=== PATIENT | male | born 1935 | race Caucasian/White ===

== ENCOUNTER 2019-10-03 18:26 | Emergency (ER) | payer MEDICARE, SELFPAY ==
[2019-10-03] VITALS (8 sets, daily range): BP systolic 177–203; BP diastolic 95–124; PULSE 53–92; RESP 14–16; TEMP 36.6; O2SAT 96–100; BMI 26.7
--- NOTE | 2019-10-03 18:27 | CT_ITS ---
We are attempting to reach an attending provider to discuss findings. An addendum with communication details will be sent when the communication is complete. STUDY: CT BRAIN WITHOUT CONTRAST REASON FOR EXAM: Male, 84 years old. unresponsive/pinpoint pupils RADIATION DOSAGE (If Supplied By Facility): CTDIvol = ( 44.99 ) mGy, DLP = ( 812.98 ) mGycm TECHNIQUE: Transaxial CT imaging of the brain was performed without administration of intravenous contrast material. Individualized dose optimization techniques were used for this CT. COMPARISON: No relevant priors. FINDINGS: Normal soft tissue structures. Normal calvarium. There is moderate cerebral atrophy with widening of the extra-axial spaces and ventricular dilatation. There are areas of decreased attenuation within the white matter tracts of the supratentorial brain, consistent with microvascular disease changes. Normal basal ganglia and thalami. Normal brainstem. Intraparenchymal hemorrhage is noted within the left cerebellar hemisphere and vermis. It measures 3 x 1.9 cm in transverse dimensions. There are no findings of an acute ischemic infarction. Normal visualized paranasal sinuses. CT/Brain/Head without Contrast IMPRESSION: Left intraparenchymal cerebellar hemorrhage. Electronically Signed: Amadou Walker MD at 19:45 EDT , Service support ,
--- NOTE | 2019-10-03 18:28 | EKG12_ITS ---
Test Reason : UNRESPONSIVE Blood Pressure : / mmHG Vent. Rate : 072 BPM Atrial Rate : 072 BPM P-R Int : 182 ms QRS Dur : 092 ms QT Int : 418 ms P-R-T Axes : 060 008 031 degrees QTc Int : 457 ms Poor data quality, interpretation may be adversely affected Normal sinus rhythm Normal ECG Confirmed by DOMINGUEZ HASTINGS, ALFONZO ([id number]), editor trade journal GELY HOLLIDAY ([id number]) on 10/05/2019 3:01:55 PM Referred By: MARIELA Confirmed By:ALFONZO MIX MD
[2019-10-03] MEDS: Etomidate 20 MG/10 ML Vial IV (18:40)
--- NOTE | 2019-10-03 18:43 | ED.VIS.GEN ---
History of Present Illness Chief Complaint: Unresponsive Informant: Friend, Orthotics Technician Onset: Hours Context: Sudden Onset Timing: Continuous Quality: Altered level of consciousness Location: Neighbors home watching movies Current Severity: Severe Maximum Severity: Severe Worsened by: Unknown Relieved by: Nothing Associated Symptoms: Unknown Narrative: Patient is an elderly male who was watching movies at a friend's house. Friend informed paramedics they do not know much about him. Upon arrival he grunts to noxious stimuli. His pupils are pinpoint and he has disconjugate gaze. Paramedics stated that he began to vomit and vomited in route. They are concerned he has a GI bleed. No other history is available. Spoke with his brother. Brother states he has not seen a physician in some time. He is uncertain whether he is taking any medicine. He states he does not smoke or drink. Prior similar symptoms: No Recent Illness/Hospitalization: No - Past Medical History (1) Unknown past medical history Status: Acute Past Medical History - Allergies and Home Meds Allergies/Adverse Reactions: Allergies Unable to Assess Allergy (Verified 10/03/19 18:43) Primary Care Physician: NOT,DEFINED [Primary Care Provider] - Prior records reviewed: No Lives: Alone Smoking Status: Never smoker Alcohol: None Drugs: None Review of Systems ROS: Unable to Obtain Physical Exam Vital Signs/Narrative: Vital Signs Temp Pulse Resp BP Pulse Ox 10/03/19 18:40 62 14 177/110 H 96 10/03/19 18:28 97.8 F 53 L 14 96 Inital Vital Signs reviewed: Yes General: Well nourished, Well developed, Unkempt Head: Normocephalic, Atraumatic. Negative for: Trauma, Tenderness Eyes: - - Pulses are 1 to 2 mm in size nonreactive. He has disconjugate gaze. ENT: Moist mucous membranes, No rhinorrhea, TM's clear Neck: Supple, Nontender, No lymphadenopathy, No JVD Cardiovascular: Regular rhythm, No murmurs, Normal S1, Normal S2, Bradycardia Respiratory: No distress, CTA bilaterally, Chest nontender Abdomen: Soft, Nondistended, Normal bowel sounds Rectal: Deferred Back: Normal Inspection Extremities: No edema Skin: Normal color, - - Dry skin and venous dermatitis lower extremity bilaterally Neurological: Cranial nerves II-XII grossly intact. Negative for: Alert, Oriented x3, Normal Gait Diagnostic/Tx/Re-eval Chest X-Ray - ED: 1 View, Read by ED Physician, - - New chest x-ray reveals endotracheal tube to be approximately 1 cm above the coy. There is an infiltrate in the right middle lobe consistent with aspiration. OG is in proper position. CT was reviewed by me and reveals a cerebellar bleed with compression of the fourth ventricle. Spoke with brother. Patient be transferred to [facility]. [place] was asked to call the auto launch line. - EKG Initial EKG Interpretation: Sinus Rhythm - Sinus rhythm with a ventricular rate of 72. VA interval is 182 ms. QRS duration 92 ms. QT duration 418 ms. [place] is normal. The EKG is normal. - Medical Decision Making Arrives with elevated blood pressure, pinpoint pupils, disconjugate gaze concern for intracranial hemorrhage. Patient is actively vomiting and has coffee-ground noted. Since we were told by paramedics there is no family presumed patient would want everything done. Patient was prepped for oral tracheal the patient to protect his airway since his GCS is 4 and to facilitate testing that is needed. Because patient is vomiting coffee grounds NG was placed for irrigation. He was typed and screened and Protonix was ordered. Spoke with the transfer nurse for [facility] auto launch. She will get a critical care physician and neurosurgeon for me and helicopter has been dispatched. Time of conversation 1932. Blood pressure is elevated. Will start Cardene drip. After discussion with accepting neurosurgeon at [facility] facility, 50 mg of mannitol was ordered per his request. Was made aware of patient's history physical and findings. I was informed helicopter will arrived within 2024 minutes. - Critical Care Time Critical care time (excluding procedures): 30-74 minutes - Critical care time 42 minutes, Discussing w/Patient &/or Family/Checker Cashier - 40 the brother who is his only next of kin he does not have a living will or DURABLE POWER OF BRUSH WORKER. The only request he has is that he would not want to live on a ventilator or have a feeding tube permanently. He was informed unable to determine how good of outcome he will or will not have. He was informed that his best option is to transfer to a facility that can operate on him and care for him., Discussing w/Consultants, Arranging Admission or Transfer, Performing Direct Patient Care at Bedside Procedures Procedure(s): Patient was intubated by RSI technique. He was preoxygenated. He received 20 mg of etomidate followed by 75 mg of rocuronium. He was easily orotracheally intubated using glide scope. A 7.5 Burmese endotracheal tube was placed. OG was placed per nursing staff and Holland was placed per nursing staff ED Disposition - Plan for ED Patient: Disposition: [facility] - Main Diagnosis: Intracranial hemorrhage, Hypertensive emergency, Upper GI hemorrhage, Aspiration pneumonia due to gastric secretions Referrals: NOT,DEFINED [Primary Care Provider] -
[2019-10-03] MEDS: Rocuronium Bromide 50 MG/5 ML Vial 75 MG IV (18:49)
[2019-10-03] MEDS: Propofol 10MG/Ml 1,000 MG/100 ML Bottle 4.8 MG CONT INF (19:00)
--- NOTE | 2019-10-03 19:00 | ED.RN ---
[facility] [phone]
[2019-10-03 19:06] LABS: Absolute Lymphocyte Count 3.45 X10^3/uL (0.83-4.51); Absolute Neutrophil Count 7.3 X10^3/uL (2.0-7.7); Basophil# 0.03 X10^3/uL; Basophil% 0.3 % (0-1); Eosinophils% 1.7 % (0-5); Hematocrit 41.4 % (40-54); Hemoglobin 13.8 g/dL (13.0-16.5); Lymphocyte # 3.45 X10^3/ul (4.0); Lymphocyte % 29.5 % (19-41); Mean Corp Hgb Conc 33.3 g/dL (32-36); Mean Corpuscular Hgb 32.1 pg (27.0-32.0); Mean Corpuscular Volume 96.3 fL (80-94); Mean Platelet Vol. 9.4 fl (6.2-12.0); Monocyte# 0.72 X10^3/uL; Monocyte% 6.1 % (0-10); NRBC Flagged by Analyzer 0 % (0-5); Neutrophil # 7.27 X10^3/uL (2.7-7.7); Neutrophil % 62.1 % (47-70); Platelet Count 300 K/mm3 (150-450); RBC Distribution Width CV 13.7 % (11.6-14.6); RBC Distribution Width SD 48.6 fl (35.1-43.9); White Blood Count 11.7 K/mm3 (4.4-11.0)
[2019-10-03 19:12] LABS: International Normalized Ratio 1.2; Prothrombin Time (Protime)PT. 14.7 SECONDS (11.7-14.9)
[2019-10-03 19:13] LABS: Partial Thromboplast Time 28.6 Seconds (24.1-36.2)
--- NOTE | 2019-10-03 19:15 | RAD_ITS ---
STUDY: X-RAY CHEST REASON FOR EXAM: Male, 84 years old. ETT PLACEMENT, OG TUBE PLACEMENT TECHNIQUE: Single frontal view of the chest. COMPARISON: None. FINDINGS: ET tube terminates 17 mm above the coy. Enteric tube is noted in the stomach. Right lower lobe infiltrate. There is no demonstrated pleural abnormality. Normal size heart. Normal mediastinum and darwin. Normal visualized pulmonary arteries. Normal visualized aortic arch and descending thoracic aorta. Normal visualized thoracic spine. Normal visualized ribs, clavicles, and shoulders. There is no demonstrated abnormality of the visualized soft tissue structures of the upper abdomen. RAD/Chest 1 View (Portable) IMPRESSION: Right lower lobe infiltrate and ET and enteric tubes as above. Electronically Signed: Amadou Walker MD at 19:43 EDT , Service support ,
[2019-10-03 19:20] LABS: ALB/GLOB Ratio 0.6 RATIO (0.9-2.4); AST(SGOT) 21 U/L (15-37); Alanine Aminotransfer ALT/SGPT 22 U/L (16-61); Albumin, Serum 3.1 g/dL (3.2-5.0); Alkaline Phosphatase 97 U/L (45-117); Anion Gap 9 (5-15); BUN 15 mg/dL (7-18); BUN/Creat Ratio 10.9 RATIO (10-20); Calcium,Total 8.5 mg/dL (8.5-10.1); Chloride 107 mmol/L (98-107); Creatinine, Serum 1.38 mg/dL (0.70-1.30); EST Glomerular Filtration Rate 52 mL/min (>60); Est Glom Filt Rate - Afr Amer 63 mL/min (>60); Estimated Creatinine Clearance 39.93 ml/min; Glucose 173 mg/dL (74-106); Potassium 3.8 mmol/L (3.5-5.1); Protein, Total 8.1 g/dL (6.4-8.2); Sodium Level 142 mmol/L (136-145)
[2019-10-03] MEDS: Mannitol 50gm/250ml 50 GM in Premixed Bag 1 BAG IV (19:51)
[2019-10-03] MEDS: Propofol 200 MG/20 ML Vial 40 MG IV BOLUS (20:02)
[2019-10-03 20:03] LABS: Alcohol, Blood (Medical)-Serum < 3.0 mg/dL
== END 2019-10-03 20:17 | disposition short-term general hospital (02) ==
PROVIDERS: Emergency Provider Emergency Medicine
DX: I61.4 Nontraumatic intracerebral hemorrhage in cerebellum (principal); I16.1 Hypertensive emergency; K92.0 Hematemesis; J69.0 Pneumonitis due to inhalation of food and vomit
CPT/HCPCS: 31500; 51702; 70450; 71045; 80053; 80320; 84484; 85025; 85610; 85730; 86850; 86900; 86901; 87040; 93005; 94002; 99251; 99285; J7030; J7050; A4216; G0463; G0480; J0295; J3490

== ENCOUNTER 2020-11-09 12:51 | Inpatient (IN) | payer MEDICARE, SELFPAY ==
[2019-10-03 18:28] VITALS: BMI 26.7
[2020-11-09] VITALS (27 sets, daily range): BP systolic 72–136; BP diastolic 47–95; PULSE 70–178; RESP 12–30; TEMP 36.3–39.6; O2SAT 90–100; BMI 23.6; BMI 24.3
--- NOTE | 2020-11-09 13:26 | EKG12_ITS ---
Test Reason : Blood Pressure : / mmHG Vent. Rate : 181 BPM Atrial Rate : 208 BPM P-R Int : 000 ms QRS Dur : 082 ms QT Int : 238 ms P-R-T Axes : 000 034 -26 degrees QTc Int : 413 ms Atrial fibrillation with rapid ventricular response with premature ventricular or aberrantly conducte d complexes Nonspecific ST and T wave abnormality Abnormal ECG Confirmed by HAO HASTINGS, SYD ([id number]), digital editor CHRISTO WYNN ([id number]) on 11/11/2020 10:44:24 A M Referred By: HALEY Confirmed By:BRY BUI MD
--- NOTE | 2020-11-09 13:26 | CT_ITS ---
HISTORY: Weakness. TECHNIQUE: Multiple axial images were obtained of the brain without intravenous contrast. A radiation dose optimization technique was used for this scan. # of images incl. paperwork: 259. COMPARISON: 10/03/2019. FINDINGS: Motion artifact lowers the sensitivity of the examination. BRAIN PARENCHYMA:Multiple small foci and zones of low attenuation in the cerebral white matter most compatible with chronic small vessel ischemic gliosis. INTRACRANIAL HEMORRHAGE: No acute intracranial hemorrhage. CSF SPACES/MASS EFFECT: Diffuse atrophy with compensatory ventricular enlargement. No midline shift or other significant mass effect. ORBITS: Unremarkable. CALVARIUM: Intact. PARANASAL SINUSES AND MASTOID AIR CELLS: Fluid in the left maxillary sinus. ASPECTS Score for Acute Strokes: 10. CT/Brain/Head without Contrast IMPRESSION: No acute intracranial process identified. Chronic small vessel ischemic gliosis. Individualized dose optimization techniques were used for this CT. at 1612 Reported and signed by: Zena Hunter MD Electronically Signed: Zena Hunter MD at 16:11 EDT Tel , Service support ,
--- NOTE | 2020-11-09 13:58 | EX.ED.DYSGE1 ---
HPI History of Present Illness Chief Complaint: Abd Pain Informant: patient Onset/Context/Timing Onset: Days (2) Context: Sudden Onset Timing: Continuous Quality: Aching Location: Diffuse Worsened by: Nothing Relieved by: Nothing Narrative Narrative: Patient presents with abdominal pain that has been getting worse over the past 2 days. Family states patient has been getting weaker and has been unable to stand on his own over the past couple days. Patient states his pain is diffuse and aching. Patient states his pain has been constant. Patient denies any nausea or vomiting. Patient denies any diarrhea. Patient denies any melena or hematochezia. Patient admits to some dysuria but denies any hematuria or frequency. Patient admits to subjective fevers at home. [facility] Medical History (Updated 11/09/20 @ 17:28 by Mackenzie Presley) Hemorrhagic stroke Hypertension Home Medications Unobtainable 10/03/19 [History Last Taken Unknown] Allergy/AdvReac Type Severity Reaction Status Date / Time Unable to Assess Allergy Verified 11/09/20 12:53 no surgical history Social History Smoking Status: Never smoker ROS ROS ED Constitutional Constitutional ED: Reports fever(s) and subjective; Denies chills Eyes Eyes: Denies blurry vision or change in vision ENT ENT ED: Denies rhinorrhea or sore throat Cardiovascular Cardiovascular: Denies chest pain or palpitations Respiratory/Chest Respiratory/Chest: Denies cough or dyspnea Gastrointestinal Gastrointestinal: Denies nausea or vomiting Genitourinary Genitourinary ED: Denies dysuria or hematuria Musculoskeletal Musculoskeletal: Denies back pain or neck pain Integumentary Denies abscess or rash Neurologic Neurologic: Denies headache(s) or weakness Allergic/Immunologic Allergic/Immunologic ED: Denies mouth swelling or urticaria EXAM Physical Exam Const Vital Signs: 11/09/20 12:51 11/09/20 14:42 11/09/20 14:45 Temperature 97.3 F L 103.1 F H 103.1 F H Temperature Source Temporal Oral Oral Pulse Rate 70 170 H 178 H Respiratory Rate 16 25 H 24 H Respiratory Pattern Blood Pressure 128/84 H 125/95 H 125/95 H Blood Pressure Mean 98 105 105 Blood Pressure Source Blood Pressure Position Blood Pressure Location Pulse Ox 92 91 91 Oxygen Delivery Method Room Air Room Air Room Air Oxygen Flow Rate (L/min) Fraction of Inspired Oxygen (FIO2) 11/09/20 14:46 11/09/20 14:58 11/09/20 15:01 Temperature 103.1 F H 103.1 F H 103.1 F H Temperature Source Oral Oral Oral Pulse Rate 167 H 91 94 Respiratory Rate 24 H 22 H 28 H Respiratory Pattern Blood Pressure 125/95 H 117/79 117/79 Blood Pressure Mean 105 91 91 Blood Pressure Source Blood Pressure Position Blood Pressure Location Pulse Ox 91 90 92 Oxygen Delivery Method Room Air Nasal Cannula Nasal Cannula Oxygen Flow Rate (L/min) 2 2 Fraction of Inspired Oxygen (FIO2) 11/09/20 16:15 11/09/20 16:39 11/09/20 16:54 Temperature 100.1 F H 100.1 F H Temperature Source Temporal Temporal Pulse Rate 130 H 125 H 126 H Respiratory Rate 30 H 26 H 22 H Respiratory Pattern Tachypnea Blood Pressure 136/91 H 115/74 Blood Pressure Mean 106 87 Blood Pressure Source Monitor Blood Pressure Position Supine Blood Pressure Location Right Arm Pulse Ox 98 99 99 Oxygen Delivery Method Bi-pap Bi-pap Oxygen Flow Rate (L/min) Fraction of Inspired Oxygen (FIO2) 50 50 Positive unkempt General Appearance ED: unkempt and NAD HEENT Reports dry mucous membranes Mouth ED: Yes dry mucous membranes Mouth: dry mucous membranes Eyes PERRL and EOMs intact bilaterally Neck supple and no JVD Resp normal respiratory effort and clear to auscultation bilaterally Cardio Rate: tachycardic Rhythm: abnormal rhythm irregularly irregular GI normal to inspection, nondistended, normoactive bowel sounds and non-tender Palpation: soft Neuro CN's II-XII intact bilaterally and no sensory deficits noted Sensorium / Orientation: alert Motor Exam: strength 5/5 throughout Psych mental status grossly normal Appearance: unkempt MDM MDM MDM Narrative Medical decision making narrative: Patient was given IV fluids. Patient was given a Cardizem bolus. Patient's heart rate improved after this. Patient temperature was rechecked and was 103. Patient was given rectal Tylenol. Patient was started on Zosyn and vancomycin. CBC was within normal limits. PT with INR and PTT were essentially normal. Comprehensive metabolic profile showed an elevated BUN of 25 and creatinine of 2.63. These were increased from previous results. Troponin was elevated at 0.371. Lactate was elevated at 3.7. CT scan of the brain was obtained. There is no acute intracranial abnormality. There are chronic changes. This was interpreted by the radiologist and reviewed by myself. After getting 2 L of fluids, patient started having some wheezing and became hypoxic. Patient was placed on BiPAP at that time. Patient is doing better on BiPAP. Patient heart rate increased into the 140s again. Patient was started on a Cardizem drip at that time. Case was discussed with Dr. Archer from ICU. He is agreeable with admitting the patient to ICU. Case was discussed with the hospitalist. He recommended placing a Holland and obtaining a urinalysis. This was ordered. He will admit the patient to ICU to his service. Family understands and is agreeable with the plan. All questions were answered. Lab Data Attestation: I reviewed the patient's lab results. Labs: Laboratory Results - last 24 hr 11/09/20 11/09/20 11/09/20 13:50 13:50 13:50 WBC 6.6 RBC 4.13 L Hgb 13.1 Hct 40.0 MCV 96.9 H MCH 31.7 MCHC 32.8 RDW Std Deviation 52.6 H RDW Coeff of Navneet 14.6 Plt Count 211 MPV 9.4 Immature Gran % (Auto) 0.300 Neut % (Auto) 89.5 H Lymph % (Auto) 8.4 L Lee % (Auto) 1.5 Eos % (Auto) 0.0 Baso % (Auto) 0.3 Absolute Neuts (auto) 5.9 Absolute Lymphs (auto) 0.55 L Nucleated RBC % 0 PT 17.7 H INR 1.5 APTT 30.1 Sodium 140 Potassium 3.5 Chloride 107 Carbon Dioxide 23.0 Anion Gap 10 BUN 25 H Creatinine 2.63 H Estim Creat Clear Calc 0.00 Est GFR (MDRD) Af Amer 30 L Est GFR (MDRD) Non-Af 25 L BUN/Creatinine Ratio 9.5 L Glucose 115 H Lactic Acid Calcium 8.8 Total Bilirubin 1.00 AST 15 ALT 12 L Alkaline Phosphatase 104 Troponin I 0.371 H Total Protein 8.7 H Albumin 2.5 L Globulin 6.2 H Albumin/Globulin Ratio 0.4 L 11/09/20 13:50 WBC RBC Hgb Hct MCV MCH MCHC RDW Std Deviation RDW Coeff of Navneet Plt Count MPV Immature Gran % (Auto) Neut % (Auto) Lymph % (Auto) Lee % (Auto) Eos % (Auto) Baso % (Auto) Absolute Neuts (auto) Absolute Lymphs (auto) Nucleated RBC % PT INR APTT Sodium Potassium Chloride Carbon Dioxide Anion Gap BUN Creatinine Estim Creat Clear Calc Est GFR (MDRD) Af Amer Est GFR (MDRD) Non-Af BUN/Creatinine Ratio Glucose Lactic Acid 3.7 H* Calcium Total Bilirubin AST ALT Alkaline Phosphatase Troponin I Total Protein Albumin Globulin Albumin/Globulin Ratio Radiography Chest X-Ray - ED: 1 View, Read by ED Physician, Read by Radiologist, Right Infiltrate and Left Infiltrate Diagnostic Testing: Radiology Impression Brain CT 11/09/20 13:26 IMPRESSION: No acute intracranial process identified. Chronic small vessel ischemic gliosis. Individualized dose optimization techniques were used for this CT. at 1612 Reported and signed by: Zena Hunter MD Electronically Signed: Znea Hunter MD at 16:11 EDT Tel , Service support , Chest X-Ray 11/09/20 16:15 IMPRESSION: Mild bibasilar atelectasis or pneumonia. Consider follow-up to resolution. at 1629 Reported and signed by: Zena Hunter MD Electronically Signed: Zena Hunter MD at 16:28 EDT Tel , Service support , EKG Initial EKG: Attestation: I personally reviewed and interpreted this EKG as follows: Interpretation: Atrial Fibrillation (181) and Non-Specific ST Changes Prior: Changed (The atrial fibrillation is new compared to previous EKG dated 10/03/2019.) Treatment and Re-Evaluation Vital Sign Attestation:: Vital signs reviewed prior to admission. Patient is still tachycardic. Patient is on Cardizem drip for this however. Blood pressure is stable. Critical Care Time Critical Care Time: Yes Critical care time (excluding procedures): 30-74 minutes (39 minutes), Including time spent:, Discussing w/Patient &/or Family/Stogy Maker, Discussing w/Consultants, Arranging Admission or Transfer and Performing Direct Patient Care at Bedside Discharge Plan Dx/Rx/DC Orders Clinical Impression: Severe sepsis, Atrial fibrillation with rapid ventricular response, Acute kidney injury, Elevated troponin, Pneumonia Disposition Disposition: Acute Care Hospital [facility]
[2020-11-09 14:07] LABS: Absolute Lymphocyte Count 0.55 X10^3/uL (0.83-4.51); Absolute Neutrophil Count 5.9 X10^3/uL (2.0-7.7); Basophil# 0.02 X10^3/uL; Basophil% 0.3 % (0-1); Hemoglobin 13.1 g/dL (13.0-16.5); Lymphocyte # 0.55 X10^3/ul (0.83-4.51); Lymphocyte % 8.4 % (19-41); Mean Corp Hgb Conc 32.8 g/dL (32-36); Mean Corpuscular Hgb 31.7 pg (27.0-32.0); Mean Corpuscular Volume 96.9 fL (80-94); Mean Platelet Vol. 9.4 fl (6.2-12.0); Monocyte% 1.5 % (0-10); NRBC Flagged by Analyzer 0 % (0-5); Neutrophil # 5.86 X10^3/uL (2.7-7.7); Neutrophil % 89.5 % (47-70); POSITIVE DIFFERENTIAL YES; POSITIVE MORPHOLOGY YES; Platelet Count 211 K/mm3 (150-450); RBC Distribution Width CV 14.6 % (11.6-14.6); RBC Distribution Width SD 52.6 fl (35.1-43.9); Red Blood Count 4.13 M/mm3 (4.6-6.2); White Blood Count 6.6 K/mm3 (4.4-11.0)
[2020-11-09 14:08] LABS: Differential Indicated SCAN CRITERIA MET
[2020-11-09 14:20] LABS: International Normalized Ratio 1.5; Partial Thromboplast Time 30.1 Seconds (24.1-36.2); Prothrombin Time (Protime)PT. 17.7 SECONDS (11.7-14.9)
[2020-11-09 14:21] LABS: ALB/GLOB Ratio 0.4 RATIO (0.9-2.4); AST(SGOT) 15 U/L (15-37); Alanine Aminotransfer ALT/SGPT 12 U/L (16-61); Albumin, Serum 2.5 g/dL (3.2-5.0); Alkaline Phosphatase 104 U/L (45-117); Anion Gap 10 (5-15); BUN 25 mg/dL (7-18); BUN/Creat Ratio 9.5 RATIO (10-20); Calcium,Total 8.8 mg/dL (8.5-10.1); Chloride 107 mmol/L (98-107); Creatinine, Serum 2.63 mg/dL (0.70-1.30); EST Glomerular Filtration Rate 25 mL/min (>60); Est Glom Filt Rate - Afr Amer 30 mL/min (>60); Globulin 6.2 g/dL (2.2-4.2); Glucose 115 mg/dL (74-106); Potassium 3.5 mmol/L (3.5-5.1); Protein, Total 8.7 g/dL (6.4-8.2); Sodium Level 140 mmol/L (136-145)
[2020-11-09] MEDS: 0.9% Normal Saline 1,000 ML 1000 ML IV (14:28)
[2020-11-09 14:34] LABS: Lactic Acid 3.7 mmol/L (0.4-1.9)
[2020-11-09] MEDS: Acetaminophen 650 MG Suppository RC (14:52)
[2020-11-09] MEDS: dilTIAZem 25 MG/5 ML Vial IV BOLUS (14:52)
[2020-11-09] MEDS: 0.9% Normal Saline 1,000 ML 999 ML IV (15:33)
--- NOTE | 2020-11-09 16:15 | RAD_ITS ---
HISTORY: Fever. TECHNIQUE: XR Chest 1 View. # of images incl. paperwork: 1. COMPARISON: 10/03/2019. FINDINGS: CARDIOMEDIASTINAL STRUCTURES: Cardiac silhouette mildly enlarged. Mediastinal contour unchanged. LUNGS: Mild bibasilar opacities. PLEURA: No pleural effusion or pneumothorax. OSSEOUS STRUCTURES: Degenerative change. RAD/Chest 1 View (Portable) IMPRESSION: Mild bibasilar atelectasis or pneumonia. Consider follow-up to resolution. at 1629 Reported and signed by: Zena Hunter MD Electronically Signed: Zena Hunter MD at 16:28 EDT Tel , Service support ,
[2020-11-09] MEDS: Ipratropium/Albuterol Sulfate 3 ML AMPUL.NEB INHALATION (16:23)
--- NOTE | 2020-11-09 16:30 | ED.RN ---
THIS NURSE ENTERED THE ROOM FOR HELP WITH PT AND XRAY. PT VERY CONFUSED AND AGITATED. PT SPO2 76%. PT PUT ON BIPAP AND AEROSOL ORDERED. IGNACIO RN AWARE .
--- NOTE | 2020-11-09 16:39 | NURSING ---
DR ASHU MCCLOUD
--- NOTE | 2020-11-09 17:09 | NURSING ---
ICU [facility] SEVERE SEPSIS, AFIB W RVR, JOSE
--- NOTE | 2020-11-09 17:15 | NURSING ---
ICU 2
[2020-11-09 17:55] LABS: Reflex Lactate? Y
[2020-11-09 18:20] LABS: Bacteria 0 SEEN /hpf (None Seen); Mucous, Urine 0 SEEN /hpf (<or=2+); Squamous Epithelial Cells - UA 0 SEEN /hpf (0-5)
[2020-11-09 18:21] LABS: Color, Urine Yellow (Yellow); Glucose, Dipstick Normal (Normal); Ketone-Dipstick 5 mg/dl (Negative); Leukocyte Esterase-Dipstick 500 /ul (Negative); Nitrite-Dipstick Negative (Negative); Occult Blood-Urine 150 /ul (Negative); Protein-Dipstick 30 mg/dl (Negative); Urine Bilirubin Dipstick Negative (Negative); Urine Clarity Cloudy (Clear); Urine Urobilinogen Normal (Normal)
[2020-11-09 18:28] LABS: Amorphous Sediment 3+; White Blood Cells 25-50 SEEN /hpf (0-5)
[2020-11-09 18:29] LABS: Red Blood Cells-Urine 0-5 SEEN /hpf (0-5)
--- NOTE | 2020-11-09 18:40 | ED.RN ---
FOR PT UPDATES, PLEASE CALL PT'S [id number] [phone]
--- NOTE | 2020-11-09 19:02 | CPS ---
Patient's BiPAP settings changed to 12/6 and 40% prior to leaving ER. Patient tolerated these changes good. RN aware of changes.
[2020-11-09 19:17] LABS: Lactic Acid 5.6 mmol/L (0.4-1.9)
--- NOTE | 2020-11-09 19:31 | ECHOD_ITS ---
Reason For Study: AFIB Procedure This was a 2D Doppler, Color Flow transthoracic echocardiogram. Exam performed portable in ICU/CCU. Left Ventricle Normal LV size. The estimated ejection fraction is 45 %. Diastolic function is indeterminate. There is mild global hypokinesis of the left ventricle. Right Ventricle Normal RV size. Normal systolic function. Atria The left atrium is moderately enlarged. Normal right atrium. No doppler evidence for ASD. Mitral Valve There is no mitral valve stenosis. Trivial mitral valve insufficiency. Tricuspid Valve There is no tricuspid stenosis. Mild tricuspid valve insufficiency. Pulmonary artery systolic pressure is 40 mmHg. Aortic Valve Trisinus/trileaflet aortic valve. There is no aortic stenosis. Trivial aortic valve insufficiency. Pulmonic Valve There is no pulmonic valvular stenosis. Trivial pulmonic valve insufficiency. Great Vessels Normal aortic root. Pericardium/Pleural No pericardial effusion. MMode/2D Measurements & Calculations LVIDd: 5.1 cm IVSd: 0.77 cm Ao root diam: 3.8 cm LVIDs: 4.5 cm LVPWd: 0.87 cm RVDd: 3.8 cm FS: 12.6 % LAV(MOD-bp): 84.7 ml EDV(MOD-sp4): 99.7 ml EDV(MOD-sp2): 110.7 ml LAV(MOD-bp) Indexed: 42.8 ml/m2 ESV(MOD-sp4): 67.5 ml ESV(MOD-sp2): 78.7 ml LAV(MOD-sp2): 69.0 ml EF(MOD-sp4): 32.3 % EF(MOD-sp2): 29.0 % LAV(MOD-sp4): 80.1 ml SV(MOD-sp4): 32.3 ml SV(MOD-sp2): 32.1 ml LA A4 area: 25.8 cm2 LA dimension(2D): 4.6 cm RA A4 area: 20.6 cm2 Doppler Measurements & Calculations Ao V2 max: 121.4 cm/sec LV V1 max: 64.7 cm/sec PA V2 max: 99.8 cm/sec Ao max P.0 mmHg LV V1 max P.7 mmHg PI end-d nichelle: 149.7 cm/sec TR max nichelle: 311.7 cm/sec TR max P.9 mmHg ECHO/Echo Complete Interpretation Summary The estimated ejection fraction is 45 %. Diastolic function is indeterminate. There is mild global hypokinesis of the left ventricle. The left atrium is moderately enlarged. Ordering Physician: Brijesh Hoffman Performed By: Alyssa Alarcon, LLUVIA, RVT
[2020-11-09] MEDS: 0.9% Normal Saline 1,000 ML 100 ML IV (20:40)
[2020-11-09 21:05] LABS: Base Excess -9 mmol/L (-2 to +2); Bicarbonate 16.1 mmol/L (22-26); Blood Gas Specimen Type ART; FI02 40; O2 Delivery Device BiPAP; PEEP 6; PO2 144 mmHG (75-100); PS 6; RR 12; SITE L Radial; SO2 99 % (95-99); Total Carbon Dioxide 17 mmol/L; pCO2 27.1 mmHg (35-45); pH 7.38 (7.35-7.45)
--- NOTE | 2020-11-09 21:23 | HP.PCM.HOS_ITS ---
HPI - General General Date of Admission: 11/09/20 HPI Narrative MARYELLEN HICKEY, is a 85 M who presents from home unresponsive. Family states that they went to check on him because he was not answering her phone calls and they found him on the floor in the house. He does not respond any questions other than shaking his head and mumbling. On occasion if I asked him he has pain he does clearly say yes but he has pain to everything including his abdomen, back, lower legs, arms as well as chest. So is unclear as to what is actually causing any kind of discomfort. Per family he is noncompliant with any medications, he states that he never wants to get taking care of any is 1 to go to the doctor. Last year he had a stroke and was taken to an outside facility and he refused to follow the guidelines of rehab when he went home. Unfortunately because he does not interact with his family in any significant manner they are unaware of any medications he takes. In the ER there was some complaining of abdominal pain and dysuria however a CT scan of his abdomen was not performed secondary to his elevated creatinine and also he was not following commands appropriately so the images would likely not have been helpful. He also had an elevated troponin though he was not complaining of any specific chest pain as mentioned previously and his creatinine was elevated to 2.63, and was 1.38 about a year ago. [facility] Medical History (Updated 11/09/20 @ 21:[address] Brijesh Hoffman MD) Hemorrhagic stroke Hypertension Home Medications Unobtainable 10/03/19 [History Last Taken Unknown] Allergy/AdvReac Type Severity Reaction Status Date / Time Unable to Assess Allergy Verified 11/09/20 12:53 unable to obtain unable to obtain Social History Smoking Status: Never smoker ROS Review of Systems ROS Unobtainable: due to mental status Vital Signs Vital Signs Vital Signs: 11/09/20 12:51 11/09/20 14:42 11/09/20 14:45 Temperature 97.3 F L 103.1 F H 103.1 F H Temperature Source Temporal Oral Oral Pulse Rate 70 170 H 178 H Respiratory Rate 16 25 H 24 H Respiratory Pattern Blood Pressure 128/84 H 125/95 H 125/95 H Blood Pressure [BP] Blood Pressure Mean 98 105 105 Blood Pressure Mean [BP] Blood Pressure Source Blood Pressure Source [BP] Blood Pressure Position Blood Pressure Position [BP] Blood Pressure Location Blood Pressure Location [BP] Pulse Ox 92 91 91 Oxygen Delivery Method Room Air Room Air Room Air Oxygen Flow Rate (L/min) Fraction of Inspired Oxygen (FIO2) 11/09/20 14:46 11/09/20 14:58 11/09/20 15:01 Temperature 103.1 F H 103.1 F H 103.1 F H Temperature Source Oral Oral Oral Pulse Rate 167 H 91 94 Respiratory Rate 24 H 22 H 28 H Respiratory Pattern Blood Pressure 125/95 H 117/79 117/79 Blood Pressure [BP] Blood Pressure Mean 105 91 91 Blood Pressure Mean [BP] Blood Pressure Source Blood Pressure Source [BP] Blood Pressure Position Blood Pressure Position [BP] Blood Pressure Location Blood Pressure Location [BP] Pulse Ox 91 90 92 Oxygen Delivery Method Room Air Nasal Cannula Nasal Cannula Oxygen Flow Rate (L/min) 2 2 Fraction of Inspired Oxygen (FIO2) 11/09/20 16:15 11/09/20 16:39 11/09/20 16:54 Temperature 100.1 F H 100.1 F H Temperature Source Temporal Temporal Pulse Rate 130 H 125 H 126 H Respiratory Rate 30 H 26 H 22 H Respiratory Pattern Tachypnea Blood Pressure 136/91 H 115/74 Blood Pressure [BP] Blood Pressure Mean 106 87 Blood Pressure Mean [BP] Blood Pressure Source Monitor Blood Pressure Source [BP] Blood Pressure Position Supine Blood Pressure Position [BP] Blood Pressure Location Right Arm Blood Pressure Location [BP] Pulse Ox 98 99 99 Oxygen Delivery Method Bi-pap Bi-pap Oxygen Flow Rate (L/min) Fraction of Inspired Oxygen (FIO2) 50 50 11/09/20 17:46 11/09/20 17:52 11/09/20 17:54 Temperature 98.5 F 98.5 F Temperature Source Temporal Temporal Pulse Rate 127 H 111 H 105 H Respiratory Rate 20 H 22 H 18 Respiratory Pattern Blood Pressure 84/71 L 102/78 102/78 Blood Pressure [BP] Blood Pressure Mean 75 86 86 Blood Pressure Mean [BP] Blood Pressure Source Blood Pressure Source [BP] Blood Pressure Position Blood Pressure Position [BP] Blood Pressure Location Blood Pressure Location [BP] Pulse Ox 98 99 98 Oxygen Delivery Method Room Air Bi-pap Bi-pap Oxygen Flow Rate (L/min) Fraction of Inspired Oxygen (FIO2) 11/09/20 18:21 11/09/20 18:36 11/09/20 18:39 Temperature 101.7 F H Temperature Source Temporal Pulse Rate 124 H 125 H 116 H Respiratory Rate 19 H 22 H Respiratory Pattern Blood Pressure 98/77 Blood Pressure [BP] Blood Pressure Mean 84 Blood Pressure Mean [BP] Blood Pressure Source Blood Pressure Source [BP] Blood Pressure Position Blood Pressure Position [BP] Blood Pressure Location Blood Pressure Location [BP] Pulse Ox 99 98 Oxygen Delivery Method Bi-pap Oxygen Flow Rate (L/min) Fraction of Inspired Oxygen (FIO2) 50 40 11/09/20 19:00 11/09/20 19:53 11/09/20 20:00 Temperature 103.2 F H 103.3 F H Temperature Source Core Core Pulse Rate 117 H 105 H 108 H Respiratory Rate 20 H 20 H Respiratory Pattern Blood Pressure 92/68 Blood Pressure [BP] 90/62 Blood Pressure Mean 76 Blood Pressure Mean [BP] 71 Blood Pressure Source Monitor Blood Pressure Source [BP] Monitor Blood Pressure Position Semi-Fowlers Blood Pressure Position [BP] Semi-Fowlers Blood Pressure Location Right Arm Blood Pressure Location [BP] Right Arm Pulse Ox 98 97 Oxygen Delivery Method Bi-pap Bi-pap Oxygen Flow Rate (L/min) Fraction of Inspired Oxygen (FIO2) 40 40 11/09/20 21:00 Temperature Temperature Source Pulse Rate 98 Respiratory Rate Respiratory Pattern Blood Pressure Blood Pressure [BP] Blood Pressure Mean Blood Pressure Mean [BP] Blood Pressure Source Blood Pressure Source [BP] Blood Pressure Position Blood Pressure Position [BP] Blood Pressure Location Blood Pressure Location [BP] Pulse Ox Oxygen Delivery Method Oxygen Flow Rate (L/min) Fraction of Inspired Oxygen (FIO2) Weight Weight: 169 lb 12.095 oz Body Mass Index (BMI) 24.3 Physical Exam Const alert General Appearance: uncooperative Orientation / Consciousness: confused and disoriented HEENT normocephalic Mouth: dry mucous membranes Eyes PERRL and conjunctivae normal Neck supple and no JVD Resp normal respiratory effort and clear to auscultation bilaterally Auscultation: Negative for crackles, rales, rhonchi or wheezes Cardio regular rhythm, S1 normal heart sound, S2 normal heart sound and no murmurs Rate: tachycardic GI soft to palpation, non-tender and non-distended; Negative for hepatosplenomegaly Extremity no clubbing, cyanosis or edema Skin no rashes or lesions noted Skin Narrative: Very dry and family states that he refused to take care of himself Neuro Sensorium / Orientation: confused Psych Appearance: unkempt Results Lab / Micro Data Result Diagrams: 11/09/20 13:50 11/09/20 13:50 Labs: Laboratory Results - last 24 hr 11/09/20 11/09/20 11/09/20 13:50 13:50 13:50 WBC 6.6 RBC 4.13 L Hgb 13.1 Hct 40.0 MCV 96.9 H MCH 31.7 MCHC 32.8 RDW Std Deviation 52.6 H RDW Coeff of [place] 14.6 Plt Count 211 MPV 9.4 Immature Gran % (Auto) 0.300 Neut % (Auto) 89.5 H Lymph % (Auto) 8.4 L [place] % (Auto) 1.5 Eos % (Auto) 0.0 Baso % (Auto) 0.3 Absolute Neuts (auto) 5.9 Absolute Lymphs (auto) 0.55 L Nucleated RBC % 0 PT 17.7 H INR 1.5 APTT 30.1 Sodium 140 Potassium 3.5 Chloride 107 Carbon Dioxide 23.0 Anion Gap 10 BUN 25 H Creatinine 2.63 H Estim Creat Clear Calc 0.00 Est GFR (MDRD) Af Amer 30 L Est GFR (MDRD) Non-Af 25 L BUN/Creatinine Ratio 9.5 L Glucose 115 H Lactic Acid Calcium 8.8 Total Bilirubin 1.00 AST 15 ALT 12 L Alkaline Phosphatase 104 Troponin I 0.371 H Total Protein 8.7 H Albumin 2.5 L Globulin 6.2 H Albumin/Globulin Ratio 0.4 L Urine Color Urine Clarity Urine pH Ur Specific [place] Urine Protein Urine Glucose (UA) Urine Ketones Urine Occult Blood Urine Nitrite Urine Bilirubin Urine Urobilinogen Ur Leukocyte Esterase Urine RBC Urine WBC Ur Squamous Epith Cells Amorphous Sediment Urine Bacteria Urine Mucus 11/09/20 11/09/20 11/09/20 13:50 18:15 18:17 WBC RBC Hgb Hct MCV MCH MCHC RDW Std Deviation RDW Coeff of [place] Plt Count MPV Immature Gran % (Auto) Neut % (Auto) Lymph % (Auto) [place] % (Auto) Eos % (Auto) Baso % (Auto) Absolute Neuts (auto) Absolute Lymphs (auto) Nucleated RBC % PT INR APTT Sodium Potassium Chloride Carbon Dioxide Anion Gap BUN Creatinine Estim Creat Clear Calc Est GFR (MDRD) Af Amer Est GFR (MDRD) Non-Af BUN/Creatinine Ratio Glucose Lactic Acid 3.7 H* 5.6 H* Calcium Total Bilirubin AST ALT Alkaline Phosphatase Troponin I Total Protein Albumin Globulin Albumin/Globulin Ratio Urine Color Yellow Urine Clarity Cloudy Urine pH 5.0 Ur Specific [place] 1.020 Urine Protein 30 H Urine Glucose (UA) Normal Urine Ketones 5 H Urine Occult Blood 150 H Urine Nitrite Negative Urine Bilirubin Negative Urine Urobilinogen Normal Ur Leukocyte Esterase 500 H Urine RBC 0-5 SEEN Urine WBC 25-50 SEEN Ur Squamous Epith Cells 0 SEEN Amorphous Sediment 3+ Urine Bacteria 0 SEEN Urine Mucus 0 SEEN Micro: Microbiology 11/09/20 13:55 SARS-CoV-2 Antigen (Rapid) - Final Mucosa - Nose ABG Data ABG results: ABG 11/09/20 21:00 Specimen Type ART Sample Site L Radial pH 7.38 Bicarbonate Actual 16.1 L Total CO2 17 Base Excess -9 L O2 Saturation 99 O2 % 40 ABG pCO2 27.1 L ABG pO2 144 H Sammy Test N/A Respiration Rate 12 O2 Delivery Device BiPAP POC PEEP 6 POC Pressure Suppt [address] 11/09/20 13:26 IMPRESSION: No acute intracranial process identified. Chronic small vessel ischemic gliosis. Individualized dose optimization techniques were used for this CT. at 1612 Reported and signed by: Zena Hunter MD Electronically Signed: eZna Hunter MD at 16:11 EDT Tel , Service support , Chest X-Ray 11/09/20 16:15 IMPRESSION: Mild bibasilar atelectasis or pneumonia. Consider follow-up to resolution. at 1629 Reported and signed by: Zena Hunter MD Electronically Signed: Zena Hunter MD at 16:28 EDT Tel , Service support , Assessment & Plan Assessment/Plan (1) Severe sepsis: (2) Pneumonia: QUALIFIERS: Laterality: bilateral Lung location: lower lobe of lung (3) UTI (urinary tract infection): QUALIFIERS: Urinary tract infection type: acute cystitis Hematuria presence: with hematuria Qualified Code(s): N30.01 - Acute cystitis with hematuria (4) Acute kidney injury: (5) Elevated troponin: (6) Atrial fibrillation with rapid ventricular response: PLAN: 1. Severe sepsis secondary to possible pneumonia versus UTI/JOSE on unknown baseline/new onset A. fib with RVR and elevated troponin/acute hypoxic respiratory failure -Unsure as to the source of his sepsis therefore will cover him broadly with vancomycin and Zosyn -Creatinine is too high to obtain a CT scan and he is too agitated at times to be worse that still for imaging therefore will defer CT scan of his abdomen and pelvis -Chest x-ray is read as bilateral atelectasis versus pneumonia and infiltrate, and unfortunately he was given antibiotics before a [place] could be placed in a UA obtained however the UA demonstrated 500 leukocyte esterase with elevated white blood cell count however there was no bacteria. Culture is pending -Blood cultures are also pending -We will continue with IV fluids, he received about 2500 cc so far however after the fluid boluses he became short of breath and hypoxic and was placed on BiPAP. 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 fib though would be cautious with anticoagulation secondary to his hemorrhagic stroke last year -Given his agitation we will give him 1 dose of Haldol 2. Unsure of the rest of his medical history as he does not see physicians and does not take any chronic medications that his family is aware of at this time DVT: Heparin Charges/Coding Visit Charges Inpatient E&M: 08858 Init Hosp L3
[2020-11-09] MEDS: Heparin Injection (Vial) 5,000 UNIT/ML VIAL 5000 UNIT SC (21:37)
[2020-11-10] VITALS (44 sets, daily range): BP systolic 70–133; BP diastolic 55–99; PULSE 66–155; RESP 16–24; TEMP 37.1–38.2; O2SAT 95–100
--- NOTE | 2020-11-10 00:41 | PCM.RX.CS ---
Consult Pharmacy has been consulted to manage selected antiobiotic: Vancomycin Type of Consult: New start Suspected Infection: Sepsis Labs: Sodium 140 mmol/L (136-145) 11/09/20 13:50 Potassium 3.5 mmol/L (3.5-5.1) 11/09/20 13:50 Chloride 107 mmol/L (98-107) 11/09/20 13:50 Carbon Dioxide 23.0 mmol/L (21.0-32.0) 11/09/20 13:50 Anion Gap 10 (5-15) 11/09/20 13:50 BUN 25 mg/dL (7-18) H 11/09/20 13:50 Creatinine 2.63 mg/dL (0.70-1.30) H 11/09/20 13:50 Est GFR (MDRD) Af Amer 30 mL/min (>60) L 11/09/20 13:50 Est GFR (MDRD) Non-Af 25 mL/min (>60) L 11/09/20 13:50 BUN/Creatinine Ratio 9.5 RATIO (10-20) L 11/09/20 13:50 Glucose 115 mg/dL (74-106) H 11/09/20 13:50 Microbiology: Microbiology 11/09/20 15:13 Blood Culture (Wb) - Anticubital Right Blood Culture - Preliminary 11/09/20 13:55 Mucosa - Nose SARS-CoV-2 Antigen (Rapid) - Final Weight used for dosin kg Estimated Creatinine Clearance: 21.97 Goal Trough: 15-20 mcg/mL Pharmacy Plan for Drug Dosing: Pharmacy Service will continue to monitor and adjust dosing as required. Medications Vancomycin HCl 750 mg/ Sodium (Chloride) 265 mls @ 250 mls/hr IV Q24H CANDIS Discontinued Medications Vancomycin HCl 2,000 mg/ (Sodium Chloride) 540 mls @ 250 mls/hr IV X1 ONE Stop: 11/09/20 17:39 Last Admin: 11/09/20 19:15 Dose: Infused Documented by: Follow-Up Labs: Trough Vancomycin Labs to be done on [date and time ordered]: 11/11 @ 1630
[2020-11-10] MEDS: 0.9% Normal Saline 1,000 ML 150 ML IV ×2 (03:35→15:29)
[2020-11-10 04:20] LABS: Anion Gap 13 (5-15); BUN 34 mg/dL (7-18); BUN/Creat Ratio 9.3 RATIO (10-20); Calcium,Total 7.4 mg/dL (8.5-10.1); Chloride 113 mmol/L (98-107); Creatinine, Serum 3.66 mg/dL (0.70-1.30); EST Glomerular Filtration Rate 17 mL/min (>60); Est Glom Filt Rate - Afr Amer 21 mL/min (>60); Estimated Creatinine Clearance 15.79 ml/min; Glucose 89 mg/dL (74-106); Potassium 4.1 mmol/L (3.5-5.1); Sodium Level 144 mmol/L (136-145)
[2020-11-10 04:39] LABS: Absolute Lymphocyte Count 1.55 X10^3/uL (0.83-4.51); Absolute Neutrophil Count 13.9 X10^3/uL (2.0-7.7); Basophil# 0.07 X10^3/uL; Basophil% 0.4 % (0-1); Eosinophil# 0.44 X10^3/uL; Eosinophils% 2.7 % (0-5); Hematocrit 36.7 % (40-54); Hemoglobin 11.7 g/dL (13.0-16.5); Lymphocyte # 1.55 X10^3/ul (0.83-4.51); Lymphocyte % 9.5 % (19-41); Mean Corp Hgb Conc 31.9 g/dL (32-36); Mean Corpuscular Hgb 31.3 pg (27.0-32.0); Mean Corpuscular Volume 98.1 fL (80-94); Mean Platelet Vol. 10.1 fl (6.2-12.0); Monocyte# 0.24 X10^3/uL; Monocyte% 1.5 % (0-10); NRBC Flagged by Analyzer 0 % (0-5); Neutrophil # 13.89 X10^3/uL (2.7-7.7); Neutrophil % 84.8 % (47-70); POSITIVE MORPHOLOGY YES; Platelet Count 178 K/mm3 (150-450); RBC Distribution Width CV 15.1 % (11.6-14.6); RBC Distribution Width SD 55.1 fl (35.1-43.9); Red Blood Count 3.74 M/mm3 (4.6-6.2); White Blood Count 16.4 K/mm3 (4.4-11.0)
[2020-11-10 04:40] LABS: Differential Indicated SCAN CRITERIA MET
[2020-11-10] MEDS: Heparin Injection (Vial) 5,000 UNIT/ML VIAL 5000 UNIT SC ×3 (05:26→22:49)
--- NOTE | 2020-11-10 06:36 | EX.PCM.CONCC ---
Assessment & Plan Assessment/Plan (1) Gram negative septic shock: PLAN: RECOMMENDATIONS: 1. Continue empiric antimicrobials, pending infectious work-up. 2. Wean Levophed to maintain a mean arterial pressure at or above 65 mmHg. 3. Start amiodarone, if atrial fibrillation with RVR persists. 4. Continue appropriate ICU prophylaxis. 5. Consider nephrology consultation. IMPRESSIONS: 1. Gram-negative septic shock Presumed urinary tract source of infection with secondary hematogenous spread. The patient was volume resuscitated but did eventually require vasopressor support. Plan to wean Levophed to maintain a mean arterial pressure at or above 65 mmHg. Continue empiric antimicrobials, pending finalized infectious work-up. 2. Acute kidney injury Likely prerenal in etiology with a component of ischemic ATN related to #1. Plan to continue current supportive measures. Continue to monitor urine output. If no improvement in the next 24 hours, will obtain nephrology consultation. 3. Troponin elevation Likely secondary to demand ischemia in the setting of #1. Echocardiogram is pending. 4. Atrial fibrillation with RVR The patient was initially placed on Cardizem, which was discontinued this morning. If the patient's heart rate remains elevated, will bolus amiodarone and start him on a drip. TIME: 37 minutes of critical care time, independent of procedures, was spent addressing the patient's gram-negative septic shock, acute kidney injury, troponin elevation, atrial fibrillation with RVR, review of all data and collaboration with the care team. ([id number]) HPI Consult Data Date of Consult: 11/11/20 HPI Narrative Reason for Consultation: Gram-negative septic shock HPI Narrative: The patient is an 85-year-old male, with a history as outlined below, who presented to the emergency department on November 09 with generalized malaise, weakness, subjective fevers, abdominal pain and dysuria. On presentation to the emergency department, the patient was noted to be febrile, tachycardic and tachypneic. Laboratory evaluation revealed an elevated white blood cell count to 16,000. Coagulation profile revealed an INR of 1.5. Chemistry profile was notable for a creatinine of 2.63, previously 1.38 in September 2019. Lactate was elevated at 3.7. Troponin was increased to 0.371. Urine analysis was negative for nitrites but positive for leukocyte esterase. CT head demonstrated no acute intracranial process. Plain film chest x-ray revealed findings concerning for bibasilar atelectasis. Rapid coronavirus antigen testing was negative. Preliminary blood cultures are positive for gram-negative rods. Given that the patient was noted to be in atrial fibrillation with a rapid ventricular rate, he was placed on Cardizem. The patient received supplemental IV fluid hydration and was started on broad-spectrum antimicrobials. The patient was subsequently admitted to the medical intensive care unit for further management. Overnight, the patient remained hemodynamically unstable, requiring the initiation of vasopressor support. The patient is currently documented to be overall net +4.1 L for the hospital admission. [facility] Medical History (Updated 11/10/20 @ 06:[address] Damian Acrher, DO) Hemorrhagic stroke Hypertension Home Medications Unobtainable 10/03/19 [History Last Taken Unknown] Allergy/AdvReac Type Severity Reaction Status Date / Time Unable to Assess Allergy Verified 11/09/20 12:53 Social History Smoking Status: Never smoker ROS Constitutional Constitutional: Reports malaise and weakness Eyes Eyes: Denies blurry vision or change in vision ENT HEENT: Denies dizziness, dysphagia, epistaxis or headache(s) Cardiovascular Cardiovascular: Denies chest pain, dizziness or dyspnea Respiratory/Chest Respiratory/Chest: Denies cough or dyspnea Gastrointestinal Gastrointestinal: Reports abdominal pain and diarrhea; Denies nausea or vomiting Genitourinary Genitourinary: Reports dysuria Musculoskeletal Musculoskeletal: Denies arthralgias or back pain Integumentary Integumentary: Denies lesions Neurologic Neurologic: Denies abnormal gait or abnormal speech Psychiatric Psychiatric: Denies anxiety Endocrine Endocrinology: Reports fatigue Hematologic/Lymphatic Hematologic/Lymphatic: Denies easy bleeding or easy bruising Physical Exam Const alert and no apparent distress Constitutional Narrative: Hard of hearing General Appearance: cooperative HEENT normocephalic and head/scalp atraumatic Eyes PERRL, EOMs intact bilaterally and conjunctivae normal Neck supple General: trachea midline Resp normal respiratory effort Auscultation: Negative for rales, rhonchi or wheezes Cardio S1 normal heart sound and S2 normal heart sound Rate: tachycardic GI normal to inspection, nondistended, normoactive bowel sounds Extremity no clubbing, cyanosis or edema Skin no rashes or lesions noted Neuro CN's II-XII intact bilaterally, moves all extremities and no focal motor deficits Psych Mood & Affect: flat affect Lab / Micro Data Result Diagrams: 11/10/20 03:30 11/10/20 03:30 Labs: Laboratory Results - last 24 hr 11/09/20 11/09/20 11/09/20 13:50 13:50 13:50 WBC 6.6 RBC 4.13 L Hgb 13.1 Hct 40.0 MCV 96.9 H MCH 31.7 MCHC 32.8 RDW Std Deviation 52.6 H RDW Coeff of [place] 14.6 Plt Count 211 MPV 9.4 Immature Gran % (Auto) 0.300 Neut % (Auto) 89.5 H Lymph % (Auto) 8.4 L [place] % (Auto) 1.5 Eos % (Auto) 0.0 Baso % (Auto) 0.3 Absolute Neuts (auto) 5.9 Absolute Lymphs (auto) 0.55 L Nucleated RBC % 0 PT 17.7 H INR 1.5 APTT 30.1 Sodium 140 Potassium 3.5 Chloride 107 Carbon Dioxide 23.0 Anion Gap 10 BUN 25 H Creatinine 2.63 H Estim Creat Clear Calc 0.00 Est GFR (MDRD) Af Amer 30 L Est GFR (MDRD) Non-Af 25 L BUN/Creatinine Ratio 9.5 L Glucose 115 H Lactic Acid Calcium 8.8 Total Bilirubin 1.00 AST 15 ALT 12 L Alkaline Phosphatase 104 Troponin I 0.371 H Total Protein 8.7 H Albumin 2.5 L Globulin 6.2 H Albumin/Globulin Ratio 0.4 L Urine Color Urine Clarity Urine pH Ur Specific [place] Urine Protein Urine Glucose (UA) Urine Ketones Urine Occult Blood Urine Nitrite Urine Bilirubin Urine Urobilinogen Ur Leukocyte Esterase Urine RBC Urine WBC Ur Squamous Epith Cells Amorphous Sediment Urine Bacteria Urine Mucus 11/09/20 11/09/20 11/09/20 13:50 18:15 18:17 WBC RBC Hgb Hct MCV MCH MCHC RDW Std Deviation RDW Coeff of [place] Plt Count MPV Immature Gran % (Auto) Neut % (Auto) Lymph % (Auto) [place] % (Auto) Eos % (Auto) Baso % (Auto) Absolute Neuts (auto) Absolute Lymphs (auto) Nucleated RBC % PT INR APTT Sodium Potassium Chloride Carbon Dioxide Anion Gap BUN Creatinine Estim Creat Clear Calc Est GFR (MDRD) Af Amer Est GFR (MDRD) Non-Af BUN/Creatinine Ratio Glucose Lactic Acid 3.7 H* 5.6 H* Calcium Total Bilirubin AST ALT Alkaline Phosphatase Troponin I Total Protein Albumin Globulin Albumin/Globulin Ratio Urine Color Yellow Urine Clarity Cloudy Urine pH 5.0 Ur Specific [place] 1.020 Urine Protein 30 H Urine Glucose (UA) Normal Urine Ketones 5 H Urine Occult Blood 150 H Urine Nitrite Negative Urine Bilirubin Negative Urine Urobilinogen Normal Ur Leukocyte Esterase 500 H Urine RBC 0-5 SEEN Urine WBC 25-50 SEEN Ur Squamous Epith Cells 0 SEEN Amorphous Sediment 3+ Urine Bacteria 0 SEEN Urine Mucus 0 SEEN 11/09/20 11/10/20 11/10/20 21:36 00:32 03:30 WBC 16.4 H RBC 3.74 L Hgb 11.7 L Hct 36.7 L MCV 98.1 H MCH 31.3 MCHC 31.9 L RDW Std Deviation 55.1 H RDW Coeff of [place] 15.1 H Plt Count 178 MPV 10.1 Immature Gran % (Auto) 1.100 H Neut % (Auto) 84.8 H Lymph % (Auto) 9.5 L [place] % (Auto) 1.5 Eos % (Auto) 2.7 Baso % (Auto) 0.4 Absolute Neuts (auto) 13.9 H Absolute Lymphs (auto) 1.55 Nucleated RBC % 0 PT INR APTT Sodium Potassium Chloride Carbon Dioxide Anion Gap BUN Creatinine Estim Creat Clear Calc Est GFR (MDRD) Af Amer Est GFR (MDRD) Non-Af BUN/Creatinine Ratio Glucose Lactic Acid Calcium Total Bilirubin AST ALT Alkaline Phosphatase Troponin I 0.654 H* 0.712 H* Total Protein Albumin Globulin Albumin/Globulin Ratio Urine Color Urine Clarity Urine pH Ur Specific [place] Urine Protein Urine Glucose (UA) Urine Ketones Urine Occult Blood Urine Nitrite Urine Bilirubin Urine Urobilinogen Ur Leukocyte Esterase Urine RBC Urine WBC Ur Squamous Epith Cells Amorphous Sediment Urine Bacteria Urine Mucus 11/10/20 11/10/20 03:30 03:30 WBC RBC Hgb Hct MCV MCH MCHC RDW Std Deviation RDW Coeff of [place] Plt Count MPV Immature Gran % (Auto) Neut % (Auto) Lymph % (Auto) [place] % (Auto) Eos % (Auto) Baso % (Auto) Absolute Neuts (auto) Absolute Lymphs (auto) Nucleated RBC % PT INR APTT Sodium 144 Potassium 4.1 Chloride 113 H Carbon Dioxide 18.0 L Anion Gap 13 BUN 34 H Creatinine 3.66 H Estim Creat Clear Calc 15.79 Est GFR (MDRD) Af Amer 21 L Est GFR (MDRD) Non-Af 17 L BUN/Creatinine Ratio 9.3 L Glucose 89 Lactic Acid Calcium 7.4 L Total Bilirubin AST ALT Alkaline Phosphatase Troponin I 0.671 H* Total Protein Albumin Globulin Albumin/Globulin Ratio Urine Color Urine Clarity Urine pH Ur Specific [place] Urine Protein Urine Glucose (UA) Urine Ketones Urine Occult Blood Urine Nitrite Urine Bilirubin Urine Urobilinogen Ur Leukocyte Esterase Urine RBC Urine WBC Ur Squamous Epith Cells Amorphous Sediment Urine Bacteria Urine Mucus Micro: Microbiology 11/09/20 14:48 Blood Culture - Preliminary Blood Culture (Wb) - Left Forearm 11/09/20 22:40 Enteric Bacteriology - Final Stool C. difficile DNA Amplification - Final 11/09/20 15:13 Blood Culture - Preliminary Blood Culture (Wb) - Anticubital Right 11/09/20 13:55 SARS-CoV-2 Antigen (Rapid) - Final Mucosa - Nose ABG Data ABG results: ABG 11/09/20 21:00 Specimen Type ART Sample Site L Radial pH 7.38 Bicarbonate Actual 16.1 L Total CO2 17 Base Excess -9 L O2 Saturation 99 O2 % 40 ABG pCO2 27.1 L ABG pO2 144 H Sammy Test N/A Respiration Rate 12 O2 Delivery Device BiPAP POC PEEP 6 POC Pressure Suppt [address] 11/09/20 13:26 IMPRESSION: No acute intracranial process identified. Chronic small vessel ischemic gliosis. Individualized dose optimization techniques were used for this CT. at 1612 Reported and signed by: Zena Hunter MD Electronically Signed: Zena Hunter MD at 16:11 EDT Tel , Service support , Chest X-Ray 11/09/20 16:15 IMPRESSION: Mild bibasilar atelectasis or pneumonia. Consider follow-up to resolution. at 1629 Reported and signed by: Zena Hunter MD Electronically Signed: Zena Hunter MD at 16:28 EDT Tel , Service support , Charges/Coding Procedures Hospitalists Procedures: [id number] [facility]
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
[2020-11-10 10:27] LABS: M R Staph aureus DNA By PCR Negative (Negative); Probe Check PASS; Specimen Processing Control PASS
[2020-11-10] MEDS: Amiodarone 360 MG in Dextrose 5% Viaflo Bag 192.8 ML 33.3 MG CONT INF (11:25)
[2020-11-10] MEDS: Ondansetron 4 MG/2 ML Vial IV (12:25)
--- NOTE | 2020-11-10 13:30 | CASEMGMT ---
Addendum entered by Devin Maguire 11/10/20 16:16: Pt states his asxhin-wa-gudn name is Sabine and gave permission for RN ALEKSEY to talk w/her as well. Addendum entered by Devin Maguire 11/10/20 16:09: Noted in PT/OT evals, that pt has a walker @ home. RN CM to room to inquire about this w/pt. Pt confirms he does not have a walker at home, stating, I don't know who told them that. He confirms he does have a cane and states, I can't use a walker. RN CM inquired what this means. He states, I can't use one outside, it's too hard. RN CM reminded pt that he has been using one while in the hospital and that it would help to maintain balance when ambulating for safety. Pt states he would be agreeable to getting one but does not have a way of paying for it. RN ALEKSEY asked pt if his brother may be able to assist w/paying for it. Pt stated, It won't do any good, but then he gave permission for RN ALEKSEY to call his brother/Jonathan FRAGA, re: payment for walker and also to discuss pt care. Original Note: RN CM GIVER CM to room to meet with patient for initial transition planning/care coordination assessment. RN ALEKSEY introduced self and role at [facility]. Pt voices understanding and consents to assessment at this time. Pt sitting in chair in room in no distress at this time. Pt is A/O at this time. Reviewed care providers, pharmacy, and demographics w/pt but it was difficult to determine if pt giving accurate information. Pt evasive at times and most questions answered w/brief responses. Pt rarely made eye contact, looking around the room in different directions during conversation. PCP: No PCP. Pt states he has not been to a doctor since . BHARAT RYDER inquired about CVA 09/2019 and transfer to [facility]. Pt states he did not f/u w/a doctor afterwards, w/reason being didn't need it. Pt offered pt a list of local PCP's and he did accept same, but states he does not know if he'll f/u with an MD after discharge home or if he'll take any medications, stating, It depends. RN CM inquired what it would depend on. Pt stated, I don't know. Specialists: None Preferred Pharmacy: Pt states he does not take any medications and does not know if he will take any prescribed medications @ discharge. Inquired where he would like scripts sent to. He stated he did not know. Pt made aware [facility] has retail pharmacy and pt agreeable to same, stating, I guess it's as good as any. Insurance: [facility] Prescription Benefit: None Living Will/HPOA: LW and HPOA on file. Pt's brother, Jonathan Trejo, is POA. LNOK: Brother/POA, Jonathan Trejo Living Arrangements: Lives alone in 2-story home w/basement. Pt states, Haven't been having no problems w/the stairs. He states he goes to the basement To fire up the furnace and laundry is in basement. He states is independent w/ADL's and IADL's. States has a 1/2 bath upstairs and full bath on main floor. Bedroom is on main floor. He states he buys his own groceries and cooks Whatever I can. He states he does his own laundry and cleaning, stating, I do it as I can. It's not difficult. I just have to get to it. Financial: Pt states, I have enough to buy what I need re: groceries and states he has enough money to pay his bills. Transportation: Pt states drives self and states no transportation concerns at this time. DME: States has the following DME: Cane only. Per Manjit NICHOLSON, pt has been using a walker w/ambulation and states feels pt needs a walker @ home for safety. Pt made aware of walker recommendation. Initially he was hesitant and stated he did not need one, but then pt agreeable to getting one. Pt provided w/list of local DME companies. He states has no preference. Made aware [employer] is affiliate of [facility] and pt agreeable to [employer]. Pt states no need for further DME at this time. HHC/SNF: No history of either. Pt denies wanting any HHC or OP therapy, stating, Nope. CCN: Discussed CCN w/pt as he will most likely be discharged home on new medications. Pt stated, Nope when asked if he would be agreeable to CCN. Pt given CCN rac card w/contact info so he can contact them if he decides later he would be interested in CCN. Pt responded with Not likely. Pt wishes to return home and states has no concerns with going home at time of discharge. CM to follow for home oxygen needs and any further discharge planning/needs. Pt voices no further concerns/needs at this time. Advised pt to ask for CM if any further questions/concerns/needs arise. Voices understanding. PLAN: Home PT/OT evals pending. Follow for anti-coagulation @ discharge. Pratik SLADEN RN CM
--- NOTE | 2020-11-10 15:03 | PCM.CONS.C ---
Assessment & Plan Assessment/Plan (1) Atrial fibrillation with rapid ventricular response: PLAN: Continue amiodarone. Will give 1 dose of digoxin IV. Will hold off on further doses due to acute on chronic renal failure. 2D echo revealed an EF of 45% which could be related to A. fib with RVR. If patient has persistent LV dysfunction despite control of his heart rate for 3 months then he may need further work-up for the LV dysfunction. HPI Consult Data Date of Consult: 11/10/20 HPI Narrative Reason for Consultation: Atrial fibrillation HPI Narrative: MARYELLEN HICKEY, is a 85 M who presents with altered mental status felt to be secondary to sepsis due to UTI. Patient is being treated for this. He was also in atrial fibrillation with rapid ventricular response. He required Levophed and that has been weaned. Initially he was on Cardizem and this was DC'd and amiodarone was initiated this morning. Patient is currently oriented x3 and denies any cardiac complaints. Review of systems: All systems reviewed. All else is negative except that in HPI [facility] Medical History (Updated 11/10/20 @ 06:[address] Damian Archer, ) Hemorrhagic stroke Hypertension Home Medications Unobtainable 10/03/19 [History Last Taken Unknown] Allergy/AdvReac Type Severity Reaction Status Date / Time Unable to Assess Allergy Verified 11/09/20 12:53 Social History Smoking Status: Never smoker Physical Exam Const alert and oriented x3 Orientation / Consciousness: awake HEENT normocephalic Eyes no scleral icterus Neck supple Chest inspection of chest normal Resp clear to auscultation bilaterally Cardio Cardio Narrative: Irregular rhythm Extremity General Extremity: edema bilateral lower extremity Details: trace Neuro oriented x3 Psych mental status grossly normal Charges/Coding Visit Charges Inpatient E&M: 03206 Init Hosp L3 Objective Data Vital Signs: Vital Signs Temp Pulse Resp BP Pulse Ox 99.1 F 139 H 21 H 114/77 99 11/10/20 11:09 11/10/20 12:00 11/10/20 12:00 11/10/20 12:00 11/10/20 12:00 Oxygen Flow Rate (L/min) 0 Oxygen Delivery Method Room Air Weight: 172 lb 9.951 oz Body Mass Index (BMI) 24.3 Intake & Output: Intake and Output for Last 24 Hours 11/08/20 11/09/20 11/10/20 23:59 23:59 23:59 Intake Total 3186.50 / 3186.50 2198.19 / 2198.19 Output Total 135 / 135 Balance 3176.50 / 3176.50 2063.19 / 2063.19 Lab / Micro Data Result Diagrams: 11/10/20 03:30 11/10/20 03:30 Labs: Laboratory Results - last 24 hr 11/09/20 11/09/20 11/09/20 18:15 18:17 21:36 WBC RBC Hgb Hct MCV MCH MCHC RDW Std Deviation RDW Coeff of Nav[place] Plt Count MPV Immature Gran % (Auto) Neut % (Auto) Lymph % (Auto) [place] % (Auto) Eos % (Auto) Baso % (Auto) Absolute Neuts (auto) Absolute Lymphs (auto) Nucleated RBC % Sodium Potassium Chloride Carbon Dioxide Anion Gap BUN Creatinine Estim Creat Clear Calc Est GFR (MDRD) Af Amer Est GFR (MDRD) Non-Af BUN/Creatinine Ratio Glucose Lactic Acid 5.6 H* Calcium Troponin I 0.654 H* Urine Color Yellow Urine Clarity Cloudy Urine pH 5.0 Ur Specific [place] 1.020 Urine Protein 30 H Urine Glucose (UA) Normal Urine Ketones 5 H Urine Occult Blood 150 H Urine Nitrite Negative Urine Bilirubin Negative Urine Urobilinogen Normal Ur Leukocyte Esterase 500 H Urine RBC 0-5 SEEN Urine WBC 25-50 SEEN Ur Squamous Epith Cells 0 SEEN Amorphous Sediment 3+ Urine Bacteria 0 SEEN Urine Mucus 0 SEEN MRSA (PCR) 11/10/20 11/10/20 11/10/20 00:32 03:30 03:30 WBC 16.4 H RBC 3.74 L Hgb 11.7 L Hct 36.7 L MCV 98.1 H MCH 31.3 MCHC 31.9 L RDW Std Deviation 55.1 H RDW Coeff of Nav[place] 15.1 H Plt Count 178 MPV 10.1 Immature Gran % (Auto) 1.100 H Neut % (Auto) 84.8 H Lymph % (Auto) 9.5 L [place] % (Auto) 1.5 Eos % (Auto) 2.7 Baso % (Auto) 0.4 Absolute Neuts (auto) 13.9 H Absolute Lymphs (auto) 1.55 Nucleated RBC % 0 Sodium 144 Potassium 4.1 Chloride 113 H Carbon Dioxide 18.0 L Anion Gap 13 BUN 34 H Creatinine 3.66 H Estim Creat Clear Calc 15.79 Est GFR (MDRD) Af Amer 21 L Est GFR (MDRD) Non-Af 17 L BUN/Creatinine Ratio 9.3 L Glucose 89 Lactic Acid Calcium 7.4 L Troponin I 0.712 H* Urine Color Urine Clarity Urine pH Ur Specific [place] Urine Protein Urine Glucose (UA) Urine Ketones Urine Occult Blood Urine Nitrite Urine Bilirubin Urine Urobilinogen Ur Leukocyte Esterase Urine RBC Urine WBC Ur Squamous Epith Cells Amorphous Sediment Urine Bacteria Urine Mucus MRSA (PCR) 11/10/20 11/10/20 03:30 06:50 WBC RBC Hgb Hct MCV MCH MCHC RDW Std Deviation RDW Coeff of [place] Plt Count MPV Immature Gran % (Auto) Neut % (Auto) Lymph % (Auto) [place] % (Auto) Eos % (Auto) Baso % (Auto) Absolute Neuts (auto) Absolute Lymphs (auto) Nucleated RBC % Sodium Potassium Chloride Carbon Dioxide Anion Gap BUN Creatinine Estim Creat Clear Calc Est GFR (MDRD) Af Amer Est GFR (MDRD) Non-Af BUN/Creatinine Ratio Glucose Lactic Acid Calcium Troponin I 0.671 H* Urine Color Urine Clarity Urine pH Ur Specific [place] Urine Protein Urine Glucose (UA) Urine Ketones Urine Occult Blood Urine Nitrite Urine Bilirubin Urine Urobilinogen Ur Leukocyte Esterase Urine RBC Urine WBC Ur Squamous Epith Cells Amorphous Sediment Urine Bacteria Urine Mucus MRSA (PCR) Negative Micro: Microbiology 11/09/20 18:15 Urine Catheter - [place] Urine Culture - Preliminary Gram Positive Cocci 11/09/20 15:13 Blood Culture (Wb) - Anticubital Right Blood Culture - Preliminary Gram negative rosmery 11/09/20 14:48 Blood Culture (Wb) - Left Forearm Blood Culture - Final Gram negative rosmery 11/09/20 22:40 Stool Enteric Bacteriology - Final 11/09/20 22:40 Stool C. difficile DNA Amplification - Final 11/09/20 13:55 Mucosa - Nose SARS-CoV-2 Antigen (Rapid) - Final ABG Data ABG results: ABG 11/09/20 21:00 Specimen Type ART Sample Site L Radial pH 7.38 Bicarbonate Actual 16.1 L Total CO2 17 Base Excess -9 L O2 Saturation 99 O2 % 40 ABG pCO2 27.1 L ABG pO2 144 H Sammy Test N/A Respiration Rate 12 O2 Delivery Device BiPAP POC PEEP 6 POC Pressure Suppt 6 Cardiology Labs/Tests 11/09/20 18:15: Urine Color Yellow, Urine Clarity Cloudy, Urine pH 5.0, Ur Specific [place] 1.020, Urine Protein 30 H, Urine Glucose (UA) Normal, Urine Ketones 5 H, Urine Occult Blood 150 H, Urine Nitrite Negative, Urine Bilirubin Negative, Urine Urobilinogen Normal, Ur Leukocyte Esterase 500 H, Urine RBC 0-5 SEEN, Urine WBC 25-50 SEEN 11/09/20 18:17: Lactic Acid 5.6 H* 11/09/20 21:00: pH 7.38, Bicarbonate Actual 16.1 L, Base Excess -9 L, O2 Saturation 99, ABG pCO2 27.1 L, ABG pO2 144 H, Sammy Test N/A 11/09/20 21:36: Troponin I 0.654 H* 11/10/20 00:32: Troponin I 0.712 H* 11/10/20 03:30: WBC 16.4 H, RBC 3.74 L, Hgb 11.7 L, Hct 36.7 L, MCV 98.1 H, MCH 31.3, MCHC 31.9 L, Plt Count 178, MPV 10.1, Immature Gran % (Auto) 1.100 H, Neut % (Auto) 84.8 H, Lymph % (Auto) 9.5 L, [place] % (Auto) 1.5, Eos % (Auto) 2.7, Baso % (Auto) 0.4, Absolute Neuts (auto) 13.9 H, Nucleated RBC % 0 11/10/20 03:30: Sodium 144, Potassium 4.1, Chloride 113 H, Carbon Dioxide 18.0 L, Anion Gap 13, BUN 34 H, Creatinine 3.66 H, Est GFR (MDRD) Af Amer 21 L, Est GFR (MDRD) Non-Af 17 L, BUN/Creatinine Ratio 9.3 L, Glucose 89, Calcium 7.4 L 11/10/20 03:30: Troponin I 0.671 H* Rhythm: EKG: ECHO: Stress Test: Cardiac Cath: PCI: CT Surgery: Holter monitor: EPS: PPM: CXR: Chest CT Scan: Radiography Diagnostic Testing: Radiology Impression Brain CT 11/09/20 13:26 IMPRESSION: No acute intracranial process identified. Chronic small vessel ischemic gliosis. Individualized dose optimization techniques were used for this CT. at 1612 Reported and signed by: Zena Hunter MD Electronically Signed: Zena Hunter MD at 16:11 EDT Tel , Service support , Chest X-Ray 11/09/20 16:15 IMPRESSION: Mild bibasilar atelectasis or pneumonia. Consider follow-up to resolution. at 1629 Reported and signed by: Zena Hunter MD Electronically Signed: Zena Hunter MD at 16:28 EDT Tel , Service support , Echocardiogram 11/09/20 19:31 Interpretation Summary The estimated ejection fraction is 45 %. Diastolic function is indeterminate. There is mild global hypokinesis of the left ventricle. The left atrium is moderately enlarged. Ordering Physician: Brijesh Hoffman Performed By: Alyssa Alarcon, AIDENCS, RVT
[2020-11-10] MEDS: Loperamide 2 MG Capsule PO (16:36)
[2020-11-10] MEDS: Digoxin 250 MCG/ML Ampul 500 MCG IV (16:50)
[2020-11-10] MEDS: Amiodarone 360 MG in Dextrose 5% Viaflo Bag 192.8 ML 16.7 MG CONT INF (17:36)
[2020-11-11] VITALS (32 sets, daily range): BP systolic 77–147; BP diastolic 61–100; PULSE 58–156; RESP 12–38; TEMP 36.4–38.1; O2SAT 92–100; BMI 26.2
[2020-11-11] MEDS: 0.9% Normal Saline 1,000 ML 150 ML IV ×2 (00:47→06:52)
[2020-11-11] MEDS: Dicyclomine 10 MG Capsule PO ×2 (03:01→11:03)
[2020-11-11] MEDS: 0.9% Saline Lock 10 ML Syringe IV ×4 (04:05→18:02)
[2020-11-11] MEDS: Heparin Injection (Vial) 5,000 UNIT/ML VIAL 5000 UNIT SC (06:11)
[2020-11-11 06:27] LABS: Hematocrit 34.4 % (40-54); Hemoglobin 10.9 g/dL (13.0-16.5); Mean Corp Hgb Conc 31.7 g/dL (32-36); Mean Corpuscular Volume 100.9 fL (80-94); Mean Platelet Vol. 10.6 fl (6.2-12.0); POSITIVE COUNT YES; POSITIVE MORPHOLOGY YES; Platelet Count 139 K/mm3 (150-450); RBC Distribution Width CV 15.9 % (11.6-14.6); Red Blood Count 3.41 M/mm3 (4.6-6.2); White Blood Count 11.4 K/mm3 (4.4-11.0)
[2020-11-11 06:28] LABS: Differential Indicated MANUAL DIFF
--- NOTE | 2020-11-11 06:28 | PCM.PN.INT ---
Assessment & Plan Assessment/Plan (1) Gram negative septic shock: PLAN: RECOMMENDATIONS: 1. Continue amiodarone with additional recommendations for rate/rhythm control per cardiology. 2. Obtain nephrology consultation. 3. Continue antimicrobials as ordered. 4. Obtain a renal ultrasound. 5. Start scheduled beta-reagan. IMPRESSIONS: 1. Gram-negative septic shock Improved. Presumed urinary tract source of infection with secondary hematogenous spread. The patient was volume resuscitated but did eventually require vasopressor support. Nevertheless, with supportive measures and antimicrobials, the patient was able to be weaned from Levophed and remains hemodynamically stable. Plan to continue antimicrobials as ordered. 2. Acute kidney injury Likely prerenal in etiology with a component of ischemic ATN related to #1. Plan to continue current supportive measures. Continue to monitor urine output. Will obtain nephrology consultation at this time. 3. Troponin elevation Likely secondary to demand ischemia in the setting of #1. 4. Atrial fibrillation with RVR The patient is currently being maintained on amiodarone. Will plan to start scheduled beta-blockade today with additional recommendations per cardiology. This note was generated with [employer] dictation software. It may contain incorrect words, spelling, and punctuation that were not noted in checking the note before signing. Subjective Subjective The patient was seen and examined at the bedside this morning. Events from the last 24 hours have been reviewed. The patient is currently afebrile, hemodynamically stable and maintaining appropriate oxygen saturations on room air. The patient was able to be weaned off of Levophed completely yesterday. Due to persistent atrial fibrillation with RVR, he was started on amiodarone yesterday afternoon. The patient was subsequently evaluated by cardiology and given a one-time dose of digoxin. Heart rate is under better control this morning. The patient did report crampy abdominal pain overnight, which waxes and wanes. No significant diarrhea was noted by the overnight nursing staff. Objective Data Objective Data The patient's most recent lab work, culture data and imaging studies have all been personally reviewed. Surface echocardiogram revealed an ejection fraction of 45% with mild global hypokinesis of the LV. Pulmonary artery systolic pressure was estimated to be 40 mmHg. Blood culture from November 09 was positive for gram-negative rosmery. Urine culture is pending. Vital Signs: Vital Signs Temp Pulse Resp BP Pulse Ox 98.1 F 97 19 H 117/76 97 11/11/20 06:00 11/11/20 06:00 11/11/20 06:00 11/11/20 06:00 11/11/20 06:00 Oxygen Flow Rate (L/min) 0 Oxygen Delivery Method Room Air Weight: 182 lb 12.211 oz Body Mass Index (BMI) 24.3 Intake & Output: Intake and Output for Last 24 Hours 11/09/20 11/10/20 11/11/20 23:59 23:59 23:59 Intake Total 3186.50 / 3186.50 3803.37 / 3820.07 159.82 / 159.82 Output Total 147 / 147 5 / Balance 3176.50 / 3176.50 3656.37 / 3673.07 154.82 / 154.82 Lab / Micro Data Attestation: I reviewed the patient's lab results. Result Diagrams: 11/11/20 04:00 11/11/20 04:00 Labs: Laboratory Results - last 24 hr 11/10/20 06:50 MRSA (PCR) Negative Micro: Microbiology 11/09/20 18:15 Urine Catheter - [place] Urine Culture - Preliminary Gram Positive Cocci 11/09/20 15:13 Blood Culture (Wb) - Anticubital Right Blood Culture - Preliminary Gram negative rosmery 11/09/20 14:48 Blood Culture (Wb) - Left Forearm Blood Culture - Final Gram negative rosmery 11/09/20 22:40 Stool Enteric Bacteriology - Final 11/09/20 22:40 Stool C. difficile DNA Amplification - Final 11/09/20 13:55 Mucosa - Nose SARS-CoV-2 Antigen (Rapid) - Final Radiography Diagnostic Testing: Radiology Impression Echocardiogram 11/09/20 19:31 Interpretation Summary The estimated ejection fraction is 45 %. Diastolic function is indeterminate. There is mild global hypokinesis of the left ventricle. The left atrium is moderately enlarged. Ordering Physician: Brijesh Hoffman Performed By: Alyssa Alarcon, RDCS, RVT Physical Exam Const alert and no apparent distress Constitutional Narrative: Hard of hearing General Appearance: cooperative HEENT normocephalic and head/scalp atraumatic Eyes PERRL, EOMs intact bilaterally and conjunctivae normal Neck supple General: trachea midline Resp normal respiratory effort Auscultation: Negative for rales, rhonchi or wheezes Cardio S1 normal heart sound and S2 normal heart sound Rate: tachycardic Rhythm: abnormal rhythm irregularly irregular GI normal to inspection, nondistended, normoactive bowel sounds Extremity no clubbing, cyanosis or edema Skin no rashes or lesions noted Neuro CN's II-XII intact bilaterally, moves all extremities and no focal motor deficits Psych Mood & Affect: flat affect Charges/Coding Visit Charges Inpatient E&M: 54518 Subs Hosp L3
[2020-11-11 06:48] LABS: Metamyelocyte 2 % (0-1); Neutrophil-Band 6 % (0-5); Neutrophil-Segmented 78 % (47-70); Total Cells Counted 100 (MANUAL DIFF)
[2020-11-11 06:49] LABS: Absolute Neutrophil Count 9.6 X10^3/uL (2.0-7.7); Lymphocyte 11 % (19-41); Monocyte 3 % (0-10); Platelet Estimate SLT DEC (ADEQ); Red Cell Morphology NORM C+C NORMAL (NORM C&C)
[2020-11-11] MEDS: Amiodarone 360 MG in Dextrose 5% Viaflo Bag 192.8 ML 16.7 MG CONT INF (06:53)
[2020-11-11 07:19] LABS: Anion Gap 13 (5-15); BUN 44 mg/dL (7-18); BUN/Creat Ratio 10.2 RATIO (10-20); Calcium,Total 6.1 mg/dL (8.5-10.1); Chloride 113 mmol/L (98-107); Creatinine, Serum 4.31 mg/dL (0.70-1.30); EST Glomerular Filtration Rate 14 mL/min (>60); Est Glom Filt Rate - Afr Amer 17 mL/min (>60); Estimated Creatinine Clearance 13.41 ml/min; Glucose 102 mg/dL (74-106); Potassium 3.6 mmol/L (3.5-5.1); Sodium Level 142 mmol/L (136-145)
--- NOTE | 2020-11-11 07:50 | US_ITS ---
STUDY: RENAL ULTRASOUND - COMPLETE REASON FOR EXAM: Male, 85 years old. JOSE TECHNIQUE: Ultrasound evaluation of the kidneys was performed with real-time and static kim-scale imaging. COMPARISON: None. FINDINGS: RIGHT KIDNEY: Normal location of the right kidney, which is normal in size. The right kidney measures 12 cm x 8.6 cm x 5.6 cm. There is a normal cortex of the right kidney. The renal cortex measures 1.9 cm. There is a 4.5 cm x 4.6 cm x 4.6 cm cyst in the upper midportion of the right kidney. There are no right renal calculi. There is no right hydronephrosis. DISTAL RIGHT URETER: There is non-visualization of the distal right ureter. There is no demonstrated right ureterovesical junction calculus. There is no demonstrated right ureteral jet. LEFT KIDNEY: Normal location of the left kidney, which is normal in size. The left kidney measures 13.8 cm x 5.5 cm x 6 cm. There is a normal cortex of the left kidney. The renal cortex measures 1.8 cm. There is a 4.6 cm x 4.1 cm x 5 cm cyst in the upper pole of the left kidney. There are no left renal calculi. There is no left hydronephrosis. DISTAL LEFT URETER: There is non-visualization of the distal left ureter. There is no demonstrated left ureterovesical junction calculus. There is no demonstrated left ureteral jet. BLADDER: EGAN catheter is seen within an empty bladder. US/Kidney and Bladder IMPRESSION: Bilateral renal cysts. No evidence of hydronephrosis. Electronically Signed: Bowen Horta MD at 14:38 EDT , Service support ,
--- NOTE | 2020-11-11 09:01 | CON.PCM.RE_ITS ---
Assessment & Plan Assessment/Plan (1) Acute kidney injury: (2) Chronic kidney disease: (3) Metabolic acidosis: (4) Gram negative septic shock: (5) UTI (urinary tract infection): QUALIFIERS: Urinary tract infection type: acute cystitis Hematuria presence: with hematuria Qualified Code(s): N30.01 - Acute cystitis with hematuria (6) Atrial fibrillation with rapid ventricular response: PLAN: JOSE is likely ATN induced by severe sepsis Patient is oliguric Cr is up to 4.3 mg/dl. Baseline Cr ~ 1.3 mg/dl in 2019 No urgent need for HD Will change IVF to isotonic HC03 drip Ok to diurese the patient if worsen respiratory status d/w patient that he might need HD if kidney function continues to worsen Keep MAP > 65 Afib, sepsis and hemodynamic support as per ICU Thank you Will continue to follow HPI Consult Data Date of Consult: 11/11/20 HPI Narrative HPI Narrative: MARYELLEN HICKEY, is a 85 M who was brought from home because he was found unresponsive. Patietn was admitted to ICU for septic shock . BC came backe + for G- bacteia. Patient also has UTI. Patient was also found to have Afib with RVR and currently on amiodarone Renal team is consulted for JOSE. Cr last year 1.3 mg/dl Patient presented with Cr 2.6 and went up to 4.3 mg/dl this am along with oliguia No IV contrast exposure. has lopez. No NSAID use ROS: 12 systems review is negative except abdominal pain PFSH Medical History (Updated 11/11/20 @ 09:[address] Yasmin Malhotra MD) Hemorrhagic stroke Hypertension Home Medications Unobtainable 10/03/19 [History Last Taken Unknown] Allergy/AdvReac Type Severity Reaction Status Date / Time Unable to Assess Allergy Verified 11/09/20 12:53 Social History Smoking Status: Never smoker Physical Exam Narrative Patient is awake and alert. On RA Neck No JVD Head AT NC Heart irregular. S/1 S2 Chest. CTA Abdomen: LLQ tenderness. slightly distended. + BS Neuro No focals. Ext +2 edema of LE : lopez cath in place Lab / Micro Data Result Diagrams: 11/11/20 04:00 11/11/20 04:00 Labs: Laboratory Results - last 24 hr 11/10/20 11/11/20 11/11/20 06:50 04:00 04:00 WBC 11.4 H RBC 3.41 L Hgb 10.9 L Hct 34.4 L MCV 100.9 H MCH 32.0 MCHC 31.7 L RDW Std Deviation 59.0 H RDW Coeff of Navne[place] 15.9 H Plt Count 139 L MPV 10.6 Neut % (Auto) Not Reportable Absolute Neuts (auto) 9.6 H Absolute Lymphs (auto) 1.30 Total Counted 100 Neutrophils % (Manual) 78 H Band Neutrophils % 6 H Lymphocytes % (Manual) 11 L Monocytes % (Manual) 3 Metamyelocytes % 2 H Diff Path Review May foll Platelet Estimate SLT DEC RBC Morphology NORM C+C Sodium 142 Potassium 3.6 Chloride 113 H Carbon Dioxide 16.0 L Anion Gap 13 BUN 44 H Creatinine 4.31 H Estim Creat Clear Calc 13.41 Est GFR (MDRD) Af Amer 17 L Est GFR (MDRD) Non-Af 14 L BUN/Creatinine Ratio 10.2 Glucose 102 Calcium 6.1 L* MRSA (PCR) Negative Micro: Microbiology 11/09/20 18:15 Urine Culture - Final Urine Catheter - Lopez Enterococcus faecalis 11/09/20 15:13 Blood Culture - Final Blood Culture (Wb) - Anticubital Right Proteus mirabilis 11/09/20 14:48 Blood Culture - Final Blood Culture (Wb) - Left Forearm Gram negative rosmery 11/09/20 22:40 Enteric Bacteriology - Final Stool C. difficile DNA Amplification - Final Radiology Impression Echocardiogram 11/09/20 19:31 Interpretation Summary The estimated ejection fraction is 45 %. Diastolic function is indeterminate. There is mild global hypokinesis of the left ventricle. The left atrium is moderately enlarged. Ordering Physician: Brijesh Hoffman Performed By: Alyssa Alarcon RDCS, RVT
[2020-11-11] MEDS: Cefazolin 1 GM/50 ML BAG IV (09:41)
[2020-11-11] MEDS: Metoprolol Tartrate 25 MG Tablet PO (09:42)
--- NOTE | 2020-11-11 10:00 | CASEMGMT ---
BHARAT RYDER NOTE: Call placed to pt's BARRY, Sabine, as pt has given permission for BHARAT RYDER to discuss his care w/his brother, Jonathan, and his , Sabine. Sabine confirms pt does not have a PCP and does not have prescription coverage. She states he will not f/u with any physicians and will not take any medications. Sabine states pt does not allow his family to assist w/anything. He will not allow them to bring food to him or take him out to eat. Per Sabine, pt does still drive and will either go out to eat, mostly getting fast food, or will allow his neighbor to take him out to eat. When he purchases food, it is mostly items such as cold cuts and bread, that he can prepare easily, as he usually does not cook. Sabine reports pt does not clean his home and it is getting filthier by the day. Sabine states, He's a very strange bird to deal with. I've always referred to him as what I call different. He marches to his own tune and you cannot change him. She states when pt had his stroke last year, that he did go to [facility] for rehab, and while he was gone, the family did clean his home. She reports that pt was extremely upset, accusing them of taking stuff and hiding things. She reports they informed pt that they were told SW would be going to pt's home to determine if it was a safe and clean environment and they knew his home would be the only place pt would be happy in, so they were trying to make it possible for pt to be able to be home. Sabine reports that when SW did arrive to his home for the home visit, he was competent enough to refuse and they left. She states pt then interpreted that the family was lying to him since the home visit did not occur. She reports that when they were cleaning pt's home at that time, that she was in the basement doing laundry and a rat ran out from beneath some clothes she picked up off of the floor. She states she is often very concerned about pt's well-being and that they (family) have done everything we can to help him, stating they often try to stop in to visit/chat with pt, but he will not allow them in his home. Sabine states the neighbor will call to check on pt, but he will not allow them in either. The neighbor will contact Sabine and her , Jonathan (pt's brother) if he has any concerns or if he is unable to reach pt, which is how they came about finding pt on floor in his home. The neighbor notified them that pt was not answering his phone and contacted Sabine/Jonathan. They have a harris to pt's home and were able to get in and found him on the floor. Sabine states, We have come to the conclusion that we are pretty much to the point to sit down and tell him that you are making your own choices. We are not going to continue to tear ourselves down if you are not going to do what needs to be done for your own health. She states, We're not trying to force him. We just want him to be safe and happy. She confirms pt does have finances available for groceries and bills, stating, He's not wealthy, but he has enough for what he needs. She reports he does do things such as shutting his refrigerator in the winter and places the food items on the porch to keep them cold instead of paying to keep the refrig on, but yet he'll purchase (6) 35# cat food at a time to feed the stray cats. Sabine states pt does not want any heroic measures and requests a copy of pt's DNR form so she can place it in pt's home to notify EMS of pt's wishes, if anything would happen in the future. Sabine states, He won't let me have it long enough to make a copy. Sabine made aware that pt is his own decision maker, and without pt's permission, this paperwork could not be provided to her. She voices understanding. Sabine states she and her would be picking pt up at discharge and would be able to go the pharmacy to potato picker medications for pt. She was notified pt will most likely be discharged home on several new medications, but scripts are typically for no more than 30-days supply @ discharge and that pt would need to get established w/PCP for f/u and for refills on medication. Sabine states, All of which will not happen, stating pt has historically not been compliant w/taking medication or following up w/any medical care, but they would try and encourage pt to be compliant and f/u. Sabine was made aware, that pt may be discharged home on an anti-coag, and depending on what anti-coag pt was discharged home on, if any, that a 30-day savings card could be provided and she was instructed on use of same. She voices understanding. Sabine made aware pt has been using a walker and that it was recommended he have one at discharge. She states she thinks she has one at her home that pt can use. She was advised to bring the walker in so therapy could assess that it is the proper height/size for pt. She states she would bring it in. Sabine inquired of why she was not given more medical information on pt when she called in to inquire about pt. She was informed, that pt is oriented, able to make his own decisions, any medical information provided to family would need to be approved by pt. She voices understanding. Sabine made aware pt able to ambulate 15' w/use of walker yesterday, but gait was unsteady, and additional therapy is recommended. She was made aware pt wants to go home and refuses any HHC. She was made aware therapy would continue to work w/pt and SNF may be recommended. She is not sure if pt will be agreeable but states that may be helpful for pt and inquired where pt would go. BHARAT RYDER informed her that pt would need to be agreeable, facility would be per pt's preference and as long as facility able to accept him. She was notified [facility] would cover for 20 days @ 100 % coverage. Pratik MOLINA RN, CM
--- NOTE | 2020-11-11 10:44 | NURSING ---
Infusion/titration meds stopped on EMAR which were not present when pt transferred from ICU.
[2020-11-11] MEDS: Amiodarone 200 MG Tablet PO (12:15)
[2020-11-11] MEDS: Senna Tablet 2 TABLET PO (12:46)
[2020-11-11 12:51] LABS: Pathologist Review Reviewed
--- NOTE | 2020-11-11 12:51 | CT_ITS ---
EXAM: CT ABDOMEN AND PELVIS WITHOUT INTRAVENOUS CONTRAST CLINICAL INDICATION: Abdominal pain TECHNIQUE: Helically acquired images were obtained of the abdomen and pelvis without intravenous contrast. This CT exam was performed using one or more of the following dose reduction techniques: automated exposure control, adjustment of the mA and/or kV according to patient size, and/or use of iterative reconstruction technique. [employer] report generation technology utilized. COMPARISON: None. FINDINGS: LIMITATIONS: Exam limited by improper positioning of the patient''s arms causing streak artifact. There is also patient motion. LOWER THORAX: Views through the lower chest show small pleural effusions with atelectasis or scarring in the adjacent lower lobes. No cardiomegaly. ABDOMEN: LIVER: Normal shape and size of the liver. 1.5 cm probable cyst in the periphery of the dome of the liver. GALLBLADDER AND BILE DUCTS: Focal high density structure most consistent with calcified stone in the area of the cystic duct. Otherwise negative gallbladder. No gallbladder distention or wall edema. PANCREAS: Unremarkable. No focal cystic mass. SPLEEN: Unremarkable. Normal size without focal cystic or solid mass. ADRENALS: Unremarkable. No nodules. KIDNEYS AND URETERS: Bilateral exophytic renal cysts, 5.4 cm size on the right with several cyst wall calcifications, 5.6 cm size of the left upper pole. No acute abnormalities of the right kidney. Left kidney shows mild hydronephrosis and hydroureter down to a 4 mm distal left ureteral calculus seen on axial image 150 and coronal image 80. Normal renal size and position. STOMACH AND BOWEL: Unremarkable. No stomach or bowel distention. No focal inflammatory change. PELVIS: APPENDIX: No evidence of acute appendicitis. BLADDER: There is a Holland catheter emptying the bladder. REPRODUCTIVE: Unremarkable as visualized. No mass. ABDOMEN and PELVIS: INTRAPERITONEAL SPACE: Probable widespread edema throughout the abdominal, pelvic and mesenteric fat. No ascites or other fluid collection. No free air. BONES/JOINTS: Unremarkable. No suspicious lytic or blastic abnormality. SOFT TISSUES: Unremarkable. No discrete abdominal or pelvic wall hernia. VASCULATURE: Calcified plaque of the aorta and pelvic vessels. Abdominal aorta is non-dilated. LYMPH NODES: Unremarkable. No enlarged lymph nodes. CT/Abdomen/Pel W ORAL Cont Only IMPRESSION: 1. Obstruction of the left kidney collecting system and ureter from a 4 mm distal left ureteral calculus. 2. Possible cholelithiasis. 3. Other chronic findings as above. Electronically Signed: Ronald Alcantar MD at 16:46 EDT , Service support ,
--- NOTE | 2020-11-11 13:47 | CON.PCM.ID_ITS ---
Assessment & Plan Assessment/Plan (1) Gram negative septic shock: PLAN: septic shock with proteus bacteremia - mild wbc on UA, dysuria on presentation. Still with JOSE, diffuse significant abd pain. Recommended CT abd/pelvis with po contrast. Cont cefazolin while ct pending. Will follow, thank you. Recommended covid vaccine once he is out of the hospital. (2) Acute kidney injury: HPI Consult Data Date of Consult: 11/11/20 HPI Narrative HPI Narrative: MARYELLEN HICKEY, is a 85 M who presented with several days not feeling well, fever, dysuria, diffuse abd pain, confusion. No blood in stool. Has not gotten covid shot. Brother at bedside provided additional history. No change in urinary frequency, no straining to urinate. No h/o kidney stones. Came to ED, admitted to icu on vanc/zosyn, abx now narrowed to cefazolin. Feeling better, abd still sore. Full ROS performed and neg except as noted above. [facility] Medical History Hemorrhagic stroke Hypertension Home Medications Unobtainable 10/03/19 [History Last Taken Unknown] Allergy/AdvReac Type Severity Reaction Status Date / Time Unable to Assess Allergy Verified 11/09/20 12:53 Social History Smoking Status: Never smoker Physical Exam Const alert and oriented x3 General Appearance: cooperative HEENT normocephalic and head/scalp atraumatic Eyes PERRL and EOMs intact bilaterally Neck supple and No nodes Resp normal air movement and clear to auscultation bilaterally Cardio regular rate and regular rhythm GI Palpation: tender Extremity no clubbing, cyanosis or edema Skin no rashes or lesions noted Neuro CN's II-XII intact bilaterally Lab / Micro Data Result Diagrams: 11/11/20 04:00 11/11/20 04:00 Labs: Laboratory Results - last 24 hr 11/11/20 11/11/20 04:00 04:00 WBC 11.4 H RBC 3.41 L Hgb 10.9 L Hct 34.4 L MCV 100.9 H MCH 32.0 MCHC 31.7 L RDW Std Deviation 59.0 H RDW Coeff of Navneet 15.9 H Plt Count 139 L MPV 10.6 Neut % (Auto) Not Reportable Absolute Neuts (auto) 9.6 H Absolute Lymphs (auto) 1.30 Total Counted 100 Neutrophils % (Manual) 78 H Band Neutrophils % 6 H Lymphocytes % (Manual) 11 L Monocytes % (Manual) 3 Metamyelocytes % 2 H Diff Path Review Reviewed Platelet Estimate SLT DEC RBC Morphology NORM C+C Sodium 142 Potassium 3.6 Chloride 113 H Carbon Dioxide 16.0 L Anion Gap 13 BUN 44 H Creatinine 4.31 H Estim Creat Clear Calc 13.41 Est GFR (MDRD) Af Amer 17 L Est GFR (MDRD) Non-Af 14 L BUN/Creatinine Ratio 10.2 Glucose 102 Calcium 6.1 L* Micro: Microbiology 11/09/20 18:15 Urine Culture - Final Urine Catheter - Holland Enterococcus faecalis 11/09/20 15:13 Blood Culture - Final Blood Culture (Wb) - Anticubital Right Proteus mirabilis
--- NOTE | 2020-11-11 14:10 | US_ITS ---
STUDY: ABDOMINAL ULTRASOUND - RIGHT UPPER QUADRANT REASON FOR VISIT: Male, 85 years old RUQ PAIN TECHNIQUE: Ultrasound evaluation of the right upper quadrant was performed with real-time and static reyna-scale imaging. TECHNICAL QUALITY: Adequate. COMPARISON: None. FINDINGS: Liver: The liver measures 16.9cm. There is normal echogenicity of the liver. The bile ducts are within normal limits. There is hepatic color flow. The direction of portal flow is hepatopetal. There is no demonstrated mass lesion. Gallbladder: Normal distended gallbladder. The gallbladder wall measures 6.1 cm. There is a negative sonographic Antonio''s sign. There is no pericholecystic fluid. There are no gallstones. There is a single gallstone in the neck of the gall bladder. The hepatic veins are engorged with engorged the IVC. Common Bile Duct (C.B.D.): The common bile duct measures 5 mm. Pancreas: Normal size of the head, body and tail of the pancreas. There is normal echogenicity of the pancreas. There is no demonstrated pancreatic mass or cyst. Right Kidney: Normal size of the right kidney. The right kidney measures 11.6 x 9.6 x 5.6 cm. Normal renal cortex. The right cortex measures 1.5 cm. There is 4.9 x 4.3 cm cyst. The left kidney measures 13.8 x 5.5 x 6 cm with the renal cortex 1.8 cm. There is a a cyst measures 4.6 x 4.1 x 5 cm. There is minimal minimal right side due to pleural effusion noted. US/Abdomen Limited IMPRESSION: Small gallstone in the neck of the gallbladder There cortical cysts within the kidneys measured about. Electronically Signed: De Spear, at 8:26 EDT Tel , Service support ,
--- NOTE | 2020-11-11 14:44 | PCM.PN.CARD ---
Subjective Subjective Patient is complaining of abdominal pain. Denies any chest pain or shortness of breath. He is oriented x3. Objective Data Vital Signs: Vital Signs Temp Pulse Resp BP Pulse Ox 97.5 F L 88 17 115/84 H 99 11/11/20 10:48 11/11/20 11:00 11/11/20 11:00 11/11/20 11:00 11/11/20 11:00 Oxygen Flow Rate (L/min) 0 Oxygen Delivery Method Room Air Weight: 182 lb 12.211 oz Body Mass Index (BMI) 24.3 Intake & Output: Intake and Output for Last 24 Hours 11/09/20 11/10/20 11/11/20 23:59 23:59 23:59 Intake Total 3186.50 / 3186.50 3803.37 / 3820.07 1900.03 / 1900.03 Output Total 147 / 147 Balance 3176.50 / 3176.50 3656.37 / 3673.07 1885.03 / 1885.03 Lab / Micro Data Result Diagrams: 11/11/20 04:00 11/11/20 04:00 Labs: Laboratory Results - last 24 hr 11/11/20 11/11/20 04:00 04:00 WBC 11.4 H RBC 3.41 L Hgb 10.9 L Hct 34.4 L MCV 100.9 H MCH 32.0 MCHC 31.7 L RDW Std Deviation 59.0 H RDW Coeff of Navneet 15.9 H Plt Count 139 L MPV 10.6 Neut % (Auto) Not Reportable Absolute Neuts (auto) 9.6 H Absolute Lymphs (auto) 1.30 Total Counted 100 Neutrophils % (Manual) 78 H Band Neutrophils % 6 H Lymphocytes % (Manual) 11 L Monocytes % (Manual) 3 Metamyelocytes % 2 H Diff Path Review Reviewed Platelet Estimate SLT DEC RBC Morphology NORM C+C Sodium 142 Potassium 3.6 Chloride 113 H Carbon Dioxide 16.0 L Anion Gap 13 BUN 44 H Creatinine 4.31 H Estim Creat Clear Calc 13.41 Est GFR (MDRD) Af Amer 17 L Est GFR (MDRD) Non-Af 14 L BUN/Creatinine Ratio 10.2 Glucose 102 Calcium 6.1 L* Micro: Microbiology 11/09/20 15:13 Blood Culture (Wb) - Anticubital Right Blood Culture - Final Proteus mirabilis 11/09/20 18:15 Urine Catheter - Holland Urine Culture - Final Enterococcus faecalis 11/09/20 14:48 Blood Culture (Wb) - Left Forearm Blood Culture - Final Gram negative rosmery 11/09/20 22:40 Stool Enteric Bacteriology - Final 11/09/20 22:40 Stool C. difficile DNA Amplification - Final 11/09/20 13:55 Mucosa - Nose SARS-CoV-2 Antigen (Rapid) - Final Cardiology Labs/Tests 11/11/20 04:00: WBC 11.4 H, RBC 3.41 L, Hgb 10.9 L, Hct 34.4 L, MCV 100.9 H, MCH 32.0, MCHC 31.7 L, Plt Count 139 L, MPV 10.6, Neut % (Auto) Not Reportable, Absolute Neuts (auto) 9.6 H, Total Counted 100, Neutrophils % (Manual) 78 H, Band Neutrophils % 6 H, Lymphocytes % (Manual) 11 L, Monocytes % (Manual) 3, Metamyelocytes % 2 H 11/11/20 04:00: Sodium 142, Potassium 3.6, Chloride 113 H, Carbon Dioxide 16.0 L, Anion Gap 13, BUN 44 H, Creatinine 4.31 H, Est GFR (MDRD) Af Amer 17 L, Est GFR (MDRD) Non-Af 14 L, BUN/Creatinine Ratio 10.2, Glucose 102, Calcium 6.1 L* Rhythm: EKG: ECHO: Stress Test: Cardiac Cath: PCI: CT Surgery: Holter monitor: EPS: PPM: CXR: Chest CT Scan: Radiography Diagnostic Testing: Radiology Impression Renal Ultrasound 11/11/20 07:50 IMPRESSION: Bilateral renal cysts. No evidence of hydronephrosis. Electronically Signed: Bowen Horta MD at 14:38 EDT , Service support , Physical Exam Const alert and oriented x3 Orientation / Consciousness: awake HEENT normocephalic Eyes no scleral icterus Neck supple Chest inspection of chest normal Resp normal respiratory effort Cardio Cardio Narrative: Irregular rhythm GI GI Narrative: Abdomen is distended and tender to palpation Extremity General Extremity: edema bilateral lower extremity Details: trace Psych mental status grossly normal Assessment & Plan Assessment/Plan (1) Atrial fibrillation with rapid ventricular response: PLAN: Heart rate is better controlled now. DC amiodarone IV after a total of 24 hours and then start amiodarone 200 mg p.o. twice daily. Charges/Coding Visit Charges Inpatient E&M: 43340 [facility] Hosp L3
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
[2020-11-11 16:50] LABS: Hematocrit 40.7 % (40-54); Mean Corp Hgb Conc 31.9 g/dL (32-36); Mean Corpuscular Hgb 31.7 pg (27.0-32.0); Mean Corpuscular Volume 99.3 fL (80-94); Mean Platelet Vol. 10.1 fl (6.2-12.0); POSITIVE COUNT YES; POSITIVE MORPHOLOGY YES; Platelet Count 152 K/mm3 (150-450); RBC Distribution Width CV 15.9 % (11.6-14.6); RBC Distribution Width SD 58.4 fl (35.1-43.9)
[2020-11-11 16:51] LABS: Differential Indicated MANUAL DIFF
[2020-11-11 17:13] LABS: Lymphocyte 27 % (19-41); Neutrophil-Band 5 % (0-5); Neutrophil-Segmented 68 % (47-70); Total Cells Counted 100 (MANUAL DIFF)
[2020-11-11 17:16] LABS: Burr Cells RARE; Platelet Estimate ADEQUATE (ADEQ); Red Cell Morphology N CHROM NORMAL (NORM C&C)
[2020-11-11 17:17] LABS: Absolute Neutrophil Count 2.9 X10^3/uL (2.0-7.7)
[2020-11-11 17:18] LABS: Absolute Lymphocyte Count 1.08 X10^3/uL (0.83-4.51)
--- NOTE | 2020-11-11 17:25 | CON.PCM.UR_ITS ---
Assessment & Plan Assessment/Plan (1) Chronic kidney disease: PLAN: Worsening renal function probably as result obstructive shock. Only has unilateral obstruction would not expect the increase in creatinine as a result of this unilateral obstruction, worsening renal function is probably due to overall septic shock etc. (2) Gram negative septic shock: PLAN: Gram-negative septic shock probably from obstructing stone which is resolving (3) UTI (urinary tract infection): QUALIFIERS: Urinary tract infection type: acute cystitis Hematuria presence: with hematuria Qualified Code(s): N30.01 - Acute cystitis with hematuria PLAN: Urinary tract infection (4) Left ureteral calculus: PLAN: Very small 4 mm calculus in the distal left ureter very likely will pass plan to repeat imaging in a few days. (5) Metabolic acidosis: PLAN: Resolving septic shock. HPI Consult Data Date of Consult: 11/11/20 HPI Narrative HPI Narrative: MARYELLEN HICKEY, is a 85 M who presents to the hospital unresponsive found to have septic shock and he was in the intensive care unit he required pressors and antibiotics the sepsis has resolved since then but he is extremely agitated and confused, he had an ultrasound done which demonstrated minimal hydronephrosis. He had a CAT scan done with demonstrated very small stone in the distal left ureter about 4 mm in size. He has fairly poor urine output and worsening creatinine. [facility] Medical History Hemorrhagic stroke Hypertension Home Medications Unobtainable 10/03/19 [History Last Taken Unknown] Allergy/AdvReac Type Severity Reaction Status Date / Time Unable to Assess Allergy Verified 11/09/20 12:53 Social History Smoking Status: Never smoker ROS Review of Systems ROS Unobtainable: due to encephalopathy and due to mental condition Physical Exam Narrative Extremely agitated 85-year-old male trying to get out of bed nurses are try to hold him down. Const General Appearance: uncooperative and combative Eyes PERRL Neck supple Chest Chest: abnormal inspection of the chest Resp Effort and Inspection: audible wheezes GI non-distended Psych Appearance: disheveled Attitude: agitated Lab / Micro Data Result Diagrams: 11/11/20 16:40 11/11/20 04:00 Labs: Laboratory Results - last 24 hr 11/11/20 11/11/20 11/11/20 04:00 04:00 16:40 WBC 11.4 H 4.0 L RBC 3.41 L 4.10 L Hgb 10.9 L 13.0 Hct 34.4 L 40.7 MCV 100.9 H 99.3 H MCH 32.0 31.7 MCHC 31.7 L 31.9 L RDW Std Deviation 59.0 H 58.4 H RDW Coeff of Navneet 15.9 H 15.9 H Plt Count 139 L 152 MPV 10.6 10.1 Neut % (Auto) Not Reportable Not Reportable Absolute Neuts (auto) 9.6 H 2.9 Absolute Lymphs (auto) 1.30 1.08 Total Counted 100 100 Neutrophils % (Manual) 78 H 68 Band Neutrophils % 6 H 5 Lymphocytes % (Manual) 11 L 27 Monocytes % (Manual) 3 Metamyelocytes % 2 H Diff Path Review Reviewed September foll Platelet Estimate SLT DEC ADEQUATE RBC Morphology NORM C+C N CHROM Paula Cells RARE Sodium 142 Potassium 3.6 Chloride 113 H Carbon Dioxide 16.0 L Anion Gap 13 BUN 44 H Creatinine 4.31 H Estim Creat Clear Calc 13.41 Est GFR (MDRD) Af Amer 17 L Est GFR (MDRD) Non-Af 14 L BUN/Creatinine Ratio 10.2 Glucose 102 Calcium 6.1 L* Micro: Microbiology 11/09/20 15:13 Blood Culture - Final Blood Culture (Wb) - Anticubital Right Proteus mirabilis 11/09/20 18:15 Urine Culture - Final Urine Catheter - [place] Enterococcus faecalis Radiology Impression Renal Ultrasound 11/11/20 07:50 IMPRESSION: Bilateral renal cysts. No evidence of hydronephrosis. Electronically Signed: Bowen Horta MD at 14:38 EDT , Service support , Abdomen CT 11/11/20 12:51 IMPRESSION: 1. Obstruction of the left kidney collecting system and ureter from a 4 mm distal left ureteral calculus. 2. Possible cholelithiasis. 3. Other chronic findings as above. Electronically Signed: Ronald Alcantar MD at 16:46 EDT , Service support ,
[2020-11-11] MEDS: LORazepam 2 MG/ML Syringe 0.5 MG IV (17:30)
--- NOTE | 2020-11-11 17:37 | CPS ---
pt not cooperative, ripped BIPAP off, breaking the mask. R.T placed pt on NC @5lpm. Pt agitated, moving all over the bed, not cooperating even when importance of cooperating is explained. RN's in room and witnessing pt's behavior.
[2020-11-11 17:42] LABS: Vancomycin, Trough Level 23.2 ug/mL (5.0-15.0)
[2020-11-11] MEDS: Morphine 2 MG/ML Syringe IV (17:43)
[2020-11-11 17:46] LABS: ALB/GLOB Ratio 0.3 RATIO (0.9-2.4); AST(SGOT) 98 U/L (15-37); Alanine Aminotransfer ALT/SGPT 77 U/L (16-61); Alkaline Phosphatase 115 U/L (45-117); Anion Gap 16 (5-15); BUN 63 mg/dL (7-18); BUN/Creat Ratio 10.3 RATIO (10-20); Calcium,Total 7.5 mg/dL (8.5-10.1); Chloride 105 mmol/L (98-107); Creatinine, Serum 6.11 mg/dL (0.70-1.30); EST Glomerular Filtration Rate 9 mL/min (>60); Est Glom Filt Rate - Afr Amer 11 mL/min (>60); Estimated Creatinine Clearance 9.46 ml/min; Globulin 5.8 g/dL (2.2-4.2); Glucose 99 mg/dL (74-106); Magnesium 1.7 mg/dL (1.6-2.6); Potassium 4.7 mmol/L (3.5-5.1); Protein, Total 7.8 g/dL (6.4-8.2); Sodium Level 136 mmol/L (136-145)
[2020-11-11 17:49] LABS: Lactic Acid 5.3 mmol/L (0.4-1.9)
--- NOTE | 2020-11-11 17:55 | CPS ---
Pt won't hold still, unable to get P-ox at this time. Pt is agitated and uncooperative, yelling out and moving nonstop.
[2020-11-11] MEDS: Lactated Ringers 1,000 ML 999 ML IV (17:59)
--- NOTE | 2020-11-11 18:53 | NURSING ---
Attempted to notify brother Jonathan of pt going to emergent surgery for ureter stent placement. Only able to get voicemail. Phone # of unit left and instructions to call if Jonathan wants an update.
[2020-11-11] MEDS: Lidocaine Jelly 2% 20 ML Syringe (URO-JET) 20 APPLIC (19:34)
--- NOTE | 2020-11-11 19:49 | OP.PCM_ITS ---
Report of Operation Date of Procedure: 11/11/20 Pre-Operative Diagnosis: Sepsis with obstructing left distal ureteral calculi Post-Operative Diagnosis: Same Surgery/Procedure Performed:: Cystoscopy and left stent placement Description of Surgical Findings:: This is an 85-year-old male who was called to see this afternoon around 5 PM. After I saw the patient in the floor and reviewed his CAT scan he had obstructing stone in the distal ureter which is only 4 mm in size but the patient has been transferred from the ICU. However on the floor he was fairly agitated confused and fighting the staff. His lactic acid was extremely high patient was becoming reseptic again and at this point because of the obstruction in the distal ureter with sepsis he also was feeling feverish was complaining of abdominal pain but very confused. He was taken back to the operating room in an emergent fashion for an emergency stent placement for obstruction and sepsis. Many efforts were made to contact the family. We then spoke to the patient and he was agreeable but but because of his status was really not able to sign the consent form. Patient was taken back to the operating room he was placed supine on the operating room table placed in dorsolithotomy position penis and testicles are prepped and draped in usual sterile fashion I placed lidocaine jelly into the urethra for local. And then I went into the bladder with a rigid cystoscope a 21 [place] the entire length of the urethra was normal the prostate was slightly large but no obstruction inside the bladder very trabeculated bladder but is able to identify the left and right ureteral orifice I then identified the left ureteral orifice and advanced a Glidewire into the left ureteral orifice and had immediate return of foul purulent whitish pus draining from the left ureter. After this pus drained in the left ureter advance a wire up into the left kidney under fluoroscopic guidance and then I placed a stent on the left side. The stent initially coiled in the prostate but then after I then put a catheter into the bladder and the stent coiled back into the bladder and coiled up in the kidney and then we put an 18 [place] catheter in the bladder for drainage which was draining yellowish urine with pus patient was then taken out of position taken back to the PACU and taken to the PACU monitored state safe condition. Patient tolerated procedure. Surgeon: Eric Martinez Drains: stent left side Admit VTE Documentation VTE Present on Admission: No VTE Mechan Device Prophylaxis: SCD's
--- NOTE | 2020-11-11 20:16 | SUR.PHASEI ---
on arrival to the PACU pt is alert on floor monitor alert and awake. pt was given no anesthesia per [employer] KR, Pt A&Ox3 with episodes of confusion. pt on Amiodarone drip 0.5mg/min (16.7ml/hr) Sodium Bicarb 150/hr.
[2020-11-11 20:43] LABS: Reflex Lactate? Y
[2020-11-11] MEDS: 0.9% Normal Saline 1,000 ML 999 ML IV (22:37)
[2020-11-12] VITALS (26 sets, daily range): BP systolic 78–133; BP diastolic 60–100; PULSE 61–110; RESP 11–28; TEMP 36.4–36.8; O2SAT 93–98
[2020-11-12] MEDS: Amiodarone 360 MG in Dextrose 5% Viaflo Bag 192.8 ML 16.7 MG CONT INF ×2 (00:15→13:03)
[2020-11-12] MEDS: Cefazolin 1 GM/50 ML BAG IV ×3 (00:16→21:56)
[2020-11-12] MEDS: Senna Tablet 2 TABLET PO ×2 (00:18→10:56)
[2020-11-12 00:41] LABS: Lactic Acid 2.9 mmol/L (0.4-1.9)
--- NOTE | 2020-11-12 06:40 | PN.CC_ITS ---
Assessment & Plan Assessment/Plan (1) Gram negative septic shock: PLAN: RECOMMENDATIONS: 1. Plan for dialysis catheter placement today with subsequent initiation of HD support, per nephrology recommendations. 2. Continue sodium bicarbonate infusion for now. 3. Continue antimicrobials. 4. Continue amiodarone as ordered. 5. Encourage incentive spirometer use and mobilize patient as tolerated. IMPRESSIONS: 1. Gram-negative septic shock Improved. Secondary to urinary tract source of infection with secondary hematogenous spread. The patient was volume resuscitated but did eventually require vasopressor support. Nevertheless, with supportive measures and antimicrobials, the patient was able to be weaned from Levophed and remains hemodynamically stable. Plan to continue antimicrobials as ordered. 2. Acute kidney injury Likely prerenal in etiology with a component of ischemic ATN related to #1. Plan to continue current supportive measures. Continue to monitor urine output. Given worsening renal status, plan for temporary HD line placement and initiation of hemodialysis support, per nephrology recommendations. 3. Troponin elevation Likely secondary to demand ischemia in the setting of #1. 4. Atrial fibrillation with RVR The patient is currently being maintained on amiodarone, which will be continued without change. This note was generated with [employer] dictation software. It may contain incorrect words, spelling, and punctuation that were not noted in checking the note before signing. Subjective Subjective The patient was seen and examined at the bedside this morning. Events from the last 24 hours have been reviewed. The patient is currently afebrile, hemodynamically stable and maintaining appropriate oxygen saturations on room air. Yesterday, the patient was transferred to the PCU. However, a CT abdomen subsequently revealed obstruction of the left kidney collecting system with a 4 mm distal left ureteral calculus. The patient was subsequently evaluated by urology and taken to the OR where he underwent cystoscopy and left ureteral stent placement. Following the procedure, the patient once again became septic and was transferred back to the intensive care unit. The patient is currently being maintained on a sodium bicarbonate infusion per nephrology recommendations along with amiodarone. He remains on cefazolin. Objective Data Objective Data The patient's most recent lab work, culture data and imaging studies have all been personally reviewed. Surface echocardiogram revealed an ejection fraction of 45% with mild global hypokinesis of the LV. Pulmonary artery systolic pressure was estimated to be 40 mmHg. Blood culture from November 09 was positive for Proteus mirabilis with urine culture positive for Enterococcus. Vital Signs: Vital Signs Temp Pulse Resp BP Pulse Ox 97.9 F 96 17 108/91 H 94 11/12/20 04:00 11/12/20 06:00 11/12/20 06:00 11/12/20 06:00 11/12/20 06:00 Oxygen Flow Rate (L/min) 2 Oxygen Delivery Method Room Air Weight: 195 lb 1.745 oz Body Mass Index (BMI) 26.2 Intake & Output: Intake and Output for Last 24 Hours 11/10/20 11/11/20 11/12/20 23:59 23:59 23:59 Intake Total 3803.37 / 3820.07 5290.03 / 5290.03 1182.69 / 1182.69 Output Total 147 / 147 45 / 55 70 / 70 Balance 3656.37 / 3673.07 5245.03 / 5235.03 1112.69 / 1112.69 Lab / Micro Data Attestation: I reviewed the patient's lab results. Result Diagrams: 11/12/20 05:30 11/12/20 05:30 Labs: Laboratory Results - last 24 hr 11/11/20 11/11/20 11/11/20 04:00 04:00 16:40 WBC RBC Hgb Hct MCV MCH MCHC RDW Std Deviation RDW Coeff of Navneet Plt Count MPV Neut % (Auto) Absolute Neuts (auto) 9.6 H Absolute Lymphs (auto) 1.30 Total Counted 100 Neutrophils % (Manual) 78 H Band Neutrophils % 6 H Lymphocytes % (Manual) 11 L Monocytes % (Manual) 3 Metamyelocytes % 2 H Diff Path Review Reviewed Platelet Estimate SLT DEC RBC Morphology NORM C+C Walker Cells Sodium 142 Potassium 3.6 Chloride 113 H Carbon Dioxide 16.0 L Anion Gap 13 BUN 44 H Creatinine 4.31 H Estim Creat Clear Calc 13.41 Est GFR (MDRD) Af Amer 17 L Est GFR (MDRD) Non-Af 14 L BUN/Creatinine Ratio 10.2 Glucose 102 Lactic Acid Calcium 6.1 L* Magnesium Total Bilirubin AST ALT Alkaline Phosphatase Total Protein Albumin Globulin Albumin/Globulin Ratio Vancomycin Trough 23.2 H 11/11/20 11/11/20 11/11/20 16:40 16:40 16:40 WBC 4.0 L RBC 4.10 L Hgb 13.0 Hct 40.7 MCV 99.3 H MCH 31.7 MCHC 31.9 L RDW Std Deviation 58.4 H RDW Coeff of Navneet 15.9 H Plt Count 152 MPV 10.1 Neut % (Auto) Not Reportable Absolute Neuts (auto) 2.9 Absolute Lymphs (auto) 1.08 Total Counted 100 Neutrophils % (Manual) 68 Band Neutrophils % 5 Lymphocytes % (Manual) 27 Monocytes % (Manual) Metamyelocytes % Diff Path Review May foll Platelet Estimate ADEQUATE RBC Morphology N CHROM Walker Cells RARE Sodium 136 Potassium 4.7 Chloride 105 Carbon Dioxide 15.0 L Anion Gap 16 H BUN 63 H Creatinine 6.11 H Estim Creat Clear Calc 9.46 Est GFR (MDRD) Af Amer 11 L Est GFR (MDRD) Non-Af 9 L BUN/Creatinine Ratio 10.3 Glucose 99 Lactic Acid 5.3 H* Calcium 7.5 L Magnesium 1.7 Total Bilirubin 0.70 AST 98 H ALT 77 H Alkaline Phosphatase 115 Total Protein 7.8 Albumin 2.0 L Globulin 5.8 H Albumin/Globulin Ratio 0.3 L Vancomycin Trough 11/11/20 23:30 WBC RBC Hgb Hct MCV MCH MCHC RDW Std Deviation RDW Coeff of Navneet Plt Count MPV Neut % (Auto) Absolute Neuts (auto) Absolute Lymphs (auto) Total Counted Neutrophils % (Manual) Band Neutrophils % Lymphocytes % (Manual) Monocytes % (Manual) Metamyelocytes % Diff Path Review Platelet Estimate RBC Morphology Walker Cells Sodium Potassium Chloride Carbon Dioxide Anion Gap BUN Creatinine Estim Creat Clear Calc Est GFR (MDRD) Af Amer Est GFR (MDRD) Non-Af BUN/Creatinine Ratio Glucose Lactic Acid 2.9 H* Calcium Magnesium Total Bilirubin AST ALT Alkaline Phosphatase Total Protein Albumin Globulin Albumin/Globulin Ratio Vancomycin Trough Micro: Microbiology 11/09/20 15:13 Blood Culture (Wb) - Anticubital Right Blood Culture - Final Proteus mirabilis 11/09/20 18:15 Urine Catheter - [place] Urine Culture - Final Enterococcus faecalis 11/09/20 14:48 Blood Culture (Wb) - Left Forearm Blood Culture - Final Gram negative rosmery 11/09/20 22:40 Stool Enteric Bacteriology - Final 11/09/20 22:40 Stool C. difficile DNA Amplification - Final 11/09/20 13:55 Mucosa - Nose SARS-CoV-2 Antigen (Rapid) - Final Radiography Diagnostic Testing: Radiology Impression Renal Ultrasound 11/11/20 07:50 IMPRESSION: Bilateral renal cysts. No evidence of hydronephrosis. Electronically Signed: Bowen Horta MD at 14:38 EDT , Service support , Abdomen CT 11/11/20 12:51 IMPRESSION: 1. Obstruction of the left kidney collecting system and ureter from a 4 mm distal left ureteral calculus. 2. Possible cholelithiasis. 3. Other chronic findings as above. Electronically Signed: Ronald Alcantar MD at 16:46 EDT , Service support , Physical Exam Const alert and no apparent distress Constitutional Narrative: Hard of hearing General Appearance: cooperative HEENT normocephalic and head/scalp atraumatic Eyes PERRL, EOMs intact bilaterally and conjunctivae normal Neck supple General: trachea midline Resp normal respiratory effort Auscultation: Negative for rales, rhonchi or wheezes Cardio S1 normal heart sound and S2 normal heart sound Rate: tachycardic Rhythm: abnormal rhythm irregularly irregular GI normal to inspection, nondistended, normoactive bowel sounds Extremity no clubbing, cyanosis or edema Skin no rashes or lesions noted Neuro CN's II-XII intact bilaterally, moves all extremities and no focal motor deficits Psych Mood & Affect: flat affect Charges/Coding Visit Charges Inpatient E&M: 24392 Subs Hosp L3
[2020-11-12 07:01] LABS: Hematocrit 35.4 % (40-54); Hemoglobin 11.7 g/dL (13.0-16.5); Mean Corp Hgb Conc 33.1 g/dL (32-36); Mean Corpuscular Hgb 31.4 pg (27.0-32.0); Mean Corpuscular Volume 94.9 fL (80-94); Mean Platelet Vol. 10.9 fl (6.2-12.0); POSITIVE COUNT YES; POSITIVE MORPHOLOGY YES; Platelet Count 110 K/mm3 (150-450); RBC Distribution Width CV 15.6 % (11.6-14.6); RBC Distribution Width SD 54.1 fl (35.1-43.9); Red Blood Count 3.73 M/mm3 (4.6-6.2); White Blood Count 10.9 K/mm3 (4.4-11.0)
[2020-11-12 07:05] LABS: Differential Indicated MANUAL DIFF
[2020-11-12 07:12] LABS: Anion Gap 11 (5-15); BUN 67 mg/dL (7-18); BUN/Creat Ratio 10.3 RATIO (10-20); Chloride 105 mmol/L (98-107); Creatinine, Serum 6.52 mg/dL (0.70-1.30); EST Glomerular Filtration Rate 9 mL/min (>60); Est Glom Filt Rate - Afr Amer 11 mL/min (>60); Estimated Creatinine Clearance 8.86 ml/min; Glucose 157 mg/dL (74-106); Potassium 4.2 mmol/L (3.5-5.1); Sodium Level 136 mmol/L (136-145)
[2020-11-12 07:19] LABS: Absolute Lymphocyte Count 1.53 X10^3/uL (0.83-4.51); Absolute Neutrophil Count 8.2 X10^3/uL (2.0-7.7); Neutrophil-Band 8 % (0-5); Neutrophil-Segmented 67 % (47-70)
[2020-11-12 07:20] LABS: Atypical Lymphocyte 2+ %; Lymphocyte 14 % (19-41); Monocyte 4 % (0-10); Myelocyte 6 % (0-0); Platelet Estimate SLT DEC (ADEQ); Promyelocyte 1 % (0-0); Red Cell Morphology NORM C+C NORMAL (NORM C&C)
--- NOTE | 2020-11-12 07:30 | CON.PCM.UR_ITS ---
Assessment & Plan Assessment/Plan (1) Chronic kidney disease: PLAN: Worsening renal function probably will need renal replacement therapy, no urine output (2) Gram negative septic shock: PLAN: Continue antibiotics (3) Left ureteral calculus: PLAN: Status post stent placement, eventually will need surgery for his kidney stone but await for stabilization. will continue to follow HPI Consult Data Date of Consult: 11/12/20 HPI Narrative HPI Narrative: MARYELLEN HICKEY, is a 85 M who presents to the hospital with sepsis from obstructing stone status post stent placement emergently last night [facility] Medical History Hemorrhagic stroke Hypertension Home Medications Unobtainable 10/03/19 [History Last Taken Unknown] Allergy/AdvReac Type Severity Reaction Status Date / Time Unable to Assess Allergy Verified 11/09/20 12:53 Social History Smoking Status: Never smoker ROS Constitutional Constitutional: Denies chills, fever(s) or malaise Eyes Eyes: Denies blurry vision or change in vision ENT HEENT: Reports none Cardiovascular Cardiovascular: Denies chest pain or palpitations Respiratory/Chest Respiratory/Chest: Denies cough or shortness of breath with exertion Gastrointestinal Gastrointestinal: Denies abdominal pain, constipation or diarrhea Musculoskeletal Musculoskeletal: Denies back pain, joint stiffness or joint swelling Integumentary Integumentary: Denies dry skin, jaundice, lesions or rash Neurologic Neurologic: Denies confusion, syncope or weakness Psychiatric Psychiatric: Reports none; Denies anxiety or depression Endocrine Endocrinology: Denies excessive sweating, fatigue or flushing Hematologic/Lymphatic Hematologic/Lymphatic: Denies anemia, easy bleeding or easy bruising Physical Exam Const alert HEENT normocephalic, head/scalp atraumatic, EAC's normal and TM's normal bilaterally Eyes PERRL and EOMs intact bilaterally Pupil: sluggish Neck no lymphadenopathy, supple and no JVD General: trachea midline Lymph Lymphatic: no lymphadenopathy noted, lymphedema and lymphadenopathy Resp normal respiratory effort, normal air movement and clear to auscultation bilate rally Cardio regular rate, regular rhythm and peripheral pulses 2+ throughout GI soft to palpation, non-tender and non-distended Extremity normal capillary refill and no clubbing, cyanosis or edema General Extremity: no tenderness to palpation of joints or extremities Skin no rashes or lesions noted General Skin Exam: turgor normal Lesions: no lesions Rashes: no rashes Neuro CN's II-XII intact bilaterally Lab / Micro Data Result Diagrams: 11/12/20 05:30 11/12/20 05:30 Labs: Laboratory Results - last 24 hr 11/11/20 11/11/20 11/11/20 04:00 16:40 16:40 WBC 4.0 L RBC 4.10 L Hgb 13.0 Hct 40.7 MCV 99.3 H MCH 31.7 MCHC 31.9 L RDW Std Deviation 58.4 H RDW Coeff of Navneet 15.9 H Plt Count 152 MPV 10.1 Neut % (Auto) Not Reportable Absolute Neuts (auto) 2.9 Absolute Lymphs (auto) 1.08 Total Counted 100 Neutrophils % (Manual) 68 Band Neutrophils % 5 Lymphocytes % (Manual) 27 Monocytes % (Manual) Myelocytes % Promyelocytes % Diff Path Review Reviewed May foll Atypical Lymphocytes Platelet Estimate ADEQUATE RBC Morphology N CHROM [place] Cells RARE Sodium Potassium Chloride Carbon Dioxide Anion Gap BUN Creatinine Estim Creat Clear Calc Est GFR (MDRD) Af Amer Est GFR (MDRD) Non-Af BUN/Creatinine Ratio Glucose Lactic Acid Calcium Magnesium Total Bilirubin AST ALT Alkaline Phosphatase Total Protein Albumin Globulin Albumin/Globulin Ratio Vancomycin Trough 23.2 H 11/11/20 11/11/20 11/11/20 16:40 16:40 23:30 WBC RBC Hgb Hct MCV MCH MCHC RDW Std Deviation RDW Coeff of Navneet Plt Count MPV Neut % (Auto) Absolute Neuts (auto) Absolute Lymphs (auto) Total Counted Neutrophils % (Manual) Band Neutrophils % Lymphocytes % (Manual) Monocytes % (Manual) Myelocytes % Promyelocytes % Diff Path Review Atypical Lymphocytes Platelet Estimate RBC Morphology Paula Cells Sodium 136 Potassium 4.7 Chloride 105 Carbon Dioxide 15.0 L Anion Gap 16 H BUN 63 H Creatinine 6.11 H Estim Creat Clear Calc 9.46 Est GFR (MDRD) Af Amer 11 L Est GFR (MDRD) Non-Af 9 L BUN/Creatinine Ratio 10.3 Glucose 99 Lactic Acid 5.3 H* 2.9 H* Calcium 7.5 L Magnesium 1.7 Total Bilirubin 0.70 AST 98 H ALT 77 H Alkaline Phosphatase 115 Total Protein 7.8 Albumin 2.0 L Globulin 5.8 H Albumin/Globulin Ratio 0.3 L Vancomycin Trough 11/12/20 11/12/20 05:30 05:30 WBC 10.9 RBC 3.73 L Hgb 11.7 L Hct 35.4 L MCV 94.9 H MCH 31.4 MCHC 33.1 RDW Std Deviation 54.1 H RDW Coeff of Navneet 15.6 H Plt Count 110 L MPV 10.9 Neut % (Auto) Not Reportable Absolute Neuts (auto) 8.2 H Absolute Lymphs (auto) 1.53 Total Counted Neutrophils % (Manual) 67 Band Neutrophils % 8 H Lymphocytes % (Manual) 14 L Monocytes % (Manual) 4 Myelocytes % 6 H Promyelocytes % 1 H Diff Path Review May foll Atypical Lymphocytes 2+ Platelet Estimate SLT DEC RBC Morphology NORM C+C [place] Cells Sodium 136 Potassium 4.2 Chloride 105 Carbon Dioxide 20.0 L Anion Gap 11 BUN 67 H Creatinine 6.52 H Estim Creat Clear Calc 8.86 Est GFR (MDRD) Af Amer 11 L Est GFR (MDRD) Non-Af 9 L BUN/Creatinine Ratio 10.3 Glucose 157 H Lactic Acid Calcium 7.0 L Magnesium Total Bilirubin AST ALT Alkaline Phosphatase Total Protein Albumin Globulin Albumin/Globulin Ratio Vancomycin Trough Micro: Microbiology 11/09/20 15:13 Blood Culture - Final Blood Culture (Wb) - Anticubital Right Proteus mirabilis 11/09/20 18:15 Urine Culture - Final Urine Catheter - [place] Enterococcus faecalis Radiology Impression Renal Ultrasound 11/11/20 07:50 IMPRESSION: Bilateral renal cysts. No evidence of hydronephrosis. Electronically Signed: Bowen Horta MD at 14:38 EDT , Service support , Abdomen CT 11/11/20 12:51 IMPRESSION: 1. Obstruction of the left kidney collecting system and ureter from a 4 mm distal left ureteral calculus. 2. Possible cholelithiasis. 3. Other chronic findings as above. Electronically Signed: Ronald Alcantar MD at 16:46 EDT , Service support ,
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
--- NOTE | 2020-11-12 11:53 | RAD_ITS ---
STUDY: X-RAY CHEST REASON FOR EXAM: Male, 85 years old. Catheter placement TECHNIQUE: Frontal view of the chest COMPARISON: 11/09/20 FINDINGS: There is a right-sided central catheter with its tip in the superior vena cava. The lungs are clear. There are no pleural effusions. There is no pneumothorax. The heart is stable in size. The visualized osseous structures are within normal limits. RAD/CXR for Line Placement IMPRESSION: Satisfactory position of the right-sided central catheter. No pneumothorax. Electronically Signed: Gil Masterson MD at 13:22 EDT Tel , Service support ,
--- NOTE | 2020-11-12 12:20 | CON.PCM_ITS ---
Consult Date of Consult: 11/12/[address] dialysis catheter by Staff Air Tactical Officer as patient is requiring dialysis HPI: 85 y/o WM presented to [facility] ED with septic shock, had had been found unresponsive by family. He has known non compliance issues, as stated by family, he is s/p CVA, one year ago, and refused appropriate rehabilitation. He presented with right sided abdominal pain, found to have left ureteral obstruction due to nephrolithiasis. Also had renal insufficiency and elevated troponin. Now in the ICU with renal failure requiring dialysis. PMH: hypertension Medications - according to patient's family - patient refuses any medications as an outpatient Allergies: none known Review of systems: as per HPI Examination: Alert and oriented, 85 y/o WM in no apparent distress, somnolent Normocephalic Lungs - normal respiratory excursion, no adventitial sounds noted Heart - regular on monitor Abdomen - soft and benign Extremities - no pitting edema Impression: renal failure - need for dialysis - I was asked to place a dialysis catheter Plan: Patient understands risks/benefits of placement of dialysis catheter and agrees to proceed. To be done as bedside procedure in the ICU.
--- NOTE | 2020-11-12 12:21 | OP.PCM_ITS ---
Report of Operation Date of Procedure: 11/12/20 Pre-Operative Diagnosis: renal failure, need for dialysis Post-Operative Diagnosis: same as above Surgery/Procedure Performed:: placement of left subclavian dual lumen dialysis cathter Surgeon: sara Type of Anesthesia: Local Estimated Blood Loss (mL): 30 ml Fluids Replaced: none Description of Procedure: After informed consent was given, the procedure was done at the patient's bedside in the ICU. Appropriate time out protocol was followed. The patient was then placed in the supine position in the steep [place] position.. The patient?s upper right chest and neck were then prepped with a surgical skin preparation and sterile surgical drapes were placed. After proper landmarks were ascertained, the skin at the upper left chest area was then infiltrated with 1% xylocaine. A needle trocar was then inserted into the right subclavian vein and there was good aspiration of venous blood. A wire was then threaded into the needle trocar and thus advanced into the right subclavian vein. Once this was done, then the needle trocar was removed. A small skin reynold was made with an 11 blade knife at the wire entrance site. The smallest dilator was then placed over the wire into the right subclavian vein via the Seldinger technique. The largest dilator was then placed over the wire into the right subclavian vein via the Seldinger technique. The catheter was then placed over the wire into the right subclavian vein. The wire was then removed. The catheter was then flushed with normal saline and capped. The catheter was then sutured to the skin using nylon suture and sterile dressing applied. A post procedure CXR revealed no evidence of pneumothorax and the tip was out side the cardiac silhouette in the SVC. Grafts/Implants Used: 16 Fr dual lumen dialysis catheter Complications none noted
[2020-11-12] MEDS: Heparin Injection (Vial) 5,000 UNIT/ML VIAL 5000 UNIT SC ×2 (13:04→21:56)
[2020-11-12] MEDS: Lidocaine 2% (20 ml mdv) 20 ML Vial 5 ML INFILT (13:04)
[2020-11-12] MEDS: Heparin 10,000 UNITS/10 ML Vial IV ×2 (13:04→19:10)
--- NOTE | 2020-11-12 16:11 | PCM.PN.REN ---
Subjective Subjective no acute events No N/V/SOB Objective Data Objective Data Vital Signs: Vital Signs Temp Pulse Resp BP Pulse Ox 98.2 F 96 23 H 92/76 95 11/12/20 12:00 11/12/20 14:00 11/12/20 14:00 11/12/20 14:00 11/12/20 14:00 Oxygen Flow Rate (L/min) 2 Oxygen Delivery Method Room Air Weight: 88.5 kg Body Mass Index (BMI) 26.2 Intake & Output: Intake and Output for Last 24 Hours 11/10/20 11/11/20 11/12/20 23:59 23:59 23:59 Intake Total 3803.37 / 3820.07 5290.03 / 5290.03 2810.19 / 2810.19 Output Total 147 / 147 45 / 55 75 / 75 Balance 3656.37 / 3673.07 5245.03 / 5235.03 2735.19 / 2735.19 Lab / Micro Data Result Diagrams: 11/12/20 05:30 11/12/20 05:30 Labs: Laboratory Results - last 24 hr 11/11/20 11/11/20 11/11/20 16:40 16:40 16:40 WBC 4.0 L RBC 4.10 L Hgb 13.0 Hct 40.7 MCV 99.3 H MCH 31.7 MCHC 31.9 L RDW Std Deviation 58.4 H RDW Coeff of Navneet 15.9 H Plt Count 152 MPV 10.1 Neut % (Auto) Not Reportable Absolute Neuts (auto) 2.9 Absolute Lymphs (auto) 1.08 Total Counted 100 Neutrophils % (Manual) 68 Band Neutrophils % 5 Lymphocytes % (Manual) 27 Monocytes % (Manual) Myelocytes % Promyelocytes % Diff Path Review May foll Atypical Lymphocytes Platelet Estimate ADEQUATE RBC Morphology N CHROM [place] Cells RARE Sodium 136 Potassium 4.7 Chloride 105 Carbon Dioxide 15.0 L Anion Gap 16 H BUN 63 H Creatinine 6.11 H Estim Creat Clear Calc 9.46 Est GFR (MDRD) Af Amer 11 L Est GFR (MDRD) Non-Af 9 L BUN/Creatinine Ratio 10.3 Glucose 99 Lactic Acid Calcium 7.5 L Magnesium 1.7 Total Bilirubin 0.70 AST 98 H ALT 77 H Alkaline Phosphatase 115 Total Protein 7.8 Albumin 2.0 L Globulin 5.8 H Albumin/Globulin Ratio 0.3 L Vancomycin Trough 23.2 H 11/11/20 11/11/20 11/12/20 16:40 23:30 05:30 WBC 10.9 RBC 3.73 L Hgb 11.7 L Hct 35.4 L MCV 94.9 H MCH 31.4 MCHC 33.1 RDW Std Deviation 54.1 H RDW Coeff of Navneet 15.6 H Plt Count 110 L MPV 10.9 Neut % (Auto) Not Reportable Absolute Neuts (auto) 8.2 H Absolute Lymphs (auto) 1.53 Total Counted Neutrophils % (Manual) 67 Band Neutrophils % 8 H Lymphocytes % (Manual) 14 L Monocytes % (Manual) 4 Myelocytes % 6 H Promyelocytes % 1 H Diff Path Review May foll Atypical Lymphocytes 2+ Platelet Estimate SLT DEC RBC Morphology NORM C+C [place] Cells Sodium Potassium Chloride Carbon Dioxide Anion Gap BUN Creatinine Estim Creat Clear Calc Est GFR (MDRD) Af Amer Est GFR (MDRD) Non-Af BUN/Creatinine Ratio Glucose Lactic Acid 5.3 H* 2.9 H* Calcium Magnesium Total Bilirubin AST ALT Alkaline Phosphatase Total Protein Albumin Globulin Albumin/Globulin Ratio Vancomycin Trough 11/12/20 05:30 WBC RBC Hgb Hct MCV MCH MCHC RDW Std Deviation RDW Coeff of Navneet Plt Count MPV Neut % (Auto) Absolute Neuts (auto) Absolute Lymphs (auto) Total Counted Neutrophils % (Manual) Band Neutrophils % Lymphocytes % (Manual) Monocytes % (Manual) Myelocytes % Promyelocytes % Diff Path Review Atypical Lymphocytes Platelet Estimate RBC Morphology [place] Cells Sodium 136 Potassium 4.2 Chloride 105 Carbon Dioxide 20.0 L Anion Gap 11 BUN 67 H Creatinine 6.52 H Estim Creat Clear Calc 8.86 Est GFR (MDRD) Af Amer 11 L Est GFR (MDRD) Non-Af 9 L BUN/Creatinine Ratio 10.3 Glucose 157 H Lactic Acid Calcium 7.0 L Magnesium Total Bilirubin AST ALT Alkaline Phosphatase Total Protein Albumin Globulin Albumin/Globulin Ratio Vancomycin Trough Micro: Microbiology 11/09/20 15:13 Blood Culture (Wb) - Anticubital Right Blood Culture - Final Proteus mirabilis 11/09/20 18:15 Urine Catheter - Lopez Urine Culture - Final Enterococcus faecalis 11/09/20 14:48 Blood Culture (Wb) - Left Forearm Blood Culture - Final Gram negative rosmery 11/09/20 22:40 Stool Enteric Bacteriology - Final 11/09/20 22:40 Stool C. difficile DNA Amplification - Final 11/09/20 13:55 Mucosa - Nose SARS-CoV-2 Antigen (Rapid) - Final Radiography Diagnostic Testing: Radiology Impression Abdomen CT 11/11/20 12:51 IMPRESSION: 1. Obstruction of the left kidney collecting system and ureter from a 4 mm distal left ureteral calculus. 2. Possible cholelithiasis. 3. Other chronic findings as above. Electronically Signed: Ronald Alcantar MD at 16:46 EDT , Service support , Chest X-Ray 11/12/20 11:53 IMPRESSION: Satisfactory position of the right-sided central catheter. No pneumothorax. Electronically Signed: Gil Masterson MD at 13:22 EDT Tel , Service support , Physical Exam Narrative Patient is awake and alert. On RA Neck No JVD Head AT NC Heart irregular. S/1 S2 Chest. CTA Abdomen: LLQ tenderness. slightly distended. + BS Neuro No focals. Ext +2 edema of LE : lopez cath in place Assessment & Plan Assessment/Plan (1) Acute kidney injury: (2) Chronic kidney disease: (3) Metabolic acidosis: (4) Gram negative septic shock: (5) UTI (urinary tract infection): QUALIFIERS: Urinary tract infection type: acute cystitis Hematuria presence: with hematuria Qualified Code(s): N30.01 - Acute cystitis with hematuria (6) Atrial fibrillation with rapid ventricular response: PLAN: JOSE is likely ATN induced by severe sepsis Patient is oliguric Cr is up to 6.5 mg/dl. Baseline Cr ~ 1.3 mg/dl in 2019 HD session today. next HD session likely Saturday Can stop IVF with starting HD Keep MAP > 65 Afib, sepsis and hemodynamic support as per ICU Thank you Will continue to follow
--- NOTE | 2020-11-12 16:19 | DIALYSIS ---
Report from primary RN, Bobbi Link. Access: Right subclavian HD catheter inserted today. Placement verified by CXR Site benign, biofilm dressing dry and intact. Connections secure. Hemosafe applied x 2. Hepatitis labs drawn at start of HD tx.
--- NOTE | 2020-11-12 19:31 | DIALYSIS ---
Hemodialysis complete. 3 hour run, 2k bath. Net fluid removed = 1800 ml. Patient tolerated HD tx well. Right subclavian CVC: Site benign, biofilm dressing dry and intact. Lumen flushed with NS, filled to volume with Heparin, clamped and capped. Report given to primary RN, Rupali Santiago. Next HD tx 11-14-20 or per nephrology.
[2020-11-12] MEDS: 0.9% Saline Lock 10 ML Syringe IV (21:24)
[2020-11-12] MEDS: Morphine 2 MG/ML Syringe IV (21:25)
[2020-11-13] VITALS (16 sets, daily range): BP systolic 99–136; BP diastolic 69–100; PULSE 57–111; RESP 12–20; TEMP 36.3–36.8; O2SAT 92–96
[2020-11-13] MEDS: MELATONIN 3 MG TABLET PO ×2 (00:49→21:29)
[2020-11-13] MEDS: Dicyclomine 10 MG Capsule PO ×2 (00:49→12:51)
[2020-11-13] MEDS: Amiodarone 360 MG in Dextrose 5% Viaflo Bag 192.8 ML 16.7 MG CONT INF (01:16)
--- NOTE | 2020-11-13 05:34 | PCM.PN.INT ---
Assessment & Plan Assessment/Plan (1) Gram negative septic shock: PLAN: RECOMMENDATIONS: 1. Continue ongoing hemodialysis support with volume removal per nephrology recommendations. 2. Continue antimicrobials as ordered. 3. Continue amiodarone with additional rate/rhythm control strategy per cardiology recommendations. 4. Encourage incentive spirometer use and mobilize patient as tolerated. IMPRESSIONS: 1. Gram-negative septic shock Improved. Secondary to urinary tract source of infection with secondary hematogenous spread. The patient was also noted to have a left distal ureteral calculi, for which she required cystoscopy and left ureteral stent placement. The patient was volume resuscitated but did eventually require vasopressor support. Nevertheless, with supportive measures and antimicrobials, the patient was able to be weaned from Levophed and remains hemodynamically stable. Plan to continue antimicrobials as ordered. 2. Acute kidney injury Likely prerenal in etiology with a component of ischemic ATN related to #1. Unfortunately, the patient did eventually require temporary hemodialysis line placement and subsequent initiation of hemodialysis due to worsening renal insufficiency. Plan to continue HD support per nephrology recommendations. 3. Troponin elevation Likely secondary to demand ischemia in the setting of #1. 4. Atrial fibrillation with RVR The patient is currently being maintained on amiodarone, which will be continued without change. Additional rate/rhythm control strategy per cardiology recommendations. This note was generated with [employer] dictation software. It may contain incorrect words, spelling, and punctuation that were not noted in checking the note before signing. Subjective Subjective The patient was seen and examined at the bedside this morning. Events from the last 24 hours have been reviewed. The patient is currently afebrile, hemodynamically stable and maintaining appropriate oxygen saturations on room air. The patient is currently documented to be overall net +14 L for the hospital admission. The patient did have a temporary dialysis line placed yesterday and underwent his first session of HD with 1.8 L of fluid removed. This morning, the patient reports the presence of hiccups and nonfocal abdominal pain. Objective Data Objective Data The patient's most recent lab work, culture data and imaging studies have all been personally reviewed. Surface echocardiogram revealed an ejection fraction of 45% with mild global hypokinesis of the LV. Pulmonary artery systolic pressure was estimated to be 40 mmHg. Blood culture from November 09 was positive for Proteus mirabilis with urine culture positive for Enterococcus. Vital Signs: Vital Signs Temp Pulse Resp BP Pulse Ox 97.9 F 96 15 112/69 93 11/13/20 00:00 11/13/20 04:00 11/13/20 00:00 11/13/20 00:00 11/13/20 00:00 Oxygen Flow Rate (L/min) 2 Oxygen Delivery Method Room Air Weight: 195 lb 1.745 oz Body Mass Index (BMI) 26.2 Intake & Output: Intake and Output for Last 24 Hours 11/11/20 11/12/20 11/13/20 23:59 23:59 23:59 Intake Total 5290.03 / 5290.03 4322.69 / 4522.69 400 / 400 Output Total 45 / 55 1915 / 1915 0 / 0 Balance 5245.03 / 5235.03 2407.69 / 2607.69 400 / 400 Lab / Micro Data Attestation: I reviewed the patient's lab results. Result Diagrams: 11/12/20 05:30 11/13/20 05:20 Labs: Laboratory Results - last 24 hr 11/12/20 11/12/20 05:30 05:30 WBC 10.9 RBC 3.73 L Hgb 11.7 L Hct 35.4 L MCV 94.9 H MCH 31.4 MCHC 33.1 RDW Std Deviation 54.1 H RDW Coeff of Navneet 15.6 H Plt Count 110 L MPV 10.9 Neut % (Auto) Not Reportable Absolute Neuts (auto) 8.2 H Absolute Lymphs (auto) 1.53 Neutrophils % (Manual) 67 Band Neutrophils % 8 H Lymphocytes % (Manual) 14 L Monocytes % (Manual) 4 Myelocytes % 6 H Promyelocytes % 1 H Diff Path Review May foll Atypical Lymphocytes 2+ Platelet Estimate SLT DEC RBC Morphology NORM C+C Sodium 136 Potassium 4.2 Chloride 105 Carbon Dioxide 20.0 L Anion Gap 11 BUN 67 H Creatinine 6.52 H Estim Creat Clear Calc 8.86 Est GFR (MDRD) Af Amer 11 L Est GFR (MDRD) Non-Af 9 L BUN/Creatinine Ratio 10.3 Glucose 157 H Calcium 7.0 L Micro: Microbiology 11/09/20 15:13 Blood Culture (Wb) - Anticubital Right Blood Culture - Final Proteus mirabilis 11/09/20 18:15 Urine Catheter - [place] Urine Culture - Final Enterococcus faecalis 11/09/20 14:48 Blood Culture (Wb) - Left Forearm Blood Culture - Final Gram negative rosmery 11/09/20 22:40 Stool Enteric Bacteriology - Final 11/09/20 22:40 Stool C. difficile DNA Amplification - Final 11/09/20 13:55 Mucosa - Nose SARS-CoV-2 Antigen (Rapid) - Final Radiography Diagnostic Testing: Radiology Impression Chest X-Ray 11/12/20 11:53 IMPRESSION: Satisfactory position of the right-sided central catheter. No pneumothorax. Electronically Signed: Gil Masterson MD at 13:22 EDT Tel , Service support , Physical Exam Const alert and no apparent distress Constitutional Narrative: Hard of hearing General Appearance: cooperative HEENT normocephalic and head/scalp atraumatic Eyes PERRL, EOMs intact bilaterally and conjunctivae normal Neck supple General: trachea midline Resp normal respiratory effort Auscultation: Negative for rales, rhonchi or wheezes Cardio S1 normal heart sound and S2 normal heart sound Rhythm: abnormal rhythm irregularly irregular GI soft to palpation GI Narrative: Diffuse nonfocal tenderness to palpation. Palpation: Negative for guarding or rigid Extremity General Extremity: edema; Negative for clubbing Skin no rashes or lesions noted Neuro CN's II-XII intact bilaterally, moves all extremities and no focal motor deficits Psych Mood & Affect: flat affect Charges/Coding Visit Charges Inpatient E&M: 06927 Subs Hosp L2
[2020-11-13 05:49] LABS: Anion Gap 11 (5-15); BUN 51 mg/dL (7-18); BUN/Creat Ratio 9.1 RATIO (10-20); Calcium,Total 7.1 mg/dL (8.5-10.1); Chloride 100 mmol/L (98-107); Creatinine, Serum 5.62 mg/dL (0.70-1.30); EST Glomerular Filtration Rate 10 mL/min (>60); Est Glom Filt Rate - Afr Amer 13 mL/min (>60); Estimated Creatinine Clearance 10.28 ml/min; Glucose 129 mg/dL (74-106); Potassium 3.5 mmol/L (3.5-5.1); Sodium Level 137 mmol/L (136-145)
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
--- NOTE | 2020-11-13 10:22 | PCM.PN.CARD ---
Subjective Subjective Denies any chest pain or shortness of breath. Still has abdominal discomfort on and off. Objective Data Vital Signs: Vital Signs Temp Pulse Resp BP Pulse Ox 98.3 F 106 H 17 119/75 95 11/13/20 08:00 11/13/20 09:00 11/13/20 09:00 11/13/20 09:00 11/13/20 09:00 Oxygen Flow Rate (L/min) 2 Oxygen Delivery Method Room Air Weight: 199 lb 12.8 oz Body Mass Index (BMI) 26.2 Intake & Output: Intake and Output for Last 24 Hours 11/11/20 11/12/20 11/13/20 23:59 23:59 23:59 Intake Total 5290.03 / 5290.03 4322.69 / 4522.69 552.5 / 552.5 Output Total 45 / 55 1914 / 1914 8 / 8 Balance 5245.03 / 5235.03 2407.69 / 2607.69 544.5 / 544.5 Lab / Micro Data Result Diagrams: 11/12/20 05:30 11/13/20 05:20 Labs: Laboratory Results - last 24 hr 11/13/20 05:20 Sodium 137 Potassium 3.5 Chloride 100 Carbon Dioxide 26.0 Anion Gap 11 BUN 51 H Creatinine 5.62 H Estim Creat Clear Calc 10.28 Est GFR (MDRD) Af Amer 13 L Est GFR (MDRD) Non-Af 10 L BUN/Creatinine Ratio 9.1 L Glucose 129 H Calcium 7.1 L Micro: Microbiology 11/09/20 15:13 Blood Culture (Wb) - Anticubital Right Blood Culture - Final Proteus mirabilis 11/09/20 18:15 Urine Catheter - [place] Urine Culture - Final Enterococcus faecalis 11/09/20 14:48 Blood Culture (Wb) - Left Forearm Blood Culture - Final Gram negative rosmery 11/09/20 22:40 Stool Enteric Bacteriology - Final 11/09/20 22:40 Stool C. difficile DNA Amplification - Final 11/09/20 13:55 Mucosa - Nose SARS-CoV-2 Antigen (Rapid) - Final Cardiology Labs/Tests 11/13/20 05:20: Sodium 137, Potassium 3.5, Chloride 100, Carbon Dioxide 26.0, Anion Gap 11, BUN 51 H, Creatinine 5.62 H, Est GFR (MDRD) Af Amer 13 L, Est GFR (MDRD) Non-Af 10 L, BUN/Creatinine Ratio 9.1 L, Glucose 129 H, Calcium 7.1 L Rhythm: EKG: ECHO: Stress Test: Cardiac Cath: PCI: CT Surgery: Holter monitor: EPS: PPM: CXR: Chest CT Scan: Radiography Diagnostic Testing: Radiology Impression Chest X-Ray 11/12/20 11:53 IMPRESSION: Satisfactory position of the right-sided central catheter. No pneumothorax. Electronically Signed: Gil Masterson MD at 13:22 EDT Tel , Service support , Physical Exam Const alert and oriented x3 Orientation / Consciousness: awake HEENT normocephalic Eyes no scleral icterus Chest inspection of chest normal Cardio Cardio Narrative: Irregular rhythm Extremity no pedal edema Skin no rashes or lesions noted Psych mental status grossly normal Assessment & Plan Assessment/Plan (1) Atrial fibrillation with rapid ventricular response: PLAN: We will switch amiodarone to p.o. Charges/Coding Visit Charges Inpatient E&M: 98601 Subs Hosp L2
[2020-11-13] MEDS: Cefazolin 1 GM/50 ML BAG IV ×2 (10:53→21:28)
[2020-11-13] MEDS: Heparin Injection (Vial) 5,000 UNIT/ML VIAL 5000 UNIT SC ×2 (10:54→21:29)
[2020-11-13] MEDS: Menthol/Lanolin/Calamine/Znox 113 GM Tube 1 APPLIC TOPICAL ×2 (10:54→21:29)
[2020-11-13] MEDS: Amiodarone 200 MG Tablet PO ×2 (12:47→21:29)
[2020-11-13] MEDS: 0.9% Saline Lock 10 ML Syringe IV ×2 (12:51→21:36)
[2020-11-13 13:46] LABS: Absolute Lymphocyte Count 1.83 X10^3/uL (0.83-4.51); Absolute Neutrophil Count 9.2 X10^3/uL (2.0-7.7); Basophil# 0.04 X10^3/uL; Basophil% 0.3 % (0-1); Eosinophil# 0.02 X10^3/uL; Eosinophils% 0.2 % (0-5); Hematocrit 37.5 % (40-54); Hemoglobin 12.7 g/dL (13.0-16.5); Lymphocyte # 1.83 X10^3/ul (0.83-4.51); Lymphocyte % 15.8 % (19-41); Mean Corp Hgb Conc 33.9 g/dL (32-36); Mean Corpuscular Hgb 31.5 pg (27.0-32.0); Mean Corpuscular Volume 93.1 fL (80-94); Mean Platelet Vol. 10.7 fl (6.2-12.0); Monocyte# 0.46 X10^3/uL; NRBC Flagged by Analyzer 0.2 % (0-5); Neutrophil # 9.16 X10^3/uL (2.7-7.7); Neutrophil % 79.1 % (47-70); POSITIVE MORPHOLOGY YES; Platelet Count 113 K/mm3 (150-450); RBC Distribution Width SD 51.7 fl (35.1-43.9); Red Blood Count 4.03 M/mm3 (4.6-6.2); White Blood Count 11.6 K/mm3 (4.4-11.0)
[2020-11-13 13:48] LABS: Differential Indicated SCAN CRITERIA MET
--- NOTE | 2020-11-13 16:54 | PN.RENAL_ITS ---
Subjective Subjective There was no acute events Patient awake alert and following commands Objective Data Objective Data Vital Signs: Vital Signs Temp Pulse Resp BP Pulse Ox 97.5 F L 92 20 H 123/77 H 95 11/13/20 14:00 11/13/20 15:28 11/13/20 14:00 11/13/20 14:00 11/13/20 14:00 Oxygen Flow Rate (L/min) 2 Oxygen Delivery Method Room Air Weight: 90.628 kg Body Mass Index (BMI) 26.2 Intake & Output: Intake and Output for Last 24 Hours 11/11/20 11/12/20 11/13/20 23:59 23:59 23:59 Intake Total 5290.03 / 5290.03 4322.69 / 4522.69 1042.5 / 1042.5 Output Total 45 / 55 1915 / 1914 18 Balance 5245.03 / 5235.03 2407.69 / 2607.69 1024.5 / 1024.5 Lab / Micro Data Result Diagrams: 11/13/20 05:20 11/13/20 05:20 Labs: Laboratory Results - last 24 hr 11/13/20 11/13/20 05:20 05:20 WBC 11.6 H RBC 4.03 L Hgb 12.7 L Hct 37.5 L MCV 93.1 MCH 31.5 MCHC 33.9 RDW Std Deviation 51.7 H RDW Coeff of Navneet 15.0 H Plt Count 113 L MPV 10.7 Immature Gran % (Auto) 0.600 Neut % (Auto) 79.1 H Lymph % (Auto) 15.8 L Coal % (Auto) 4.0 Eos % (Auto) 0.2 Baso % (Auto) 0.3 Absolute Neuts (auto) 9.2 H Absolute Lymphs (auto) 1.83 Nucleated RBC % 0.2 Sodium 137 Potassium 3.5 Chloride 100 Carbon Dioxide 26.0 Anion Gap 11 BUN 51 H Creatinine 5.62 H Estim Creat Clear Calc 10.28 Est GFR (MDRD) Af Amer 13 L Est GFR (MDRD) Non-Af 10 L BUN/Creatinine Ratio 9.1 L Glucose 129 H Calcium 7.1 L Micro: Microbiology 11/09/20 15:13 Blood Culture (Wb) - Anticubital Right Blood Culture - Final Proteus mirabilis 11/09/20 18:15 Urine Catheter - [place] Urine Culture - Final Enterococcus faecalis 11/09/20 14:48 Blood Culture (Wb) - Left Forearm Blood Culture - Final Gram negative rosmery 11/09/20 22:40 Stool Enteric Bacteriology - Final 11/09/20 22:40 Stool C. difficile DNA Amplification - Final 11/09/20 13:55 Mucosa - Nose SARS-CoV-2 Antigen (Rapid) - Final Physical Exam Narrative Patient is awake and alert. On RA Neck No JVD Head AT NC Heart irregular. S/1 S2 Chest. CTA Abdomen: LLQ tenderness. slightly distended. + BS Neuro No focals. Ext +2 edema of LE : lopez cath in place Assessment & Plan Assessment/Plan (1) Acute kidney injury: (2) Chronic kidney disease: (3) Metabolic acidosis: (4) Gram negative septic shock: (5) UTI (urinary tract infection): QUALIFIERS: Urinary tract infection type: acute cystitis Hematu lis presence: with hematuria Qualified Code(s): N30.01 - Acute cystitis with hematuria (6) Atrial fibrillation with rapid ventricular response: (7) Left ureteral calculus: PLAN: JOSE is likely ATN induced by severe sepsis.Baseline Cr ~ 1.3 mg/dl in 2019 Patient started on hemodialysis November 12 due to severe JOSE anuria There is no recovery of kidney function. Patient remains oliguric Next hemodialysis session tomorrow Keep MAP > 65 Continue to follow for kidney function recovery. Urology of following. Patient status post left ureteral stent placement Afib, sepsis and hemodynamic support as per ICU Thank you Will continue to follow
[2020-11-13] MEDS: Morphine 2 MG/ML Syringe IV (21:27)
[2020-11-14] VITALS (12 sets, daily range): BP systolic 114–145; BP diastolic 81–96; PULSE 78–123; RESP 16–20; TEMP 36.2–36.8; O2SAT 93–97
[2020-11-14 04:57] LABS: Absolute Lymphocyte Count 1.92 X10^3/uL (0.83-4.51); Absolute Neutrophil Count 8.7 X10^3/uL (2.0-7.7); Basophil# 0.05 X10^3/uL; Basophil% 0.4 % (0-1); Eosinophil# 0.07 X10^3/uL; Eosinophils% 0.6 % (0-5); Hematocrit 40.4 % (40-54); Hemoglobin 13.6 g/dL (13.0-16.5); Lymphocyte # 1.92 X10^3/ul (0.83-4.51); Lymphocyte % 16.6 % (19-41); Mean Corp Hgb Conc 33.7 g/dL (32-36); Mean Corpuscular Hgb 31.2 pg (27.0-32.0); Mean Corpuscular Volume 92.7 fL (80-94); Mean Platelet Vol. 10.4 fl (6.2-12.0); Monocyte# 0.67 X10^3/uL; Monocyte% 5.8 % (0-10); NRBC Flagged by Analyzer 0.2 % (0-5); Neutrophil % 75.3 % (47-70); Platelet Count 111 K/mm3 (150-450); RBC Distribution Width CV 15.1 % (11.6-14.6); RBC Distribution Width SD 51.7 fl (35.1-43.9); Red Blood Count 4.36 M/mm3 (4.6-6.2); White Blood Count 11.6 K/mm3 (4.4-11.0)
[2020-11-14 05:09] LABS: Anion Gap 12 (5-15); BUN 70 mg/dL (7-18); BUN/Creat Ratio 9.8 RATIO (10-20); Calcium,Total 7.3 mg/dL (8.5-10.1); Chloride 100 mmol/L (98-107); Creatinine, Serum 7.14 mg/dL (0.70-1.30); EST Glomerular Filtration Rate 8 mL/min (>60); Est Glom Filt Rate - Afr Amer 10 mL/min (>60); Estimated Creatinine Clearance 8.09 ml/min; Glucose 104 mg/dL (74-106); Potassium 3.9 mmol/L (3.5-5.1); Sodium Level 138 mmol/L (136-145)
[2020-11-14] MEDS: 0.9% Saline Lock 10 ML Syringe IV (06:35)
--- NOTE | 2020-11-14 07:17 | PCM.PN.INT ---
Assessment & Plan Assessment/Plan (1) Gram negative septic shock: PLAN: RECOMMENDATIONS: 1. Continue ongoing hemodialysis support with volume removal per nephrology recommendations. 2. Continue antimicrobials as ordered. 3. Continue amiodarone with additional rate/rhythm control strategy per cardiology recommendations. 4. Encourage incentive spirometer use and mobilize patient as tolerated. 5. Consider surgery evaluation of abdomen 6. Okay to leave the intensive care unit from my perspective IMPRESSIONS: 1. Septic shock secondary to Proteus mirabilis Improved. Secondary to urinary tract source of infection with secondary hematogenous spread. The patient was also noted to have a left distal ureteral calculi, for which she required cystoscopy and left ureteral stent placement. The patient was volume resuscitated resulting in a 20+ pound weight gain but did eventually require vasopressor support. Nevertheless, with supportive measures and antimicrobials, the patient was able to be weaned from Levophed and remains hemodynamically stable. Plan to continue antimicrobials as ordered. 2. Acute kidney injury Likely prerenal in etiology with a component of ischemic ATN related to #1. Unfortunately, the patient did eventually require temporary hemodialysis line placement and subsequent initiation of hemodialysis due to worsening renal insufficiency. Plan to continue HD support per nephrology recommendations. Patient has remained hemodynamically stable through dialysis. Likely okay to leave the intensive care unit from my perspective. 3. Troponin elevation Likely secondary to demand ischemia in the setting of #1. 4. Atrial fibrillation with RVR The patient tolerated transition to p.o. amiodarone. Additional rate/rhythm control strategy per cardiology recommendations. 5. Abdominal pain Unclear etiology. Patient does have some rebound tenderness. It is unclear if this is secondary to ascites or visceral pain associated with significant edema. Patient does have a 20+ pound weight gain over the course of the hospitalization. Patient did have bacteria in his blood, so spontaneous bacterial peritonitis would be a consideration. Could consider a paracentesis versus a surgery consultation. No signs of GI bleeding noted at this time. Hemoglobin has remained stable. This note was generated with [employer] dictation software. It may contain incorrect words, spelling, and punctuation that were not noted in checking the note before signing. Subjective Subjective Patient did okay overnight from a hemodynamic standpoint. Patient has continued to complain of abdominal pain. Patient states he has had abdominal pain as an outpatient, but this appears to be somewhat different. Patient is not reporting any associated nausea or vomiting. Patient has not reported sensitivity to certain foods at home. Patient is always attributed this to heartburn or gas. Patient reports he has not been evaluated as an outpatient by GI or surgery. Patient has not had an endoscopy. Objective Data Objective Data Vital Signs: Vital Signs Temp Pulse Resp BP Pulse Ox 36.4 C L 106 H 20 H 121/86 H 94 11/14/20 04:00 11/14/20 04:00 11/14/20 04:00 11/14/20 04:00 11/14/20 04:00 Oxygen Flow Rate (L/min) 2 Oxygen Delivery Method Room Air Weight: 90.8 kg Body Mass Index (BMI) 26.2 Intake & Output: Intake and Output for Last 24 Hours 11/12/20 11/13/20 11/14/20 23:59 23:59 23:59 Intake Total 4322.69 / 4522.69 1092.5 / 1242.5 150 / 150 Output Total 1915 / 1915 18 / 28 25 / 25 Balance 2407.69 / 2607.69 1074.5 / 1214.5 125 / 125 Lab / Micro Data Result Diagrams: 11/14/20 04:50 11/14/20 04:50 Labs: Laboratory Results - last 24 hr 11/13/20 11/14/20 11/14/20 05:20 04:50 04:50 WBC 11.6 H 11.6 H RBC 4.03 L 4.36 L Hgb 12.7 L 13.6 Hct 37.5 L 40.4 MCV 93.1 92.7 MCH 31.5 31.2 MCHC 33.9 33.7 RDW Std Deviation 51.7 H 51.7 H RDW Coeff of Navneet 15.0 H 15.1 H Plt Count 113 L 111 L MPV 10.7 10.4 Immature Gran % (Auto) 0.600 1.300 H Neut % (Auto) 79.1 H 75.3 H Lymph % (Auto) 15.8 L 16.6 L [place] % (Auto) 4.0 5.8 Eos % (Auto) 0.2 0.6 Baso % (Auto) 0.3 0.4 Absolute Neuts (auto) 9.2 H 8.7 H Absolute Lymphs (auto) 1.83 1.92 Nucleated RBC % 0.2 0.2 Sodium 138 Potassium 3.9 Chloride 100 Carbon Dioxide 26.0 Anion Gap 12 BUN 70 H Creatinine 7.14 H Estim Creat Clear Calc 8.09 Est GFR (MDRD) Af Amer 10 L Est GFR (MDRD) Non-Af 8 L BUN/Creatinine Ratio 9.8 L Glucose 104 Calcium 7.3 L Micro: Microbiology 11/09/20 15:13 Blood Culture (Wb) - Anticubital Right Blood Culture - Final Proteus mirabilis 11/09/20 18:15 Urine Catheter - [place] Urine Culture - Final Enterococcus faecalis 11/09/20 14:48 Blood Culture (Wb) - Left Forearm Blood Culture - Final Gram negative rosmery 11/09/20 22:40 Stool Enteric Bacteriology - Final 11/09/20 22:40 Stool C. difficile DNA Amplification - Final 11/09/20 13:55 Mucosa - Nose SARS-CoV-2 Antigen (Rapid) - Final Physical Exam Const Constitutional Narrative: Hard of hearing Eyes PERRL and EOMs intact bilaterally Eyes Narrative: Conjunctival edema noted. Neck full ROM, supple and no meningeal signs General: JVD Chest inspection of chest normal Chest: symmetrical chest wall rise Resp normal respiratory effort Auscultation: diminished lung sounds; Negative for rales, rhonchi or wheezes Cardio Rate: tachycardic Rhythm: abnormal rhythm irregularly irregular Heart Sounds: Negative for gallop, murmur or rub GI soft to palpation GI Narrative: Diffuse nonfocal tenderness to palpation. Inspection: abdominal distention Palpation: soft, guarding and rebound tenderness present diffuse Extremity General Extremity: edema; Negative for clubbing Skin General Skin Exam: desquamation and lichenification; Negative for petechiae or purpura Neuro CN's II-XII intact bilaterally, moves all extremities, no focal motor deficits and no sensory deficits noted Psych Appearance: appropriate and unkempt Charges/Coding Visit Charges Inpatient E&M: 10691 Subs Hosp L3
--- NOTE | 2020-11-14 07:26 | PCM.CONS.U ---
Assessment & Plan Assessment/Plan (1) Left ureteral calculus: PLAN: stable hopefully by saturday will be stable enough to go back to OR ro laser/remove stone and remove stent. will d/w patient HPI Consult Data Date of Consult: 11/14/20 HPI Narrative HPI Narrative: MARYELLEN HICKEY, is a 85 s/p stent for obstruction and sepsis, stable on HD PFSH Medical History Hemorrhagic stroke Hypertension Home Medications Unobtainable 10/03/19 [History Last Taken Unknown] Allergy/AdvReac Type Severity Reaction Status Date / Time Unable to Assess Allergy Verified 11/09/20 12:53 Social History Smoking Status: Never smoker Physical Exam Const alert and oriented x3 General Appearance: cooperative HEENT normocephalic, head/scalp atraumatic, EAC's normal and TM's normal bilaterally Eyes PERRL and EOMs intact bilaterally Pupil: sluggish Neck no lymphadenopathy, supple and no JVD General: trachea midline Lymph Lymphatic: no lymphadenopathy noted, lymphedema and lymphadenopathy Resp normal respiratory effort, normal air movement and clear to auscultation bilaterally Cardio regular rate, regular rhythm and peripheral pulses 2+ throughout GI soft to palpation, non-tender and non-distended Extremity normal capillary refill and no clubbing, cyanosis or edema General Extremity: no tenderness to palpation of joints or extremities Skin no rashes or lesions noted General Skin Exam: turgor normal Lesions: no lesions Rashes: no rashes Neuro CN's II-XII intact bilaterally Speech: speech normal Motor Exam: strength 5/5 throughout; Negative for general weakness Psych thought process normal, cooperative and affect normal Appearance: appropriate Lab / Micro Data Result Diagrams: 11/14/20 04:50 11/14/20 04:50 Labs: Laboratory Results - last 24 hr 11/13/20 11/14/20 11/14/20 05:20 04:50 04:50 WBC 11.6 H 11.6 H RBC 4.03 L 4.36 L Hgb 12.7 L 13.6 Hct 37.5 L 40.4 MCV 93.1 92.7 MCH 31.5 31.2 MCHC 33.9 33.7 RDW Std Deviation 51.7 H 51.7 H RDW Coeff of Navneet 15.0 H 15.1 H Plt Count 113 L 111 L MPV 10.7 10.4 Immature Gran % (Auto) 0.600 1.300 H Neut % (Auto) 79.1 H 75.3 H Lymph % (Auto) 15.8 L 16.6 L [place] % (Auto) 4.0 5.8 Eos % (Auto) 0.2 0.6 Baso % (Auto) 0.3 0.4 Absolute Neuts (auto) 9.2 H 8.7 H Absolute Lymphs (auto) 1.83 1.92 Nucleated RBC % 0.2 0.2 Sodium 138 Potassium 3.9 Chloride 100 Carbon Dioxide 26.0 Anion Gap 12 BUN 70 H Creatinine 7.14 H Estim Creat Clear Calc 8.09 Est GFR (MDRD) Af Amer 10 L Est GFR (MDRD) Non-Af 8 L BUN/Creatinine Ratio 9.8 L Glucose 104 Calcium 7.3 L
[2020-11-14 08:14] LABS: Hepatitis B Surface Antibody Non-Reactive; Hepatitis B Surface Antigen Non-Reactive (Nonreactive)
--- NOTE | 2020-11-14 08:21 | CASEMGMT ---
LW/Healthcare POA scanned into summary tab of brother Jonathan henson listed as medical POA. SIMÓN Phillips
--- NOTE | 2020-11-14 09:00 | PN.CARD_ITS ---
Subjective Subjective Patient seen and evaluated. Appears to be doing better. Objective Data Vital Signs: Vital Signs Temp Pulse Resp BP Pulse Ox 97.6 F L 106 H 20 H 121/86 H 94 11/14/20 04:00 11/14/20 04:00 11/14/20 04:00 11/14/20 04:00 11/14/20 04:00 Oxygen Flow Rate (L/min) 2 Oxygen Delivery Method Room Air Weight: 200 lb 2.876 oz Body Mass Index (BMI) 26.2 Intake & Output: Intake and Output for Last 24 Hours 11/12/20 11/13/20 11/14/20 23:59 23:59 23:59 Intake Total 4322.69 / 4522.69 1092.5 / 1242.5 150 / 150 Output Total 1915 / 1914 Balance 2407.69 / 2607.69 1074.5 / 1214.5 125 / 125 Lab / Micro Data Result Diagrams: 11/14/20 04:50 11/14/20 04:50 Labs: Laboratory Results - last 24 hr 11/12/20 11/13/20 11/14/20 16:10 05:20 04:50 WBC 11.6 H 11.6 H RBC 4.03 L 4.36 L Hgb 12.7 L 13.6 Hct 37.5 L 40.4 MCV 93.1 92.7 MCH 31.5 31.2 MCHC 33.9 33.7 RDW Std Deviation 51.7 H 51.7 H RDW Coeff of Navneet 15.0 H 15.1 H Plt Count 113 L 111 L MPV 10.7 10.4 Immature Gran % (Auto) 0.600 1.300 H Neut % (Auto) 79.1 H 75.3 H Lymph % (Auto) 15.8 L 16.6 L [place] % (Auto) 4.0 5.8 Eos % (Auto) 0.2 0.6 Baso % (Auto) 0.3 0.4 Absolute Neuts (auto) 9.2 H 8.7 H Absolute Lymphs (auto) 1.83 1.92 Nucleated RBC % 0.2 0.2 Sodium Potassium Chloride Carbon Dioxide Anion Gap BUN Creatinine Estim Creat Clear Calc Est GFR (MDRD) Af Amer Est GFR (MDRD) Non-Af BUN/Creatinine Ratio Glucose Calcium Hep Bs Antigen Non-Reactive Hep Bs Antibody Non-Reactive 11/14/20 04:50 WBC RBC Hgb Hct MCV MCH MCHC RDW Std Deviation RDW Coeff of Navneet Plt Count MPV Immature Gran % (Auto) Neut % (Auto) Lymph % (Auto) [place] % (Auto) Eos % (Auto) Baso % (Auto) Absolute Neuts (auto) Absolute Lymphs (auto) Nucleated RBC % Sodium 138 Potassium 3.9 Chloride 100 Carbon Dioxide 26.0 Anion Gap 12 BUN 70 H Creatinine 7.14 H Estim Creat Clear Calc 8.09 Est GFR (MDRD) Af Amer 10 L Est GFR (MDRD) Non-Af 8 L BUN/Creatinine Ratio 9.8 L Glucose 104 Calcium 7.3 L Hep Bs Antigen Hep Bs Antibody Micro: Microbiology 11/09/20 15:13 Blood Culture (Wb) - Anticubital Right Blood Culture - Final Proteus mirabilis 11/09/20 18:15 Urine Catheter - [place] Urine Culture - Final Enterococcus faecalis 11/09/20 14:48 Blood Culture (Wb) - Left Forearm Blood Culture - Final Gram negative rosmery 11/09/20 22:40 Stool Enteric Bacteriology - Final 11/09/20 22:40 Stool C. difficile DNA Amplification - Final 11/09/20 13:55 Mucosa - Nose SARS-CoV-2 Antigen (Rapid) - Final Cardiology Labs/Tests 11/13/20 05:20: WBC 11.6 H, RBC 4.03 L, Hgb 12.7 L, Hct 37.5 L, MCV 93.1, MCH 31.5, MCHC 33.9, Plt Count 113 L, MPV 10.7, Immature Gran % (Auto) 0.600, Neut % (Auto) 79.1 H, Lymph % (Auto) 15.8 L, [place] % (Auto) 4.0, Eos % (Auto) 0.2, Baso % (Auto) 0.3, Absolute Neuts (auto) 9.2 H, Nucleated RBC % 0.2 11/14/20 04:50: WBC 11.6 H, RBC 4.36 L, Hgb 13.6, Hct 40.4, MCV 92.7, MCH 31.2, MCHC 33.7, Plt Count 111 L, MPV 10.4, Immature Gran % (Auto) 1.300 H, Neut % (Auto) 75.3 H, Lymph % (Auto) 16.6 L, [place] % (Auto) 5.8, Eos % (Auto) 0.6, Baso % (Auto) 0.4, Absolute Neuts (auto) 8.7 H, Nucleated RBC % 0.2 11/14/20 04:50: Sodium 138, Potassium 3.9, Chloride 100, Carbon Dioxide 26.0, Anion Gap 12, BUN 70 H, Creatinine 7.14 H, Est GFR (MDRD) Af Amer 10 L, Est GFR (MDRD) Non-Af 8 L, BUN/Creatinine Ratio 9.8 L, Glucose 104, Calcium 7.3 L Rhythm: EKG: ECHO: Stress Test: Cardiac Cath: PCI: CT Surgery: Holter monitor: EPS: PPM: CXR: Chest CT Scan: Physical Exam Const oriented x3 and healthy appearing Orientation / Consciousness: awake HEENT normocephalic Eyes PERRL and conjunctivae normal Neck supple, no JVD and no carotid bruits Chest inspection of chest normal Resp normal respiratory effort and clear to auscultation bilaterally Cardio Palpation: normal PMI Rate: regular rate Rhythm: abnormal rhythm Heart Sounds: S1 normal and S2 normal Peripheral Pulses: pulses 2+ throughout GI normal to inspection, nondistended, normoactive bowel sounds Extremity normal to inspection and no clubbing, cyanosis or edema Psych mental status grossly normal Assessment & Plan Assessment/Plan (1) Atrial fibrillation with rapid ventricular response: PLAN: Patient appears to be in atrial fibrillation with a rapid ventricular response rate. The plan is to continue him on the amiodarone for now while he undergoes dialysis. Depending on the clinical course further recommendations will be made. At this time I do not think that we would anticoagulate since he may be pending surgery.
--- NOTE | 2020-11-14 10:37 | CASEMGMT ---
SW spoke w/pt briefly in the room in regard to discharge plan. Pt continues to state he will go home at discharge, does not want to consider going anywhere for rehab at discharge. SW remains available for any social service discharge needs. SIMÓN Phillips
--- NOTE | 2020-11-14 11:39 | PN.HOSP_ITS ---
Subjective Subjective Patient states overall he is feeling okay but still having intermittent abdominal cramping. Reports that he feels his abdomen is distended and that he is still swollen. Getting ready for his 2nd dialysis session with dialysis nursing at the bedside. Objective Data Objective Data Vital Signs: Vital Signs Temp Pulse Resp BP Pulse Ox 97.6 F L 99 16 124/84 H 93 11/14/20 08:00 11/14/20 08:00 11/14/20 08:00 11/14/20 08:00 11/14/20 08:00 Oxygen Flow Rate (L/min) 2 Oxygen Delivery Method Room Air Weight: 90.8 kg Body Mass Index (BMI) 26.2 Intake & Output: Intake and Output for Last 24 Hours 11/12/20 11/13/20 11/14/20 23:59 23:59 23:59 Intake Total 4322.69 / 4522.69 1092.5 / 1242.5 150 / 150 Output Total 1915 / 1915 18 / 28 25 / 25 Balance 2407.69 / 2607.69 1074.5 / 1214.5 125 / 125 Lab / Micro Data Result Diagrams: 11/14/20 04:50 11/14/20 04:50 Labs: Laboratory Results - last 24 hr 11/12/20 11/13/20 11/14/20 16:10 05:20 04:50 WBC 11.6 H 11.6 H RBC 4.03 L 4.36 L Hgb 12.7 L 13.6 Hct 37.5 L 40.4 MCV 93.1 92.7 MCH 31.5 31.2 MCHC 33.9 33.7 RDW Std Deviation 51.7 H 51.7 H RDW Coeff of Navneet 15.0 H 15.1 H Plt Count 113 L 111 L MPV 10.7 10.4 Immature Gran % (Auto) 0.600 1.300 H Neut % (Auto) 79.1 H 75.3 H Lymph % (Auto) 15.8 L 16.6 L [place] % (Auto) 4.0 5.8 Eos % (Auto) 0.2 0.6 Baso % (Auto) 0.3 0.4 Absolute Neuts (auto) 9.2 H 8.7 H Absolute Lymphs (auto) 1.83 1.92 Nucleated RBC % 0.2 0.2 Sodium Potassium Chloride Carbon Dioxide Anion Gap BUN Creatinine Estim Creat Clear Calc Est GFR (MDRD) Af Amer Est GFR (MDRD) Non-Af BUN/Creatinine Ratio Glucose Calcium Hep Bs Antigen Non-Reactive Hep Bs Antibody Non-Reactive 11/14/20 04:50 WBC RBC Hgb Hct MCV MCH MCHC RDW Std Deviation RDW Coeff of Navneet Plt Count MPV Immature Gran % (Auto) Neut % (Auto) Lymph % (Auto) [place] % (Auto) Eos % (Auto) Baso % (Auto) Absolute Neuts (auto) Absolute Lymphs (auto) Nucleated RBC % Sodium 138 Potassium 3.9 Chloride 100 Carbon Dioxide 26.0 Anion Gap 12 BUN 70 H Creatinine 7.14 H Estim Creat Clear Calc 8.09 Est GFR (MDRD) Af Amer 10 L Est GFR (MDRD) Non-Af 8 L BUN/Creatinine Ratio 9.8 L Glucose 104 Calcium 7.3 L Hep Bs Antigen Hep Bs Antibody Micro: Microbiology 11/09/20 15:13 Blood Culture (Wb) - Anticubital Right Blood Culture - Final Proteus mirabilis 11/09/20 18:15 Urine Catheter - [place] Urine Culture - Final Enterococcus faecalis 11/09/20 14:48 Blood Culture (Wb) - Left Forearm Blood Culture - Final Gram negative rosmery 11/09/20 22:40 Stool Enteric Bacteriology - Final 11/09/20 22:40 Stool C. difficile DNA Amplification - Final 11/09/20 13:55 Mucosa - Nose SARS-CoV-2 Antigen (Rapid) - Final Physical Exam Const alert, oriented x3, no apparent distress and well nourished Constitutional Narrative: Elderly white male lying in bed, intermittently appears mildly uncomfortable, nursing and dialysis nurse are at bedside Exam Limitations: no limitations HEENT head/scalp atraumatic, moist oral mucous membranes and oropharynx normal HEENT Narrative: No thrush, Mallampati 2 Head and Scalp: normocephalic Mouth: oral and palatal mucosa normal Eyes PERRL, EOMs intact bilaterally and conjunctivae normal Neck no lymphadenopathy, supple and no JVD Neck Narrative: Right subclavian temporary dialysis catheter is in place-clean and dry Resp normal respiratory effort, no retractions, no use of accessory muscles and clear to auscultation bilaterally Cardio regular rate, S1 normal heart sound, S2 normal heart sound, no murmurs, no rub, no gallops, no clicks and no JVD Cardio Narrative: Irregular rhythm GI GI Narrative: Mild distention and pitting edema noted, mild diffuse tenderness, hyperactive bowel sounds Extremity Extremity Narrative: 1+ pitting edema noted, scrotal edema and penile edema noted Peripheral Pulses: Yes pulses 2+ throughout Skin no rashes or lesions noted, no wounds, skin turgor normal, no jaundice, no petechiae and no mottling Skin Narrative: Scattered ecchymosis Neuro oriented x3, CN's II-XII intact bilaterally, moves all extremities and no focal motor deficits Sensorium / Orientation: awake, alert, oriented to person, oriented to place and oriented to time Speech: speech normal Psych affect normal Assessment & Plan Assessment/Plan (1) Gram negative septic shock: (2) Chronic kidney disease: (3) Atrial fibrillation with rapid ventricular response: (4) Elevated troponin: PLAN: Septic shock secondary to Proteus mirabilis bacteremia -Continue antibiotics--> cefazolin 1 g twice daily -Patient was found to have left distal ureteral nephrolithiasis for which a cystoscopy and left ureteral stent was performed -Patient did require vasopressors at one point but this has been discontinued and patient remained stable -Curiously his urine had low colony counts of Enterococcus but no Proteus noted Left distal ureteral nephrolithiasis -Left ureteral stent and cystoscopy was performed -Plan is for lithotripsy and stent removal on November 16, 2020 if patient is stable -Urology is following JOSE on CKD stage IIIb -Dialysis initiated -Patient remains fairly oliguric -Suspected this is related to ATN from severe sepsis -Continue to monitor for recovery of renal function -Nephrology is following appreciate input -Goal is for 2 L of removal today Metabolic acidosis -Resolved with dialysis Atrial fibrillation with RVR -Patient having intermittent tachycardia -Continue amiodarone per cardiology -Hold anticoagulation given pending surgery -Cardiology following appreciate input -Echo was performed and shows an EF of 45% with mild global hypokinesis of the LV and moderate LA enlargement Abdominal pain -Appears at this is been on going -C. difficile is negative -Check oral contrasted CT of the abdomen -May be related to stent placement Troponin elevation -Suspect related to sepsis and demand ischemia History of hemorrhagic stroke -No current issues -We will have to watch closely if anticoagulation is initiated DVT prophylaxis -Heparin 3 times daily CODE STATUS -DNR CCA -No transfer to higher level of care Charges/Coding Visit Charges Inpatient E&M: 39364 Subs Hosp L2
--- NOTE | 2020-11-14 11:47 | DIALYSIS ---
HD x 3 hours complete. Tolerated tx fairly well. Ran on 3k bath. UF of 1500ml. Used right chest wall dialysis catheter. Lumens closed with heparin per fill volume. Caps placed. Dressing is intact. Report given to BHARAT Stauffer
[2020-11-14] MEDS: Amiodarone 200 MG Tablet PO ×2 (12:18→21:00)
[2020-11-14] MEDS: Heparin Injection (Vial) 5,000 UNIT/ML VIAL 5000 UNIT SC ×2 (12:19→21:00)
[2020-11-14] MEDS: Menthol/Lanolin/Calamine/Znox 113 GM Tube 1 APPLIC TOPICAL ×2 (12:19→21:01)
[2020-11-14] MEDS: Cefazolin 1 GM/50 ML BAG IV (12:35)
[2020-11-14 12:39] LABS: Pathologist Review Reviewed
[2020-11-14 12:43] LABS: Pathologist Review Reviewed
--- NOTE | 2020-11-14 14:22 | PCM.PN.ID ---
Physical Exam Narrative Still with a lot of abd pain, no fever Const alert General Appearance: cooperative Resp normal air movement and clear to auscultation bilaterally Cardio regular rate and regular rhythm GI Palpation: tender Skin no rashes or lesions noted ID ID: Route of nutrition/ use of supplements: [] Nutritional Intake: [] IV Site: [] [place] Catheter: [] Assessment & Plan Assessment/Plan (1) Gram negative septic shock: PLAN: septic shock with proteus bacteremia - mild wbc on UA, dysuria on presentation. Taken to OR 11/[address] Martinez for ureteral stent placement with purulent urine drained. Cont cefazolin. Will follow. Recommended covid vaccine once he is out of the hospital. (2) Acute kidney injury:
--- NOTE | 2020-11-14 16:41 | PCM.PN.REN ---
Subjective Subjective Following for acute kidney injury on chronic kidney disease stage III. Dialysis dependent. The patient denies current chest pain, shortness of breath, or nausea. The patient was seen after dialysis. Objective Data Objective Data Vital Signs: Vital Signs Temp Pulse Resp BP Pulse Ox 97.4 F L 112 H 16 120/95 H 97 11/14/20 12:15 11/14/20 15:22 11/14/20 12:15 11/14/20 12:15 11/14/20 13:25 Oxygen Flow Rate (L/min) 2 Oxygen Delivery Method Room Air Weight: 90.8 kg Body Mass Index (BMI) 26.2 Intake & Output: Intake and Output for Last 24 Hours 11/12/20 11/13/20 11/14/20 23:59 23:59 23:59 Intake Total 4322.69 / 4522.69 1092.5 / 1242.5 430 / 430 Output Total 1915 / 1915 / 25 / 25 Balance 2407.69 / 2607.69 1074.5 / 1214.5 405 / 405 Lab / Micro Data Result Diagrams: 11/14/20 04:50 11/14/20 04:50 Labs: Laboratory Results - last 24 hr 11/11/20 11/12/20 11/12/20 16:40 05:30 16:10 WBC RBC Hgb Hct MCV MCH MCHC RDW Std Deviation RDW Coeff of Navneet Plt Count MPV Immature Gran % (Auto) Neut % (Auto) Lymph % (Auto) [place] % (Auto) Eos % (Auto) Baso % (Auto) Absolute Neuts (auto) Absolute Lymphs (auto) Nucleated RBC % Diff Path Review Reviewed Reviewed Sodium Potassium Chloride Carbon Dioxide Anion Gap BUN Creatinine Estim Creat Clear Calc Est GFR (MDRD) Af Amer Est GFR (MDRD) Non-Af BUN/Creatinine Ratio Glucose Calcium Hep Bs Antigen Non-Reactive Hep Bs Antibody Non-Reactive 11/14/20 11/14/20 04:50 04:50 WBC 11.6 H RBC 4.36 L Hgb 13.6 Hct 40.4 MCV 92.7 MCH 31.2 MCHC 33.7 RDW Std Deviation 51.7 H RDW Coeff of Navneet 15.1 H Plt Count 111 L MPV 10.4 Immature Gran % (Auto) 1.300 H Neut % (Auto) 75.3 H Lymph % (Auto) 16.6 L [place] % (Auto) 5.8 Eos % (Auto) 0.6 Baso % (Auto) 0.4 Absolute Neuts (auto) 8.7 H Absolute Lymphs (auto) 1.92 Nucleated RBC % 0.2 Diff Path Review Sodium 138 Potassium 3.9 Chloride 100 Carbon Dioxide 26.0 Anion Gap 12 BUN 70 H Creatinine 7.14 H Estim Creat Clear Calc 8.09 Est GFR (MDRD) Af Amer 10 L Est GFR (MDRD) Non-Af 8 L BUN/Creatinine Ratio 9.8 L Glucose 104 Calcium 7.3 L Hep Bs Antigen Hep Bs Antibody Micro: Microbiology 11/09/20 15:13 Blood Culture (Wb) - Anticubital Right Blood Culture - Final Proteus mirabilis 11/09/20 18:15 Urine Catheter - [place] Urine Culture - Final Enterococcus faecalis 11/09/20 14:48 Blood Culture (Wb) - Left Forearm Blood Culture - Final Gram negative rosmery 11/09/20 22:40 Stool Enteric Bacteriology - Final 11/09/20 22:40 Stool C. difficile DNA Amplification - Final 11/09/20 13:55 Mucosa - Nose SARS-CoV-2 Antigen (Rapid) - Final Physical Exam Narrative Patient is awake and alert. On RA Neck No JVD Head AT NC Heart irregular. S/1 S2 Chest. CTA anteriorly Abdomen: Normal bowel sounds, soft, nontender Neuro No focals. Ext no edema of LE Assessment & Plan Assessment/Plan (1) Acute kidney injury: PLAN: JOSE is likely due to ischemic ATN related to sepsis. There is no evidence of renal recovery yet. The patient underwent dialysis earlier today. This was his second treatment. We will plan on third dialysis treatment tomorrow. I supervised the dialysis treatment today. (2) Chronic kidney disease: PLAN: The patient has CKD stage III A with baseline serum creatinine of around 1.3 mg/dL. (3) Metabolic acidosis: PLAN: Resolved with dialysis. Serum bicarbonate level is 26 mmol/L today. We will monitor serum bicarbonate. (4) Gram negative septic shock: PLAN: Likely due to UTI. Antimicrobial as per primary service and infectious disease. The patient is on cefazolin which is dose correctly for intermittent hemodialysis. (5) UTI (urinary tract infection): QUALIFIERS: Urinary tract infection type: acute cystitis Hematuria presence: with hematuria Qualified Code(s): N30.01 - Acute cystitis with hematuria PLAN: See above. (6) Atrial fibrillation with rapid ventricular response: (7) Left ureteral calculus:
[2020-11-15] VITALS (11 sets, daily range): BP systolic 112–140; BP diastolic 66–96; PULSE 69–125; RESP 15–20; TEMP 36.4–36.8; O2SAT 94–98
[2020-11-15 05:17] LABS: Absolute Lymphocyte Count 2.68 X10^3/uL (0.83-4.51); Absolute Neutrophil Count 9.3 X10^3/uL (2.0-7.7); Basophil# 0.04 X10^3/uL; Basophil% 0.3 % (0-1); Differential Indicated SCAN CRITERIA MET; Eosinophil# 0.21 X10^3/uL; Eosinophils% 1.6 % (0-5); Hematocrit 38.1 % (40-54); Hemoglobin 12.9 g/dL (13.0-16.5); Lymphocyte # 2.68 X10^3/ul (0.83-4.51); Lymphocyte % 20.5 % (19-41); Mean Corp Hgb Conc 33.9 g/dL (32-36); Mean Corpuscular Hgb 31.2 pg (27.0-32.0); Mean Platelet Vol. 9.9 fl (6.2-12.0); Monocyte# 0.77 X10^3/uL; Monocyte% 5.9 % (0-10); NRBC Flagged by Analyzer 0.2 % (0-5); Neutrophil # 9.27 X10^3/uL (2.7-7.7); Neutrophil % 70.7 % (47-70); POSITIVE MORPHOLOGY YES; Platelet Count 117 K/mm3 (150-450); RBC Distribution Width CV 14.9 % (11.6-14.6); RBC Distribution Width SD 50.6 fl (35.1-43.9); Red Blood Count 4.14 M/mm3 (4.6-6.2); White Blood Count 13.1 K/mm3 (4.4-11.0)
[2020-11-15 05:30] LABS: Anion Gap 10 (5-15); BUN 60 mg/dL (7-18); BUN/Creat Ratio 8.7 RATIO (10-20); Calcium,Total 7.4 mg/dL (8.5-10.1); Chloride 102 mmol/L (98-107); Creatinine, Serum 6.89 mg/dL (0.70-1.30); EST Glomerular Filtration Rate 8 mL/min (>60); Est Glom Filt Rate - Afr Amer 10 mL/min (>60); Estimated Creatinine Clearance 8.39 ml/min; Glucose 98 mg/dL (74-106); Potassium 3.7 mmol/L (3.5-5.1); Sodium Level 139 mmol/L (136-145)
[2020-11-15 05:43] LABS: Differential Comment SCANNED
[2020-11-15 05:44] LABS: Atypical Lymphocyte RARE %
--- NOTE | 2020-11-15 07:20 | PN.CC_ITS ---
Assessment & Plan Assessment/Plan (1) Gram negative septic shock: PLAN: RECOMMENDATIONS: 1. Continue ongoing hemodialysis support with volume removal per nephrology recommendations. 2. Continue antimicrobials as ordered. 3. Continue amiodarone with additional rate/rhythm control strategy per cardiology recommendations. 4. Encourage incentive spirometer use and mobilize patient as tolerated. 5. Await surgery evaluation of abdomen. Patient possibly will require a CT of the abdomen 6. We will continue to follow until abdominal issue improves IMPRESSIONS: 1. Septic shock secondary to Proteus mirabilis Improved. Secondary to urinary tract source of infection with secondary hematogenous spread. The patient was also noted to have a left distal ureteral calculi, for which she required cystoscopy and left ureteral stent placement. The patient was volume resuscitated resulting in a 20+ pound weight gain but did eventually require vasopressor support. Nevertheless, with supportive measures and antimicrobials, the patient was able to be weaned from Levophed and remains hemodynamically stable. Plan to continue antimicrobials as ordered. Some concern for continuing abdominal pain despite hemodynamic stability. 2. Acute kidney injury Likely prerenal in etiology with a component of ischemic ATN related to #1. Unfortunately, the patient did eventually require temporary hemodialysis line placement and subsequent initiation of hemodialysis due to worsening renal insufficiency. Plan to continue HD support per nephrology recommendations. Patient has remained hemodynamically stable through dialysis. Patient currently PCU status awaiting bed availability. 3. Troponin elevation Likely secondary to demand ischemia in the setting of #1. 4. Atrial fibrillation with RVR Improved. The patient tolerated transition to p.o. amiodarone. Additional rate/rhythm control strategy per cardiology recommendations. 5. Abdominal pain Unclear etiology. Patient does have some rebound tenderness. It is unclear if this is secondary to ascites or visceral pain associated with significant edema. Patient does have a 20+ pound weight gain over the course of the hospitalization. Patient did have bacteria in his blood, so spontaneous bacterial peritonitis would be a consideration. Surgery consulted. Await recommendations. This note was generated with [employer] dictation software. It may contain incorrect words, spelling, and punctuation that were not noted in checking the note before signing. Subjective Subjective Patient did okay overnight from a hemodynamic standpoint. Patient was able to tolerate hemodialysis yesterday with 1500 cc removed. Patient continues to have significant abdominal pain and had watery bowel movements overnight. Surgery was consulted, but no note is available for review. Patient is not reporting any respiratory complaints, but does have significant bowel tenderness. No nausea or vomiting has been reported. Objective Data Objective Data Vital Signs: Vital Signs Temp Pulse Resp BP Pulse Ox 36.4 C L 103 H 20 H 140/96 H 97 11/15/20 04:00 11/15/20 04:00 11/15/20 04:00 11/15/20 04:00 11/15/20 04:00 Oxygen Flow Rate (L/min) 2 Oxygen Delivery Method Room Air Weight: 88.995 kg Body Mass Index (BMI) 26.2 Intake & Output: Intake and Output for Last 24 Hours 11/13/20 11/14/20 11/15/20 23:59 23:59 23:59 Intake Total 1092.5 / 1242.5 540 / 540 0 / 0 Output Total 35 / 35 0 / 0 Balance 1074.5 / 1214.5 505 / 505 0 / 0 Lab / Micro Data Result Diagrams: 11/15/20 05:10 11/15/20 05:10 Labs: Laboratory Results - last 24 hr 11/11/20 11/12/20 11/12/20 16:40 05:30 16:10 WBC RBC Hgb Hct MCV MCH MCHC RDW Std Deviation RDW Coeff of Navneet Plt Count MPV Immature Gran % (Auto) Neut % (Auto) Lymph % (Auto) [place] % (Auto) Eos % (Auto) Baso % (Auto) Absolute Neuts (auto) Absolute Lymphs (auto) Nucleated RBC % Differential Comment Diff Path Review Reviewed Reviewed Atypical Lymphocytes Sodium Potassium Chloride Carbon Dioxide Anion Gap BUN Creatinine Estim Creat Clear Calc Est GFR (MDRD) Af Amer Est GFR (MDRD) Non-Af BUN/Creatinine Ratio Glucose Calcium Hep Bs Antigen Non-Reactive Hep Bs Antibody Non-Reactive 11/15/20 11/15/20 05:10 05:10 WBC 13.1 H RBC 4.14 L Hgb 12.9 L Hct 38.1 L MCV 92.0 MCH 31.2 MCHC 33.9 RDW Std Deviation 50.6 H RDW Coeff of Navneet 14.9 H Plt Count 117 L MPV 9.9 Immature Gran % (Auto) 1.000 H Neut % (Auto) 70.7 H Lymph % (Auto) 20.5 [place] % (Auto) 5.9 Eos % (Auto) 1.6 Baso % (Auto) 0.3 Absolute Neuts (auto) 9.3 H Absolute Lymphs (auto) 2.68 Nucleated RBC % 0.2 Differential Comment SCANNED Diff Path Review Atypical Lymphocytes RARE Sodium 139 Potassium 3.7 Chloride 102 Carbon Dioxide 27.0 Anion Gap 10 BUN 60 H Creatinine 6.89 H Estim Creat Clear Calc 8.39 Est GFR (MDRD) Af Amer 10 L Est GFR (MDRD) Non-Af 8 L BUN/Creatinine Ratio 8.7 L Glucose 98 Calcium 7.4 L Hep Bs Antigen Hep Bs Antibody Micro: Microbiology 11/09/20 15:13 Blood Culture (Wb) - Anticubital Right Blood Culture - Final Proteus mirabilis 11/09/20 18:15 Urine Catheter - [place] Urine Culture - Final Enterococcus faecalis 11/09/20 14:48 Blood Culture (Wb) - Left Forearm Blood Culture - Final Gram negative rosmery 11/09/20 22:40 Stool Enteric Bacteriology - Final 11/09/20 22:40 Stool C. difficile DNA Amplification - Final 11/09/20 13:55 Mucosa - Nose SARS-CoV-2 Antigen (Rapid) - Final Physical Exam Const Constitutional Narrative: Hard of hearing Eyes PERRL and EOMs intact bilaterally Eyes Narrative: Conjunctival edema noted. Neck full ROM, supple and no meningeal signs General: JVD Chest inspection of chest normal Chest: symmetrical chest wall rise Resp normal respiratory effort Auscultation: diminished lung sounds; Negative for rales, rhonchi or wheezes Cardio Rate: tachycardic Rhythm: abnormal rhythm irregularly irregular Heart Sounds: Negative for gallop, murmur or rub GI soft to palpation GI Narrative: Diffuse nonfocal tenderness to palpation. Inspection: abdominal distention Palpation: soft, guarding and rebound tenderness present diffuse Extremity General Extremity: edema; Negative for clubbing Skin General Skin Exam: desquamation and lichenification; Negative for petechiae or purpura Neuro CN's II-XII intact bilaterally, moves all extremities, no focal motor deficits and no sensory deficits noted Psych Appearance: appropriate and unkempt Charges/Coding Visit Charges Inpatient E&M: 62787 Subs Hosp L3
--- NOTE | 2020-11-15 09:10 | DIALYSIS ---
Report from primary RNRuddy. Access: Right subclavian HD catheter. Site benign, biofilm dressing dry and intact. Connections secure. Hemosafe applied x 2. Both lumen slightly sluggish pull.
--- NOTE | 2020-11-15 09:59 | PN.RENAL_ITS ---
Subjective Subjective Following for acute kidney injury on chronic kidney disease stage III. The patient remains anuric. He denies chest pain, shortness of breath at rest or nausea. The patient was seen during hemodialysis treatment. Objective Data Objective Data Vital Signs: Vital Signs Temp Pulse Resp BP Pulse Ox 97.7 F L 105 H 15 134/86 H 95 11/15/20 08:30 11/15/20 08:30 11/15/20 08:30 11/15/20 08:30 11/15/20 08:30 Oxygen Flow Rate (L/min) 2 Oxygen Delivery Method Room Air Weight: 88.995 kg Body Mass Index (BMI) 26.2 Intake & Output: Intake and Output for Last 24 Hours 11/13/20 11/14/20 11/15/20 23:59 23:59 23:59 Intake Total 1092.5 / 1242.5 540 / 540 0 / 0 Output Total 35 / 35 0 / 0 Balance 1074.5 / 1214.5 505 / 505 0 / 0 Lab / Micro Data Result Diagrams: 11/15/20 05:10 11/15/20 05:10 Labs: Laboratory Results - last 24 hr 11/11/20 11/12/20 11/15/20 16:40 05:30 05:10 WBC 13.1 H RBC 4.14 L Hgb 12.9 L Hct 38.1 L MCV 92.0 MCH 31.2 MCHC 33.9 RDW Std Deviation 50.6 H RDW Coeff of Navneet 14.9 H Plt Count 117 L MPV 9.9 Immature Gran % (Auto) 1.000 H Neut % (Auto) 70.7 H Lymph % (Auto) 20.5 [place] % (Auto) 5.9 Eos % (Auto) 1.6 Baso % (Auto) 0.3 Absolute Neuts (auto) 9.3 H Absolute Lymphs (auto) 2.68 Nucleated RBC % 0.2 Differential Comment SCANNED Diff Path Review Reviewed Reviewed Atypical Lymphocytes RARE Sodium Potassium Chloride Carbon Dioxide Anion Gap BUN Creatinine Estim Creat Clear Calc Est GFR (MDRD) Af Amer Est GFR (MDRD) Non-Af BUN/Creatinine Ratio Glucose Calcium 11/15/20 05:10 WBC RBC Hgb Hct MCV MCH MCHC RDW Std Deviation RDW Coeff of Navneet Plt Count MPV Immature Gran % (Auto) Neut % (Auto) Lymph % (Auto) [place] % (Auto) Eos % (Auto) Baso % (Auto) Absolute Neuts (auto) Absolute Lymphs (auto) Nucleated RBC % Differential Comment Diff Path Review Atypical Lymphocytes Sodium 139 Potassium 3.7 Chloride 102 Carbon Dioxide 27.0 Anion Gap 10 BUN 60 H Creatinine 6.89 H Estim Creat Clear Calc 8.39 Est GFR (MDRD) Af Amer 10 L Est GFR (MDRD) Non-Af 8 L BUN/Creatinine Ratio 8.7 L Glucose 98 Calcium 7.4 L Micro: Microbiology 11/09/20 15:13 Blood Culture (Wb) - Anticubital Right Blood Culture - Final Proteus mirabilis 11/09/20 18:15 Urine Catheter - [place] Urine Culture - Final Enterococcus faecalis 11/09/20 14:48 Blood Culture (Wb) - Left Forearm Blood Culture - Final Gram negative rosmery 11/09/20 22:40 Stool Enteric Bacteriology - Final 11/09/20 22:40 Stool C. difficile DNA Amplification - Final 11/09/20 13:55 Mucosa - Nose SARS-CoV-2 Antigen (Rapid) - Final Physical Exam Narrative Patient is awake and alert. On RA. Neck: No JVD. HEENT: Mucous membrane moist. Heart irregular. S/1 S2. Chest. CTA anteriorly Abdomen: Normal bowel sounds, soft, nontender. Neuro: No focal neurologic deficits. Ext: 1+ edema of LE Assessment & Plan Assessment/Plan (1) Acute kidney injury: PLAN: JOSE is likely due to ischemic ATN related to sepsis. There is no evidence of renal recovery yet. He remains anuric in the last 2 days. The patient is seen during dialysis today: F1 60 dialyzer, blood flow 400, dialysate flow 600, 3K dialysate. The patient is tolerating dialysis well. We will try for 1.5 to 2 L ultrafiltration. Although the patient is still anuric, I am still optimistic that he will eventually recover renal function enough to come off of dialysis. However, this may take up to 4 to 6 weeks. I explained this to the patient who understands that dialysis is still temporary but may take longer than he expected before we can stop. (2) Chronic kidney disease: PLAN: The patient has CKD stage III A with baseline serum creatinine of around 1.3-1.4 mg/dL. (3) Metabolic acidosis: PLAN: Resolved with dialysis. Serum bicarbonate level is 26 mmol/L today. We will monitor serum bicarbonate. (4) Gram negative septic shock: PLAN: Likely due to UTI. Antimicrobial as per primary service and infectious disease. The patient is on cefazolin which is dosed for intermittent hemodialysis. (5) UTI (urinary tract infection): QUALIFIERS: Urinary tract infection type: acute cystitis Hematuria presence: with hematuria Qualified Code(s): N30.01 - Acute cystitis with hematuria PLAN: See above. (6) Atrial fibrillation with rapid ventricular response: (7) Left ureteral calculus: PLAN: Status post left ureteral stent placement on 11/11/2020.
--- NOTE | 2020-11-15 10:21 | PCM.PN.HOSP ---
Subjective Subjective Patient reports his abdominal pain may be a little bit better but on exam he still fairly tender to palpation. States he has been able to eat some food. Has been tolerating dialysis well. Initially he only wanted dialysis Y was in the hospital, I discussed with him today that he will likely need dialysis after discharge but we do expect recovery of his renal function at some point. He is agreeable for a tunneled line placement and discharged to [facility] for strengthening prior to going home. I explained to him that he is able to discontinue dialysis at any time he would like if it does not look like he is going to achieve renal recovery. Objective Data Objective Data Vital Signs: Vital Signs Temp Pulse Resp BP Pulse Ox 97.7 F L 105 H 15 134/86 H 95 11/15/20 08:30 11/15/20 08:30 11/15/20 08:30 11/15/20 08:30 11/15/20 08:30 Oxygen Flow Rate (L/min) 2 Oxygen Delivery Method Room Air Weight: 88.995 kg Body Mass Index (BMI) 26.2 Intake & Output: Intake and Output for Last 24 Hours 11/13/20 11/14/20 11/15/20 23:59 23:59 23:59 Intake Total 1092.5 / 1242.5 540 / 540 0 / 0 Output Total 35 / 35 0 / 0 Balance 1074.5 / 1214.5 505 / 505 0 / 0 Lab / Micro Data Result Diagrams: 11/15/20 05:10 11/15/20 05:10 Labs: Laboratory Results - last 24 hr 11/11/20 11/12/20 11/15/20 16:40 05:30 05:10 WBC 13.1 H RBC 4.14 L Hgb 12.9 L Hct 38.1 L MCV 92.0 MCH 31.2 MCHC 33.9 RDW Std Deviation 50.6 H RDW Coeff of Navneet 14.9 H Plt Count 117 L MPV 9.9 Immature Gran % (Auto) 1.000 H Neut % (Auto) 70.7 H Lymph % (Auto) 20.5 [place] % (Auto) 5.9 Eos % (Auto) 1.6 Baso % (Auto) 0.3 Absolute Neuts (auto) 9.3 H Absolute Lymphs (auto) 2.68 Nucleated RBC % 0.2 Differential Comment SCANNED Diff Path Review Reviewed Reviewed Atypical Lymphocytes RARE Sodium Potassium Chloride Carbon Dioxide Anion Gap BUN Creatinine Estim Creat Clear Calc Est GFR (MDRD) Af Amer Est GFR (MDRD) Non-Af BUN/Creatinine Ratio Glucose Calcium 11/15/20 05:10 WBC RBC Hgb Hct MCV MCH MCHC RDW Std Deviation RDW Coeff of Navneet Plt Count MPV Immature Gran % (Auto) Neut % (Auto) Lymph % (Auto) [place] % (Auto) Eos % (Auto) Baso % (Auto) Absolute Neuts (auto) Absolute Lymphs (auto) Nucleated RBC % Differential Comment Diff Path Review Atypical Lymphocytes Sodium 139 Potassium 3.7 Chloride 102 Carbon Dioxide 27.0 Anion Gap 10 BUN 60 H Creatinine 6.89 H Estim Creat Clear Calc 8.39 Est GFR (MDRD) Af Amer 10 L Est GFR (MDRD) Non-Af 8 L BUN/Creatinine Ratio 8.7 L Glucose 98 Calcium 7.4 L Micro: Microbiology 11/09/20 15:13 Blood Culture (Wb) - Anticubital Right Blood Culture - Final Proteus mirabilis 11/09/20 18:15 Urine Catheter - [place] Urine Culture - Final Enterococcus faecalis 11/09/20 14:48 Blood Culture (Wb) - Left Forearm Blood Culture - Final Gram negative rosmery 11/09/20 22:40 Stool Enteric Bacteriology - Final 11/09/20 22:40 Stool C. difficile DNA Amplification - Final 11/09/20 13:55 Mucosa - Nose SARS-CoV-2 Antigen (Rapid) - Final Physical Exam Const alert, oriented x3, no apparent distress and average body habitus Constitutional Narrative: Older white male lying in bed flat, getting ready for dialysis, appears comfortable Exam Limitations: no limitations HEENT head/scalp atraumatic and moist oral mucous membranes; Negative for dentition normal HEENT Narrative: Edentulous, no thrush, Mallampati 2 Head and Scalp: normocephalic Mouth: oral and palatal mucosa normal Eyes PERRL and EOMs intact bilaterally Neck no lymphadenopathy and supple Neck Narrative: Trachea midline Resp normal respiratory effort, no retractions, no use of accessory muscles and clear to auscultation bilaterally Auscultation: Negative for crackles, rales, rhonchi or wheezes Cardio S1 normal heart sound, S2 normal heart sound, no murmurs, no rub, no gallops, no clicks and no JVD; Negative for regular rate or regular rhythm Cardio Narrative: Mild tachycardia, irregular rhythm GI GI Narrative: Mild distention Auscultation: hyperactive bowel sounds Palpation: tender other (Diffuse tenderness to even light palpation) and guarding Extremity Extremity Narrative: Trace to 1+ edema bilateral upper and lower extremities--> improving Peripheral Pulses: Yes pulses 2+ throughout Skin no rashes or lesions noted, no wounds, skin turgor normal, no jaundice, no petechiae and no mottling Skin Narrative: Dry skin bilateral lower extremities, temporary HD catheter right subclavian vein Neuro oriented x3, CN's II-XII intact bilaterally, moves all extremities and no focal motor deficits Neuro Narrative: Generalized weakness Sensorium / Orientation: awake, alert, oriented to person, oriented to place and oriented to time Speech: speech normal Psych affect normal Assessment & Plan Assessment/Plan (1) Abdominal pain: (2) Left ureteral calculus: (3) Gram negative septic shock: (4) Septic shock: (5) Atrial fibrillation with rapid ventricular response: (6) Acute kidney injury: PLAN: Septic shock secondary to Proteus mirabilis bacteremia -Continue antibiotics--> will switch from cefazolin to Zosyn 2.25 mg twice daily given HD -Patient was found to have left distal ureteral nephrolithiasis for which a cystoscopy and left ureteral stent was performed -Patient did require vasopressors at one point but this has been discontinued and patient remained stable -Curiously his urine had low colony counts of Enterococcus but no Proteus noted -Question source--=> abdominal given abdominal pain -Check p.o. contrast CT of the abdomen pelvis Left distal ureteral nephrolithiasis -Left ureteral stent and cystoscopy was performed -Plan is for lithotripsy and stent removal on November 16, 2020 if patient is stable -Urology is following JOSE on CKD stage IIIb -Dialysis initiated -Patient remains fairly oliguric= -Suspected this is related to ATN from severe sepsis -Continue to monitor for recovery of renal function--> anticipate that this will occur but timing unclear at this point as patient is still oliguric -Nephrology is following appreciate input -Fluid removal again today -We will repeat blood cultures to assess for clearance and if negative at 24 hours we will consult general surgery for tunneled dialysis catheter placement -Patient is agreeable for this as we do suspect that he will have renal recovery at some point but likely not before discharge Metabolic acidosis -Resolved with dialysis Atrial fibrillation with RVR -Patient continues to have intermittent tachycardia -Continue amiodarone per cardiology -Hold anticoagulation given pending surgery -Cardiology following appreciate input -Echo was performed and shows an EF of 45% with mild global hypokinesis of the LV and moderate LA enlargement Abdominal pain -Appears at this is been on going -C. difficile is negative -Check oral contrasted CT of the abdomen and pelvis -May be related to stent placement -Consider general surgery consult depending on results of CT abdomen and pelvis -Patient has hyperactive bowel sounds Troponin elevation -Suspect related to sepsis and demand ischemia History of hemorrhagic stroke -No current issues -We will have to watch closely if anticoagulation is initiated DVT prophylaxis -Heparin 3 times daily CODE STATUS -DNR CCA Disposition -No transfer to higher level of care -Per discussion with patient today he is agreeable to dialysis at discharge for short period time and admission to [facility] facility for rehab prior to going home as long as it is short-term -Case management notified Charges/Coding Visit Charges Inpatient E&M: 26002 [facility] Hosp L3
[2020-11-15 10:28] LABS: Hepatitis B Core Ab Total Negative (Negative)
--- NOTE | 2020-11-15 10:46 | PN.CARD_ITS ---
Subjective Subjective Patient seen and evaluated. Appears to be doing better today after being dialyzed yesterday. Has not had any major cardiac issues. Objective Data Vital Signs: Vital Signs Temp Pulse Resp BP Pulse Ox 97.7 F L 105 H 15 134/86 H 95 11/15/20 08:30 11/15/20 08:30 11/15/20 08:30 11/15/20 08:30 11/15/20 08:30 Oxygen Flow Rate (L/min) 2 Oxygen Delivery Method Room Air Weight: 196 lb 3.2 oz Body Mass Index (BMI) 26.2 Intake & Output: Intake and Output for Last 24 Hours 11/13/20 11/14/20 11/15/20 23:59 23:59 23:59 Intake Total 1092.5 / 1242.5 540 / 540 0 / 0 Output Total 35 / 35 0 / 0 Balance 1074.5 / 1214.5 505 / 505 0 / 0 Lab / Micro Data Result Diagrams: 11/15/20 05:10 11/15/20 05:10 Labs: Laboratory Results - last 24 hr 11/11/20 11/12/20 11/12/20 16:40 05:30 16:10 WBC RBC Hgb Hct MCV MCH MCHC RDW Std Deviation RDW Coeff of Navneet Plt Count MPV Immature Gran % (Auto) Neut % (Auto) Lymph % (Auto) [place] % (Auto) Eos % (Auto) Baso % (Auto) Absolute Neuts (auto) Absolute Lymphs (auto) Nucleated RBC % Differential Comment Diff Path Review Reviewed Reviewed Atypical Lymphocytes Sodium Potassium Chloride Carbon Dioxide Anion Gap BUN Creatinine Estim Creat Clear Calc Est GFR (MDRD) Af Amer Est GFR (MDRD) Non-Af BUN/Creatinine Ratio Glucose Calcium Hep B Core Total Ab Negative 11/15/20 11/15/20 05:10 05:10 WBC 13.1 H RBC 4.14 L Hgb 12.9 L Hct 38.1 L MCV 92.0 MCH 31.2 MCHC 33.9 RDW Std Deviation 50.6 H RDW Coeff of Navneet 14.9 H Plt Count 117 L MPV 9.9 Immature Gran % (Auto) 1.000 H Neut % (Auto) 70.7 H Lymph % (Auto) 20.5 [place] % (Auto) 5.9 Eos % (Auto) 1.6 Baso % (Auto) 0.3 Absolute Neuts (auto) 9.3 H Absolute Lymphs (auto) 2.68 Nucleated RBC % 0.2 Differential Comment SCANNED Diff Path Review Atypical Lymphocytes RARE Sodium 139 Potassium 3.7 Chloride 102 Carbon Dioxide 27.0 Anion Gap 10 BUN 60 H Creatinine 6.89 H Estim Creat Clear Calc 8.39 Est GFR (MDRD) Af Amer 10 L Est GFR (MDRD) Non-Af 8 L BUN/Creatinine Ratio 8.7 L Glucose 98 Calcium 7.4 L Hep B Core Total Ab Micro: Microbiology 11/09/20 15:13 Blood Culture (Wb) - Anticubital Right Blood Culture - Final Proteus mirabilis 11/09/20 18:15 Urine Catheter - Holland Urine Culture - Final Enterococcus faecalis 11/09/20 14:48 Blood Culture (Wb) - Left Forearm Blood Culture - Final Gram negative rosmery 11/09/20 22:40 Stool Enteric Bacteriology - Final 11/09/20 22:40 Stool C. difficile DNA Amplification - Final 11/09/20 13:55 Mucosa - Nose SARS-CoV-2 Antigen (Rapid) - Final Cardiology Labs/Tests 11/15/20 05:10: WBC 13.1 H, RBC 4.14 L, Hgb 12.9 L, Hct 38.1 L, MCV 92.0, MCH 31.2, MCHC 33.9, Plt Count 117 L, MPV 9.9, Immature Gran % (Auto) 1.000 H, Neut % (Auto) 70.7 H, Lymph % (Auto) 20.5, [place] % (Auto) 5.9, Eos % (Auto) 1.6, Baso % (Auto) 0.3, Absolute Neuts (auto) 9.3 H, Nucleated RBC % 0.2 11/15/20 05:10: Sodium 139, Potassium 3.7, Chloride 102, Carbon Dioxide 27.0, Anion Gap 10, BUN 60 H, Creatinine 6.89 H, Est GFR (MDRD) Af Amer 10 L, Est GFR (MDRD) Non-Af 8 L, BUN/Creatinine Ratio 8.7 L, Glucose 98, Calcium 7.4 L Rhythm: EKG: ECHO: Stress Test: Cardiac Cath: PCI: CT Surgery: Holter monitor: EPS: PPM: CXR: Chest CT Scan: Physical Exam Const oriented x3 and healthy appearing Orientation / Consciousness: awake HEENT normocephalic Eyes PERRL and conjunctivae normal Neck supple, no JVD and no carotid bruits Chest inspection of chest normal Resp normal respiratory effort and clear to auscultation bilaterally Cardio Palpation: normal PMI Rate: regular rate Rhythm: abnormal rhythm irregularly irregular Heart Sounds: S1 normal and S2 normal Peripheral Pulses: pulses 2+ throughout GI normal to inspection, nondistended, normoactive bowel sounds Extremity normal to inspection and no clubbing, cyanosis or edema Psych mental status grossly normal Assessment & Plan Assessment/Plan (1) Atrial fibrillation with rapid ventricular response: PLAN: Patient appears to be in atrial fibrillation with a rapid ventricular response rate. The plan is to continue him on the amiodarone for now while he undergoes dialysis. Depending on the clinical course further recommendations will be made. We may in addition be able to start him on a low-dose of beta-reagan. At this time I do not think that we would anticoagulate since he may be pending surgery.
--- NOTE | 2020-11-15 11:38 | CM.ED ---
Social Work Note Referral Reason: SNF (Skilled Nursign Facility) Referral Source: MD GIBBONS met with patient in his ICU 4 room. Dialysis was present but patient was amendable to being interviewed. Patient reports he has no preference regarding group home facility (SNF). Patient reports he has not been to SNF before. Patient said that family members were at [facility] ([facility]) and [facility] ( [facility]) . Patient said that he has not been to [facility] since they updated the facilities but has been at [facility] recently so he is aware of how it looks. SW asked patient if he had anyone that could transport him to dialysis if needed and he said I could maybe con my neighbor Zeus Torres and his better half into it. SW again confirmed that patient had no preference regarding SNF but patient did state he would like to keep it close. Patient was provided with Medicare rating for SNF in [facility]. Patient was asked if he had any questions and he reported no questions or concerns. EDWIGE called [facility]. Spoke to Tammy in Admission. They currently have no open beds. EDWIGE asked if they would like the referral information faxed to them and she said to wait. EDWIGE called [facility] and left voice mail message to call Eva at [facility] ([facility]). EDWIGE called patient's sister in law, Sabine. She was updated about patient needing dialysis at SNF. Sabine said that between her and her they would change our lives to provide transportation for patient [facility]. Sabine inquired as to when and for how long patient would receive dialysis and EDWIGE indicated that the outpatient dialysis has not been scheduled yet so dates and times are not known. Sabine inquired as to how soon she would get notice of the discharge plan. EDWIGE explained that due to the multiple people, doctors and facilities involved there can not be given a specific date or time when the discharge plan will finalized however, EDWIGE advised that she can call the unit request to speak to EDWIGE. Plan: SNF at discharge [facility] R[facility]O
--- NOTE | 2020-11-15 13:16 | DIALYSIS ---
Hemodialysis complete. 4 hour run, 3k bath. Net fluid removed = 2200 ml. Patient tolerated HD tx well. Right subclavian HD catheter: site benign, biofilm dressing dry and intact. Lumen flushed with NS, filled to volume with Heparin, clamped and capped. Patient complains of periodic gas pain. Report given to primary RN, Ruddy Rouse.
--- NOTE | 2020-11-15 13:21 | CASEMGMT ---
EDWIGE Note EDWIGE received call back from Vandana at [facility] ([facility]) and they do have beds. She requested that referral packet be faxed over. EDWIGE advised that discharge date has not been set yet and may be 2-3 days out. Vandana verbalized understanding. EDWIGE faxed referral packet to Vandana at [facility] for her review. Plan: SNF at discharge [facility] R[facility]
--- NOTE | 2020-11-15 14:19 | CASEMGMT ---
Palliative screening tool completed at this time for [facility]. Patient meets criteria for palliative consult. BHARAT RYDER updated hospitalist and order received to place palliative consult. BHARAT RYDER called [facility] and faxed referral for consult.
[2020-11-15] MEDS: Menthol/Lanolin/Calamine/Znox 113 GM Tube 1 APPLIC TOPICAL ×2 (14:54→22:13)
[2020-11-15] MEDS: Metoprolol Tartrate 25 MG Tablet 12.5 MG PO ×2 (14:55→22:13)
[2020-11-15] MEDS: Amiodarone 200 MG Tablet PO ×2 (14:55→22:15)
[2020-11-15] MEDS: Heparin Injection (Vial) 5,000 UNIT/ML VIAL 5000 UNIT SC ×2 (14:55→22:15)
[2020-11-15] MEDS: Heparin 10,000 UNITS/10 ML Vial 2600 UNITS IV (15:00)
--- NOTE | 2020-11-15 16:04 | CT_ITS ---
STUDY: CT ABDOMEN AND PELVIS WITHOUT CONTRAST REASON FOR EXAM: Male, 85 years old. abdominal pain RADIATION DOSAGE (If Supplied By Facility): CTDIvol = ( 7.48 ) mGy, DLP = ( 588.05 ) mGycm TECHNIQUE: Transaxial images were obtained from the dome of the diaphragm to the symphysis pubis with oral contrast, and without intravenous contrast. Sagittal and coronal images were reconstructed. Individualized dose optimization techniques were used for this CT. COMPARISON: 11/11/2020 FINDINGS: Small bilateral pleural effusions with bibasilar atelectasis. The visualized portions of the heart are within normal limits. Small amount of ascites. Small hepatic cysts. Normal gallbladder and extrahepatic biliary system. Normal spleen. Normal pancreas. Normal bilateral adrenal glands. 5 cm cyst in the midsection right kidney. 4.5 cm cyst in the upper pole the left kidney. Left ureteral stent without hydronephrosis or ureteral dilatation. There is a tiny (1 to 2 mm) calcific density adjacent to the distal aspect of the stent within the distal ureter which may represent a ureteral stone. Normal visualized stomach. Normal small intestine. There are multiple colonic diverticula consistent with diverticulosis. The appendix is visualized and appears normal. Normal abdominal aorta. Normal inferior vena cava. Normal retroperitoneum. Holland catheter within the collapsed bladder. There are prostatic calcifications. Normal abdominal wall. Normal osseous structures. CT/Abdomen/Pel W ORAL Cont Only IMPRESSION: 1. Small bilateral pleural effusions with bibasilar atelectasis. 2. Small amount of ascites. 3. Left ureteral stent with a tiny (1 to 2 mm) stone in the distal ureter adjacent to the stent. Electronically Signed: John Angeles MD at 16:58 EDT Tel , Service support ,
--- NOTE | 2020-11-15 16:30 | CASEMGMT ---
Social Work Note SW received call from Petra at [facility] stating they should be able to accept pt. [facility] will need to know days and times of pt's dialysis so they can check with their transportation to make sure they can provide transportation. SW to continue to follow. Plan: FAY Skinner PROFESSOR OF CRIMINAL JUSTICE, TOLL BOOTH OPERATOR
[2020-11-15] MEDS: 0.9% Saline Lock 10 ML Syringe IV (17:15)
--- NOTE | 2020-11-15 19:49 | CPS ---
bipap not in pt room
[2020-11-16] VITALS (11 sets, daily range): BP systolic 115–129; BP diastolic 71–77; PULSE 82–112; RESP 16; TEMP 36.5–37; O2SAT 95–98
[2020-11-16 07:41] LABS: Albumin, Serum 1.5 g/dL (3.2-5.0); BUN 44 mg/dL (7-18); BUN/Creat Ratio 7.6 RATIO (10-20); Calcium,Total 7.7 mg/dL (8.5-10.1); Chloride 102 mmol/L (98-107); Creatinine, Serum 5.76 mg/dL (0.70-1.30); EST Glomerular Filtration Rate 10 mL/min (>60); Est Glom Filt Rate - Afr Amer 12 mL/min (>60); Estimated Creatinine Clearance 10.03 ml/min; Glucose 90 mg/dL (74-106); Phosphorus 4.4 mg/dL (2.5-4.9); Potassium 3.7 mmol/L (3.5-5.1); Sodium Level 137 mmol/L (136-145)
--- NOTE | 2020-11-16 08:35 | PCM.PN.INT ---
Assessment & Plan Assessment/Plan (1) Gram negative septic shock: PLAN: RECOMMENDATIONS: 1. Continue ongoing hemodialysis support with volume removal per nephrology recommendations. 2. Continue antimicrobials as ordered. 3. Continue amiodarone with additional rate/rhythm control strategy per cardiology recommendations. 4. Encourage incentive spirometer use and mobilize patient as tolerated. 5. Hemodynamically stable on room air. Will sign off from a critical care perspective IMPRESSIONS: 1. Septic shock secondary to Proteus mirabilis Improved. Secondary to urinary tract source of infection with secondary hematogenous spread. The patient was also noted to have a left distal ureteral calculi, for which she required cystoscopy and left ureteral stent placement. The patient was volume resuscitated resulting in a 20+ pound weight gain but did eventually require vasopressor support. Nevertheless, with supportive measures and antimicrobials, the patient was able to be weaned from Levophed and remains hemodynamically stable. Plan to continue antimicrobials as ordered. Abdominal work-up has been relatively unremarkable. 2. Acute kidney injury Likely prerenal in etiology with a component of ischemic ATN related to #1. Unfortunately, the patient did eventually require temporary hemodialysis line placement and subsequent initiation of hemodialysis due to worsening renal insufficiency. Patient is open to continued hemodialysis support, so a tunneled line is reportedly being arranged. 3. Troponin elevation Likely secondary to demand ischemia in the setting of #1. 4. Atrial fibrillation with RVR Improved. The patient tolerated transition to p.o. amiodarone. Additional rate/rhythm control strategy per cardiology recommendations. 5. Abdominal pain Unclear etiology. Patient has had multiple abdominal imaging studies that were within normal limits. Abdominal exam is relatively benign with distraction. Defer to hospitalist moving forward. This note was generated with [employer] dictation software. It may contain incorrect words, spelling, and punctuation that were not noted in checking the note before signing. Subjective Subjective Patient transferred out of the intensive care unit yesterday. Patient did have an abdominal CT that was unremarkable, but persists in complaining of abdominal pain. Patient did tolerate palpation better with distraction on exam. No nausea or vomiting has been reported. Patient has been tolerating room air. Patient reportedly is going to have a tunneled hemodialysis line placed. Objective Data Objective Data Vital Signs: Vital Signs Temp Pulse Resp BP Pulse Ox 36.5 C L 86 16 129/75 H 96 11/16/20 03:55 11/16/20 07:41 11/16/20 03:55 11/16/20 03:55 11/16/20 07:23 Oxygen Flow Rate (L/min) 2 Oxygen Delivery Method Room Air Weight: 84.9 kg Body Mass Index (BMI) 26.2 Intake & Output: Intake and Output for Last 24 Hours 11/14/20 11/15/20 11/16/20 23:59 23:59 23:59 Intake Total 540 / 540 480 / 480 100 / 100 Output Total 35 / 35 2225 / 2225 0 / 0 Balance 505 / 505 -1745 / -1745 100 / 100 Lab / Micro Data Result Diagrams: 11/15/20 05:10 11/16/20 06:45 Labs: Laboratory Results - last 24 hr 11/12/20 11/16/20 16:10 06:45 Sodium 137 Potassium 3.7 Chloride 102 Carbon Dioxide 26.0 BUN 44 H Creatinine 5.76 H Estim Creat Clear Calc 10.03 Est GFR (MDRD) Af Amer 12 L Est GFR (MDRD) Non-Af 10 L BUN/Creatinine Ratio 7.6 L Glucose 90 Calcium 7.7 L Phosphorus 4.4 Albumin 1.5 L Hep B Core Total Ab Negative Micro: Microbiology 11/09/20 15:13 Blood Culture (Wb) - Anticubital Right Blood Culture - Final Proteus mirabilis 11/09/20 18:15 Urine Catheter - Holland Urine Culture - Final Enterococcus faecalis 11/09/20 14:48 Blood Culture (Wb) - Left Forearm Blood Culture - Final Gram negative rosmery 11/09/20 22:40 Stool Enteric Bacteriology - Final 11/09/20 22:40 Stool C. difficile DNA Amplification - Final 11/09/20 13:55 Mucosa - Nose SARS-CoV-2 Antigen (Rapid) - Final Radiography Diagnostic Testing: Radiology Impression Abdomen CT 11/15/20 16:04 IMPRESSION: 1. Small bilateral pleural effusions with bibasilar atelectasis. 2. Small amount of ascites. 3. Left ureteral stent with a tiny (1 to 2 mm) stone in the distal ureter adjacent to the stent. Electronically Signed: John Angeles MD at 16:58 EDT Tel , Service support , Physical Exam Const Constitutional Narrative: Hard of hearing Eyes PERRL and EOMs intact bilaterally Eyes Narrative: Conjunctival edema noted. Neck full ROM, supple and no meningeal signs General: JVD Chest inspection of chest normal Chest: symmetrical chest wall rise Resp normal respiratory effort Auscultation: diminished lung sounds; Negative for rales, rhonchi or wheezes Cardio Rate: tachycardic Rhythm: abnormal rhythm irregularly irregular Heart Sounds: Negative for gallop, murmur or rub GI soft to palpation GI Narrative: Diffuse nonfocal tenderness to palpation. Does improve with distraction. Inspection: abdominal distention Palpation: soft, guarding and rebound tenderness present diffuse Extremity General Extremity: edema; Negative for clubbing Skin General Skin Exam: desquamation and lichenification; Negative for petechiae or purpura Neuro CN's II-XII intact bilaterally, moves all extremities, no focal motor deficits and no sensory deficits noted Psych Appearance: appropriate and unkempt Charges/Coding Visit Charges Inpatient E&M: 32364 Subs Hosp L2
[2020-11-16] MEDS: 0.9% Saline Lock 10 ML Syringe IV ×2 (09:38→15:02)
[2020-11-16] MEDS: Menthol/Lanolin/Calamine/Znox 113 GM Tube 1 APPLIC TOPICAL ×2 (09:48→21:08)
[2020-11-16] MEDS: Amiodarone 200 MG Tablet PO ×2 (09:52→21:07)
[2020-11-16] MEDS: Metoprolol Tartrate 25 MG Tablet 12.5 MG PO ×2 (09:52→21:07)
--- NOTE | 2020-11-16 10:32 | PCM.PN.HOSP ---
Subjective Subjective Patient reports his abdomen is feeling much better and he has minimal abdominal pain. He sitting up in a chair and appears quite comfortable. He still agreeable to placement of a tunneled dialysis catheter and does not have a preference for particular surgeon. He is also still agreeable to senior living facility placement for rehab prior to discharge home. Objective Data Objective Data Vital Signs: Vital Signs Temp Pulse Resp BP Pulse Ox 97.8 F 82 16 118/74 95 11/16/20 09:45 11/16/20 09:52 11/16/20 09:45 11/16/20 09:52 11/16/20 09:45 Oxygen Flow Rate (L/min) 2 Oxygen Delivery Method Room Air Weight: 84.9 kg Body Mass Index (BMI) 26.2 Intake & Output: Intake and Output for Last 24 Hours 11/14/20 11/15/20 11/16/20 23:59 23:59 23:59 Intake Total 540 / 540 480 / 480 210 / 210 Output Total 35 / 35 2225 / 2225 0 / 0 Balance 505 / 505 -1745 / -1745 210 / 210 Lab / Micro Data Result Diagrams: 11/15/20 05:10 11/16/20 06:45 Labs: Laboratory Results - last 24 hr 11/16/20 06:45 Sodium 137 Potassium 3.7 Chloride 102 Carbon Dioxide 26.0 BUN 44 H Creatinine 5.76 H Estim Creat Clear Calc 10.03 Est GFR (MDRD) Af Amer 12 L Est GFR (MDRD) Non-Af 10 L BUN/Creatinine Ratio 7.6 L Glucose 90 Calcium 7.7 L Phosphorus 4.4 Albumin 1.5 L Micro: Microbiology 11/09/20 15:13 Blood Culture (Wb) - Anticubital Right Blood Culture - Final Proteus mirabilis 11/09/20 18:15 Urine Catheter - Holland Urine Culture - Final Enterococcus faecalis 11/09/20 14:48 Blood Culture (Wb) - Left Forearm Blood Culture - Final Gram negative rosmery 11/09/20 22:40 Stool Enteric Bacteriology - Final 11/09/20 22:40 Stool C. difficile DNA Amplification - Final 11/09/20 13:55 Mucosa - Nose SARS-CoV-2 Antigen (Rapid) - Final Radiography Diagnostic Testing: Radiology Impression Abdomen CT 11/15/20 16:04 IMPRESSION: 1. Small bilateral pleural effusions with bibasilar atelectasis. 2. Small amount of ascites. 3. Left ureteral stent with a tiny (1 to 2 mm) stone in the distal ureter adjacent to the stent. Electronically Signed: John Angeles MD at 16:58 EDT Tel , Service support , Physical Exam Const alert, oriented x3, no apparent distress and average body habitus Constitutional Narrative: Well-appearing older white male sitting up in a chair, reading paper, nontoxic, appears comfortable HEENT head/scalp atraumatic Head and Scalp: normocephalic Resp normal respiratory effort, no retractions, no use of accessory muscles and clear to auscultation bilaterally Cardio regular rate, S1 normal heart sound, S2 normal heart sound, no murmurs, no rub, no gallops, no clicks and no JVD Cardio Narrative: Irregular rhythm GI normal to inspection, nondistended, normoactive bowel sounds, soft to palpation and non-distended; Negative for non-tender GI Narrative: Minimal diffuse tenderness Palpation: tender; Negative for guarding Extremity Extremity Narrative: Trace bilateral lower extremity edema, dry skin, no cyanosis or clubbing Peripheral Pulses: Yes pulses 2+ throughout Skin no wounds, skin turgor normal, no jaundice, no petechiae and no mottling Neuro oriented x3, CN's II-XII intact bilaterally and moves all extremities Sensorium / Orientation: awake, alert, oriented to person, oriented to place and oriented to time Speech: speech normal Psych affect normal Psych Narrative: Pleasant Assessment & Plan Assessment/Plan (1) Septic shock: (2) Left ureteral calculus: (3) Gram negative septic shock: (4) UTI (urinary tract infection): QUALIFIERS: Urinary tract infection type: acute cystitis Hematuria presence: with hematuria Qualified Code(s): N30.01 - Acute cystitis with hematuria (5) Chronic kidney disease: (6) Acute kidney injury: PLAN: Septic shock secondary to Proteus mirabilis bacteremia -Continue antibiotics--> Zosyn to continue through today -d/c abx tomorrow -Patient was found to have left distal ureteral nephrolithiasis for which a cystoscopy and left ureteral stent was performed -Patient did require vasopressors at one point but this has been discontinued and patient remained stable -Curiously his urine had low colony counts of pansensitive Enterococcus but no Proteus noted Left distal ureteral nephrolithiasis -Left ureteral stent and cystoscopy was performed -Plan is for lithotripsy and stent removal soon -Awaiting plan from urology with regards to this -Urology is following JOSE on CKD stage IIIb -Dialysis initiated -Patient remains fairly oliguric--> 25 cc out in last 24 hrs -Suspected this is related to ATN from severe sepsis -Continue to monitor for recovery of renal function--> anticipate that this will occur but timing unclear at this point as patient is still oliguric -Nephrology is following appreciate input -Repeat blood cultures pending and if negative at 24 hours we will consult general surgery for tunneled dialysis line placement Metabolic acidosis -Resolved with dialysis Atrial fibrillation with RVR -Heart rates are much better controlled -Continue amiodarone per cardiology -Metoprolol 12.5 mg twice daily added yesterday -Hold anticoagulation given pending surgery -Cardiology following appreciate input -Echo was performed and shows an EF of 45% with mild global hypokinesis of the LV and moderate LA enlargement Abdominal pain -Resolved -C. difficile is negative -Repeat oral contrasted CT was unimpressive -We will monitor Troponin elevation -Suspect related to sepsis and demand ischemia -Cardiology is following History of hemorrhagic stroke -No current issues -We will have to watch closely if anticoagulation is initiated DVT prophylaxis -Heparin 3 times daily CODE STATUS -DNR CCA Disposition -No transfer to higher level of care -Plan is for discharge to skilled facility with dialysis which is expected to be short-term -Patient remains agreeable to this plan Charges/Coding Visit Charges Inpatient E&M: 46039 Subs Hosp L2
--- NOTE | 2020-11-16 10:44 | CASEMGMT ---
Addendum entered by Ban Raygoza 11/16/20 11:07: Referral faxed to [facility] after placed in portal and faxed to [facility]. Call to Meka at [facility] to notify of referral and pt discharge likely to [facility], voices understanding. CM to follow. Giles NICHOLSON CM Original Note: This RN CM to room to discuss OP dialysis set up with pt and after provided list of local dialysis centers. Pt states he would like [facility] at this time. Referral started with [facility] at this time. Pt will get tunnel cath once blood cultures resulted. CM to follow and fax info to [facility] as obtained. Giles NICHOLSON CM
--- NOTE | 2020-11-16 13:55 | PCM.PN.ID ---
Physical Exam Narrative Feeling better, abd pain starting to improve, no fever Const alert General Appearance: cooperative Resp normal air movement and clear to auscultation bilaterally Cardio regular rate and regular rhythm GI GI Narrative: mild soreness Palpation: tender Skin no rashes or lesions noted ID ID: Route of nutrition/ use of supplements: [] Nutritional Intake: [] IV Site: [] Holland Catheter: [] Assessment & Plan Assessment/Plan (1) Gram negative septic shock: PLAN: septic shock with proteus bacteremia - mild wbc on UA, dysuria on presentation. Taken to OR 11/[address] Martinez for ureteral stent placement with purulent urine drained. On zosyn, will narrow back to cefazolin. Enterococcus in ucx was less than 1k, doubt true pathogen. Ok for discharge on 10 days po amoxicillin 500mg daily. Will follow. Recommended covid vaccine once he is out of the hospital. (2) Acute kidney injury:
--- NOTE | 2020-11-16 13:57 | CASEMGMT ---
EDWIGE spoke with patient and let him know [facility] can take him as long as they can manage his dialysis transport. Claribel Cortes [employer] SEGMENT ASSEMBLER ANGEL
--- NOTE | 2020-11-16 14:09 | PCM.CONS.U ---
Assessment & Plan Assessment/Plan (1) Left ureteral calculus: PLAN: Patient will need to follow-up with urology as an outpatient after discharge to plan for surgery to remove the stone and the stent. HPI Consult Data Date of Consult: 11/16/20 HPI Narrative HPI Narrative: MARYELLEN HICKEY, is a 85 M who presents with of sepsis from a stone, status post stent placement he is now recovering from the ICU he is on dialysis. He will need to have the stone removed and the stent removed PFSH Medical History Hemorrhagic stroke Hypertension Home Medications Unobtainable 10/03/19 [History Last Taken Unknown] Allergy/AdvReac Type Severity Reaction Status Date / Time Unable to Assess Allergy Verified 11/09/20 12:53 Social History Smoking Status: Never smoker Physical Exam Const alert and oriented x3 General Appearance: cooperative HEENT normocephalic, head/scalp atraumatic, EAC's normal and TM's normal bilaterally Eyes PERRL and EOMs intact bilaterally Pupil: sluggish Neck no lymphadenopathy, supple and no JVD General: trachea midline Lymph Lymphatic: no lymphadenopathy noted, lymphedema and lymphadenopathy Resp normal respiratory effort, normal air movement and clear to auscultation bilaterally Cardio regular rate, regular rhythm and peripheral pulses 2+ throughout GI soft to palpation, non-tender and non-distended Extremity normal capillary refill and no clubbing, cyanosis or edema General Extremity: no tenderness to palpation of joints or extremities Skin no rashes or lesions noted General Skin Exam: turgor normal Lesions: no lesions Rashes: no rashes Neuro CN's II-XII intact bilaterally Speech: speech normal Motor Exam: strength 5/5 throughout; Negative for general weakness Psych thought process normal, cooperative and affect normal Appearance: appropriate Lab / Micro Data Result Diagrams: 11/15/20 05:10 11/16/20 06:45 Labs: Laboratory Results - last 24 hr 11/16/20 06:45 Sodium 137 Potassium 3.7 Chloride 102 Carbon Dioxide 26.0 BUN 44 H Creatinine 5.76 H Estim Creat Clear Calc 10.03 Est GFR (MDRD) Af Amer 12 L Est GFR (MDRD) Non-Af 10 L BUN/Creatinine Ratio 7.6 L Glucose 90 Calcium 7.7 L Phosphorus 4.4 Albumin 1.5 L Radiology Impression Abdomen CT 11/15/20 16:04 IMPRESSION: 1. Small bilateral pleural effusions with bibasilar atelectasis. 2. Small amount of ascites. 3. Left ureteral stent with a tiny (1 to 2 mm) stone in the distal ureter adjacent to the stent. Electronically Signed: John Angeles MD at 16:58 EDT Tel , Service support ,
--- NOTE | 2020-11-16 14:11 | PCM.DC ---
Discharge Instructions Diet Discharge Diet: No restrictions Activity Discharge Activity: Return to Normal Activity and May Not Drive (while taking narcotic pain medications.) Dressing / Incision Call your doctor if you observe: Fever of 101 or Higher Follow Up Care Please Follow Up With: Eric Martinez MD When: Call [phone] for an appointment Test Results: Test results from this visit will be discussed in further detail at your follow-up appointment, if applicable. Discharge Plan Admission Admit Date/Time: 11/09/20 17:29 Attending Provider: Cathy Valerio Primary Care Provider: Care Physician,No Primary Consulting Providers: Yasmin Malhotra ; Chi Benavidez ; Rupali Shaikh ; Jas Lantigua ; Eduardo Abreu ; Brenda Salinas ; Ruddy Platt ; Fatemeh Rodriguez ; Dennis Mitchell ; Gee Amezcua ; Ghazal Yip ; Eric Martinez ; Ralf Garcia ; Damian Archer ; Symone Brock POWER CLEANER OPERATOR Discharge Orders/Prescriptions Prescriptions: No Action Unobtainable RF: 0 Referrals / Follow Up: Care Physician,No Primary [Primary Care Provider] -
--- NOTE | 2020-11-16 15:40 | PCM.PN.REN ---
Subjective Subjective no new events Objective Data Objective Data Vital Signs: Vital Signs Temp Pulse Resp BP Pulse Ox 98.6 F 98 16 126/71 H 96 11/16/20 15:01 11/16/20 15:01 11/16/20 15:01 11/16/20 15:01 11/16/20 15:01 Oxygen Flow Rate (L/min) 2 Oxygen Delivery Method Room Air Weight: 84.9 kg Body Mass Index (BMI) 26.2 Intake & Output: Intake and Output for Last 24 Hours 11/14/20 11/15/20 11/16/20 23:59 23:59 23:59 Intake Total 540 / 540 480 / 480 320 / 320 Output Total 35 / 35 2225 / 2225 0 / 0 Balance 505 / 505 -1745 / -1745 320 / 320 Lab / Micro Data Result Diagrams: 11/15/20 05:10 11/16/20 06:45 Labs: Laboratory Results - last 24 hr 11/16/20 06:45 Sodium 137 Potassium 3.7 Chloride 102 Carbon Dioxide 26.0 BUN 44 H Creatinine 5.76 H Estim Creat Clear Calc 10.03 Est GFR (MDRD) Af Amer 12 L Est GFR (MDRD) Non-Af 10 L BUN/Creatinine Ratio 7.6 L Glucose 90 Calcium 7.7 L Phosphorus 4.4 Albumin 1.5 L Micro: Microbiology 11/09/20 15:13 Blood Culture (Wb) - Anticubital Right Blood Culture - Final Proteus mirabilis 11/09/20 18:15 Urine Catheter - Lopez Urine Culture - Final Enterococcus faecalis 11/09/20 14:48 Blood Culture (Wb) - Left Forearm Blood Culture - Final Gram negative romsery 11/09/20 22:40 Stool Enteric Bacteriology - Final 11/09/20 22:40 Stool C. difficile DNA Amplification - Final 11/09/20 13:55 Mucosa - Nose SARS-CoV-2 Antigen (Rapid) - Final Radiography Diagnostic Testing: Radiology Impression Abdomen CT 11/15/20 16:04 IMPRESSION: 1. Small bilateral pleural effusions with bibasilar atelectasis. 2. Small amount of ascites. 3. Left ureteral stent with a tiny (1 to 2 mm) stone in the distal ureter adjacent to the stent. Electronically Signed: John Angeles MD at 16:58 EDT Tel , Service support , Physical Exam Narrative Patient is awake and alert. On RA. Neck: No JVD. HEENT: Mucous membrane moist. Heart irregular. S/1 S2. Chest. CTA anteriorly Abdomen: Normal bowel sounds, soft, nontender. Neuro: No focal neurologic deficits. Ext: 1+ edema of LE Assessment & Plan Assessment/Plan (1) Acute kidney injury: PLAN: JOSE is likely due to ischemic ATN related to sepsis. There is no evidence of renal recovery yet. He remains anuric in the last 2 days. Although the patient is still anuric, I am still optimistic that he will eventually recover renal function enough to come off of dialysis. However, this may take up to 4 to 6 weeks. I explained this to the patient who understands that dialysis is still temporary but may take longer than he expected before we can stop. has been anuric. lopez can come out from my end, urology is following (2) Chronic kidney disease: PLAN: The patient has CKD stage III A with baseline serum creatinine of around 1.3-1.4 mg/dL. (3) Metabolic acidosis: PLAN: Resolved with dialysis. Serum bicarbonate level is 26 mmol/L today. We will monitor serum bicarbonate. (4) Gram negative septic shock: PLAN: Likely due to UTI. (5) UTI (urinary tract infection): QUALIFIERS: Urinary tract infection type: acute cystitis Hematuria presence: with hematuria Qualified Code(s): N30.01 - Acute cystitis with hematuria PLAN: See above. (6) Atrial fibrillation with rapid ventricular response: (7) Left ureteral calculus: PLAN: Status post left ureteral stent placement on 11/11/2020.
[2020-11-16] MEDS: Cefazolin 1 GM/50 ML BAG IV (21:07)
[2020-11-16] MEDS: Heparin Injection (Vial) 5,000 UNIT/ML VIAL 5000 UNIT SC (21:07)
[2020-11-17] VITALS (15 sets, daily range): BP systolic 96–137; BP diastolic 61–98; PULSE 81–112; RESP 14–16; TEMP 36.3–37.1; O2SAT 95–98
--- NOTE | 2020-11-17 07:24 | PCM.PN.SRG ---
Subjective Subjective Patient is an uric requiring dialysis Objective Data Objective Data Vital Signs: Vital Signs Temp Pulse Resp BP Pulse Ox 98.7 F 92 16 123/61 H 98 11/17/20 03:01 11/17/20 03:05 11/17/20 03:01 11/17/20 03:01 11/17/20 03:01 Oxygen Flow Rate (L/min) 2 Oxygen Delivery Method Room Air Weight: 187 lb 13.341 oz Body Mass Index (BMI) 26.2 Intake & Output: Intake and Output for Last 24 Hours 11/15/20 11/16/20 11/17/20 23:59 23:59 23:59 Intake Total 480 / 480 840 / 840 Output Total 2225 / 2225 17 / 17 0 / 0 Balance -1745 / -1745 823 / 823 0 / 0 Lab / Micro Data Result Diagrams: 11/15/20 05:10 11/16/20 06:45 Labs: Laboratory Results - last 24 hr 11/16/20 06:45 Sodium 137 Potassium 3.7 Chloride 102 Carbon Dioxide 26.0 BUN 44 H Creatinine 5.76 H Estim Creat Clear Calc 10.03 Est GFR (MDRD) Af Amer 12 L Est GFR (MDRD) Non-Af 10 L BUN/Creatinine Ratio 7.6 L Glucose 90 Calcium 7.7 L Phosphorus 4.4 Albumin 1.5 L Micro: Microbiology 11/09/20 15:13 Blood Culture (Wb) - Anticubital Right Blood Culture - Final Proteus mirabilis 11/09/20 18:15 Urine Catheter - Holland Urine Culture - Final Enterococcus faecalis 11/09/20 14:48 Blood Culture (Wb) - Left Forearm Blood Culture - Final Gram negative rosmery 11/09/20 22:40 Stool Enteric Bacteriology - Final 11/09/20 22:40 Stool C. difficile DNA Amplification - Final 11/09/20 13:55 Mucosa - Nose SARS-CoV-2 Antigen (Rapid) - Final Physical Exam Const no apparent distress Resp normal respiratory effort Cardio regular rate and regular rhythm Assessment & Plan Assessment/Plan (1) Acute kidney injury: PLAN: Patient is an uric requiring dialysis and has a temporary line in place. I was contacted to place a tunneled dialysis catheter for more long-term dialysis. I discussed this with the patient in detail. I discussed tunneled dialysis catheter placement and its risks including but not limited to bleeding, infection, pneumothorax, line infection. Patient understands the risks and is willing to proceed. I will have the dialysis nurse remove the dialysis catheter after dialysis today and I will place new catheter this afternoon. Nic Grant MD Pager: [facility] [address] [place] [address] [address] [place] [address] Office:
--- NOTE | 2020-11-17 07:41 | CON.PCM.UR_ITS ---
Assessment & Plan Assessment/Plan (1) Left ureteral calculus: PLAN: s/p stent placemen for obstruction and sepsis HPI Consult Data Date of Consult: 11/17/20 HPI Narrative HPI Narrative: MARYELLEN HICKEY, is a 85 M with oligic renal failure due to sepsis, going for tunnelled cath. will eugeniociro anahy for kidney stone at some point. [facility] Medical History Hemorrhagic stroke Hypertension Home Medications Unobtainable 10/03/19 [History Last Taken Unknown] Allergy/AdvReac Type Severity Reaction Status Date / Time Unable to Assess Allergy Verified 11/09/20 12:53 Social History Smoking Status: Never smoker Lab / Micro Data Result Diagrams: 11/15/20 05:10 11/16/20 06:45 Labs: Laboratory Results - last 24 hr 11/16/20 06:45 Sodium 137 Potassium 3.7 Chloride 102 Carbon Dioxide 26.0 BUN 44 H Creatinine 5.76 H Estim Creat Clear Calc 10.03 Est GFR (MDRD) Af Amer 12 L Est GFR (MDRD) Non-Af 10 L BUN/Creatinine Ratio 7.6 L Glucose 90 Calcium 7.7 L Phosphorus 4.4 Albumin 1.5 L
--- NOTE | 2020-11-17 08:40 | CASEMGMT ---
Addendum entered by Ban Raygoza 11/17/20 13:27: Per Claribel GIBBONS, W cannot transport pt on Saturdays until after 1300. Call to Meka at [facility] and she states their last start time on saturdays is 1200. Meka does state that they could do MWF at 1540 and Camacho GIBBONS updated, voices understanding. Per Meka at [facility], pt has not been financially cleared yet. CM to follow. Giles NICHOLSON CM Addendum entered by Ban Raygoza 11/17/20 11:07: Dialysis run notes and tunnel cath op notes/CXR faxed to [facility] and [facility]. Giles NICHOLSON CM Original Note: Call to Meka at [facility] and provided tentative chair time of TTS 1140 and Camacho GIBBONS updated, voices understanding. Pt is currently down getting tunnel cath placed and this RN ALEKSEY will fax dialysis run sheets/tunnel cath notes once chart/pt back to floor. Call to Carlie at [facility] per her request and questions answered. Still awaiting medical/financial clearance for OP HD clinic. Dr. Valerio updated, voices understanding. CM to follow. Giles NICHOLSON CM
[2020-11-17] MEDS: Lidocaine 1% /Epi 1:100 (20ml) 20 ML Vial (09:28)
[2020-11-17] MEDS: Heparin 10,000 UNITS/10 ML Vial 10000 UNITS (09:30)
--- NOTE | 2020-11-17 09:50 | OP.PCM_ITS ---
Problems Associated Problem List Diagnoses (1) Acute kidney injury: Report of Operation Date of Procedure: 11/17/20 Pre-Operative Diagnosis: Acute kidney injury Post-Operative Diagnosis: Same Surgery/Procedure Performed:: Ultrasound and fluoroscopy guided right IJ tunneled dialysis catheter placement Description of Procedure: Patient was brought back to the operating room and MAC anesthesia was used. The right subclavian line was removed and pressure was held. Next the right chest and neck were prepped in usual sterile fashion. Ultrasound was used to localize the right IJ and local anesthetic was injected in the neck and the chest and the tract between the 2. An incision was made in the right neck and a needle was used to access the right IJ. A guidewire was placed without resistance and fluoroscopy confirmed it was in the superior vena cava. Next the needle was removed and over the guidewire serial dilators and a peel-away sheath was placed. The guidewire was removed. The curved cuffed catheter was placed through the inferior chest incision to the neck incision and placed into the peel-away sheath and the peel-away sheath was removed. Fluoroscopy confirmed it was in good placement. Each catheter was drawn and flushed and they withdrew and flushed well. The neck incision was closed with interrupted 3-0 Vicryl sutures and the catheter was sutured to the skin using 3- 0 nylon suture. A dressing was applied. Each of the catheters was then flushed with 1.6 cc of heparinized saline and clamped and capped. The patient was taken to PACU in stable condition. Admit VTE Documentation VTE Mechan Device Prophylaxis: SCD's
--- NOTE | 2020-11-17 09:53 | RAD_ITS ---
STUDY: X-RAY CHEST REASON FOR EXAM: Male, 85 years old. dialysis cath TECHNIQUE: 1 view COMPARISON: 11/12/2020 FINDINGS: There is now noted double-lumen the paranasal permacath with the tip at the cavoatrial junction. Focal patchy changes noted in the right base that needs follow-up... Of the lung luis are clear the bony thorax is intact. The cardiac silhouette is not enlarged. RAD/CXR for Line Placement IMPRESSION: Permacath insertion position. Electronically Signed: De Spear, at 10:16 EDT Tel , Service support ,
--- NOTE | 2020-11-17 10:54 | CASEMGMT ---
SW spoke with patient this am. SW introduced self again. SW spoke with him regarding his discharge plan. SW told him that SW is waiting on dialysis schedule and will then check with [facility] to see if they are able to manage this transportation. SW asked him if he is okay with SW talking with his sister in law, Sabine regarding his plan. He said he is okay with plans being discussed with his sister in law Sabine. SW still waiting on [facility] to let SW know if they can accommodate the tentative dialysis schedule for patient. NOTE: Patient has given permission for his case to be discussed with his sister in law Sabine. Plan: Possibly [facility] pending their official acceptance and dialysis set up. Clarible Cortes BULLDOZER OPERATOR ANGEL
[2020-11-17] MEDS: Menthol/Lanolin/Calamine/Znox 113 GM Tube 1 APPLIC TOPICAL ×2 (10:58→21:08)
[2020-11-17] MEDS: 0.9% Saline Lock 10 ML Syringe IV (11:04)
--- NOTE | 2020-11-17 11:05 | NURSING ---
Pt stated that staff may give information to his sister in law Sabine. Pt also stated that he only wants his brother Jonathan to visit at this time.
[2020-11-17 11:20] LABS: Absolute Lymphocyte Count 2.21 X10^3/uL (0.83-4.51); Basophil# 0.06 X10^3/uL; Basophil% 0.4 % (0-1); Eosinophil# 0.21 X10^3/uL; Eosinophils% 1.4 % (0-5); Hematocrit 39.3 % (40-54); Hemoglobin 13.2 g/dL (13.0-16.5); Lymphocyte # 2.21 X10^3/ul (0.83-4.51); Lymphocyte % 14.4 % (19-41); Mean Corp Hgb Conc 33.6 g/dL (32-36); Mean Corpuscular Hgb 31.6 pg (27.0-32.0); Mean Platelet Vol. 9.3 fl (6.2-12.0); Monocyte# 0.65 X10^3/uL; Monocyte% 4.2 % (0-10); NRBC Flagged by Analyzer 0 % (0-5); Neutrophil # 12.01 X10^3/uL (2.7-7.7); Neutrophil % 78.2 % (47-70); POSITIVE MORPHOLOGY YES; Platelet Count 163 K/mm3 (150-450); RBC Distribution Width CV 15.7 % (11.6-14.6); RBC Distribution Width SD 53.3 fl (35.1-43.9); Red Blood Count 4.18 M/mm3 (4.6-6.2); White Blood Count 15.4 K/mm3 (4.4-11.0)
[2020-11-17 11:22] LABS: Differential Indicated SCAN CRITERIA MET
[2020-11-17 11:52] LABS: Anion Gap 13 (5-15); BUN 62 mg/dL (7-18); BUN/Creat Ratio 7.9 RATIO (10-20); Calcium,Total 7.8 mg/dL (8.5-10.1); Chloride 101 mmol/L (98-107); Creatinine, Serum 7.81 mg/dL (0.70-1.30); EST Glomerular Filtration Rate 7 mL/min (>60); Est Glom Filt Rate - Afr Amer 9 mL/min (>60); Glucose 101 mg/dL (74-106); Potassium 3.9 mmol/L (3.5-5.1); Sodium Level 135 mmol/L (136-145)
--- NOTE | 2020-11-17 13:02 | PCM.CONS.P ---
Assessment & Plan Assessment/Plan (1) Weakness: (2) Abdominal pain: QUALIFIERS: Abdominal location: generalized Qualified Code(s): R10.84 - Generalized abdominal pain (3) Acute kidney injury: (4) Pneumonia: QUALIFIERS: Laterality: bilateral Lung location: lower lobe of lung Pneumonia type: due to unspecified organism Qualified Code(s): J18.9 - Pneumonia, unspecified organism (5) Atrial fibrillation with rapid ventricular response: (6) Severe sepsis: (7) UTI (urinary tract infection): QUALIFIERS: Hematuria presence: with hematuria Urinary tract infection type: acute cystitis Qualified Code(s): N30.01 - Acute cystitis with hematuria (8) Chronic kidney disease: QUALIFIERS: Chronic kidney disease stage: on chronic dialysis Qualified Code(s): N18.6 - End stage renal disease; Z99.2 - Dependence on renal dialysis (9) Left ureteral calculus: PLAN: 85-year-old male with weakness and debility, presented to the hospital with unresponsiveness and found to have JOSE, UTI, sepsis. He does not have a primary care physician. Reportedly noncompliant with medications and follow-up. History of stroke about a year ago. 1. Weakness and debility: Multifactorial, he is going to senior living facility for further therapy. we will follow if agreeable and obtains PCP. 2. Abdominal pain: Mostly resolved. No changes indicated 3. Sepsis/pneumonia/left ureteral calculus/UTI/A. fib RVR: Complicates overall care, management, recovery, and prognosis. Management per hospitalist/specialists. Noted tunneled dialysis cath, plans for outpatient dialysis three times per week at [facility] in [place]. Thank you for the opportunity to participate in this patient's care, please do not hesitate to contact [facility] with any further questions or concerns. Palliative direct line is [phone]. It is unclear if patient will be followed at discharge to SNF, he does not seem particularly interested in palliative care nor obtaining a primary care physician. We can follow him while he is at the skilled facility, otherwise if he does not obtain a PCP, we will be unable to follow as an outpatient. Greater than 50% of F2F visit dedicated to education and counseling of palliative care services, medications, comorbid conditions and potential assistance with management, and plan of care moving forward. Start time: 1302 End time: 1354 HPI Consult Data Date of Consult: 11/17/20 HPI Narrative HPI Narrative: MARYELLEN HICKEY, is a 85 M, PMH as below, who presents to [facility] 11/09/2020 with unresponsiveness. Family found him unconscious on the floor of his house so called EMS. Patient reportedly had a stroke last year and refused to follow rehab guidelines when he went home. He does not have much contact with family and they report he does not take medications as prescribed. He does not have a primary care physician. Also was complaining of some abdominal pain but no imaging was performed secondary to elevated creatinine and confusion. He was admitted for further evaluation and management, diagnosed with severe sepsis, pneumonia, UTI, JOSE, elevated troponin, and A. fib with RVR. During the course of his hospitalization, he was seen by urology, infectious disease, cardiology, nephrology, and the research associate policy. 11/17/2020 a right IJ tunneled dialysis catheter was placed. Urology was consulted for left ureteral calculus, recommending surgery at some point for his kidney stone. ID recommended a 10-day course of amoxicillin 500 mg daily. Patient has had some episodes of severe confusion and agitation. He was at one point on BiPAP but kept taking the mask off. Troponin elevation was suspected to be related to sepsis and demand ischemia. He will likely require anticoagulation upon discharge, but there is a good chance he will not take it. Patient will require dialysis, case management is working on placement at a facility that can accommodate dialysis transport. Patient has an estranged relationship with many members of his family. He is okay to giving information to his xictxr-op-cpu, Sabine. He also request that only his brother, Jonathan come to visit at this time. According to social work documentation, patient's brother Jonathan and his Sabine have gone out of their way to assist the patient, they seem to be the only people he does trust. He does not allow others in his home. He does things like shutting off his refrigerator in the winter and placing his food items on the porch to keep them cold instead of paying for the electric. POA brother Jonathan Hickey. He lives alone in a two-story home with a basement. States he is independent with all ADLs. He still drives. Has declined any home health or outpatient therapy. He is also indicated that he will likely not take any medications that are prescribed. Patient reports he typically does not have any chronic pain. He is not having any current abdominal pain. He just feels very fatigued and is upset that his health has taken a turn for the worse. Dialysis is getting ready to start his treatment for the day. His food has been ground, he really does not like the taste. States he really does not know what is going on. Avoiding questions about what he will do when he leaves the facility. States he would like to go back to doing his regular chores, going outside and getting loads of wood, yardwork, etc. [facility] Medical History Hemorrhagic stroke Hypertension Home Medications Unobtainable 10/03/19 [History Last Taken Unknown] Allergy/AdvReac Type Severity Reaction Status Date / Time Unable to Assess Allergy Verified 11/09/20 12:53 Social History Smoking Status: Never smoker ROS ROS Narrative Review of systems otherwise negative from a constitutional, HEENT, respiratory, cardiovascular, GI, genitourinary, musculoskeletal, skin, neurologic, psychiatric and hematologic system unless stated above. Physical Exam Const alert and no apparent distress General Appearance: cooperative, disheveled and ill appearing Orientation / Consciousness: oriented to person and oriented to place HEENT normocephalic and head/scalp atraumatic Neck supple General: trachea midline Chest Chest Narrative: temp HD cath R chest Resp Effort and Inspection: symmetric chest movement Auscultation: diminished lung sounds; Negative for rales, rhonchi or wheezes Cardio S1 normal heart sound and S2 normal heart sound Rhythm: abnormal rhythm irregularly irregular GI soft to palpation and non-tender GI Narrative: obesity distention Auscultation: normoactive bowel sounds Extremity General Extremity: edema bilateral lower extremity; Negative for cyanosis Neuro CN's II-XII intact bilaterally and no focal motor deficits Psych Attitude: calm Activity / Motor Behavior: avoids eye contact Speech: slow Mood & Affect: labile affect Thought Process: illogical Thought Content: No hallucination(s) Insight: limited Judgement: limited
--- NOTE | 2020-11-17 13:38 | CASEMGMT ---
Possible dialysis schedule would be T,TH,Sat at 1140a. EDWIGE called Petra at [facility] and asked if they could accommodate this. She said they can do T,TH, but the Saturday would have to be later than 1p. Family is allowed to transport. EDWIGE spoke with RN ALEKSEY who will see if they can change it. They cannot do anything later on Saturday. They also have M,W, F at 340p. EDWIGE called Petra back and left her a voice mail letting her know above. Await her return call. EDWIGE received a call from patient's sister in law, Sabine. She was asking about the plan. EDWIGE confirmed she spoke with EDWIGE Schrader and she did. EDWIGE started to explain the current situation and she stopped EDWIGE and said patient's brother will be in to visit him at 230 and could they sit down and meet with EDWIGE. EDWIGE told her that would be fine. Await return call from [facility] regarding dialysis transport. Claribel Cortes SLEEP TECHNOLOGIST ANGEL
--- NOTE | 2020-11-17 14:10 | CASEMGMT ---
Addendum entered by Ban Raygoza 11/17/20 15:49: Still awaiting [facility] to verify if they can take pt's on MWF at 1540, if not he will need to go TTS 1140 and family states they can transport pt on saturdays. CM To follow. Giles NICHOLSON CM Original Note: Call from Joshua at [facility] to verify that only insurance for pt is MCR A/B and advised him that is all [facility] has for pt, voices understanding. Per Joshua, pt 'should be good to go then'. Still waiting on [facility] to verify that they can transport pt on MWF at 1540. CM to follow. Giles NICHOLSON CM
--- NOTE | 2020-11-17 14:16 | PN.HOSP_ITS ---
Subjective Subjective Patient denies any symptoms. States his abdominal pain is much improved. His tunneled dialysis catheter was placed this morning. Objective Data Objective Data Vital Signs: Vital Signs Temp Pulse Resp BP Pulse Ox 97.8 F 81 16 137/88 H 96 11/17/20 10:59 11/17/20 10:59 11/17/20 10:59 11/17/20 10:59 11/17/20 10:59 Oxygen Flow Rate (L/min) 2 Oxygen Delivery Method Room Air Weight: 85.2 kg Body Mass Index (BMI) 26.2 Intake & Output: Intake and Output for Last 24 Hours 11/15/20 11/16/20 11/17/20 23:59 23:59 23:59 Intake Total 480 / 480 840 / 840 110 / 110 Output Total 2225 / 2225 17 / 17 0 / 0 Balance -1745 / -1745 823 / 823 110 / 110 Lab / Micro Data Result Diagrams: 11/17/20 11:12 11/17/20 11:12 Labs: Laboratory Results - last 24 hr 11/17/20 11/17/20 11:12 11:12 WBC 15.4 H RBC 4.18 L Hgb 13.2 Hct 39.3 L MCV 94.0 MCH 31.6 MCHC 33.6 RDW Std Deviation 53.3 H RDW Coeff of Navneet 15.7 H Plt Count 163 MPV 9.3 Immature Gran % (Auto) 1.400 H Neut % (Auto) 78.2 H Lymph % (Auto) 14.4 L [place] % (Auto) 4.2 Eos % (Auto) 1.4 Baso % (Auto) 0.4 Absolute Neuts (auto) 12.0 H Absolute Lymphs (auto) 2.21 Nucleated RBC % 0 Sodium 135 L Potassium 3.9 Chloride 101 Carbon Dioxide 21.0 Anion Gap 13 BUN 62 H Creatinine 7.81 H* Estim Creat Clear Calc 7.40 Est GFR (MDRD) Af Amer 9 L Est GFR (MDRD) Non-Af 7 L BUN/Creatinine Ratio 7.9 L Glucose 101 Calcium 7.8 L Micro: Microbiology 11/15/20 11:45 Blood Culture (Wb) - Left Forearm Blood Culture - Preliminary No growth in 48 hours. 11/15/20 11:35 Blood Culture (Wb) - Anticubital Right Blood Culture - Preliminary No growth in 48 hours. 11/09/20 15:13 Blood Culture (Wb) - Anticubital Right Blood Culture - Final Proteus mirabilis 11/09/20 18:15 Urine Catheter - Holland Urine Culture - Final Enterococcus faecalis 11/09/20 14:48 Blood Culture (Wb) - Left Forearm Blood Culture - Final Gram negative rosmery 11/09/20 22:40 Stool Enteric Bacteriology - Final 11/09/20 22:40 Stool C. difficile DNA Amplification - Final 11/09/20 13:55 Mucosa - Nose SARS-CoV-2 Antigen (Rapid) - Final Radiography Diagnostic Testing: Radiology Impression Chest X-Ray 11/17/20 09:53 IMPRESSION: Permacath insertion position. Electronically Signed: De Spear, at 10:16 EDT Tel , Service support , Physical Exam Const alert, oriented x3, no apparent distress, average body habitus and well nourished Constitutional Narrative: Well-appearing older white male sitting up in bed, has just returned from surgery for tunneled dialysis catheter placed, nontoxic, appears comfortable General Appearance: uncooperative Orientation / Consciousness: confused and disoriented Exam Limitations: no limitations HEENT normocephalic, head/scalp atraumatic, moist oral mucous membranes and oropharynx normal; Negative for dentition normal Neck Neck Narrative: Trachea midline Resp normal respiratory effort, no retractions, no use of accessory muscles and clear to auscultation bilaterally Auscultation: Negative for crackles, rales, rhonchi or wheezes Cardio regular rate, S1 normal heart sound, S2 normal heart sound, no murmurs, no rub, no gallops, no clicks and no JVD; Negative for regular rhythm Cardio Narrative: Irregular rhythm Rate: tachycardic GI normal to inspection, nondistended, normoactive bowel sounds, soft to palpation and non-distended; Negative for non-tender or hepatosplenomegaly GI Narrative: Minimal diffuse tenderness Auscultation: hyperactive bowel sounds Palpation: tender other (Diffuse tenderness to even light palpation); Negative for guarding Extremity no clubbing, cyanosis or edema Extremity Narrative: Trace bilateral lower extremity edema, dry skin, no cyanosis or clubbing Skin no rashes or lesions noted, no wounds, skin turgor normal, no jaundice, no petechiae and no mottling Skin Narrative: Dry skin bilateral lower extremities, newly placed tunneled dialysis catheter right IJ--> dressing is clean dry and intact Neuro oriented x3, CN's II-XII intact bilaterally, moves all extremities and no focal motor deficits Neuro Narrative: Generalized weakness Sensorium / Orientation: awake, alert, oriented to person, oriented to place, oriented to time and confused Speech: speech normal Psych affect normal Psych Narrative: Pleasant Appearance: unkempt Assessment & Plan Assessment/Plan (1) Septic shock: (2) Left ureteral calculus: (3) Gram negative septic shock: (4) UTI (urinary tract infection): QUALIFIERS: Urinary tract infection type: acute cystitis Hemat uria presence: with hematuria Qualified Code(s): N30.01 - Acute cystitis with hematuria (5) Chronic kidney disease: QUALIFIERS: Chronic kidney disease stage: on chronic dialysis Qualified Code(s): N18.6 - End stage renal disease; Z99.2 - Dependence on renal dialysis (6) Acute kidney injury: PLAN: Septic shock secondary to Proteus mirabilis bacteremia -Continue antibiotics--> will switch to amoxicillin 500 mg daily -Patient was found to have left distal ureteral nephrolithiasis for which a cystoscopy and left ureteral stent was performed -Patient did require vasopressors at one point but this has been discontinued and patient remained stable -Curiously his urine had low colony counts of pansensitive Enterococcus but no Proteus noted Left distal ureteral nephrolithiasis -Left ureteral stent and cystoscopy was performed -Patient to follow-up in 2 weeks for stent removal and lithotripsy -We will need to make appointment prior to discharge -Maintain Holland until he follows up with urology -Urology is following JOSE on CKD stage IIIb -Dialysis initiated -Patient remains fairly oliguric -Suspected this is related to ATN from severe sepsis -Continue to monitor for recovery of renal function--> anticipate that this will occur but timing unclear at this point as patient is still oliguric -Nephrology is following appreciate input -Tunneled dialysis catheter placed on 11/17/2020 Atrial fibrillation with RVR -Heart rates are much better controlled -Continue amiodarone per cardiology -Continue metoprolol 12.5 mg twice daily added yesterday -Hold anticoagulation given pending surgery -Follow-up with cardiology as an outpatient after procedures are completed and possible initiation of anticoagulation at that time -Cardiology following appreciate input -Echo was performed and shows an EF of 45% with mild global hypokinesis of the LV and moderate LA enlargement Troponin elevation -Suspect related to sepsis and demand ischemia -Cardiology is following History of hemorrhagic stroke -No current issues -We will have to watch closely if anticoagulation is initiated DVT prophylaxis -Heparin 3 times daily CODE STATUS -DNR CCA Disposition -No transfer to higher level of care -Possible discharge to skilled facility tomorrow Charges/Coding Visit Charges Inpatient E&M: 99072 Subs Hosp L2
--- NOTE | 2020-11-17 15:43 | PN.RENAL_ITS ---
Subjective Subjective no new complaints Objective Data Objective Data Vital Signs: Vital Signs Temp Pulse Resp BP Pulse Ox 97.8 F 81 16 137/88 H 96 11/17/20 10:59 11/17/20 10:59 11/17/20 10:59 11/17/20 10:59 11/17/20 10:59 Oxygen Flow Rate (L/min) 2 Oxygen Delivery Method Room Air Weight: 85.2 kg Body Mass Index (BMI) 26.2 Intake & Output: Intake and Output for Last 24 Hours 11/15/20 11/16/20 11/17/20 23:59 23:59 23:59 Intake Total 480 / 480 840 / 840 110 / 110 Output Total 2225 / 2225 17 / 17 0 / 0 Balance -1745 / -1745 823 / 823 110 / 110 Lab / Micro Data Result Diagrams: 11/17/20 11:12 11/17/20 11:12 Labs: Laboratory Results - last 24 hr 11/17/20 11/17/20 11:12 11:12 WBC 15.4 H RBC 4.18 L Hgb 13.2 Hct 39.3 L MCV 94.0 MCH 31.6 MCHC 33.6 RDW Std Deviation 53.3 H RDW Coeff of Navneet 15.7 H Plt Count 163 MPV 9.3 Immature Gran % (Auto) 1.400 H Neut % (Auto) 78.2 H Lymph % (Auto) 14.4 L [place] % (Auto) 4.2 Eos % (Auto) 1.4 Baso % (Auto) 0.4 Absolute Neuts (auto) 12.0 H Absolute Lymphs (auto) 2.21 Nucleated RBC % 0 Sodium 135 L Potassium 3.9 Chloride 101 Carbon Dioxide 21.0 Anion Gap 13 BUN 62 H Creatinine 7.81 H* Estim Creat Clear Calc 7.40 Est GFR (MDRD) Af Amer 9 L Est GFR (MDRD) Non-Af 7 L BUN/Creatinine Ratio 7.9 L Glucose 101 Calcium 7.8 L Micro: Microbiology 11/15/20 11:45 Blood Culture (Wb) - Left Forearm Blood Culture - Preliminary No growth in 48 hours. 11/15/20 11:35 Blood Culture (Wb) - Anticubital Right Blood Culture - Preliminary No growth in 48 hours. 11/09/20 15:13 Blood Culture (Wb) - Anticubital Right Blood Culture - Final Proteus mirabilis 11/09/20 18:15 Urine Catheter - Lopez Urine Culture - Final Enterococcus faecalis 11/09/20 14:48 Blood Culture (Wb) - Left Forearm Blood Culture - Final Gram negative rosmery 11/09/20 22:40 Stool Enteric Bacteriology - Final 11/09/20 22:40 Stool C. difficile DNA Amplification - Final 11/09/20 13:55 Mucosa - Nose SARS-CoV-2 Antigen (Rapid) - Final Radiography Diagnostic Testing: Radiology Impression Chest X-Ray 11/17/20 09:53 IMPRESSION: Permacath insertion position. Electronically Signed: De Spear, at 10:16 EDT Tel , Service support , Physical Exam Narrative Patient is awake and alert. On RA. Neck: No JVD. HEENT: Mucous membrane moist. Heart irregular. S/1 S2. Chest. CTA anteriorly Abdomen: Normal bowel sounds, soft, nontender. Neuro: No focal neurologic deficits. Ext: 1+ edema of LE Assessment & Plan Assessment/Plan (1) Acute kidney injury: PLAN: JOSE is likely due to ischemic ATN related to sepsis. There is no evidence of renal recovery yet. He remains anuric in the last 2 days. Although the patient is still anuric, I am still optimistic that he will eventually recover renal function enough to come off of dialysis. However, this may take up to 4 to 6 weeks. I explained this to the patient who understands that dialysis is still temporary but may take longer than he expected before we can stop. has been anuric. lopez can come out from my end, urology is following (2) Chronic kidney disease: QUALIFIERS: Chronic kidney disease stage: on chronic dialysis Qualified Code(s): N18.6 - End stage renal disease; Z99.2 - Dependence on renal dialysis PLAN: The patient has CKD stage III A with baseline serum creatinine of around 1.3-1.4 mg/dL. (3) Metabolic acidosis: PLAN: Resolved with dialysis. Serum bicarbonate level is 26 mmol/L today. We will monitor serum bicarbonate. (4) Gram negative septic shock: PLAN: Likely due to UTI. (5) UTI (urinary tract infection): QUALIFIERS: Urinary tract infection type: acute cystitis Hematuria presence: with hematuria Qualified Code(s): N30.01 - Acute cystitis with hematuria PLAN: See above. (6) Atrial fibrillation with rapid ventricular response: (7) Left ureteral calculus: PLAN: Status post left ureteral stent placement on 11/11/2020.
--- NOTE | 2020-11-17 15:46 | CASEMGMT ---
Addendum entered by Claribel Cortes 11/17/20 16:19: SW did let patient's brother and sister in law know that patient will be in quarantine for 14 days and will not be allowed to have visitors at that time. Claribel ORTIZ Original Note: SW met with patient's brother and sister in law. SW explained patient agreed to go to [facility] for rehab. SW explained the 2 possible dialysis schedules. SW explained we are waiting on [facility] to let us know which is preferred. SW let them know that if [facility] chooses the T,TH,Sat could they transport patient on Saturday. They said they can do this. SW answered their questions as best as able. SW explained Medicare coverage for SNF. SW told them SW will let them know as soon as SW finds out which dialysis schedule patient will have so they can plan. SW let them know that someone will call and let them know when patient is being discharged and a time. EDWIGE spoke with Petra and she has not heard back from their transportation person yet. She will let SW know. Plan: [facility] pending dialysis transport being figured out. Claribel ORTIZ
--- NOTE | 2020-11-17 16:16 | CASEMGMT ---
EDWIGE received a call from Petra at [facility] and M,W,F works best as they can transport all 3 days. EDWIGE called Roxie at [facility] and let her know. EDWIGE also left a message for patient's brother letting him know [facility] will transport all 3 days. Plan: [facility] under skilled level of care. Dialysis schedule M,W, F at 340p. Claribel Cortes PATTERN GENERATOR OPERATOR ANGEL
--- NOTE | 2020-11-17 17:06 | DIALYSIS ---
HEMODILAYSIS TODAY UF -1000mL REMOVED. PATIENT TOLERATED TX WELL. REPORT TO BHARAT REDMAN. PT STABLE. CATHETER CLOSED CAPPED AND CLAMPED
[2020-11-17] MEDS: Cefazolin 1 GM/50 ML BAG IV (21:05)
[2020-11-17] MEDS: Metoprolol Tartrate 25 MG Tablet 12.5 MG PO (21:06)
[2020-11-17] MEDS: Amiodarone 200 MG Tablet PO (21:06)
[2020-11-17] MEDS: Heparin Injection (Vial) 5,000 UNIT/ML VIAL 5000 UNIT SC (21:13)
[2020-11-18] VITALS (11 sets, daily range): BP systolic 131–142; BP diastolic 66–97; PULSE 70–115; RESP 15–18; TEMP 35.8–36.8; O2SAT 94–98
[2020-11-18 08:31] LABS: Absolute Lymphocyte Count 1.82 X10^3/uL (0.83-4.51); Absolute Neutrophil Count 11.2 X10^3/uL (2.0-7.7); Basophil# 0.05 X10^3/uL; Basophil% 0.3 % (0-1); Eosinophil# 0.24 X10^3/uL; Eosinophils% 1.7 % (0-5); Hematocrit 36.7 % (40-54); Hemoglobin 12.6 g/dL (13.0-16.5); Lymphocyte # 1.82 X10^3/ul (0.83-4.51); Lymphocyte % 12.7 % (19-41); Mean Corp Hgb Conc 34.3 g/dL (32-36); Mean Corpuscular Volume 93.1 fL (80-94); Mean Platelet Vol. 9.3 fl (6.2-12.0); Monocyte# 0.85 X10^3/uL; Monocyte% 5.9 % (0-10); NRBC Flagged by Analyzer 0 % (0-5); Neutrophil # 11.19 X10^3/uL (2.7-7.7); Neutrophil % 78.4 % (47-70); Platelet Count 159 K/mm3 (150-450); RBC Distribution Width CV 15.8 % (11.6-14.6); RBC Distribution Width SD 53.5 fl (35.1-43.9); Red Blood Count 3.94 M/mm3 (4.6-6.2); White Blood Count 14.3 K/mm3 (4.4-11.0)
[2020-11-18 08:57] LABS: Anion Gap 12 (5-15); BUN 44 mg/dL (7-18); BUN/Creat Ratio 6.6 RATIO (10-20); Calcium,Total 7.6 mg/dL (8.5-10.1); Chloride 101 mmol/L (98-107); Creatinine, Serum 6.65 mg/dL (0.70-1.30); EST Glomerular Filtration Rate 9 mL/min (>60); Est Glom Filt Rate - Afr Amer 10 mL/min (>60); Estimated Creatinine Clearance 8.69 ml/min; Glucose 94 mg/dL (74-106); Potassium 3.8 mmol/L (3.5-5.1); Sodium Level 137 mmol/L (136-145)
[2020-11-18] MEDS: Metoprolol Tartrate 25 MG Tablet 12.5 MG PO (09:21)
[2020-11-18] MEDS: Amiodarone 200 MG Tablet PO ×2 (09:21→21:12)
[2020-11-18] MEDS: Heparin Injection (Vial) 5,000 UNIT/ML VIAL 5000 UNIT SC ×2 (09:25→21:12)
[2020-11-18] MEDS: Menthol/Lanolin/Calamine/Znox 113 GM Tube 1 APPLIC TOPICAL ×2 (09:27→21:11)
--- NOTE | 2020-11-18 10:05 | CASEMGMT ---
Heidi Note HEIDI called Petra at [facility] to inquire about patient's admission to [facility] today. Petra unavailable but this jingle writer left voice mail message for her. Jasiel Raya spoke to [facility] and patient will need to do dialysis at [facility] and begin dialysis at [facility] on Saturday.
--- NOTE | 2020-11-18 10:48 | PCM.DC.SUM ---
Providers Date of Admission: 11/09/20 Primary Care Physician: Leia Primary Care Phys Consultations 11/10/20 06:06 Consult: Sales And Leasing Agent / Pulmonary Medicine Routine Consulting Provider: [facility] Reason for Consult: Sepsis EMERGENT Consult: No MD Notified: Yes Date Notified: 11/10/20 Time Notified: 06:06 Method of Notification: Verbal 11/10/20 12:55 Consult: Nephrology Routine Consulting Provider: Yasmin Malhotra Reason for Consult: JOSE on CKD stage 3 EMERGENT Consult: No MD Notified: Yes Date Notified: 11/10/20 Time Notified: 12:55 Method of Notification: per ICU 11/10/20 13:41 Consult: Cardiology Routine Consulting Provider: Chi Benavidez Reason for Consult: a-fib EMERGENT Consult: No MD Notified: Yes Date Notified: 11/10/20 Time Notified: 13:41 Method of Notification: phone Method of Consult:: In-Person 11/11/20 07:19 Consult: Infectious Disease Routine Consulting Provider: Jas Lantigua Reason for Consult: gram neg rosmery septic shock, Urine cx <1000 GPC EMERGENT Consult: No Notified: Yes Date Notified: 11/11/20 Time Notified: 10:38 Method of Notification: Text 11/11/20 07:48 Consult: Nephrology Routine Consulting Provider: [facility] Reason for Consult: JOSE EMERGENT Consult: No Notified: Yes Date Notified: 11/11/20 Time Notified: 07:48 Method of Notification: Answering Service 11/11/20 13:42 Consult: General Surgery Routine Consulting Provider: Rupali Shaikh Reason for Consult: Severe abdominal pain, tender and distended EMERGENT Consult: No Notified: Yes Date Notified: 11/11/20 Time Notified: 13:42 Method of Notification: Verbal 11/11/20 16:53 Consult: Urology Routine Consulting Provider: Eric Martinez Reason for Consult: Left distal ureteric calculus with hydroureter and hydronephrosis EMERGENT Consult: No MD Notified: Yes Date Notified: 11/11/20 Time Notified: 16:53 Method of Notification: Verbal 11/17/20 08:14 Consult: General Surgery Routine Consulting Provider: Kassandra Suárez Reason for Consult: Tunneled HD cath placement--> pt is NPO EMERGENT Consult: No MD Notified: Yes Date Notified: 11/17/20 Time Notified: 08:14 Method of Notification: hector has seen Reason For Visit: SEVERE SEPSIS,AFIB WITH RVR, ACUTE KIDNEY INJURY Diagnosis Discharge Diagnosis (1) Acute kidney injury: Status: Acute Code(s): N17.9 - Acute kidney failure, unspecified (2) Chronic kidney disease: Status: Chronic Code(s): N18.9 - Chronic kidney disease, unspecified Qualifiers: Chronic kidney disease stage: on chronic dialysis Qualified Code(s): N18.6 - End stage renal disease; Z99.2 - Dependence on renal dialysis (3) Metabolic acidosis: Status: Acute Code(s): E87.2 - Acidosis (4) Gram negative septic shock: Status: Acute Code(s): A41.50 - Gram-negative sepsis, unspecified; R65.21 - Severe sepsis with septic shock (5) UTI (urinary tract infection): Status: Acute Code(s): N39.0 - Urinary tract infection, site not specified Qualifiers: Hematuria presence: with hematuria Urinary tract infection type: acute cystitis Qualified Code(s): N30.01 - Acute cystitis with hematuria (6) Atrial fibrillation with rapid ventricular response: Status: Acute Code(s): I48.91 - Unspecified atrial fibrillation (7) Left ureteral calculus: Status: Acute Code(s): N20.1 - Calculus of ureter Medications at Discharge Home Medications amiodarone 200 mg PO BID #0 tab 11/18/20 amoxicillin 500 mg PO Q24 #0 cap 11/18/20 heparin (porcine) 5,000 unit SUBCUT BID #0 ml 11/18/20 melatonin 3 mg PO QHS PRN PRN #0 tab 11/18/20 menthol-zinc oxide [Calmoseptine] 1 applic TOPICAL BID #0 g 11/18/20 metoprolol tartrate 50 mg PO BID #0 tab 11/18/20 Hospital Course Operations - (Cystoscopy and ureteral stent placement 11/11/2020) Procedures 2-D Echocardiogram (EF at 45% with mild global hypokinesis of the LV, moderately enlarged left atrium) and - (CT scan abdomen pelvis x2-negative for acute processes) Summary of Care Provided Minutes Spent on Discharge: 39 Hospital Course: Mr. Trejo is an 85-year-old male who 11/09/2020 after being found unresponsive at home by family. The family reported on admission that they went to check on him because he was not answering phone calls and they found him on the floor. Upon admission he was not responding to questions other than shaking his head and mumbling. His family reports that he is fairly noncompliant with any medications and does not go to the doctor. He has a history of stroke 1 year ago and was admitted to an outside hospital but refused to follow any guidelines or rehab after discharge. In the emergency department he complained of some abdominal pain and dysuria. He had a CT of his abdomen that was negative but markedly elevated creatinine. He also had a mild troponin elevation. He had hypotension and despite adequate volume resuscitation remained hypotensive and required pressor support. He was admitted to the ICU for septic shock. He was placed on empiric antibiotics and was found to have a kidney stone. Urology was consulted and a cystoscopy with a stent was performed on 11/11/2020. He will need to follow-up with Dr. Martinez for stent removal and lithotripsy in 2 to 4 weeks after discharge. We will also maintain his Holland at discharge as this was placed by urology. Cardiology was consulted on 11/10/2020 after the patient developed atrial fibrillation with RVR. He was placed on amiodarone and eventually was started on metoprolol once his blood pressure was stabilized. An echocardiogram was performed and revealed mild global hypokinesis that was thought to be related to his sepsis and an EF of 45%. Anticoagulation was held despite high CHADS2 score as the patient will require intervention by urology and is to follow-up with cardiology as an outpatient with regards to this decision to start anticoagulation. He was discharged on amiodarone and metoprolol. His infectious work-up revealed Proteus mirabilis and 2 of 2 blood cultures and Enterococcus faecalis, although this was suspected to be noninfectious, and the patient was treated with IV antibiotics and then discharged with 10 days of amoxicillin per the recommendations of infectious disease. He had persistent abdominal pain which did eventually resolve prior to discharge but a repeat CT of the abdomen and pelvis was performed and was negative as well. He eventually required dialysis for worsening renal failure and oliguria. Per discussion with nephrology it is not anticipated that the patient will need chronic dialysis and that he should expect renal recovery although the timeframe is unclear. A tunneled dialysis catheter was placed on 11/16/2020 for further dialysis as an outpatient. The patient was agreeable to placement at a long term facility at discharge for continued rehab and dialysis with a goal of trying to be at back home at some point. He will need follow-up with urology, nephrology, and cardiology as discussed above. He was discharged in stable condition Physical Exam Const alert, oriented x3, no apparent distress, average body habitus and well nourished Constitutional Narrative: Well-appearing older white male sitting up in a chair, looking at the paper, watching television, nontoxic, appears comfortable General Appearance: cooperative and comfortable Exam Limitations: no limitations HEENT normocephalic, head/scalp atraumatic, moist oral mucous membranes and oropharynx normal; Negative for dentition normal Eyes PERRL, EOMs intact bilaterally and conjunctivae normal Neck no lymphadenopathy, supple and no JVD Neck Narrative: Trachea midline Resp normal respiratory effort, no retractions, no use of accessory muscles and clear to auscultation bilaterally Auscultation: Negative for crackles, rales, rhonchi or wheezes Cardio regular rate, S1 normal heart sound, S2 normal heart sound, no murmurs, no rub, no gallops, no clicks and no JVD; Negative for regular rhythm Cardio Narrative: Irregular rhythm, intermittent tachycardia Rate: tachycardic GI normal to inspection, nondistended, normoactive bowel sounds, soft to palpation and non-distended; Negative for non-tender or hepatosplenomegaly GI Narrative: No tenderness Auscultation: hyperactive bowel sounds Palpation: tender other (Diffuse tenderness to even light palpation); Negative for guarding Extremity normal to inspection and no clubbing, cyanosis or edema Extremity Narrative: Trace bilateral lower extremity edema, dry skin, no cyanosis or clubbing Skin no rashes or lesions noted, no wounds, skin turgor normal, no jaundice, no petechiae and no mottling Skin Narrative: Dry skin bilateral lower extremities, tunneled dialysis catheter right IJ--> dressing is clean dry and intact Neuro oriented x3, CN's II-XII intact bilaterally, moves all extremities and no focal motor deficits Neuro Narrative: Generalized weakness Sensorium / Orientation: awake, alert, oriented to person, oriented to place, oriented to time and confused Speech: speech normal Psych affect normal Psych Narrative: Pleasant Appearance: unkempt Weight / BMI Weight Weight: 85.4 kg Body Mass Index (BMI) 26.2 ABG / Lab / Microbiology Data Result Diagrams: 11/18/20 08:20 11/18/20 08:20 Laboratory: Laboratory Results - last 24 hr 11/17/20 11/17/20 11/18/20 11:12 11:12 08:20 WBC 15.4 H 14.3 H RBC 4.18 L 3.94 L Hgb 13.2 12.6 L Hct 39.3 L 36.7 L MCV 94.0 93.1 MCH 31.6 32.0 MCHC 33.6 34.3 RDW Std Deviation 53.3 H 53.5 H RDW Coeff of Navneet 15.7 H 15.8 H Plt Count 163 159 MPV 9.3 9.3 Immature Gran % (Auto) 1.400 H 1.000 H Neut % (Auto) 78.2 H 78.4 H Lymph % (Auto) 14.4 L 12.7 L [place] % (Auto) 4.2 5.9 Eos % (Auto) 1.4 1.7 Baso % (Auto) 0.4 0.3 Absolute Neuts (auto) 12.0 H 11.2 H Absolute Lymphs (auto) 2.21 1.82 Nucleated RBC % 0 0 Sodium 135 L Potassium 3.9 Chloride 101 Carbon Dioxide 21.0 Anion Gap 13 BUN 62 H Creatinine 7.81 H* Estim Creat Clear Calc 7.40 Est GFR (MDRD) Af Amer 9 L Est GFR (MDRD) Non-Af 7 L BUN/Creatinine Ratio 7.9 L Glucose 101 Calcium 7.8 L 11/18/20 08:20 WBC RBC Hgb Hct MCV MCH MCHC RDW Std Deviation RDW Coeff of Navneet Plt Count MPV Immature Gran % (Auto) Neut % (Auto) Lymph % (Auto) [place] % (Auto) Eos % (Auto) Baso % (Auto) Absolute Neuts (auto) Absolute Lymphs (auto) Nucleated RBC % Sodium 137 Potassium 3.8 Chloride 101 Carbon Dioxide 24.0 Anion Gap 12 BUN 44 H Creatinine 6.65 H Estim Creat Clear Calc 8.69 Est GFR (MDRD) Af Amer 10 L Est GFR (MDRD) Non-Af 9 L BUN/Creatinine Ratio 6.6 L Glucose 94 Calcium 7.6 L Microbiology: Microbiology 11/15/20 11:45 Blood Culture - Preliminary Blood Culture (Wb) - Left Forearm No growth in 48 hours. 11/15/20 11:35 Blood Culture - Preliminary Blood Culture (Wb) - Anticubital Right No growth in 48 hours. Microbiology 11/15/20 11:45 Blood Culture (Wb) - Left Forearm Blood Culture - Preliminary No growth in 48 hours. 11/15/20 11:35 Blood Culture (Wb) - Anticubital Right Blood Culture - Preliminary No growth in 48 hours. 11/09/20 15:13 Blood Culture (Wb) - Anticubital Right Blood Culture - Final Proteus mirabilis 11/09/20 18:15 Urine Catheter - Holland Urine Culture - Final Enterococcus faecalis 11/09/20 14:48 Blood Culture (Wb) - Left Forearm Blood Culture - Final Gram negative rosmery 11/09/20 22:40 Stool Enteric Bacteriology - Final 11/09/20 22:40 Stool C. difficile DNA Amplification - Final 11/09/20 13:55 Mucosa - Nose SARS-CoV-2 Antigen (Rapid) - Final D/C Instructions Discharge Diet: Renal Diet Discharge Activity: Return to Normal Activity Call your doctor if you observe: Fever of 101 or Higher Please Follow Up With: Eric Martinez MD When: Call [phone] for an appointment Meaningful Use Info Meaningful Use Diagnoses (Choose all that apply): None applicable Discharge Plan Admission Admit Date/Time: 11/09/20 17:29 Primary Reason for Your Visit: Mental Status Changes Attending Provider: Cathy Valerio Primary Care Provider: Care Physician,No Primary Consulting Providers: Yasmin Malhotra ; Chi Benavidez ; Rupali Shaikh ; Jas Lantigua ; Eduardo Abreu ; Brenda Salinas ; Ruddy Platt ; Faetmeh Rodriguez ; Dennis Mitchell ; Gee Amezcua ; Ghazal Yip ; Eric Martinez ; Ralf Garcia ; Damian Archer ; Symone Brock NP ; Kassandra Suárez Discharge Orders/Prescriptions Prescriptions: New amoxicillin 500 mg Capsule 500 mg PO Q24 Qty: 0 RF: 0 amiodarone 200 mg Tablet 200 mg PO BID Qty: 0 RF: 0 melatonin 3 mg Tablet 3 mg PO QHS PRN PRN (Reason: Insomnia) Qty: 0 RF: 0 metoprolol tartrate 50 mg Tablet 50 mg PO BID Qty: 0 RF: 0 heparin (porcine) 5,000 unit/mL Solution 5,000 unit subcut BID Qty: 0 RF: 0 Calmoseptine 0.44-20.6 % Ointment 1 applic topical BID Qty: 0 RF: 0 Referrals / Follow Up: Yasmin Malhotra MD [STAFF PHYSICIAN] - Within 1 Month Hamilton Bourgeois MD [STAFF PHYSICIAN] - Within 1 Month (Atrial fibrillation-new) Eric Martinez MD [STAFF PHYSICIAN] - Within 2 Weeks (For lithotripsy and stent removal) Care Physician,No Primary [Primary Care Provider] - Disposition Disposition (needs filled in before D/C Order can be placed): Group Home Facility Charges/Coding Visit Charges Inpatient E&M: 93674 SNF Disch >30 Min
[2020-11-18] MEDS: AMOXICILLIN 500 MG CAPSULE PO (11:09)
[2020-11-18] MEDS: 0.9% Saline Lock 10 ML Syringe IV ×2 (11:10→21:16)
--- NOTE | 2020-11-18 11:12 | PHA.DC.MR ---
Pharmacy Service has performed discharge medication reconciliation for this patient. The patient's discharge medication list was reviewed for discrepancies and discrepancies were resolved. Home Medications amiodarone 200 mg PO BID #0 tab 11/18/20 amoxicillin 500 mg PO Q24 #0 cap 11/18/20 heparin (porcine) 5,000 unit SUBCUT BID #0 ml 11/18/20 melatonin 3 mg PO QHS PRN PRN #0 tab 11/18/20 menthol-zinc oxide [Calmoseptine] 1 applic TOPICAL BID #0 g 11/18/20 metoprolol tartrate 50 mg PO BID #0 tab 11/18/20
--- NOTE | 2020-11-18 11:19 | PCM.TXEXTCAR ---
Diet 11/17/20 09:56 Diet: Cardiac - Heart Healthy Type of Dietary Supplement:: Ensure Enlive Is pt able to select menu?: No Diet Comments: 120mL w/ meals Routine Orders/Code Status Suppository Frequency: Daily PRN Change Holland Catheter: Holland not to be removed until patient follows up with urology O2 Frequency: PRN Keep PO Greater than or Equal to (%): 92 Routine Lab Work: CBC and BMP Code Status: DNRCC-A (No intubation) Wound(s) Penis non-visualized: Wound Type: Surgical Incision LEFT BUTTOCK: Wound Type: Abrasion right chest: Wound Type: Surgical Incision Rt chest: Wound Type: Surgical Incision Therapies Weight Bearing: Full weight bearing Physical Therapy: Eval and Treat Occupational Therapy: Eval and Treat Problem/Diagnosis (1) Acute kidney injury: Status: Acute (2) Chronic kidney disease: Status: Chronic (3) Metabolic acidosis: Status: Acute (4) Gram negative septic shock: Status: Acute (5) UTI (urinary tract infection): Status: Acute (6) Atrial fibrillation with rapid ventricular response: Status: Acute (7) Left ureteral calculus: Status: Acute Allergies/Procedures Done in Hospital Allergies No Known Allergies Allergy (Verified 11/18/20 11:11) Procedures: 2-D Echocardiogram and - (Cystoscopy and stent placement) Type of Care/Length of Stay Estimated LOS: More Than 30 Days Type of Care Needed: Skilled Rehab Potential: Fair Prognosis: Fair Additional Orders/Day of Discharge Day of Discharge: 11/18/20 Dietary and Speech Recommendations Dietitian Recommendations/Changes: will continue cardiac diet- soft and bite sized d/t dentition; will continue 120mL ensure w/ meals Follow Up Care Please Follow Up With: Eric Martinez MD Discharge Plan Admission Admit Date/Time: 11/09/20 17:29 Primary Reason for Your Visit: Mental Status Changes Attending Provider: Cathy Valerio Primary Care Provider: Care Physician,No Primary Consulting Providers: Yasmin Malhotra ; Chi Benavidez ; Rupali Shaikh ; Jas Lantigua ; Eduardo Abreu ; Brenda Salinas ; Ruddy Platt ; Fatemeh Rodriguez ; Dennis Mitchell ; Gee Amezcua ; Ghazal Yip ; Eric Martinez ; Ralf Garcia ; Damian Archer ; Symone Brock NP ; Kassandra Suárez Discharge Orders/Prescriptions Prescriptions: New amoxicillin 500 mg Capsule 500 mg PO Q24 Qty: 0 RF: 0 amiodarone 200 mg Tablet 200 mg PO BID Qty: 0 RF: 0 melatonin 3 mg Tablet 3 mg PO QHS PRN PRN (Reason: Insomnia) Qty: 0 RF: 0 metoprolol tartrate 50 mg Tablet 50 mg PO BID Qty: 0 RF: 0 heparin (porcine) 5,000 unit/mL Solution 5,000 unit subcut BID Qty: 0 RF: 0 Calmoseptine 0.44-20.6 % Ointment 1 applic topical BID Qty: 0 RF: 0 Referrals / Follow Up: Yasmin Malhotra MD [STAFF PHYSICIAN] - Within 1 Month Hamilton Bourgeois MD [STAFF PHYSICIAN] - Within 1 Month (Atrial fibrillation-new) Eric Martinez MD [STAFF PHYSICIAN] - Within 2 Weeks (For lithotripsy and stent removal) Care Physician,No Primary [Primary Care Provider] - Disposition Disposition (needs filled in before D/C Order can be placed): Residential Facility
--- NOTE | 2020-11-18 16:23 | CASEMGMT ---
BHARAT RYDER NOTE: Call placed to [facility] this AM to inquire if it was a possibility for OP dialysis to be initiated today, as pt is medically ready to be discharged to [facility] today. Per Fiorella, special education secretary, they did not have pt on a confirmed schedule yet, as they were not aware [facility] confirmed could do transportation for dialysis MWF. BHARAT RYDER confirmed this w/her at this time. She states she will place pt on MWF schedule w/Chair time of 3:40 PM. She states would be difficult to arrange for initial OP dialysis to be done today, as their Clinical dependency case manager and charge nurse are on vacation. Per Obey, PCU charge nurse, dialysis unable to be done @ [facility] today 11/18. Plan: Pt to receive dialysis @ [facility] 11/19 and then to discharge to [facility] after dialysis under skilled level of care. Dialysis schedule M,W, F at [facility] w/chair time of 3:40 PM, with initial OP dialysis scheduled for Tuesday 11/21. Pratik SLADEN BHARAT RYDER
--- NOTE | 2020-11-18 16:35 | CASEMGMT ---
Addendum entered by Macrina Rivera 11/18/20 16:55: EDWIGE faxed HENS (Hospital Exemption) to [facility]. Macrina RIZO Original Note: EDWIGE Note EDWIGE called patient's brother and sister, Sabine. Spoke to Sabine. She was advised patient would not be discharged today but on Saturday. She said that patient's clothes were taken home and that patient has no clothes. EDWIGE said that patient can go to [facility] in a hospital gown. Sabine requested that patients wheeled walker also go with patient as that is his personal walker. Sabine apologized to staff for her behavior. She indicated she is under alot of stress and reacted yesterday and apologized for her actions. Plan: [facility] at discharge Macrina RIZO
--- NOTE | 2020-11-18 17:25 | PN.RENAL_ITS ---
Subjective Subjective no new events Objective Data Objective Data Vital Signs: Vital Signs Temp Pulse Resp BP Pulse Ox 98.2 F 70 16 131/66 H 97 11/18/20 15:09 11/18/20 15:09 11/18/20 15:09 11/18/20 15:09 11/18/20 15:09 Oxygen Flow Rate (L/min) 2 Oxygen Delivery Method Room Air Weight: 85.4 kg Body Mass Index (BMI) 26.2 Intake & Output: Intake and Output for Last 24 Hours 11/16/20 11/17/20 11/18/20 23:59 23:59 23:59 Intake Total 840 / 840 630 / 705 555 / 555 Output Total 10 / 0 / 0 Balance 823 / 823 620 / 695 555 / 555 Lab / Micro Data Result Diagrams: 11/18/20 08:20 11/18/20 08:20 Labs: Laboratory Results - last 24 hr 11/18/20 11/18/20 08:20 08:20 WBC 14.3 H RBC 3.94 L Hgb 12.6 L Hct 36.7 L MCV 93.1 MCH 32.0 MCHC 34.3 RDW Std Deviation 53.5 H RDW Coeff of Navneet 15.8 H Plt Count 159 MPV 9.3 Immature Gran % (Auto) 1.000 H Neut % (Auto) 78.4 H Lymph % (Auto) 12.7 L [place] % (Auto) 5.9 Eos % (Auto) 1.7 Baso % (Auto) 0.3 Absolute Neuts (auto) 11.2 H Absolute Lymphs (auto) 1.82 Nucleated RBC % 0 Sodium 137 Potassium 3.8 Chloride 101 Carbon Dioxide 24.0 Anion Gap 12 BUN 44 H Creatinine 6.65 H Estim Creat Clear Calc 8.69 Est GFR (MDRD) Af Amer 10 L Est GFR (MDRD) Non-Af 9 L BUN/Creatinine Ratio 6.6 L Glucose 94 Calcium 7.6 L Micro: Microbiology 11/18/20 15:06 Mucosa - Nose SARS-CoV-2 Antigen (Rapid) - Final 11/15/20 11:45 Blood Culture (Wb) - Left Forearm Blood Culture - Preliminary No growth in 48 hours. 11/15/20 11:35 Blood Culture (Wb) - Anticubital Right Blood Culture - Preliminary No growth in 48 hours. 11/09/20 15:13 Blood Culture (Wb) - Anticubital Right Blood Culture - Final Proteus mirabilis 11/09/20 18:15 Urine Catheter - Holland Urine Culture - Final Enterococcus faecalis 11/09/20 14:48 Blood Culture (Wb) - Left Forearm Blood Culture - Final Gram negative rosmery 11/09/20 22:40 Stool Enteric Bacteriology - Final 11/09/20 22:40 Stool C. difficile DNA Amplification - Final 11/09/20 13:55 Mucosa - Nose SARS-CoV-2 Antigen (Rapid) - Final Physical Exam Narrative Patient is awake and alert. On RA. Neck: No JVD. HEENT: Mucous membrane moist. Heart irregular. S/1 S2. Chest. CTA anteriorly Abdomen: Normal bowel sounds, soft, nontender. Neuro: No focal neurologic deficits. Ext: 1+ edema of LE Assessment & Plan Assessment/Plan (1) Acute kidney injury: PLAN: JOSE is likely due to ischemic ATN related to sepsis. There is no evidence of renal recovery yet. He remains anuric in the last 2 days. Although the patient is still anuric, I am still optimistic that he will eventually recover renal function enough to come off of dialysis. However, this may take up to 4 to 6 weeks. I explained this to the patient who understands that dialysis is still temporary but may take longer than he expected before we can stop. has been anuric. (2) Chronic kidney disease: QUALIFIERS: Chronic kidney disease stage: on chronic dialysis Qualified Code(s): N18.6 - End stage renal disease; Z99.2 - Dependence on renal dialysis PLAN: The patient has CKD stage III A with baseline serum creatinine of around 1.3-1.4 mg/dL. (3) Metabolic acidosis: PLAN: Resolved with dialysis. Serum bicarbonate level is 26 mmol/L today. We will monitor serum bicarbonate. (4) Gram negative septic shock: PLAN: Likely due to UTI. (5) UTI (urinary tract infection): QUALIFIERS: Urinary tract infection type: acute cystitis Hematuria presence: with hematuria Qualified Code(s): N30.01 - Acute cystitis with hematuria PLAN: See above. (6) Atrial fibrillation with rapid ventricular response: (7) Left ureteral calculus: PLAN: Status post left ureteral stent placement on 11/11/2020.
[2020-11-18] MEDS: Metoprolol Tartrate 50 MG Tablet PO (21:12)
[2020-11-18] MEDS: Ondansetron 4 MG/2 ML Vial IV (21:16)
[2020-11-19] VITALS (8 sets, daily range): BP systolic 99–123; BP diastolic 69–79; PULSE 66–117; RESP 16–20; TEMP 36.4–36.9; O2SAT 97
[2020-11-19 06:56] LABS: Absolute Lymphocyte Count 2.08 X10^3/uL (0.83-4.51); Absolute Neutrophil Count 10.8 X10^3/uL (2.0-7.7); Basophil# 0.05 X10^3/uL; Basophil% 0.4 % (0-1); Eosinophil# 0.23 X10^3/uL; Eosinophils% 1.6 % (0-5); Hematocrit 36.1 % (40-54); Hemoglobin 11.6 g/dL (13.0-16.5); Lymphocyte # 2.08 X10^3/ul (0.83-4.51); Lymphocyte % 14.8 % (19-41); Mean Corp Hgb Conc 32.1 g/dL (32-36); Mean Corpuscular Hgb 31.4 pg (27.0-32.0); Mean Corpuscular Volume 97.6 fL (80-94); Mean Platelet Vol. 8.9 fl (6.2-12.0); Monocyte% 5.7 % (0-10); NRBC Flagged by Analyzer 0 % (0-5); Neutrophil # 10.81 X10^3/uL (2.7-7.7); Neutrophil % 76.6 % (47-70); Platelet Count 150 K/mm3 (150-450); RBC Distribution Width CV 16.3 % (11.6-14.6); White Blood Count 14.1 K/mm3 (4.4-11.0)
[2020-11-19 07:32] LABS: Anion Gap 11 (5-15); BUN 57 mg/dL (7-18); BUN/Creat Ratio 7.1 RATIO (10-20); Calcium,Total 7.6 mg/dL (8.5-10.1); Chloride 101 mmol/L (98-107); Creatinine, Serum 8.01 mg/dL (0.70-1.30); EST Glomerular Filtration Rate 7 mL/min (>60); Est Glom Filt Rate - Afr Amer 8 mL/min (>60); Estimated Creatinine Clearance 7.21 ml/min; Glucose 96 mg/dL (74-106); Sodium Level 136 mmol/L (136-145)
--- NOTE | 2020-11-19 10:59 | PN.HOSP_ITS ---
Hospitalist Note Discharge was held yet yesterday secondary to difficulty getting dialysis set up yesterday. Dialysis to be done today and the patient will discharge after dialysis today to [facility].
--- NOTE | 2020-11-19 11:00 | PCM.DC.SUM ---
Providers Date of Admission: 11/09/20 Primary Care Physician: Leia Primary Care Phys Consultations 11/10/20 06:06 Consult: [facility]ist / Pulmonary Medicine Routine Consulting Provider: [facility] Reason for Consult: Sepsis EMERGENT Consult: No MD Notified: Yes Date Notified: 11/10/20 Time Notified: 06:06 Method of Notification: Verbal 11/10/20 12:55 Consult: Nephrology Routine Consulting Provider: Yasmin Malhotra Reason for Consult: JOSE on CKD stage 3 EMERGENT Consult: No MD Notified: Yes Date Notified: 11/10/20 Time Notified: 12:55 Method of Notification: per ICU 11/10/20 13:41 Consult: Cardiology Routine Consulting Provider: Chi Benavidez Reason for Consult: a-fib EMERGENT Consult: No MD Notified: Yes Date Notified: 11/10/20 Time Notified: 13:41 Method of Notification: phone Method of Consult:: In-Person 11/11/20 07:19 Consult: Infectious Disease Routine Consulting Provider: Jas Lantigua Reason for Consult: gram neg rosmery septic shock, Urine cx <1000 GPC EMERGENT Consult: No Notified: Yes Date Notified: 11/11/20 Time Notified: 10:38 Method of Notification: Text 11/11/20 07:48 Consult: Nephrology Routine Consulting Provider: [facility] Reason for Consult: JOSE EMERGENT Consult: No Notified: Yes Date Notified: 11/11/20 Time Notified: 07:48 Method of Notification: Answering Service 11/11/20 13:42 Consult: General Surgery Routine Consulting Provider: Rupali Shaikh Reason for Consult: Severe abdominal pain, tender and distended EMERGENT Consult: No Notified: Yes Date Notified: 11/11/20 Time Notified: 13:42 Method of Notification: Verbal 11/11/20 16:53 Consult: Urology Routine Consulting Provider: Eric Martinez Reason for Consult: Left distal ureteric calculus with hydroureter and hydronephrosis EMERGENT Consult: No MD Notified: Yes Date Notified: 11/11/20 Time Notified: 16:53 Method of Notification: Verbal 11/17/20 08:14 Consult: General Surgery Routine Consulting Provider: Kassandra Suárez Reason for Consult: Tunneled HD cath placement--> pt is NPO EMERGENT Consult: No MD Notified: Yes Date Notified: 11/17/20 Time Notified: 08:14 Method of Notification: hector has seen Reason For Visit: SEVERE SEPSIS,AFIB WITH RVR, ACUTE KIDNEY INJURY Diagnosis Discharge Diagnosis (1) Acute kidney injury: Status: Acute Code(s): N17.9 - Acute kidney failure, unspecified (2) Chronic kidney disease: Status: Chronic Code(s): N18.9 - Chronic kidney disease, unspecified Qualifiers: Chronic kidney disease stage: on chronic dialysis Qualified Code(s): N18.6 - End stage renal disease; Z99.2 - Dependence on renal dialysis (3) Metabolic acidosis: Status: Acute Code(s): E87.2 - Acidosis (4) Gram negative septic shock: Status: Acute Code(s): A41.50 - Gram-negative sepsis, unspecified; R65.21 - Severe sepsis with septic shock (5) UTI (urinary tract infection): Status: Acute Code(s): N39.0 - Urinary tract infection, site not specified Qualifiers: Urinary tract infection type: acute cystitis Hematuria presence: with hematuria Qualified Code(s): N30.01 - Acute cystitis with hematuria (6) Atrial fibrillation with rapid ventricular response: Status: Acute Code(s): I48.91 - Unspecified atrial fibrillation (7) Left ureteral calculus: Status: Acute Code(s): N20.1 - Calculus of ureter Medications at Discharge Home Medications amiodarone 200 mg PO BID #0 tab 11/18/20 amoxicillin 500 mg PO Q24 #0 cap 11/18/20 heparin (porcine) 5,000 unit SUBCUT BID #0 ml 11/18/20 melatonin 3 mg PO QHS PRN PRN #0 tab 11/18/20 menthol-zinc oxide [Calmoseptine] 1 applic TOPICAL BID #0 g 11/18/20 metoprolol tartrate 50 mg PO BID #0 tab 11/18/20 Hospital Course Operations - (Cystoscopy and ureteral stent placement) Procedures 2-D Echocardiogram and - (Tunneled dialysis line placement 11/16/2020) Summary of Care Provided Minutes Spent on Discharge: 42 Hospital Course: Hospital Course: Mr. Trejo is an 85-year-old male who 11/09/2020 after being found unresponsive at home by family. The family reported on admission that they went to check on him because he was not answering phone calls and they found him on the floor. Upon admission he was not responding to questions other than shaking his head and mumbling. His family reports that he is fairly noncompliant with any medications and does not go to the doctor. He has a history of stroke 1 year ago and was admitted to an outside hospital but refused to follow any guidelines or rehab after discharge. In the emergency department he complained of some abdominal pain and dysuria. He had a CT of his abdomen that was negative but markedly elevated creatinine. He also had a mild troponin elevation. He had hypotension and despite adequate volume resuscitation remained hypotensive and required pressor support. He was admitted to the ICU for septic shock. He was placed on empiric antibiotics and was found to have a kidney stone. Urology was consulted and a cystoscopy with a stent was performed on 11/11/2020. He will need to follow-up with Dr. Martinez for stent removal and lithotripsy in 2 to 4 weeks after discharge. We will also maintain his Holland at discharge as this was placed by urology. Cardiology was consulted on 11/10/2020 after the patient developed atrial fibrillation with RVR. He was placed on amiodarone and eventually was started on metoprolol once his blood pressure was stabilized. An echocardiogram was performed and revealed mild global hypokinesis that was thought to be related to his sepsis and an EF of 45%. Anticoagulation was held despite high CHADS2 score as the patient will require intervention by urology and is to follow-up with cardiology as an outpatient with regards to this decision to start anticoagulation. He was discharged on amiodarone and metoprolol. His infectious work-up revealed Proteus mirabilis and 2 of 2 blood cultures and Enterococcus faecalis, although this was suspected to be noninfectious, and the patient was treated with IV antibiotics and then discharged with 10 days of amoxicillin per the recommendations of infectious disease. He had persistent abdominal pain which did eventually resolve prior to discharge but a repeat CT of the abdomen and pelvis was performed and was negative as well. He eventually required dialysis for worsening renal failure and oliguria. Per discussion with nephrology it is not anticipated that the patient will need chronic dialysis and that he should expect renal recovery although the timeframe is unclear. A tunneled dialysis catheter was placed on 11/16/2020 for further dialysis as an outpatient. The patient was to be discharged on 11/18/2020 but discharge was delayed secondary to coordination of dialysis. He was dialyzed on 11/19/2020 and then discharged in stable condition. The patient was agreeable to placement at a [place] [facility] at discharge for continued rehab and dialysis with a goal of trying to be at back home at some point. He will need follow-up with urology, nephrology, and cardiology as discussed above. Physical Exam Const alert, oriented x3, no apparent distress, average body habitus and well nourished Constitutional Narrative: Well-appearing older white male lying in bed with his eyes closed currently on dialysis, awakens easily, appears comfortable, jovial and joking, nontoxic-appearing General Appearance: cooperative and comfortable Orientation / Consciousness: confused and disoriented Exam Limitations: no limitations HEENT normocephalic, head/scalp atraumatic, moist oral mucous membranes and oropharynx normal; Negative for dentition normal Eyes PERRL, EOMs intact bilaterally and conjunctivae normal Neck no lymphadenopathy, supple and no JVD Neck Narrative: Trachea midline Resp normal respiratory effort, no retractions, no use of accessory muscles and clear to auscultation bilaterally Auscultation: Negative for crackles, rales, rhonchi or wheezes Cardio regular rate, S1 normal heart sound, S2 normal heart sound, no murmurs, no rub, no gallops, no clicks and no JVD; Negative for regular rhythm Cardio Narrative: Irregular rhythm Rate: tachycardic GI normal to inspection, nondistended, normoactive bowel sounds, soft to palpation and non-distended; Negative for non-tender or hepatosplenomegaly GI Narrative: No tenderness Auscultation: hyperactive bowel sounds Palpation: tender other (Diffuse tenderness to even light palpation); Negative for guarding Extremity normal to inspection and no clubbing, cyanosis or edema Extremity Narrative: Trace bilateral lower extremity edema, dry skin, no cyanosis or clubbing Skin no rashes or lesions noted, no wounds, skin turgor normal, no jaundice, no petechiae and no mottling Skin Narrative: Dry skin bilateral lower extremities, tunneled dialysis catheter right IJ--> dressing is clean dry and intact Neuro oriented x3, CN's II-XII intact bilaterally, moves all extremities and no focal motor deficits Neuro Narrative: Generalized weakness Sensorium / Orientation: awake, alert, oriented to person, oriented to place, oriented to time and confused Speech: speech normal Psych affect normal Psych Narrative: Pleasant Appearance: unkempt Weight / BMI Weight Weight: 83.6 kg Body Mass Index (BMI) 26.2 ABG / Lab / Microbiology Data Result Diagrams: 11/19/20 06:50 11/19/20 06:50 Laboratory: Laboratory Results - last 24 hr 11/19/20 11/19/20 06:50 06:50 WBC 14.1 H RBC 3.70 L Hgb 11.6 L Hct 36.1 L MCV 97.6 H MCH 31.4 MCHC 32.1 D RDW Std Deviation 58.0 H RDW Coeff of Navneet 16.3 H Plt Count 150 MPV 8.9 Immature Gran % (Auto) 0.900 Neut % (Auto) 76.6 H Lymph % (Auto) 14.8 L [place] % (Auto) 5.7 Eos % (Auto) 1.6 Baso % (Auto) 0.4 Absolute Neuts (auto) 10.8 H Absolute Lymphs (auto) 2.08 Nucleated RBC % 0 Sodium 136 Potassium 4.0 Chloride 101 Carbon Dioxide 24.0 Anion Gap 11 BUN 57 H Creatinine 8.01 H* Estim Creat Clear Calc 7.21 Est GFR (MDRD) Af Amer 8 L Est GFR (MDRD) Non-Af 7 L BUN/Creatinine Ratio 7.1 L Glucose 96 Calcium 7.6 L Microbiology: Microbiology 11/18/20 15:06 SARS-CoV-2 Antigen (Rapid) - Final Mucosa - Nose Microbiology 11/18/20 15:06 Mucosa - Nose SARS-CoV-2 Antigen (Rapid) - Final 11/15/20 11:45 Blood Culture (Wb) - Left Forearm Blood Culture - Preliminary No growth in 48 hours. 11/15/20 11:35 Blood Culture (Wb) - Anticubital Right Blood Culture - Preliminary No growth in 48 hours. 11/09/20 15:13 Blood Culture (Wb) - Anticubital Right Blood Culture - Final Proteus mirabilis 11/09/20 18:15 Urine Catheter - Holland Urine Culture - Final Enterococcus faecalis 11/09/20 14:48 Blood Culture (Wb) - Left Forearm Blood Culture - Final Gram negative rosmery 11/09/20 22:40 Stool Enteric Bacteriology - Final 11/09/20 22:40 Stool C. difficile DNA Amplification - Final 11/09/20 13:55 Mucosa - Nose SARS-CoV-2 Antigen (Rapid) - Final D/C Instructions Discharge Diet: Renal Diet Call your doctor if you observe: Fever of 101 or Higher Please Follow Up With: Eric Martinez MD When: Call [phone] for an appointment Meaningful Use Info Meaningful Use Diagnoses (Choose all that apply): None applicable Discharge Plan Admission Admit Date/Time: 11/09/20 17:29 Primary Reason for Your Visit: Mental Status Changes Attending Provider: Cathy Valerio Primary Care Provider: Care Physician,No Primary Consulting Providers: Yasmin Malhotra ; Chi Benavidez ; Rupali Shaikh ; Jas Lantigua ; Eduardo Abreu ; Brenda Salinas ; Ruddy Platt ; Fatemeh Rodriguez ; Dennis Mitchell ; Gee Amezcua ; Ghazal Yip ; Eric Martinez ; Ralf Garcia ; Damian Archer ; Symone Brock NP ; Kassandra Suárez Discharge Orders/Prescriptions Prescriptions: New amoxicillin 500 mg Capsule 500 mg PO Q24 Qty: 0 RF: 0 amiodarone 200 mg Tablet 200 mg PO BID Qty: 0 RF: 0 melatonin 3 mg Tablet 3 mg PO QHS PRN PRN (Reason: Insomnia) Qty: 0 RF: 0 metoprolol tartrate 50 mg Tablet 50 mg PO BID Qty: 0 RF: 0 heparin (porcine) 5,000 unit/mL Solution 5,000 unit subcut BID Qty: 0 RF: 0 Calmoseptine 0.44-20.6 % Ointment 1 applic topical BID Qty: 0 RF: 0 Referrals / Follow Up: Yasmin Malhotra MD [STAFF PHYSICIAN] - Within 1 Month Hamilton Bourgeois MD [STAFF PHYSICIAN] - Within 1 Month (Atrial fibrillation-new) Eric Martinez MD [STAFF PHYSICIAN] - Within 2 Weeks (For lithotripsy and stent removal) Care Physician,No Primary [Primary Care Provider] - Disposition Disposition (needs filled in before D/C Order can be placed): [facility] Facility Charges/Coding Visit Charges Inpatient E&M: 85197 SNF Disch >30 Min
--- NOTE | 2020-11-19 12:07 | DIALYSIS ---
Hemodialysis complete via right chest dialysis CVC with 2.5 liters removed. CVC flushed with normal saline and locked with heparin per order. CVC dressing changed, site clean and dry. Pt tolerated treatment without difficulty.
[2020-11-19] MEDS: Heparin 10,000 UNITS/10 ML Vial IV (12:51)
[2020-11-19] MEDS: Metoprolol Tartrate 50 MG Tablet PO (12:53)
[2020-11-19] MEDS: AMOXICILLIN 500 MG CAPSULE PO (12:53)
[2020-11-19] MEDS: Amiodarone 200 MG Tablet PO (12:53)
[2020-11-19] MEDS: Heparin Injection (Vial) 5,000 UNIT/ML VIAL 5000 UNIT SC (12:54)
[2020-11-19] MEDS: Menthol/Lanolin/Calamine/Znox 113 GM Tube 1 APPLIC TOPICAL (12:57)
--- NOTE | 2020-11-19 14:03 | NURSING ---
Called and gave report to Patricia nurse at [facility].
== END 2020-11-19 14:25 | disposition skilled nursing facility (03) | DRG 853 ==
LOC: ED 15:01 → ICU 17:24 → PCU 11-11 12:37 → ICU 11-12 16:41 → PCU 11-15 15:24
PROVIDERS: Internal Medicine; Internal Medicine Critical Care Medicine; Internal Medicine Nephrology; Surgery; Urology; Admitting Provider Family Medicine; Emergency Provider Emergency Medicine; Visit Provider Internal Medicine
PROC: 0T778DZ Dilation of Left Ureter with Intraluminal Device, Via Natural or Artificial Opening Endoscopic (ICD-10-PCS; principal; 2020-11-11 18:50)
PROC: B5181ZA Fluoroscopy of Superior Vena Cava using Low Osmolar Contrast, Guidance (ICD-10-PCS; principal; 2020-11-17 15:35)
DX: A41.59 Other Gram-negative sepsis (principal); R65.21 Severe sepsis with septic shock; J96.01 Acute respiratory failure with hypoxia; N17.0 Acute kidney failure with tubular necrosis; J18.9 Pneumonia, unspecified organism; I12.0 Hypertensive chronic kidney disease with stage 5 chronic kidney disease or end stage renal disease; N30.01 Acute cystitis with hematuria; N18.6 End stage renal disease; E87.2 Acidosis; N13.6 Pyonephrosis; N20.1 Calculus of ureter; I24.8 Other forms of acute ischemic heart disease; I48.19 Other persistent atrial fibrillation; B96.4 Proteus (mirabilis) (morganii) as the cause of diseases classified elsewhere; B95.2 Enterococcus as the cause of diseases classified elsewhere; Z20.822 Contact with and (suspected) exposure to COVID-19; Z99.2 Dependence on renal dialysis; Z91.14 Patient's other noncompliance with medication regimen; Z86.73 Personal history of transient ischemic attack (TIA), and cerebral infarction without residual deficits; Z91.19 Patient's noncompliance with other medical treatment and regimen
CPT/HCPCS: 36415; 36600; 70450; 71045; 74176; 76000; 76705; 76770; 77001; 80048; 80053; 80069; 80202; 81001; 82803; 83605; 83735; 84484; 85025; 85610; 85730; 86704; 86706; 87040; 87077; 87086; 87088; 87186; 87340; 87426; 87493; 87506; 87641; 90937; 93005; 93306; 94002; 94003; 97110; 97162; 97166; 97530; 97535; 99285; J7030; J7040; J7050; J7120; A4216; C1750; C1752; C1769; C2617; G0257; J2405

== ENCOUNTER 2020-12-12 16:55 | Emergency (ER) | payer MEDICARE, SELFPAY ==
[2020-11-12 10:10] VITALS: BMI 26.2
[2020-12-12 16:57] VITALS: BP 118/74; PULSE 136; RESP 18; TEMP 36.8; O2SAT 94; BMI 23.8
--- NOTE | 2020-12-12 17:58 | EX.ED.DYSGE1 ---
HPI History of Present Illness Chief Complaint: Abd Pain Informant: patient and family Narrative Narrative: Patient's registered as abdominal pain. However, that is not why he came in. He had dialysis this morning as scheduled. When the dialysis catheter was removed one of the ports broke off. They clamped it and there is no excessive bleeding. Patient feels fine. He has no symptoms at all. I looked up and this catheter was placed November 17 of this year. There is nothing that makes his symptoms better or worse per the patient. He had a full course of dialysis this morning without any difficulties. PFSH PFSH Medical History Atrial fibrillation Chronic pain Dialysis patient Hemorrhagic stroke Hypertension Kidney disease Non-smoker Home Medications amiodarone 200 mg PO BID #0 tab 11/18/20 [Rx Last Taken Unknown] amoxicillin 500 mg PO Q24 #0 cap 11/18/20 [Rx Last Taken Unknown] heparin (porcine) 5,000 unit SUBCUT BID #0 ml 11/18/20 [Rx Last Taken Unknown] melatonin 3 mg PO QHS PRN PRN #0 tab 11/18/20 [Rx Last Taken Unknown] menthol-zinc oxide [Calmoseptine] 1 applic TOPICAL BID #0 g 11/18/20 [Rx Last Taken Unknown] metoprolol tartrate 50 mg PO BID #0 tab 11/18/20 [Rx Last Taken Unknown] Allergy/AdvReac Type Severity Reaction Status Date / Time No Known Allergies Allergy Verified 12/12/20 16:58 Social History Smoking Status: Never smoker ROS ROS ED Constitutional Constitutional ED: Denies chills or fever(s) Cardiovascular Cardiovascular: Denies chest pain or palpitations Respiratory/Chest Respiratory/Chest: Denies cough or dyspnea Gastrointestinal Gastrointestinal: Denies abdominal pain, nausea or vomiting Musculoskeletal Musculoskeletal: Denies myalgias Integumentary Denies rash Neurologic Neurologic: Denies headache(s) EXAM Physical Exam Const Vital Signs: 12/12/20 16:57 12/12/20 18:29 12/12/20 19:15 Temperature 98.3 F Temperature Source Temporal Pulse Rate 136 H 99 102 H Respiratory Rate 18 16 18 Blood Pressure 118/74 128/95 H 145/82 H Blood Pressure Mean 88 106 Pulse Ox 94 99 95 Oxygen Delivery Method Room Air Room Air Positive well nourished and well developed General Appearance ED: well developed and NAD HEENT Negative for trauma or tenderness Eyes EOMs intact bilaterally Neck no lymphadenopathy Chest Wall inspection of chest normal and palpation of chest normal Resp normal respiratory effort and clear to auscultation bilaterally Resp Narrative: Patient's dialysis port is broken off at the hub. This is not something that can be changed or removed here. Even if I had a new tip, there is not enough to being left to replace this. Cardio regular rate and regular rhythm GI normal to inspection, nondistended, normoactive bowel sounds and non-tender Palpation: soft Back/Spine no CVA tenderness Extremity normal to inspection General Extremety ED: Negative for edema or tenderness General Extremity: Negative for edema Neuro oriented x3 Sensorium / Orientation: alert Psych mental status grossly normal Skin no rashes or lesions noted MDM MDM MDM Narrative Medical decision making narrative: Patient had his catheter placed November 17. I discussed case with surgeon, Dr. Andrade. Plan will be to have the patient call the office of Dr. Garcia in the morning. Explained to them that the catheter is broken and needs to be replaced acutely. They will schedule this tomorrow. I explained this to the patient and his sister who is apparently power of insurance attorney. They are comfortable with this plan. He is asymptomatic at this time so this does not need to be acutely fixed. He should return with any concerning findings. If he has any problems with bleeding etc. Discharge Plan Triage Chief Complaint: Abd Pain ED Provider: Dylan Rivera Dx/Rx/DC Orders Clinical Impression: Complications, dialysis, catheter, mechanical Instructions: Caring for Your Central Vein Access Prescriptions: No Action amoxicillin 500 mg Capsule 500 mg PO Q24 Qty: 0 RF: 0 amiodarone 200 mg Tablet 200 mg PO BID Qty: 0 RF: 0 melatonin 3 mg Tablet 3 mg PO QHS PRN PRN (Reason: Insomnia) Qty: 0 RF: 0 metoprolol tartrate 50 mg Tablet 50 mg PO BID Qty: 0 RF: 0 heparin (porcine) 5,000 unit/mL Solution 5,000 unit subcut BID Qty: 0 RF: 0 Calmoseptine 0.44-20.6 % Ointment 1 applic topical BID Qty: 0 RF: 0 Primary Care Provider: Keny Hoskins Referrals: Nic Grant MD [STAFF PHYSICIAN] - 1 Day Keny Hoskins MD [Primary Care Provider] - Activity Restrictions/Additional Instructions: Call Dr. Grant s office first thing in the morning. Tell them that the dialysis catheter is broken and needs to be replaced acutely. They can look at my note for details. Disposition Disposition: Home, Self Care Discharge Date/Time: 12/12/20 19:19
[2020-12-12 18:29] VITALS: BP 128/95; PULSE 99; RESP 16; O2SAT 99
[2020-12-12 19:15] VITALS: BP 145/82; PULSE 102; RESP 18; O2SAT 95
== END 2020-12-12 19:19 | disposition home or self-care (01) ==
PROVIDERS: Emergency Provider Emergency Medicine
DX: T82.49XA Other complication of vascular dialysis catheter, initial encounter (principal); N28.9 Disorder of kidney and ureter, unspecified; I10 Essential (primary) hypertension; I48.91 Unspecified atrial fibrillation; Z99.2 Dependence on renal dialysis
CPT/HCPCS: 99282

== ENCOUNTER 2020-12-13 10:25 | Day surgery (SDC) | payer MEDICARE, SELFPAY ==
[2020-12-12 16:57] VITALS: BMI 23.8
[2020-12-13] VITALS (13 sets, daily range): BP systolic 95–121; BP diastolic 74–97; PULSE 108–128; RESP 16–18; TEMP 36.3–36.8; O2SAT 95–98; BMI 23.8
--- NOTE | 2020-12-13 10:41 | EKG12_ITS ---
Test Reason : TACHY Blood Pressure : / mmHG Vent. Rate : 128 BPM Atrial Rate : 128 BPM P-R Int : 200 ms QRS Dur : 096 ms QT Int : 294 ms P-R-T Axes : -27 -26 -34 degrees QTc Int : 429 ms Sinus tachycardia Nonspecific T wave abnormality Abnormal ECG Confirmed by VIANEY HASTINGS, KP ([id number]), subeditor CHRISTO WYNN ([id number]) on 12/16/2020 9:53:35 AM Referred By: MICHELLE Confirmed By:KP WINTERS MD
--- NOTE | 2020-12-13 10:51 | EX.ED.DYSGE1 ---
HPI History of Present Illness Chief Complaint: Other, Pain/Inj Informant: patient Narrative Narrative: Patient comes to the emergency room today with a broken right dialysis catheter. Was broke yesterday after his treatment. He was seen in the emergency room after that and was to follow-up with surgery today. Surgeon called and requested that he come to emergency. [facility] Medical History (Updated 12/13/20 @ 11:55 by Lindsey GUO PAZhang) Anemia Atrial fibrillation Chronic pain Dialysis patient Hemorrhagic stroke Hypertension Kidney disease Non-smoker Problem with dialysis access Xerosis cutis Home Medications amiodarone 200 mg PO BID #0 tab 11/18/20 [Rx Last Taken Unknown] melatonin 3 mg PO QHS PRN PRN #0 tab 11/18/20 [Rx Last Taken Unknown] menthol-zinc oxide [Calmoseptine] 1 applic TOPICAL BID #0 g 11/18/20 [Rx Last Taken Unknown] metoprolol tartrate 50 mg PO BID #0 tab 11/18/20 [Rx Last Taken Unknown] Allergy/AdvReac Type Severity Reaction Status Date / Time No Known Allergies Allergy Verified 12/13/20 10:26 Social History (Updated 12/13/20 @ 10:[address] Flaco Antonio, DO) Smoking Status: Never smoker substance use type: does not use ROS ROS ED Constitutional Constitutional ED: Denies chills or weight loss Eyes Eyes: Denies change in vision or diplopia ENT ENT ED: Denies ear pain, rhinorrhea or sore throat Cardiovascular Cardiovascular: Denies chest pain, orthopnea, palpitations or racing heartbeat Respiratory/Chest Respiratory/Chest: Denies cough, dyspnea or orthopnea Gastrointestinal Gastrointestinal: Denies abdominal pain, diarrhea, nausea or vomiting Genitourinary Genitourinary ED: Denies dysuria, hematuria or urinary frequency Musculoskeletal Musculoskeletal: Denies arthralgias or myalgias Integumentary Denies abscess or rash Neurologic Neurologic: Denies headache(s) or weakness Psychiatric Psychiatric: Denies anxiety, depression, suicidal ideation or suicidal thoughts Endocrine Endocrinology: Denies polydipsia, polyphagia or polyuria Allergic/Immunologic Allergic/Immunologic ED: Denies mouth swelling, tongue swelling or urticaria EXAM Physical Exam Const Vital Signs: 12/13/20 10:26 12/13/20 11:26 Temperature 98.2 F Temperature Source Temporal Pulse Rate 128 H 128 H Respiratory Rate 16 18 Respiratory Pattern Normal Blood Pressure 121/79 H 120/97 H Blood Pressure Mean 93 104 Pulse Ox 98 97 Oxygen Delivery Method Room Air Room Air Positive well nourished and well developed General Appearance ED: well developed HEENT Reports normocephalic, head/scalp atraumatic and moist mucous membranes Eyes PERRL and EOMs intact bilaterally Neck no lymphadenopathy, supple and no JVD Chest Wall Chest Narrative: There is a dialysis port with a broken connection tip Resp normal respiratory effort and clear to auscultation bilaterally Cardio no murmurs Rate: other Other Details: Irregularly irregular tachycardic rhythm GI normal to inspection, nondistended, normoactive bowel sounds and non-tender Palpation: soft Back/Spine no CVA tenderness and normal ROM Extremity normal to inspection General Extremety ED: Negative for edema General Extremity: Negative for edema Neuro oriented x3 and CN's II-XII intact bilaterally Sensorium / Orientation: alert Motor Exam: strength 5/5 throughout Psych mental status grossly normal Mood & Affect: Negative for depressed or tearful Skin no rashes or lesions noted and no wounds Skin Narrative: Extensively dry skin MDM MDM MDM Narrative Medical decision making narrative: Patient states that he received his morning meds but can only tell me the color of his pills. He remains slightly tachycardic I gave him some additional metoprolol. He appears in sinus. My interpretation of the chest x-ray is no acute process. He was seen by general surgery and the plan is admission for planned operation this afternoon to replace the dialysis catheter. Lab Data Attestation: I reviewed the patient's lab results. Labs: Laboratory Results - last 24 hr 12/13/20 12/13/20 12/13/20 11:10 11:10 11:10 WBC 11.1 H RBC 2.90 L Hgb 9.1 L Hct 29.2 L MCV 100.7 H MCH 31.4 MCHC 31.2 L RDW Std Deviation 59.2 H RDW Coeff of Navneet 16.4 H Plt Count 261 MPV 8.7 Immature Gran % (Auto) 0.800 Neut % (Auto) 69.1 Lymph % (Auto) 21.5 Wilkin % (Auto) 7.2 Eos % (Auto) 1.1 Baso % (Auto) 0.3 Absolute Neuts (auto) 7.7 Absolute Lymphs (auto) 2.39 Nucleated RBC % 0 PT 16.7 H INR 1.4 APTT 32.3 Sodium 138 Potassium 4.3 Chloride 99 Carbon Dioxide 35.0 H Anion Gap 4 L BUN 26 H Creatinine 5.64 H Estim Creat Clear Calc 10.57 Est GFR (MDRD) Af Amer 13 L Est GFR (MDRD) Non-Af 10 L BUN/Creatinine Ratio 4.6 L Glucose 117 H Calcium 8.2 L Total Bilirubin 0.40 AST 15 ALT 19 Alkaline Phosphatase 89 Total Protein 9.1 H Albumin 1.9 L Globulin 7.2 H Albumin/Globulin Ratio 0.3 L EKG Initial EKG: Attestation: I personally reviewed and interpreted this EKG as follows: Comments: EKG demonstrates sinus tachycardia at a rate of 128 bpm. Discharge Plan Dx/Rx/DC Orders Clinical Impression: Complications, dialysis, catheter, mechanical, Sinus tachycardia, Chronic kidney disease Disposition Disposition: Acute Care Hospital [facility]
[2020-12-13 11:19] LABS: Absolute Lymphocyte Count 2.39 X10^3/uL (0.83-4.51); Absolute Neutrophil Count 7.7 X10^3/uL (2.0-7.7); Basophil# 0.03 X10^3/uL; Basophil% 0.3 % (0-1); Eosinophil# 0.12 X10^3/uL; Eosinophils% 1.1 % (0-5); Hematocrit 29.2 % (40-54); Hemoglobin 9.1 g/dL (13.0-16.5); Lymphocyte # 2.39 X10^3/ul (0.83-4.51); Lymphocyte % 21.5 % (19-41); Mean Corp Hgb Conc 31.2 g/dL (32-36); Mean Corpuscular Hgb 31.4 pg (27.0-32.0); Mean Corpuscular Volume 100.7 fL (80-94); Mean Platelet Vol. 8.7 fl (6.2-12.0); Monocyte% 7.2 % (0-10); NRBC Flagged by Analyzer 0 % (0-5); Neutrophil # 7.69 X10^3/uL (2.7-7.7); Neutrophil % 69.1 % (47-70); Platelet Count 261 K/mm3 (150-450); RBC Distribution Width CV 16.4 % (11.6-14.6); RBC Distribution Width SD 59.2 fl (35.1-43.9); White Blood Count 11.1 K/mm3 (4.4-11.0)
[2020-12-13 11:28] LABS: International Normalized Ratio 1.4; Partial Thromboplast Time 32.3 Seconds (24.1-36.2); Prothrombin Time (Protime)PT. 16.7 SECONDS (11.7-14.9)
--- NOTE | 2020-12-13 11:29 | RAD_ITS ---
STUDY: X-RAY CHEST REASON FOR EXAM: Male, 85 years old. Port complication TECHNIQUE: Single AP portable view of the chest. COMPARISON: Comparison is made with prior study dated 11/17/2020. FINDINGS: A right-sided dialysis catheter seen with the tip at the junction of the superior vena cava and right atrium. This is unchanged. EKG electrodes are seen. Mild degree of increased markings at the left lung base suggestive of atelectasis. There is no demonstrated pleural abnormality. There is borderline cardiomegaly. Normal mediastinum and darwin. Normal visualized pulmonary arteries. There is atherosclerotic tortuosity of the aortic arch and descending thoracic aorta. Normal visualized thoracic spine. Normal visualized ribs, clavicles, and shoulders. There is no demonstrated abnormality of the visualized soft tissue structures of the upper abdomen. RAD/Chest 1 View (Portable) IMPRESSION: Stable examination. Electronically Signed: Bowen Horta MD at 12:21 EDT , Service support ,
[2020-12-13 11:35] LABS: ALB/GLOB Ratio 0.3 RATIO (0.9-2.4); AST(SGOT) 15 U/L (15-37); Alanine Aminotransfer ALT/SGPT 19 U/L (16-61); Albumin, Serum 1.9 g/dL (3.2-5.0); Alkaline Phosphatase 89 U/L (45-117); Anion Gap 4 (5-15); BUN 26 mg/dL (7-18); BUN/Creat Ratio 4.6 RATIO (10-20); Calcium,Total 8.2 mg/dL (8.5-10.1); Chloride 99 mmol/L (98-107); Creatinine, Serum 5.64 mg/dL (0.70-1.30); EST Glomerular Filtration Rate 10 mL/min (>60); Est Glom Filt Rate - Afr Amer 13 mL/min (>60); Estimated Creatinine Clearance 10.57 ml/min; Globulin 7.2 g/dL (2.2-4.2); Glucose 117 mg/dL (74-106); Potassium 4.3 mmol/L (3.5-5.1); Protein, Total 9.1 g/dL (6.4-8.2); Sodium Level 138 mmol/L (136-145)
--- NOTE | 2020-12-13 11:46 | HP.PCM_ITS ---
HPI - General HPI Narrative MARYELLEN HICKEY, is a 85 M who presents with problem with dialysis access. Patient stated he completed dialysis on Saturday. He stated when completed the tech was unhooking the catheters and pulled extremely hard on one of the hubs and pulled the entire hub off. Patient was evaluated in the ED yesterday. Surgeon consulting application engineer was contacted and recommended the patient call Dr. Grant's office. Dr. Grant performed a right chest tunneled dialysis catheter placement during last months hospitalization on 11/17/20. Patient was recently admitted for septic shock last month. He was found unresponsive by family after he did not answer any calls. He was found to have a kidney stone, UTI and pneumonia. He developed A fib during the hospitalization which he was placed on amiodarone and metoprolol. He had an ECHO which demonstrated an EF of 45%. He has a history of stroke approximately 1 year ago. He currently resides in a residential. He has not been vaccinated for COVID. [facility] Medical History (Updated 12/13/20 @ 11:55 by Lindsey GUO PA-C) Anemia Atrial fibrillation Chronic pain Dialysis patient Hemorrhagic stroke Hypertension Kidney disease Non-smoker Problem with dialysis access Xerosis cutis Home Medications amiodarone 200 mg PO BID #0 tab 11/18/20 [Rx Last Taken Unknown] melatonin 3 mg PO QHS PRN PRN #0 tab 11/18/20 [Rx Last Taken Unknown] menthol-zinc oxide [Calmoseptine] 1 applic TOPICAL BID #0 g 11/18/20 [Rx Last Taken Unknown] metoprolol tartrate 50 mg PO BID #0 tab 11/18/20 [Rx Last Taken Unknown] Allergy/AdvReac Type Severity Reaction Status Date / Time No Known Allergies Allergy Verified 12/13/20 10:26 Social History (Updated 12/13/20 @ 10:[address] Flaco Antonio, ) Smoking Status: Never smoker substance use type: does not use ROS Constitutional Constitutional: Reports systems reviewed and no addt'l complaints, except as documented Eyes Eyes: Reports systems reviewed and no addt'l complaints, except as documented ENT HEENT: Reports systems reviewed and no addt'l complaints, except as documented Cardiovascular Cardiovascular: Reports systems reviewed and no addt'l complaints, except as documented Respiratory/Chest Respiratory/Chest: Reports systems reviewed and no addt'l complaints, except as documented Gastrointestinal Gastrointestinal: Reports systems reviewed and no addt'l complaints, except as documented Genitourinary Genitourinary: Reports systems reviewed and no addt'l complaints, except as documented Musculoskeletal Musculoskeletal: Reports systems reviewed and no addt'l complaints, except as documented Integumentary Integumentary: Reports systems reviewed and no addt'l complaints, except as documented Neurologic Neurologic: Reports systems reviewed and no addt'l complaints, except as documented Psychiatric Psychiatric: Reports systems reviewed and no addt'l complaints, except as documented Endocrine Endocrinology: Reports systems reviewed and no addt'l complaints, except as documented Hematologic/Lymphatic Hematologic/Lymphatic: Reports systems reviewed and no addt'l complaints, except as documented Allergic/Immunologic Allergic/Immunologic: Reports systems reviewed and no addt'l complaints, except as documented Vital Signs Vital Signs Vital Signs: 12/13/20 10:26 12/13/20 11:26 Temperature 98.2 F Temperature Source Temporal Pulse Rate 128 H 128 H Respiratory Rate 16 18 Respiratory Pattern Normal Blood Pressure 121/79 H 120/97 H Blood Pressure Mean 93 104 Pulse Ox 98 97 Oxygen Delivery Method Room Air Room Air Weight Weight: 171 lb Body Mass Index (BMI) 23.8 Physical Exam Const no apparent distress General Appearance: cooperative and comfortable HEENT normocephalic Eyes PERRL Neck full ROM Lymph Lymphatic: no lymphadenopathy noted Chest inspection of chest normal Chest Narrative: Right chest tunneled dialysis catheter noted. right lateral hub has completely been removed and clamp with tape in place noted. Resp normal respiratory effort Auscultation: wheezes Cardio regular rhythm Rate: tachycardic GI normal to inspection, nondistended, normoactive bowel sounds no CVA tenderness Back/Spine no CVA tenderness Extremity normal to inspection Skin no rashes or lesions noted Neuro CN's II-XII intact bilaterally Psych mental status grossly normal Results Lab / Micro Data Result Diagrams: 12/13/20 11:10 12/13/20 11:10 Labs: Laboratory Results - last 24 hr 12/13/20 11:10: WBC 11.1 H, RBC 2.90 L, Hgb 9.1 L, Hct 29.2 L, MCV 100.7 H, MCH 31.4, MCHC 31.2 L, RDW Std Deviation 59.2 H, RDW Coeff of Navneet 16.4 H, Plt Count 261, MPV 8.7, Immature Gran % (Auto) 0.800, Neut % (Auto) 69.1, Lymph % (Auto) 21.5, [place] % (Auto) 7.2, Eos % (Auto) 1.1, Baso % (Auto) 0.3, Absolute Neuts (au to) 7.7, Absolute Lymphs (auto) 2.39, Nucleated RBC % 0 12/13/20 11:10: PT 16.7 H, INR 1.4, APTT 32.3 12/13/20 11:10: Sodium 138, Potassium 4.3, Chloride 99, Carbon Dioxide 35.0 H, Anion Gap 4 L, BUN 26 H, Creatinine 5.64 H, Estim Creat Clear Calc 10.57, Est GFR (MDRD) Af Amer 13 L, Est GFR (MDRD) Non-Af 10 L, BUN/Creatinine Ratio 4.6 L, Glucose 117 H, Calcium 8.2 L, Total Bilirubin 0.40, AST 15, ALT 19, Alkaline Phosphatase 89, Total Protein 9.1 H, Albumin 1.9 L, Globulin 7.2 H, Albumin/Globulin Ratio 0.3 L Assessment & Plan Assessment/Plan (1) Problem with dialysis access: QUALIFIERS: Encounter type: initial encounter Qualified Code(s): T82.898A - Other specified complication of vascular prosthetic devices, implants and grafts, initial encounter PLAN: I have been asked to evaluate this patient in conjunction with Dr. Suárez. Patient was discussed with Dr. Suárez. Dr. Suárez will plan to perform removal of the right chest tunneled dialysis catheter and replacement of tunneled dialysis catheter right chest possible left chest. Procedure details, risks and benefits have been explained to the patient. Plan to admit for observ ation. Procedure planned for 2:30 PM pending OR scheduling. Keep NPO. COVID test. Hospitalist consulted and agreed to evaluate patient. Appreciate medicine recommendations. Patient has had the opportunity to ask and have questions answered. Patient verbally understands and agrees with the plan. Thank you for allowing us to participate in this patient's care. Charges/Coding Visit Charges Office Visits / Consults: [id number] OP Consult L2
[2020-12-13] MEDS: Metoprolol Tartrate 5 MG/5 ML Vial IV ×2 (11:48→12:11)
--- NOTE | 2020-12-13 12:53 | ED.RN ---
pt to ac via bed with chart for dialysis line replacemnet
--- NOTE | 2020-12-13 13:29 | OP.PCM_ITS ---
Report of Operation Date of Procedure: 12/13/20 Pre-Operative Diagnosis: Broken right IJ dialysis catheter Surgery/Procedure Performed:: Removal of right IJ dialysis catheter at bedside Surgeon: Kassandra Suárez Type of Anesthesia: Local Specimen's removed: Right IJ dialysis catheter --not sent Estimated Blood Loss (mL): < 10 cc Description of Procedure: After informed consent was obtained. Patient's right chest was prepped draped in usual sterile fashion with Betadine. Permanent sutures attaching the catheter to the skin were cut. Local anesthesia 1% lidoc jorgito was injected at the exit site of the port and near the cuff of the catheter. 11 blade scalpel was used to make the exit site of the catheter a little bit larger. Hemostat which is used alongside the catheter to break up adhesion of the cuff to the surrounding tissue. The catheter was grasped with a hemostat and pulled as pressure was also placed on the right lower neck over the internal jugular. Pressure was held for 20 minutes. No additional bleeding was seen after that time. Pressure dressing was also placed on the right lower neck as well as at the exit site. Patient tolerated procedure well. Complications None
[2020-12-13] MEDS: Lidocaine 1% (20 ml mdv) 20 ML Vial (14:05)
[2020-12-13] MEDS: Cefazolin 2 GM in 0.9% Normal Saline 100 ML IV (14:27)
[2020-12-13] MEDS: Heparin 10,000 UNITS/10 ML Vial 10000 UNITS (15:00)
[2020-12-13] MEDS: Bupivacaine 0.25% 30 ML Vial (15:00)
--- NOTE | 2020-12-13 15:28 | PCM.OPRPT ---
Report of Operation Date of Procedure: 12/13/20 Pre-Operative Diagnosis: Need for dialysis access, chronic kidney disease Post-Operative Diagnosis: Same Surgery/Procedure Performed:: Placement of left IJ tunneled dialysis catheter Surgeon: Kassandra Suárez Type of Anesthesia: Local MAC Anesthesiologist: Mikie Vazquez Special Medications: Ancef 2 g IV x1 Specimen's removed: None Estimated Blood Loss (mL): 10 cc Fluids Replaced: Per anesthesia Description of Procedure: After informed consent was given, the patient was brought to the operating room and placed in the supine position. Appropriate time out protocol was followed. He was then given IV conscious sedation for anesthesia. The patient's left upper chest and neck were then prepped with a surgical skin preparation and sterile surgical drapes were placed. After proper landmarks were ascertained, the skin at the upper left chest area was then infiltrated with 0.5% maricaine. A needle trocar was then inserted into the left internal jugular vein with ultrasound guidance-multiple vessels were viewed with u/s and the left IJ was chosen-- and there was good aspiration of venous blood. A wire was then threaded into the needle trocar and this was visualized under fluoroscopy to ensure that the wire was in the superior vena cava. Once this was done, then the needle trocar was removed. A small incision was made with an 11 blade knife at the wire entrance site. The dilator x2 with the introducer sheath attached was then placed over the wire into the right internal jugular vein via the Seldinger technique and this was visualized under fluoroscopy. Next the introducer and sheath were in proper position as visualized by fluoroscopy. The location of the cuffed was estimated on the skin, an incision was made with a 15 blade scalpel. The 14.5 Fr x 23 cm Palindrome dual lumen (Lot [id number] reference [id number]) was tunneled from the chest incision to the left neck incision. The sheath was removed. The catheter was placed through the introducer and was positioned with its tip at the junction of the superior vena cava and the right atrium as visualized under fluoroscopy. The cuff of the catheter was in the subcutaneous tissue. The catheter flushed and paolo well with saline. Catheter was also flushed with 1.5 cc of 1-10,000 of heparin. Hemostasis was assured. Silver dressing was placed at the catheter exit site. Catheter was sutured with 3-0 nylon sutures. The neck incision was sutured with interrupted 3-0 Vicryl interrupted sutures x2 and Steri-Strips were placed. A large OpSite was placed over the catheter site and a small OpSite over the neck incision. The patient tolerated the procedure well. CXR was ordered for PACU--catheter was in good position. Grafts/Implants Used: 14.5 Fr x 23 cm Palindrome dual lumen (Lot [id number] reference [id number] Complications none
--- NOTE | 2020-12-13 15:30 | RAD_ITS ---
STUDY: X-RAY CHEST REASON FOR EXAM: Male, 85 years old. Dialysis cath placement TECHNIQUE: Single AP portable view of the chest. COMPARISON: Comparison is made with prior study of 12/13/2020 at 11:29 AM.. FINDINGS: The right-sided dialysis catheter has been removed. A new left-sided dialysis catheter has been placed with the tip at the junction of the superior vena cava and right atrium. The remainder of the examination is unchanged. RAD/CXR for Line Placement IMPRESSION: The tip of the left dialysis catheter is at the junction of the superior vena cava and right atrium. Electronically Signed: Bowen Horta MD at 15:46 EDT , Service support ,
--- NOTE | 2020-12-13 15:33 | CASEMGMT ---
Social Work Note EDWIGE received update that pt is from [facility], staff inquiring if pt is able to return to [facility] today/tonight after pt's procedure. EDWIGE placed a call to Petra at [facility]. Petra states pt is able to return to [facility] today/tonight. EDWIGE faxed available clinicals to [facility]. EDWIGE faxed COVID test/tool to [facility]. EDWIGE then received call from [facility] inquiring if pt is able to return to [facility] today. EDWIGE updated [facility] that pt is able to return to [facility] from [facility] if medically cleared. EDWIGE encouraged [facility] to ask pt's family if they are able to transport pt back to [facility]. EDWIGE placed Green sheet, transport forms, COVID test/tool on pt's chart in the event pt comes to [facility] floor today. Plan: Return to [facility] when medically cleared. Pt CAN DISCHARGE TO [facility] TODAY/TONIGHT. 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
--- NOTE | 2020-12-13 15:42 | EX.PCM.DISCH ---
Discharge Instructions Procedure General Surgery Diet Discharge Diet: Light diet - advance as tolerated Activity Discharge Activity: May Not Drive (No driving for 1 week or while taking narcotic pain meds.) May shower in (days): 1 Lifting Restrictions: 10 poundsWith the left arm Additional Activity Instructions:: Do not get tunneled dialysis catheter wet, sponge bath or tape off with a Ziploc bag to shower Dressing / Incision Call your doctor if your incision/area has: Continuous Slow Oozing, Sudden Increased Bleeding, Increased Pain/ Swelling, Increased Redness and Foul Smelling Discharge Call your doctor if you observe: Fever of 101 or Higher Suture Line Care: Avoid Pulling/Pushing and Avoid Pinching/Bending Change Dressing in: 4 days (Dialysis nurses can change dialysis catheter dressing) Remove Dressing in: 1 day (Okay to remove the right chest dressing and change daily until healed) Cleanse incision/area with: Do not get Incision Wet (The exit site of the left chest catheter) and Keep Dressing Clean & Dry Additional Dressing/Incision Instructions:: Change or remove dressing in 4 days. Leave steri-strips in place for 1 week. Follow Up Care Please Follow Up With: Kassandra Suárez MD When: Please call [phone] to make a follow up appointment prn Test Results: OK to use left IJ tunneled catheter for dialysis 12/14/20 Discharge Plan Admission Admit Date/Time: 12/13/20 12:45 Attending Provider: Kassandra Suárez Primary Care Provider: Keny Hoskins Consulting Providers: Brijesh Hoffman Discharge Orders/Prescriptions Prescriptions: New hydrocodone-acetaminophen 5-325 mg tablet 1 tab PO Q6H PRN (Reason: pain) 3 Days Qty: 5 RF: 0 Continued amiodarone 200 mg Tablet 200 mg PO BID Qty: 0 RF: 0 melatonin 3 mg Tablet 3 mg PO QHS PRN PRN (Reason: Insomnia) Qty: 0 RF: 0 metoprolol tartrate 50 mg Tablet 50 mg PO BID Qty: 0 RF: 0 Calmoseptine 0.44-20.6 % Ointment 1 applic topical BID Qty: 0 RF: 0 Referrals / Follow Up: Keny Hoskins MD [Primary Care Provider] - Disposition Disposition (needs filled in before D/C Order can be placed): Care Home Facility
--- NOTE | 2020-12-13 16:35 | PCM.PN.HOSP ---
Subjective Subjective 85-year-old male presents to the hospital because of problems with his dialysis access. Apparently he was at dialysis yesterday and in trying to remove the needle they remove the hub from his dialysis port. Of note he was recently admitted for septic shock from a UTI in the setting of kidney stones. He is also found to be in A. fib and was started on medications for that as well. Other than this reports being dislodged he feels around baseline. Objective Data Objective Data Vital Signs: Vital Signs Temp Pulse Resp BP Pulse Ox 97.7 F L 121 H 16 103/86 H 97 12/13/20 15:51 12/13/20 15:51 12/13/20 15:51 12/13/20 15:51 12/13/20 15:45 Oxygen Delivery Method Room Air Weight: 171 lb Body Mass Index (BMI) 23.8 Intake & Output: Intake and Output for Last 24 Hours 12/12/20 12/13/20 12/14/20 03:59 03:59 03:59 Intake Total 110 / 110 Balance 110 / 110 Lab / Micro Data Result Diagrams: 12/13/20 11:10 12/13/20 11:10 Labs: Laboratory Results - last 24 hr 12/13/20 11:10: WBC 11.1 H, RBC 2.90 L, Hgb 9.1 L, Hct 29.2 L, MCV 100.7 H, MCH 31.4, MCHC 31.2 L, RDW Std Deviation 59.2 H, RDW Coeff of Navneet 16.4 H, Plt Count 261, MPV 8.7, Immature Gran % (Auto) 0.800, Neut % (Auto) 69.1, Lymph % (Auto) 21.5, [place] % (Auto) 7.2, Eos % (Auto) 1.1, Baso % (Auto) 0.3, Absolute Neuts (auto) 7.7, Absolute Lymphs (auto) 2.39, Nucleated RBC % 0 12/13/20 11:10: PT 16.7 H, INR 1.4, APTT 32.3 12/13/20 11:10: Sodium 138, Potassium 4.3, Chloride 99, Carbon Dioxide 35.0 H, Anion Gap 4 L, BUN 26 H, Creatinine 5.64 H, Estim Creat Clear Calc 10.57, Est GFR (MDRD) Af Amer 13 L, Est GFR (MDRD) Non-Af 10 L, BUN/Creatinine Ratio 4.6 L, Glucose 117 H, Calcium 8.2 L, Total Bilirubin 0.40, AST 15, ALT 19, Alkaline Phosphatase 89, Total Protein 9.1 H, Albumin 1.9 L, Globulin 7.2 H, Albumin/Globulin Ratio 0.3 L Micro: Microbiology 12/13/20 11:50 Mucosa - Nose SARS-CoV-2 Antigen (Rapid) - Final Radiography Diagnostic Testing: Radiology Impression Chest X-Ray 12/13/20 11:29 IMPRESSION: Stable examination. Electronically Signed: Bowen Horta MD at 12:21 EDT , Service support , Chest X-Ray 12/13/20 15:30 IMPRESSION: The tip of the left dialysis catheter is at the junction of the superior vena cava and right atrium. Electronically Signed: Bowen Horta MD at 15:46 EDT , Service support , Physical Exam Const alert, oriented x3 and no apparent distress General Appearance: cooperative HEENT normocephalic Mouth: dry mucous membranes Eyes PERRL, EOMs intact bilaterally and conjunctivae normal Neck supple and no JVD Resp normal respiratory effort, no retractions, no use of accessory muscles and clear to auscultation bilaterally Auscultation: Negative for crackles, rales, rhonchi or wheezes Cardio regular rate, regular rhythm, S1 normal heart sound, S2 normal heart sound and no murmurs GI soft to palpation, non-tender and non-distended; Negative for hepatosplenomegaly Extremity no clubbing, cyanosis or edema Skin no rashes or lesions noted Neuro no focal motor deficits and no sensory deficits noted Psych affect normal Appearance: appropriate Assessment & Plan Assessment/Plan (1) Problem with dialysis access: QUALIFIERS: Encounter type: initial encounter Qualified Code(s): T82.898A - Other specified complication of vascular prosthetic devices, implants and grafts, initial encounter PLAN: 1. Dialysis access/renal failure -Plan for OR today for replacement -We will attempt to discharge back home tomorrow if unable to discharge before his dialysis can try to have dialysis done here -Anticipate that he will need prolonged dialysis which is why we have continue with the temporary dialysis catheters -Need to follow-up with nephrology as an outpatient as well 2. A. fib -Continue with his amiodarone and his metoprolol -He did have a history of a stroke this is likely related to his A. fib however he is very noncompliant with any of his care -She does require anticoagulation however he does need to follow-up as an outpatient with cardiology, he did have some procedures that need to occur for his previous stenting issues by urology for his kidney stones. DVT: SCDs Charges/Coding Visit Charges OBSV E&M: 71735 Subsequent observation care L3
== END 2020-12-13 17:10 | disposition home or self-care (01) ==
LOC: ED 11:44 → SDC 12:16 → ACINP 12:17 → SDC 12:47 → MS3 13:59
PROVIDERS: Emergency Provider Emergency Medicine; Visit Provider Surgery
PROC: (CPT 36558; principal; 2020-12-13 14:15)
DX: T82.41XA Breakdown (mechanical) of vascular dialysis catheter, initial encounter (principal); I12.9 Hypertensive chronic kidney disease with stage 1 through stage 4 chronic kidney disease, or unspecified chronic kidney disease; N18.9 Chronic kidney disease, unspecified; D63.1 Anemia in chronic kidney disease; I48.91 Unspecified atrial fibrillation; R00.0 Tachycardia, unspecified; Z99.2 Dependence on renal dialysis; Z79.899 Other long term (current) drug therapy; Z86.73 Personal history of transient ischemic attack (TIA), and cerebral infarction without residual deficits
CPT/HCPCS: 00532; 36558; 36590; 76937; 71045; 77001; 80053; 85025; 85610; 85730; 87426; 93005; 99285; J7120; A4216

== ENCOUNTER 2020-12-16 06:35 | Day surgery (SDC) | payer MEDICARE, SELFPAY ==
[2020-11-12 10:10] VITALS: BMI 26.2
[2020-12-13 12:49] VITALS: BMI 23.8
[2020-12-16 06:52] VITALS: BP 146/105; PULSE 120; RESP 16; TEMP 36.3; O2SAT 96; BMI 24.7
[2020-12-16] MEDS: 0.9% Normal Saline 1,000 ML 15 ML IV (07:40)
[2020-12-16] MEDS: Cefazolin 2 GM in 0.9% Normal Saline 100 ML IV (08:25)
--- NOTE | 2020-12-16 08:44 | PCM.HP.STD ---
HPI - General HPI Narrative MARYELLEN HICKEY, is a 85 M who presents for treatment of distal ureteral calculi in the left side he had presented to the hospital with obstruction underwent stent placement he now presents for ureteroscopy and extraction of the stone and stent. [facility] Medical History (Updated 12/15/20 @ 08:34 by Tierra Lebron) Anemia Atrial fibrillation Chronic pain Dialysis patient Hemorrhagic stroke History of echocardiogram Hypertension Kidney disease Non-smoker Problem with dialysis access Xerosis cutis Home Medications Calmoseptine 1 applic TOPICAL BID #0 g 11/18/20 [Rx Last Taken Unknown] amiodarone 200 mg PO BID #0 tab 11/18/20 [Rx Last Taken Unknown] melatonin 3 mg PO QHS PRN PRN #0 tab 11/18/20 [Rx Last Taken Unknown] metoprolol tartrate 50 mg PO BID #0 tab 11/18/20 [Rx Last Taken Unknown] hydrocodone-acetaminophen 1 tab PO Q6H PRN 3 Days #5 tab 12/13/20 [Rx Last Taken Unknown] ciprofloxacin HCl [Cipro] 250 mg PO BID #6 tab 12/16/20 [Rx Last Taken Unknown] Allergy/AdvReac Type Severity Reaction Status Date / Time No Known Allergies Allergy Verified 12/16/20 06:49 Surgical History (Updated 12/15/20 @ 08:34 by Tierra Lebron) Hx of cystoscopy Social History (Updated 12/13/20 @ 10:[address] Flaco Antonio, ) Smoking Status: Never smoker substance use type: does not use ROS Constitutional Constitutional: Denies chills, fever(s) or malaise Eyes Eyes: Denies blurry vision or change in vision ENT HEENT: Reports none Cardiovascular Cardiovascular: Denies chest pain or palpitations Respiratory/Chest Respiratory/Chest: Denies cough or shortness of breath with exertion Gastrointestinal Gastrointestinal: Denies abdominal pain, constipation or diarrhea Musculoskeletal Musculoskeletal: Denies back pain, joint stiffness or joint swelling Integumentary Integumentary: Denies dry skin, jaundice, lesions or rash Neurologic Neurologic: Denies confusion, syncope or weakness Psychiatric Psychiatric: Reports none; Denies anxiety or depression Endocrine Endocrinology: Denies excessive sweating, fatigue or flushing Hematologic/Lymphatic Hematologic/Lymphatic: Denies anemia, easy bleeding or easy bruising Vital Signs Vital Signs Vital Signs: 07/23/21 06:52 Temperature 97.4 F L Temperature Source Temporal Pulse Rate 120 H Respiratory Rate 16 Respiratory Pattern Normal Blood Pressure 146/105 H Blood Pressure Mean 118 Blood Pressure Source Monitor Blood Pressure Position Semi-Fowlers Blood Pressure Location Left Arm Pulse Ox 96 Oxygen Delivery Method Room Air Weight Weight: 78.1 kg Body Mass Index (BMI) 24.7 Physical Exam Const alert and oriented x3 General Appearance: cooperative HEENT normocephalic, head/scalp atraumatic, EAC's normal and TM's normal bilaterally Eyes PERRL and EOMs intact bilaterally Pupil: sluggish Neck no lymphadenopathy, supple and no JVD General: trachea midline Lymph Lymphatic: no lymphadenopathy noted, lymphedema and lymphadenopathy Resp normal respiratory effort, normal air movement and clear to auscultation bilaterally Cardio regular rate, regular rhythm and peripheral pulses 2+ throughout GI soft to palpation, non-tender and non-distended Extremity normal capillary refill and no clubbing, cyanosis or edema General Extremity: no tenderness to palpation of joints or extremities Skin no rashes or lesions noted General Skin Exam: turgor normal Lesions: no lesions Rashes: no rashes Neuro CN's II-XII intact bilaterally Speech: speech normal Motor Exam: strength 5/5 throughout; Negative for general weakness Psych thought process normal, cooperative and affect normal Appearance: appropriate Assessment & Plan Assessment/Plan (1) Left ureteral calculus: PLAN: Cystoscopy and plan to remove stent and extract stone.
--- NOTE | 2020-12-16 08:46 | PCM.DC ---
Discharge Instructions Diet Discharge Diet: No restrictions Activity Discharge Activity: Return to Normal Activity and May Not Drive (while taking narcotic pain medications.) Dressing / Incision Call your doctor if you observe: Fever of 101 or Higher Follow Up Care Please Follow Up With: Eric Martinez MD When: Call [phone] for an appointment Test Results: Test results from this visit will be discussed in further detail at your follow-up appointment, if applicable. Discharge Plan Admission Primary Reason for Your Visit: kidney stone Attending Provider: Eric Martinez Primary Care Provider: Keny Hoskins Discharge Orders/Prescriptions Prescriptions: New ciprofloxacin HCl [Cipro] 250 mg tablet 250 mg PO BID Qty: 6 RF: 0 Continued amiodarone 200 mg Tablet 200 mg PO BID Qty: 0 RF: 0 melatonin 3 mg Tablet 3 mg PO QHS PRN PRN (Reason: Insomnia) Qty: 0 RF: 0 metoprolol tartrate 50 mg Tablet 50 mg PO BID Qty: 0 RF: 0 Calmoseptine 0.44-20.6 % Ointment 1 applic topical BID Qty: 0 RF: 0 hydrocodone-acetaminophen 5-325 mg tablet 1 tab PO Q6H PRN (Reason: pain) 3 Days Qty: 5 RF: 0 Referrals / Follow Up: Keny Hoskins MD [Primary Care Provider] - Eric Martinez MD [STAFF PHYSICIAN] - Disposition Disposition (needs filled in before D/C Order can be placed): Home, Self Care
--- NOTE | 2020-12-16 08:46 | PCM.OPRPT ---
Report of Operation Date of Procedure: 12/16/20 Pre-Operative Diagnosis: Distal left ureteral calculi Post-Operative Diagnosis: Same Surgery/Procedure Performed:: Cystoscopy, left ureteroscopy basket extraction of stone no stent. Description of Surgical Findings:: This is a patient who presents to the hospital for treatment for an obstructing distal ureter calculi. I discussed with the patient how the surgery would be performed and we reviewed the risks and benefits of the surgery. The risk and benefits include the risk of failure to remove the stone completely and that the patient may need multiple procedures. We discussed the risk of an infection, the risk of bleeding. We discussed the very rare risk of serious complicated injury to the ureter. The patient understands that if the stone is not able to be removed safely that we may abort the procedure and place a stent. After full discussion and all questions address with the patient the consent form was signed the side was marked appropriately and the patient was taken back to the operating room for the procedure. The patient was taken back to the operating room. After induction of anesthesia by the anesthesiology team the patient was placed in dorsolithotomy position. The genitals were prepped and draped in usual sterile fashion. I went into the bladder with a 21 Maltese rigid cystourethroscope through the urethra. Upon entering the bladder I inspected the trigone the left and right ureteral orifice and the bladder itself. I then cannulated the left ureteral orifice and advanced a 0.038 Glidewire up into the kidney. I then placed a second 0.038 Guidewire as a working wire and over the working 0.038 guidewire I went in with the modesta rigide 7.5fr ureteroscope. I was able to go inside with the 7.5Fr modesta rigid utereroscope and I pulled out the working guidewire and then through the 7.5 fr simirigid ureteroscope I engage the stone in the distal ureter tipless basket the stone was captured in the basket and extracted from the ureter. I then drained the patient's bladder and the cystoscope was removed and the patient was taken back to the recovery room in good position. The patient was given discharge instructions to call the office for follow up care. Surgeon: aleah Type of Anesthesia: General Drains: none Admit VTE Documentation VTE Present on Admission: No VTE Mechan Device Prophylaxis: SCD's
[2020-12-16 08:53] VITALS: BP 146/90; BP 88/70; PULSE 116; RESP 12; TEMP 36.6; O2SAT 85
[2020-12-16 09:00] VITALS: BP 100/74; BP 146/90; PULSE 116; RESP 16; O2SAT 98
[2020-12-16 09:15] VITALS: BP 146/90; BP 97/78; PULSE 121; RESP 16; O2SAT 98
[2020-12-16 09:30] VITALS: BP 102/79; BP 146/90; PULSE 119; RESP 16; TEMP 36.5; O2SAT 95
[2020-12-16 10:18] VITALS: BP 122/88; BP 146/90; PULSE 114; RESP 16; TEMP 36.6; O2SAT 95
--- NOTE | 2020-12-16 10:20 | SUR.PHASEII ---
This nurse called report to [facility] Willian at 1020. VSS. Patient belonings with patient. Family at bedside.
== END 2020-12-16 10:28 | disposition home or self-care (01) ==
LOC: SDC 06:36 → AC 06:36
PROVIDERS: Referring Provider Urology; Visit Provider Urology
PROC: 0TJ98ZZ Inspection of Ureter, Via Natural or Artificial Opening Endoscopic (ICD-10-PCS; CPT 52352; principal; 2020-12-16 08:40)
DX: N20.1 Calculus of ureter (principal); I12.9 Hypertensive chronic kidney disease with stage 1 through stage 4 chronic kidney disease, or unspecified chronic kidney disease; N18.9 Chronic kidney disease, unspecified; D63.1 Anemia in chronic kidney disease; Z99.2 Dependence on renal dialysis; Z79.899 Other long term (current) drug therapy; Z86.73 Personal history of transient ischemic attack (TIA), and cerebral infarction without residual deficits
CPT/HCPCS: 00918; 52352; J7040; J7120; C1769; J2405

== ENCOUNTER → 2021-02-14 09:46 | Outpatient (CLI) | payer MEDICARE, SELFPAY ==
[2021-02-14 10:12] LABS: Hematocrit 37.6 % (40-54); Hemoglobin 11.6 g/dL (13.0-16.5); Mean Corp Hgb Conc 30.9 g/dL (32-36); Mean Corpuscular Volume 106.8 fL (80-94); Mean Platelet Vol. 8.9 fl (6.2-12.0); POSITIVE MORPHOLOGY YES; Platelet Count 160 K/mm3 (150-450); RBC Distribution Width CV 19.9 % (11.6-14.6); RBC Distribution Width SD 79.6 fl (35.1-43.9); Red Blood Count 3.52 M/mm3 (4.6-6.2); White Blood Count 6.2 K/mm3 (4.4-11.0)
[2021-02-14 10:16] LABS: Scan Indicated on CBC? Y/N YES- FLAGS NOTED
[2021-02-14 10:47] LABS: Anion Gap 10 (5-15); BUN 33 mg/dL (7-18); BUN/Creat Ratio 4.7 RATIO (10-20); Calcium,Total 8.6 mg/dL (8.5-10.1); Chloride 103 mmol/L (98-107); Creatinine, Serum 7.08 mg/dL (0.70-1.30); EST Glomerular Filtration Rate 8 mL/min (>60); Est Glom Filt Rate - Afr Amer 10 mL/min (>60); Glucose 101 mg/dL (74-106); Potassium 5.5 mmol/L (3.5-5.1); Sodium Level 138 mmol/L (136-145)
[2021-02-14 18:08] LABS: Absolute Lymphocyte Count 1.79 X10^3/uL (0.83-4.51); Absolute Neutrophil Count 5.3 X10^3/uL (2.0-7.7); Basophil# 0.03 X10^3/uL; Basophil% 0.4 % (0-1); Eosinophil# 0.17 X10^3/uL; Eosinophils% 2.2 % (0-5); Hematocrit 34.4 % (40-54); Hemoglobin 10.9 g/dL (13.0-16.5); Lymphocyte # 1.79 X10^3/ul (0.83-4.51); Lymphocyte % 22.7 % (19-41); Mean Corp Hgb Conc 31.7 g/dL (32-36); Mean Corpuscular Hgb 32.6 pg (27.0-32.0); Mean Platelet Vol. 8.9 fl (6.2-12.0); Monocyte# 0.54 X10^3/uL; Monocyte% 6.9 % (0-10); NRBC Flagged by Analyzer 0 % (0-5); Neutrophil # 5.32 X10^3/uL (2.7-7.7); Neutrophil % 67.5 % (47-70); POSITIVE MORPHOLOGY YES; Platelet Count 176 K/mm3 (150-450); RBC Distribution Width CV 19.7 % (11.6-14.6); Red Blood Count 3.34 M/mm3 (4.6-6.2); White Blood Count 7.9 K/mm3 (4.4-11.0)
[2021-02-14 18:14] LABS: Differential Indicated SCAN CRITERIA MET
[2021-02-14 18:19] LABS: Vitamin B12 605 pg/mL (211-911)
[2021-02-14 18:41] LABS: Differential Comment SCANNED
[2021-02-14 18:42] LABS: ALB/GLOB Ratio 0.3 RATIO (0.9-2.4); AST(SGOT) 15 U/L (15-37); Alanine Aminotransfer ALT/SGPT 18 U/L (16-61); Alkaline Phosphatase 70 U/L (45-117); Anion Gap 9 (5-15); BUN 34 mg/dL (7-18); BUN/Creat Ratio 4.7 RATIO (10-20); Chloride 103 mmol/L (98-107); Cholesterol 104 mg/dL (200); Creatinine, Serum 7.24 mg/dL (0.70-1.30); EST Glomerular Filtration Rate 8 mL/min (>60); Est Glom Filt Rate - Afr Amer 9 mL/min (>60); Ferritin 878 ng/mL (26-388); Globulin 7.1 g/dL (2.2-4.2); Glucose 168 mg/dL (74-106); High Density Lipoprotein 21 mg/dL; Iron 44 ug/dL (65-175); Iron Binding Capacity,Total 177 ug/dL (250-450); Magnesium 1.9 mg/dL (1.6-2.6); Potassium 4.4 mmol/L (3.5-5.1); Protein, Total 9.1 g/dL (6.4-8.2); Sodium Level 135 mmol/L (136-145); Thyroid Stim Hormone (TSH) 5.52 uIU/mL (0.358-3.74); Triglycerides 97 mg/dL; Very Low Density Lipoprotein 19 mg/dL (5-40)
[2021-02-14 18:51] LABS: PTHIN 134.4 pg/mL (18.4-80.1)
[2021-02-15 11:36] LABS: T4 Free Direct 1.14 ng/dL (0.76-1.46)
[2021-02-16 21:14] LABS: Anti-Thyroglobulin AB < 1.0 IU/mL (0.0-0.9); Thyroglobulin, Serum Qt. 16.7 ng/mL (1.4-29.2); Thyroid Peroxidase AB 10 IU/mL (0-34)
[2021-02-17 16:53] LABS: Vitamin D 1,25-Dihydroxy <5.0 pg/mL (19.9-79.3)
== END ==
PROVIDERS: PCP Family Medicine; Referring Provider Physician Assistant; Visit Provider Physician Assistant
DX: R94.5 Abnormal results of liver function studies (principal); T82.898A Other specified complication of vascular prosthetic devices, implants and grafts, initial encounter; I48.91 Unspecified atrial fibrillation; I12.0 Hypertensive chronic kidney disease with stage 5 chronic kidney disease or end stage renal disease; N18.6 End stage renal disease; D63.1 Anemia in chronic kidney disease
CPT/HCPCS: 36415; 80048; 80053; 80061; 82607; 82652; 82728; 82746; 83540; 83550; 83735; 83970; 84432; 84439; 84443; 85025; 85027; 86376; 86800

== ENCOUNTER 2021-02-15 09:54 | Day surgery (SDC) | payer MEDICARE, SELFPAY ==
[2021-02-15] VITALS (8 sets, daily range): BP systolic 139–176; BP diastolic 67–83; PULSE 54–72; RESP 16; TEMP 35.9–36.6; O2SAT 95–100; BMI 21.4
[2021-02-15] MEDS: 0.9% Normal Saline 1,000 ML 30 ML IV (10:44)
--- NOTE | 2021-02-15 10:51 | PCM.HP.BLA ---
History and Physical Date of Admission: 02/15/21 Intake Visit Reasons: CVC EXCHANGE Chief Complaint: cvc issue Process Specialist Required: No Is patient in pain?: No Allergies No Known Allergies Allergy (Verified 02/14/21 09:04) Medications amiodarone 200 mg tablet 200 mg PO .COMPLEX #90 tab 02/14/21 [Rx Confirmed 02/14/21] metoprolol tartrate 50 mg tablet 50 mg PO .COMPLEX #90 tab 02/14/21 [Rx Confirmed 02/14/21] vitamin B comp no.3-folic acid 1 mg-vit C 60 mg-biotin 300 mcg tablet 1 tab PO DAILY 02/14/21 [History Confirmed 02/14/21] PFSH Medical History Anemia Atrial fibrillation Chronic pain Dialysis patient Hemorrhagic stroke History of echocardiogram Hypertension Kidney disease Non-smoker Problem with dialysis access Xerosis cutis Surgical History Hx of cystoscopy Social History Smoking Status: Never smoker substance use type: does not use HPI HPI HPI: MARYELLEN HICKEY, is a 85 M who presents to the office today for problem with dialysis access. Patient is a poor historian. Patient notes for approximately 1 week dialysis has been having difficulty dialyzing via the left chest catheter. He notes the alarms have been going off and on throughout his treatment yesterday. He states he was able to get through 4 hours of dialysis treatment yesterday however the alarms continued to go off. He does not have a fistula and has not been evaluated by anyone for a fistula. This will be his third catheter placement. He noted the last was performed by Dr. Suárez on 12/13/20. The dialysis catheter had broke off at the hub and was not able to be placed back together. Just prior to that the patient was hospitalized with sepsis. Dr. Grant placed a right chest dialysis catheter placement in October 2020. Patient denies current pain/discomfort. He has never had COVID. He is not currently vaccinated. He dialyzes M,W and F. He presents with his [id number], who was frustrated with the patient due to him not wanting to sign the HIPPA form. They had a yelling argument in the lobby prior to coming into an exam room. He denies being on any blood thinners. He currently lives at home by himself per his choice. He was living in a prison. Patient's brother is PHILLY who was not present at the time of his appointment. Patient appears to be able to make his own decisions. Contact was made with the patient's dialysis center who noted they have been having difficulty with his chest catheters during dialysis. They are requesting exchange within the next week. ROS General General: Yes fatigue; No weight change, appetite, colon cancer, breast cancer or weakness HEENT HEENT: No difficulty swallowing, eye injury, eye surgery, swollen glands or hoarseness Endo Endocrine: No thyroid disease, diabetes mellitus, thyroid cancer, Hair loss, heat intolerance or cold intolerance Skin Skin: No rash or changing moles Breast Breast: No left breast lump, right breast lump, nipple discharge, breast pain, abnormal mammogram, abnormal US or breast enlargement Musc Musculoskeletal: Yes arthritis; No back problems, rheumatoid arthritis, gout or joint pain Cardio Cardiovascular: Yes atrial fibrillation and high blood pressure; No murmur, pacemaker, heart disease, heart attack, heart stent, palpitations, shortness of breat with exertion or chest pain Psych Psychiatric: No depression, anxiety or hearing voices Resp Respiratory: No shortness of breath, No sleep apnea, No cough, No COPD, No asthma, No emphysema and No wheezing Gastro Gastrointestinal: No abdominal pain, No nausea or vomiting, No diarrhea, No constipation, No blood in stool, No acid reflux, No hemorrhoids, No ulcers, No gallbladder problem and No black,tarry stools Serge Hematologic: No blood thinners, No blood disorders, No bleeding, No anemia and No blood clots Neuro Neurologic: No system reviewed and no additional complaints, except as documented, No as per HPI, No abnormal gait, No abnormal hearing, No abnormal movements, No abnormal speech, No behavioral changes, No burning sensations, No confusion, No convulsions, No disequilibrium, No dizziness, No localized weakness, No frequent falls, No headache(s), No lack of coordination, No loss of vision, No memory loss, No numbness, No other visual disturbances, No radicular pain, No restless legs, No sensory deficit, No syncope, No tingling, No tremor(s), No weakness and No other Exam Const General: cooperative, comfortable and no acute distress Nutritional Appearance: thin HENMT Head: normal to inspection Eyes General: appearance normal, both eyes and all related structures Neck Neck: normal visual inspection Neck mass: No Resp Effort & Inspection: normal respiratory effort Auscultation: clear to auscultation bilaterally Cardio Rate: regular rate Rhythm: regular rhythm GI Inspection: normal to inspection Skin General: no rashes or lesions noted Neuro General: no focal motor deficits and CN's II-XI intact bilaterally Extrem General: normal to inspection Psych Appearance: grossly normal Affect: normal affect COVID (Procedure Consent) Procedure Criteria Procedure Criteria: Yes Elective The surgeon/proceduralist and patient have discussed in detail the risk of exposure to and/or potential harm posed by the COVID-19 virus with having a surgery/procedure at this time versus the risk of delaying the surgery/procedure. It is not possible to know either the risk of delaying the surgery or procedure or chance of getting an infection with perfect accuracy, but a joint decision was made between the patient and the surgeon/proceduralist to proceed at this time with the scheduled surgery/procedure as indicated on the consent form. Assessment and Plan Assessment and Plan (1) Problem with dialysis access: Status: Acute Qualifiers: Encounter type: initial encounter Qualified Code(s): T82.898A - Other specified complication of vascular prosthetic devices, implants and grafts, initial encounter Orders: Orders: CBC-Complete Blood Cnt No Diff Today Lindsey GUO PA-C Basic Metabolic Profile (BMP) Today Lindsey GUO PA-C Plan - Lindsey GUO PA-C: Dr. Maloney will plan to perform a removal of the left chest dialysis catheter and a right chest dialysis catheter placement. Procedure was explained to the patient and his [id number]. They have had the opportunity to ask and have questions answered. Patient verbally understands and agrees with the plan. Proceed with lab work today following his appointment. Patient is scheduled for . Plan Details Other Medications: Changed: From: amiodarone 200 mg PO BID To: amiodarone 200 mg PO; 1/2 tab bid tues/thurs/sat/sun and 1/2 tab q pm sat/sat/sat Keny Talamantes CLIENT RELATIONSHIP EXECUTIVE, CATARINO-C From: metoprolol tartrate 1/2 tab bid tues/thurs/sat/sun and 1/2 tab q pm sat/sat/sat 50 mg PO BID To: metoprolol tartrate 50 mg PO; 1/2 tab bid tues/thurs/sat/sun and 1/2 tab q pm sat/sat/sat Keny Talamantes CLIENT RELATIONSHIP EXECUTIVE, CLIENT RELATIONSHIP EXECUTIVE-C Coding Level of Care Code Off vis,est,level 4 Diagnoses Problem with dialysis access T82.898A Encounter type: initial encounter 02/14/21 1124<Electronically signed by Lindsey GUO PA-C>Date Lindsey GUO PA-C I have re-examined the patient. There are no clinical changes since date of exam. Jas Maloney M.D., F.A.C.S.
--- NOTE | 2021-02-15 11:10 | EX.PCM.DISCH ---
Discharge Instructions Procedure Port-A-Cath Diet Discharge Diet: No restrictions (Pain medication may cause nausea. You should typically eat light foods as you take your pain medication.) Activity Additional Activity Instructions:: May not drive, work with heavy equipment, or sign legal documents for [address]. [address] if you are no longer taking narcotic pain medications. You may drive when you are no longer taking pain medications. Dressing / Incision Additional Dressing/Incision Instructions:: Leave the bandage on for 2-3 days. When you remove the bandage, leave the steri-strips intact until they fall off. Follow Up Care Please Follow Up With: Jas Maloney MD When: Call [phone] to make an appointment to be seen in 7 days. Test Results: Please keep your dialysis catheter site clean and dry. Bilateral upper extremity vein mapping needs to be accomplished and then we would like to see you back my office to discuss creation of an arteriovenous hemodialysis fistula to benefit your dialysis access. Jas Maloney M.D., F.A.C.S. Discharge Plan Admission Attending Provider: Jas Maloney Primary Care Provider: Keny Meyer Discharge Orders/Prescriptions Prescriptions: No Action Sera-Roger Rx 1-60-300 mg-mg-mcg tablet 1 tab PO DAILY RF: 0 amiodarone 200 mg Tablet 100 mg PO QHS RF: 0 metoprolol tartrate 50 mg Tablet 25 mg PO QHS RF: 0 amiodarone 200 mg tablet 100 mg PO BID RF: 0 metoprolol tartrate 50 mg tablet 25 mg PO BID RF: 0
[2021-02-15] MEDS: Cefazolin 2 GM in 0.9% Normal Saline 100 ML IV (11:19)
--- NOTE | 2021-02-15 11:25 | RAD_ITS ---
STUDY: X-RAY CHEST REASON FOR EXAM: Male, 85 years old. Line placement TECHNIQUE: Single AP portable view of the chest. COMPARISON: Comparison is made with prior study 12/13/2020. FINDINGS: A right sided double lumen catheter has been placed with the tip at the junction of the superior vena cava and right H. The lungs are clear and expanded. There is no demonstrated pleural abnormality. There is borderline cardiomegaly. Normal mediastinum and darwin. Normal visualized pulmonary arteries. There is atherosclerotic tortuosity of the aortic arch and descending thoracic aorta. Normal visualized thoracic spine. Normal visualized ribs, clavicles, and shoulders. There is no demonstrated abnormality of the visualized soft tissue structures of the upper abdomen. RAD/CXR for Line Placement IMPRESSION: A right-sided double-lumen catheter has been placed with the tip at the junction of the superior vena cava and right atrium. Electronically Signed: Bowen Horta MD at 12:47 EDT , Service support ,
[2021-02-15] MEDS: Bupivacaine Mpf 0.5% 30 ML VIAL (11:40)
[2021-02-15] MEDS: Heparin 10,000 UNITS/10 ML Vial 10000 UNITS (11:40)
[2021-02-15] MEDS: Lidocaine 1% (30 ml sdv) 30 ML Vial (11:40)
--- NOTE | 2021-02-15 12:00 | OP.PCM_ITS ---
Problems Associated Problem List Diagnoses (1) Problem with dialysis access: Report of Operation Date of Procedure: 02/15/21 Pre-Operative Diagnosis: Malfunctioning left internal jugular tunneled hemodialysis catheters Post-Operative Diagnosis: Same Surgery/Procedure Performed:: Right internal jugular 19 cm precurved the electrode catheter placement: Reference [id number], lot #[id number], expiry date June 12, 2025 Removal left internal jugular dialysis catheters Description of Surgical Findings:: Timeout and informed consent was obtained. 85-year-old gentleman was taken to the operating room placed upon the table underwent monitored anesthesia care. Ancef 2 g were given intravenously preoperatively. The bilateral bilateral neck and chest were sterilely prepped and draped. Under ultrasound guidance 1% lidocaine mixed 50-50 with 0.5% Marcaine was used as local anesthetic and local was instilled overlying the right internal jugular vein. Throughout the procedure total 20 cc of local was used. Micropuncture needle was inserted under ultrasound guidance micropuncture wire fluoroscopy demonstrated good positioning local instilled down upon the chest wall. An exit site was selected. The 19 cm precurved palindrome catheter was tunneled from the chest to the neck site. Micropuncture sheath was inserted 035 J-wire was inserted and serial dilatation was performed. Then the sheath dilator was inserted. The dilator and wire were removed and the catheter advanced through the sheath the sheath was split the catheter was positioned. Fluoroscopic it appeared to have good position and aspirated very easily and was flushed with saline and then heparinized saline. It was secured to skin with 3- 0 nylon. The counterincision of the neck was closed interrupted 5-0 Vicryl subdermal stitch. Telfa OpSite dressing placed upon that incision and a silver dressing was placed on the chest catheter exit site. Blood also been minimal. I paolo my attention to the tunneled catheters on the left. Identified the cuff instilled local made a transverse incision perform sharp and blunt dissection and was able to completely remove the tubing with continuous pressure held upon the exit site. The catheter then nicely completely removed without complication. Counterincision was closed with an updated 5-0 Vicryl subdermal stitch. Sterile dressings applied. Blood loss throughout the procedure was quite minimal no apparent complication. He was taken to the recovery room in satisfactory condition. Stat portable chest x-ray is pending. Specimens none. Drains none. Blood loss minimal. Jas Maloney M.D., F.A.C.S. Surgeon: Jas Maloney Type of Anesthesia: Local MAC Anesthesiologist: Mare Simpson
--- NOTE | 2021-02-15 12:44 | SUR.PHASEI ---
At 12:42,Dr Micheline Maloney phone PACU and verified the hemodialysis catheter was in the correct position per portable chest x-ray. Patient may be discharged when criteria is met
== END 2021-02-15 13:46 | disposition home or self-care (01) ==
LOC: SDC 09:55 → AC 09:55
PROVIDERS: PCP Family Medicine; Referring Provider Surgery; Visit Provider Surgery
PROC: (CPT 36558; principal; 2021-02-15 11:50)
DX: T82.41XA Breakdown (mechanical) of vascular dialysis catheter, initial encounter (principal); I20.0 Unstable angina; N18.6 End stage renal disease; D63.1 Anemia in chronic kidney disease; I48.91 Unspecified atrial fibrillation; I42.9 Cardiomyopathy, unspecified; M19.90 Unspecified osteoarthritis, unspecified site; Z99.2 Dependence on renal dialysis; Z79.899 Other long term (current) drug therapy; Z20.822 Contact with and (suspected) exposure to COVID-19; Z86.73 Personal history of transient ischemic attack (TIA), and cerebral infarction without residual deficits
CPT/HCPCS: 36558; 36589; 71045; 76000; 81001; 87426; C9803; J7030; C1750; J2405

== ENCOUNTER → 2021-02-15 | Outpatient (CLI) | payer MEDICARE, SELFPAY ==
[2021-02-15 09:58] LABS: Bacteria 0 SEEN /hpf (None Seen); Mucous, Urine 0 SEEN /hpf (<or=2+); Red Blood Cells-Urine 0 SEEN /hpf (0-5)
[2021-02-15 12:14] LABS: Color, Urine Yellow (Yellow); Glucose, Dipstick Normal (Normal); Ketone-Dipstick Negative (Negative); Leukocyte Esterase-Dipstick 25 /ul (Negative); Nitrite-Dipstick Negative (Negative); Occult Blood-Urine Negative /ul (Negative); Protein-Dipstick 30 mg/dl (Negative); Urine Bilirubin Dipstick Negative (Negative); Urine Clarity Clear (Clear); Urine Urobilinogen Normal (Normal)
[2021-02-15 12:23] LABS: Squamous Epithelial Cells - UA 0-5 SEEN /hpf (0-5); White Blood Cells 0-5 SEEN /hpf (0-5)
== END | disposition home or self-care (01) ==
LOC: LABSPEC 09:43
PROVIDERS: PCP Family Medicine; Referring Provider Family Medicine; Visit Provider Family Medicine
DX: I12.0 Hypertensive chronic kidney disease with stage 5 chronic kidney disease or end stage renal disease (principal); N18.6 End stage renal disease; D63.1 Anemia in chronic kidney disease; I48.91 Unspecified atrial fibrillation; Z99.2 Dependence on renal dialysis
CPT/HCPCS: 81001

== ENCOUNTER → 2021-02-21 10:40 | Outpatient (CLI) | payer MEDICARE, SELFPAY ==
--- NOTE | 2021-02-21 10:41 | VDUE_ITS ---
Reason For Study: Pre op testing Right Arm Left Arm Cephalic V at the wrist is dilated and Left cephalic vein is compressible. noncompressible. Left Cephalic Vein at the shoulder Right Cephalic Vein at the shoulder measures .3 x .29 cm. measures .26 x .28 cm. Left Cephalic Vein at mid bicep measures .37 Right Cephalic Vein mid bicep measures .18 x .39 cm. x .2 cm. Left Cephalic Vein above antecub Right Cephalic Vein above antecub measures .35 x .32 cm. measures .15 x .18 cm. Left Cephalic Vein below antecub Right Cephalic Vein below antecub measures .16 x .16 cm. measures .13 x .14 cm. Left Cephalic Vein in the forearm Right Cephalic Vein in the forearm measures .17 x .19 cm. measures .18 x .18 cm. Left Cephalic Vein at the wrist measures .2 Right basilic vein is compressible. x .24 cm. Right Basilic Vein mid bicep measures .21 Left basilic vein is compressible. x .22 cm. Basilic vein at bicep measures .27 x .27 cm. Right Basilic Vein above antecub measures .28 Basilic vein above antecub measures .35 x .27 cm. x .34 cm. Right Basilic Vein below antecub measures .13 Basilic vein below antecub measures .17 x .15 cm. x .16 cm. Basilic V below this level is too small to Basilic below this level is too small to assess. assess. Brachial Art .52 x .57 cm. Brachial Art .49 x .53 cm. Brachial Art 68.6 cm/s. Brachial Art 80.7 cm/s. Radial Art .27 x .29 cm. Radial Art .22 x .25 cm. Radial Art 101.2 cm/s. Radial Art 63.8 cm/s. Prelim called to Dr. Maloney's office. VL/Saphenous Vein Mapping, Bilat Interpretation Summary Superficial thrombophlebitis right cephalic vein at the wrist Diminutive right cephalic vein throughout its course Small diameter right upper arm basilic vein Patent and compressible left upper extremity cephalic vein though diminutive in the forearm Patent and compressible left upper arm basilic vein Normal bilateral radial artery and brachial artery diameter and flow Ordering Physician: Jas Maloney Performed By: Alberto Cross RVT ?
--- NOTE | 2021-02-21 12:53 | ECHOL_ITS ---
Reason For Study: CHF Procedure This was a limited 2D transthoracic echocardiogram. Limited views were obtained. Exam performed in department. Left Ventricle Mildly dilated left ventricle. Mild to moderate global left ventricular systolic dysfunction. The estimated ejection fraction is 40 %. Unable to assess diastolic dysfunction. Right Ventricle Normal RV size. Normal systolic function. Atria Normal left atrium. Normal right atrium. Probable chiari network. Mitral Valve There is no mitral annular calcification. Normal mitral valve. Tricuspid Valve Normal tricuspid valve. Aortic Valve Trisinus/trileaflet aortic valve. Normal aortic valve. Pulmonic Valve The pulmonic valve is not well visualized. Pericardium/Pleural No pericardial effusion. MMode/2D Measurements & Calculations LVIDd: 5.9 cm IVSd: 0.97 cm Ao root diam: 3.8 cm LVIDs: 4.7 cm LVPWd: 0.98 cm LA dimension: 4.4 cm RVDd: 3.0 cm FS: 20.6 % LAV(MOD-bp): 45.0 ml LVAd ap4: 35.1 cm2 LVAd ap2: 30.4 cm2 LAV(MOD-bp) Indexed: 22.8 ml/m2 LVLd ap4: 8.3 cm LVLd ap2: 7.5 cm LAV(MOD-sp2): 51.4 ml EDV(MOD-sp4): 124.5 ml EDV(MOD-sp2): 104.4 ml LAV(MOD-sp4): 39.5 ml EDV(sp4-el): 125.5 ml EDV(sp2-el): 104.5 ml LVAs ap4: 23.8 cm2 LVAs ap2: 21.5 cm2 LVLs ap4: 7.2 cm LVLs ap2: 6.8 cm ESV(MOD-sp4): 65.0 ml ESV(MOD-sp2): 57.3 ml ESV(sp4-el): 66.9 ml ESV(sp2-el): 57.6 ml EF(MOD-sp4): 47.8 % EF(MOD-sp2): 45.1 % EF(sp4-el): 46.7 % SV(MOD-sp4): 59.5 ml SV(MOD-sp2): 47.1 ml SV(sp4-el): 58.6 ml LA A4 area: 16.0 cm2 RA A4 area: 15.3 cm2 ECHO/Echo, Limited Study Interpretation Summary Limited views were obtained. Mildly dilated left ventricle. Mild to moderate global left ventricular systolic dysfunction. The estimated ejection fraction is 40 %. Probable chiari network. Unable to assess diastolic dysfunction. Ordering Physician: Keny Talamantes Referring Physician: Jas Maloney Performed By: Magdalena Hewitt RDCS, RVT
== END ==
PROVIDERS: PCP Family Medicine; Referring Provider Surgery; Visit Provider Surgery
DX: Z01.818 Encounter for other preprocedural examination (principal); I80.8 Phlebitis and thrombophlebitis of other sites; I50.1 Left ventricular failure, unspecified; I42.9 Cardiomyopathy, unspecified
CPT/HCPCS: 93308; 93970

== ENCOUNTER 2021-06-15 11:05 | Outpatient (CLI) | payer MEDICARE, SELFPAY ==
[2021-06-15 12:18] LABS: Absolute Neutrophil Count 4.7 X10^3/uL (2.0-7.7); Basophil# 0.04 X10^3/uL; Basophil% 0.5 % (0-1); Eosinophil# 0.18 X10^3/uL; Eosinophils% 2.1 % (0-5); Hematocrit 30.5 % (40-54); Lymphocyte % 34.9 % (19-41); Mean Corp Hgb Conc 32.8 g/dL (32-36); Mean Corpuscular Hgb 33.8 pg (27.0-32.0); Mean Platelet Vol. 8.9 fl (6.2-12.0); Monocyte# 0.63 X10^3/uL; Monocyte% 7.3 % (0-10); NRBC Flagged by Analyzer 0 % (0-5); Neutrophil # 4.72 X10^3/uL (2.7-7.7); Neutrophil % 54.9 % (47-70); Platelet Count 255 K/mm3 (150-450); RBC Distribution Width CV 17.6 % (11.6-14.6); RBC Distribution Width SD 63.2 fl (35.1-43.9); Red Blood Count 2.96 M/mm3 (4.6-6.2); White Blood Count 8.6 K/mm3 (4.4-11.0)
[2021-06-15 13:03] LABS: ALB/GLOB Ratio 0.5 RATIO (0.9-2.4); AST(SGOT) 14 U/L (15-37); Alanine Aminotransfer ALT/SGPT 21 U/L (16-61); Albumin, Serum 2.8 g/dL (3.2-5.0); Alkaline Phosphatase 89 U/L (45-117); Anion Gap 7 (5-15); BUN 16 mg/dL (7-18); BUN/Creat Ratio 2.8 RATIO (10-20); Calcium,Total 9.2 mg/dL (8.5-10.1); Chloride 100 mmol/L (98-107); Creatinine, Serum 5.69 mg/dL (0.70-1.30); EST Glomerular Filtration Rate 10 mL/min (>60); Est Glom Filt Rate - Afr Amer 12 mL/min (>60); Ferritin 895 ng/mL (26-388); Globulin 5.7 g/dL (2.2-4.2); Glucose 109 mg/dL (74-106); Iron 57 ug/dL (65-175); Iron Binding Capacity,Total 215 ug/dL (250-450); Magnesium 2.2 mg/dL (1.6-2.6); Potassium 3.9 mmol/L (3.5-5.1); Protein, Total 8.5 g/dL (6.4-8.2); Sodium Level 139 mmol/L (136-145); T4 Free Direct 0.86 ng/dL (0.76-1.46); Thyroid Stim Hormone (TSH) 3.38 uIU/mL (0.358-3.74)
== END 2021-06-15 23:59 | disposition short-term general hospital (02) ==
LOC: MFPLAB 11:09
PROVIDERS: PCP Family Medicine; Referring Provider Family Medicine; Visit Provider Family Medicine
DX: I48.91 Unspecified atrial fibrillation (principal); N18.6 End stage renal disease; E61.1 Iron deficiency; E03.8 Other specified hypothyroidism
CPT/HCPCS: 36415; 80053; 82652; 82728; 83540; 83550; 83735; 84439; 84443; 85025

== ENCOUNTER 2021-06-22 08:43 | Outpatient (CLI) | payer MEDICARE, SELFPAY ==
--- NOTE | 2021-06-22 08:47 | RAD_ITS ---
STUDY: X-RAY - UNILATERAL RIBS ( RIGHT ) REASON FOR EXAM: Male, 85 years old. Pain. TECHNIQUE: 4. view(s) of the ribs. COMPARISON: None. FINDINGS: There is demineralization of the osseous structures. There is anterior ninth rib fracture. The visualized lung is clear and expanded. There is central catheter extending to the right atrium. There is right upper abdominal calcifications. RAD/Ribs Unil 2V No CXR IMPRESSION: Right ninth rib fracture. No pneumothorax seen. Electronically Signed: Eugenio Guzmán MD at 10:12 EST ,
== END 2021-06-22 23:59 | disposition short-term general hospital (02) ==
PROVIDERS: PCP Family Medicine; Referring Provider Family Medicine; Visit Provider Family Medicine
DX: S22.31XA Fracture of one rib, right side, initial encounter for closed fracture (principal)
CPT/HCPCS: 71100

== ENCOUNTER → 2021-10-10 | Outpatient (CLI) | payer MEDICARE, SELFPAY ==
[2021-10-10 12:19] LABS: Absolute Lymphocyte Count 2.37 X10^3/uL (0.83-4.51); Absolute Neutrophil Count 4.3 X10^3/uL (2.0-7.7); Basophil# 0.03 X10^3/uL; Basophil% 0.4 % (0-1); Eosinophil# 0.23 X10^3/uL; Eosinophils% 3.1 % (0-5); Hematocrit 35.2 % (40-54); Hemoglobin 11.1 g/dL (13.0-16.5); Lymphocyte # 2.37 X10^3/ul (0.83-4.51); Lymphocyte % 31.7 % (19-41); Mean Corp Hgb Conc 31.5 g/dL (32-36); Mean Corpuscular Hgb 32.6 pg (27.0-32.0); Mean Corpuscular Volume 103.5 fL (80-94); Mean Platelet Vol. 8.9 fl (6.2-12.0); Monocyte# 0.56 X10^3/uL; Monocyte% 7.5 % (0-10); NRBC Flagged by Analyzer 0 % (0-5); Neutrophil # 4.26 X10^3/uL (2.7-7.7); Neutrophil % 56.9 % (47-70); POSITIVE MORPHOLOGY YES; Platelet Count 217 K/mm3 (150-450); RBC Distribution Width CV 19.4 % (11.6-14.6); RBC Distribution Width SD 71.8 fl (35.1-43.9); White Blood Count 7.5 K/mm3 (4.4-11.0)
[2021-10-10 12:30] LABS: Vitamin D,25 Hydroxy 65.8 ng/mL
[2021-10-10 12:40] LABS: ALB/GLOB Ratio 0.5 RATIO (0.9-2.4); AST(SGOT) 13 U/L (15-37); Alanine Aminotransfer ALT/SGPT 19 U/L (16-61); Albumin, Serum 2.8 g/dL (3.2-5.0); Alkaline Phosphatase 97 U/L (45-117); Anion Gap 4 (5-15); BUN 16 mg/dL (7-18); BUN/Creat Ratio 2.8 RATIO (10-20); Calcium,Total 9.2 mg/dL (8.5-10.1); Chloride 104 mmol/L (98-107); Creatinine, Serum 5.67 mg/dL (0.70-1.30); EST Glomerular Filtration Rate 10 mL/min (>60); Est Glom Filt Rate - Afr Amer 12 mL/min (>60); Ferritin 1030 ng/mL (26-388); Globulin 5.6 g/dL (2.2-4.2); Glucose 117 mg/dL (74-106); Iron 62 ug/dL (65-175); Iron Binding Capacity,Total 202 ug/dL (250-450); Magnesium 2.1 mg/dL (1.6-2.6); Potassium 4.8 mmol/L (3.5-5.1); Protein, Total 8.4 g/dL (6.4-8.2); Sodium Level 140 mmol/L (136-145); T4 Free Direct 0.84 ng/dL (0.76-1.46); Thyroid Stim Hormone (TSH) 2.56 uIU/mL (0.358-3.74)
[2021-10-10 12:59] LABS: Differential Comment SCANNED; Differential Indicated SCAN CRITERIA MET
[2021-10-10 13:00] LABS: Anisocytosis 2+; Hypochromasia 2+
== END | disposition home or self-care (01) ==
LOC: MFPLAB 10:30
PROVIDERS: PCP Family Medicine; Visit Provider Family Medicine
DX: I48.91 Unspecified atrial fibrillation (principal); E61.1 Iron deficiency; E03.8 Other specified hypothyroidism; E55.9 Vitamin D deficiency, unspecified
CPT/HCPCS: 36415; 80053; 82306; 82728; 83540; 83550; 83735; 84439; 84443; 85025